=== PATIENT | female | born 1930 | race African-American/Black ===

== ENCOUNTER 2016-05-24 05:22 | Day surgery (SDC) | payer MEDICARE ==
[~2016-05-24 05:22] MED LIST: CEFAZOLIN 1 GM/D5W RTU 1 GM/50 ML RTUPB IV SCH; CEFAZOLIN SODIUM 1 GM in DEXTROSE 5%-WATER 50 ML IV SCH
[2016-05-24 06:10] LABS: HEMATOCRIT 35.4 % (36.0-47.0); HEMOGLOBIN 11.5 g/dL (12.0-15.5); HGB HCT DIFFERENCE -0.9; MEAN CORPUSCULAR HEMOGLOBIN 25.8 pg (27.0-33.4); MEAN CORPUSCULAR HGB CONC 32.6 g/dL (32.0-36.0); MEAN CORPUSCULAR VOLUME 79 fl (80-97); RED BLOOD COUNT 4.47 10^6/uL (3.72-5.28); RED CELL DISTRIBUTION WIDTH 20.6 % (11.5-14.0); WHITE BLOOD COUNT 5.9 10^3/uL (4.0-10.5)
[2016-05-24 06:25] LABS: ANION GAP 16 (5-19); BLOOD UREA NITROGEN 49 mg/dL (7-20); CALCIUM 10.4 mg/dL (8.4-10.2); CARBON DIOXIDE 24 mmol/L (22-30); CHLORIDE 102 mmol/L (98-107); CREATININE RESULT 4.05 mg/dL (0.52-1.25); GLUCOSE 87 mg/dL (75-110); POTASSIUM 3.9 mmol/L (3.6-5.0); SODIUM 141.9 mmol/L (137-145)
[2016-05-24] MEDS ORDERED: LIDOCAINE 1% INJ-PF (10 MG/ML) 30 ML SDV ONE (06:40)
[2016-05-24] MEDS ORDERED: BUPIVACAINE HCL 0.25 % INJ/PF (2.5 MG/1 ML) 30 ML VIAL ONE (06:41)
[2016-05-24] MEDS ORDERED: LIDOCAINE 0.5% INJ-PF (5 MG/ML) 50 ML SDV ONE (06:41)
[2016-05-24] MEDS ORDERED: BACITRACIN INJ 50,000 UNIT VIAL ONE (06:41)
[2016-05-24] MEDS ORDERED: HEPARIN SOD (PORCINE) 1,000 UNIT/ML 10 ML VIAL ONE (06:41)
[2016-05-24] MEDS ORDERED: ONDANSETRON HCL INJ/PF 4 MG/2 ML SDV ONE (07:06)
[2016-05-24] MEDS ORDERED: PROPOFOL INJ 200 MG/20 ML VIAL IV ONE ×3 (07:06→10:36)
[2016-05-24] MEDS ORDERED: FENTANYL CITRATE INJ/PF 100 MCG/2 ML AMPUL ONE ×2 (07:06→10:35)
[2016-05-24] MEDS ORDERED: CEFAZOLIN INJ 1 GM VIAL ONE ×2 (07:42→08:22)
[2016-05-24] MEDS ORDERED: FENTANYL CITRATE INJ/PF 100 MCG/2 ML AMPUL IV PRN ×2 (08:51)
[2016-05-24] MEDS ORDERED: MEPERIDINE HCL/PF INJ 25 MG/1 ML DISP.SYRIN IV PRN (08:51)
[2016-05-24] MEDS ORDERED: ONDANSETRON HCL INJ/PF 4 MG/2 ML SDV IV PRN (08:51)
[2016-05-24] MEDS ORDERED: DIPHENHYDRAMINE HCL 50 MG/ML VIAL IV PRN (08:51)
--- NOTE | 2016-05-24 11:20 | PDOC DISCHARGE SUMMARY ---
Discharge Summary (SDC) - Discharge Final Diagnosis: #1 AV fistula right arm, brachial to brachial. #2 end-stage renal disease needing hemodialysis. #3 hypertension. Date of Surgery: 05/24/16 Discharge Date: 05/24/16 Condition: Fair Treatment or Instructions: #1 activities within moderation encouraged. #2 follow up in my office by appointment in about 1 week. Call for appointment. #3 the wounds covered clean and dry until office visit. Empty and recharge drain as needed. Instructed patient and family in use. #4 hold off on school/work until evaluation in office. #5 may shower in 48 hours, keep operated area as dry as possible. #6 discharge from ambulatory when ASU criteria met. #7 medications per medication reconciliation sheet. #8 Percocet by prescription.. Also may have one Percocet up to every 4 hours when necessary for pain greater than 4 out of 10 while in the ASU Prescriptions: Oxycodone HCl/Acetaminophen [Percocet 5-325 mg Tablet] 1 tab PO ASDIR PRN #15 tab PRN Reason: Discharge Diet: Other (Comments) - Renal Respiratory Treatments at Home: Deep Breathing/Coughing Report the Following to Your Physician Immediately: Unusual Bleeding
--- NOTE | 2016-05-24 12:05 | EKG REPORT ---
SEVERITY:- ABNORMAL ECG - SINUS RHYTHM PROBABLE LEFT ATRIAL ABNORMALITY LEFT VENTRICULAR HYPERTROPHY ST ELEVATION SUGGESTS PERICARDITIS : Confirmed by: Estrellita Fitzgerald MD 24-May-2016 12:05:10
[2016-05-24 13:24] VITALS: BP 146/79
--- NOTE | 2016-05-24 14:52 | Operative Report ---
Operative Report DATE OF SURGERY: 05/24/16 PREOPERATIVE DIAGNOSIS: #1 AV fistula right arm, brachial to brachial. #2 end- stage renal disease needing hemodialysis. #3 hypertension. POSTOPERATIVE DIAGNOSIS: #1 AV fistula right arm, brachial to brachial. #2 end- stage renal disease needing hemodialysis. #3 hypertension. OPERATION: Insertion of right arm brachial to brachial transposed fistula, second stage. SURGEON: TIKA SANTOYO PAINTER DECORATOR: DIOGENES SOMERS ANESTHESIA: LMAC TISSUE REMOVED OR ALTERED: Not applicable. COMPLICATIONS: None ESTIMATED BLOOD LOSS: 20 mL. INTRAOPERATIVE FINDINGS: Of a quite robust brachial vein fistula easily about 7 mm in diameter. Transposed laterally with good immediate function. Very satisfactory hemostasis. Nerves were preserved. A drain left in place as a precaution. PROCEDURE: Operative Report PROCEDURE: After reviewing the procedure with the patient, and her family, she was taken to the operating room. The patient was sedated and the right upper extremity prepared with chlorhexidine and draped out with sterile linen. After the "" universal timeout", in which it was verified that the patient [received IV antibiotics] the procedure commenced. The sterilely sheathed ultrasound probe was used to evaluate the size and topographic location of the existing veins. The fistula function was noted. This was transcribed topographical using a marking pen. Local anesthesia was infiltrated and a longitudinal incision started just above the elbow and dissection proceeded down to the vein. Sequential infiltration of local anesthesia, incision and dissection of the vein proceeded up to the axillary fold. The brachial vein was now dissected away from its branches which were either clipped and/or ligated and divided. In this way the brachial vein was freed up for its entire visible length. Its length was now measured with a dry umbilical tape which was used to transpose a tunnel onto the skin anteriorly and laterally. With this marked in ink, local anesthesia was infiltrated in the skin and subcutaneous tissue of the tunnel. A [place] tunneler was now inserted and the tunnel exposed. Serial sutures of 3-0 PDS were placed at about 3 cm intervals and placed on clamps. These gave lateral traction. Cautery was now used to incise the subcutaneous tissues so as to reveal the [place] tunneler. The length of the basilic vein was now shifted into the tunnel and sustained there by interrupted sutures of 3-0 PDS placed from the subcutaneous tissue on one side of the tunnel to the other. Once this was done the lateral flap was now approximated to the medial flap using interrupted sutures of 3-0 PDS. The fistula was interrogated from time to time to make sure that it was patent. A 15 Salvadorean Silvano drain was placed deep in the wound and exiting inferiorly the it was sutured using 2-0 Prolene. The skin was closed with a continuous subcutaneous suture of 4-0 Monocryl. Steri-Strips were applied over benzoin and then a Kerlix wrap. The procedure was concluded. Copies dictated operative report to Dr. Tika Tejeda MD thank you. DICTATING PHYSICIAN: TIKA TEJEDA M.D
--- NOTE | 2016-05-24 15:15 | Operative Report ---
Operative Report DATE OF SURGERY: 05/24/16 PREOPERATIVE DIAGNOSIS: #1 AV fistula right arm, brachial to brachial. #2 end- stage renal disease needing hemodialysis. #3 hypertension. POSTOPERATIVE DIAGNOSIS: #1 AV fistula right arm, brachial to brachial. #2 end- stage renal disease needing hemodialysis. #3 hypertension. OPERATION: Insertion of right arm brachial to brachial transposed fistula, second stage. SURGEON: TIKA SANTOYO ELECTRICIAN SUBSTATION SUPERVISOR: DIOGENES SOMERS ANESTHESIA: LMAC TISSUE REMOVED OR ALTERED: Not applicable. ESTIMATED BLOOD LOSS: 20 mL. INTRAOPERATIVE FINDINGS: Of a quite robust brachial vein fistula easily about 7 mm in diameter. Transposed laterally with good immediate function. Very satisfactory hemostasis. Nerves were preserved. A drain left in place as a precaution. PROCEDURE: The first mate aided with tissue retraction, control of bleeding and wound closure. As well as the steps of the porcedure.
== END 2016-05-24 13:00 | disposition home or self-care (01) ==
LOC: OROUT 05:22
PROVIDERS: ATTEND Surgery
PROC: 05S90ZZ Reposition Right Brachial Vein, Open Approach (ICD-10-PCS; principal; 2016-05-24 08:00)
DX: T82.858A Stenosis of other vascular prosthetic devices, implants and grafts, initial encounter (principal); Y83.2 Surgical operation with anastomosis, bypass or graft as the cause of abnormal reaction of the patient, or of later complication, without mention of misadventure at the time of the procedure; I12.0 Hypertensive chronic kidney disease with stage 5 chronic kidney disease or end stage renal disease; N18.6 End stage renal disease; Z99.2 Dependence on renal dialysis; E87.5 Hyperkalemia; M19.90 Unspecified osteoarthritis, unspecified site; Z87.39 Personal history of other diseases of the musculoskeletal system and connective tissue; Z79.899 Other long term (current) drug therapy
CPT/HCPCS: 36821; 36415; 85027; 80048; 71010; 93005; 93010; J3490 ×3; J0690; J3010; J1644; J2405; J2704; 1844

== ENCOUNTER 2016-11-01 08:47 | Day surgery (SDC) | payer MEDICARE ==
[2016-11-01] MEDS ORDERED: HEPARIN SOD (PORCINE) 5,000 UNIT/ML 1 ML SYRINGE ONE (10:10)
[2016-11-01] MEDS ORDERED: LIDOCAINE 0.5% INJ-PF (5 MG/ML) 50 ML SDV ONE (10:10)
[2016-11-01] MEDS ORDERED: FENTANYL CITRATE INJ/PF 100 MCG/2 ML AMPUL ONE (10:45)
[2016-11-01] MEDS ORDERED: MIDAZOLAM 2 MG/2 ML INJ ONE (10:45)
--- NOTE | 2016-11-01 10:55 | PDOC H&P ---
General Chief Complaint: The patient has right arm transposed basilic vein fistula has been malfunctioning. She is referred across for angiogram and possible angioplasty. - Current Medications/Allergies Home Medications: Tramadol HCl 50 mg PO BID 07/16/14 Clonidine HCl 0.3 mg PO BID 05/24/16 Docusate Sodium [Colace 100 mg Capsule] 100 mg PO DAILY 05/24/16 Hydrochlorothiazide 12.5 mg PO DAILY 05/24/16 Cinacalcet HCl [Sensipar 30 mg Tablet] 1 tab PO DAILY 11/01/16 Sevelamer Carbonate [Renvela] 1 pkt PO BID 11/01/16 Allergies/Adverse Reactions: No Known Allergies Allergy (Verified 03/17/16 09:49) Past Medical History Cardiac Medical History: Reports: Hypertension Denies: Coronary Artery Disease, Myocardial Infarction Pulmonary Medical History: Denies: Asthma, Bronchitis, Chronic Obstructive Pulmonary Disease (COPD), Pneumonia, Tuberculosis Neurological Medical History: Denies: Seizures Musculoskeltal Medical History: Reports: Arthritis, Gout Hematology: Reports: Anemia Past Surgical History Past Surgical History: Reports: Hysterectomy, Tonsillectomy Denies: Pacemaker Family History Family History: Hyperlipidemia, Hypertension Parental Family History Reviewed: No Children Family History Reviewed: No Sibling(s) Family History Reviewed.: No Social History Smoking Status: Former Smoker Frequency of Alcohol Use: None Hx Recreational Drug Use: No Hx Prescription Drug Abuse: No Physical Exam Vital Signs: Temp Pulse Resp BP Pulse Ox 98.3 F 80 20 179/76 H 100 11/01/16 09:49 11/01/16 09:49 11/01/16 09:49 11/01/16 09:49 11/01/16 09:49 Intake & Output 10/31/16 11/01/16 11/02/16 06:59 06:59 06:59 Weight 48.3 kg Additional comments: Constitutional: Well-developed well-nourished -Danish Lady. No apparent acute distress. Eyes: Mucous membranes pink and moist, pupils equal and reactive to light. Conjunctiva normal. Cornea normal. ENT: Hearing grossly normal. External pinna normal to inspection. Teeth intact. Tongue normal to inspection. Cardiac: Heart sounds 1 and 2 normal. No murmurs. Respiratory breath sounds are present bilaterally, normal. Normal respiratory effort. Skin: Normal to inspection. No ulcers, normal turgor. Psychiatric: Judgment, memory, insight seem normal. Mood is pleasant and appropriate. Extremities: Upper extremities show normal range of movement. Pulses present noted to the radial arteries. Capillary refill normal. No cyanosis noted. No muscle wasting noted. Right arm transposed basilic fistula firm. Lower extremities show normal range of movement. Pulses present noted to the dorsalis pedis artery. Capillary refill normal. No cyanosis noted. No muscle wasting noted. Impression/Plan Impression: #1 Malfunctioning AV fistula. #2 ESRD. #3 Hypertension. Plan: Fistula angio, poss angioplasty. Pateint is agreeable.
--- NOTE | 2016-11-01 11:53 | PDOC DISCHARGE SUMMARY ---
Discharge Summary (SDC) - Discharge Final Diagnosis: #1 Malfunctioning AV fistula. #2 ESRD. #3 Hypertension. Date of Surgery: 11/01/16 Discharge Date: 11/01/16 Condition: Good Treatment or Instructions: Discharge home [after recovery per ASU criteria]. Diet , [renal],as tolerated, when fully awake advance as tolerated. Activities within moderation encouraged. Follow up in my office by appointment in about [1 week]. Call for appointment. Leave wounds [covered], [keep clean and dry, until hemodialysis.. Meds per med rec. May shower [in 48 hrs], [try to keep operated area as dry as possible]. Discharge Diet: Other (Comments) - Renal Respiratory Treatments at Home: Deep Breathing/Coughing Discharge Activity: Activity As Tolerated Report the Following to Your Physician Immediately: Shortness of Breath, Unusual Bleeding
--- NOTE | 2016-11-01 11:58 | Operative Report ---
Operative Report DATE OF SURGERY: 11/01/16 PREOPERATIVE DIAGNOSIS: #1 Malfunctioning AV fistula. #2 ESRD. #3 Hypertension. POSTOPERATIVE DIAGNOSIS: #1 Malfunctioning AV fistula. Post angioplasty. #2 ESRD. #3 Hypertension. OPERATION: 1. Needle access into arteriovenous fistula right transposed basilic. 2. Peripheral arterial venous angioplasty. 3. Central superior vena cava angioplasty. 4. Angiogram and interpretation. SURGEON: TIKA SANTOYO BUSINESS SERVICES SPECIALIST SALES: None ANESTHESIA: Moderate Sedation TISSUE REMOVED OR ALTERED: Not applicable. COMPLICATIONS: None ESTIMATED BLOOD LOSS: 2 mL. INTRAOPERATIVE FINDINGS: Of a fairly firm fistula initially, much appropriately softer after angioplasty. A stenosis of 50 mm at 15 cm of about half a centimeter length, 70% of the adjacent lumen was completely eradicated, as well as the 80% stenosis at the right subclavian, superior vena cava junction. Hard copy documentation preserved. Both corrected by angioplasty with an 8 mm angioplasty balloon. PROCEDURE: PROCEDURE: After verifying the procedure and having obtained informed consent, the patient's right arm was prepared with Chlorhexidine and draped out with sterile linen. Local anesthesia infiltrated. Percutaneous access into the fistula ,[ antegrade], obtained about [4 cm] from the arteriovenous anastomosis using a 18-gauge needle a 0.035 [place] wire was inserted, and over this, a 6 Hebrew short introducer was placed. Angiogram was done demonstrating the above findings. This was followed by a [8 mm] angioplasty balloon . Angioplasty was Done at the superior vena cava stenosis inflating using a 3 mils syringe for 2 minutes. Completion angiogram demonstrated eradication of the stenosis. The balloon was now withdrawn and inflation done using a female syringe at the peripheral culprit lesion. Complete resolution noted..]. Completion angiogram demonstrated [satisfactory result]. The instrumentation was now withdrawn over a short piece of catheter and a 5-0 Prolene suture. Dressings applied, procedure concluded. Exposure time: 1.6 minute Radiation: 3.2 mcg santos per centimeter squared Contrast: 25 mL of Isovue-300, low osmolality. DICTATING PHYSICIAN: TIKA BAKER M.D. cc: TIKA BAKER M.D. ([id number]) >>
[2016-11-01] MEDS ORDERED: OXYCODONE-ACETAMINOPHEN 5-325 MG TABLET ONE (12:20)
[2016-11-01 13:58] VITALS: BP 153/67
--- NOTE | 2016-11-01 14:36 | RADIOLOGY REPORT (SQ) ---
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 FLUOROSCOPY TIME: 1.6 minutes. 17 images saved to PACS. TECHNIQUE: Intra-operative images acquired during surgical procedure to evaluate progress. NUMBER OF IMAGES: 17 images. LIMITATIONS: None. FINDINGS: Imaging in fluoroscopy during right upper extremity dialysis access evaluation and plasty by Dr. Tejeda . Please refer to the operative report for further details. IMPRESSION: INTRA PROCEDURAL IMAGING ABOVE . COMMENT: Quality ID [id number]: Final reports for procedures using fluoroscopy that document radiation exp osure indices, or exposure time and number of fluorographic images (if radiation exposure indices are not available) Please consult full operative report of the attending physician for description of the procedure. TECHNICAL DOCUMENTATION: JOB ID: [id number] [employer]- All Rights Reserved
== END 2016-11-01 13:12 | disposition home or self-care (01) ==
LOC: SC 08:47
PROVIDERS: ATTEND Surgery
PROC: 057B3DZ Dilation of Right Basilic Vein with Intraluminal Device, Percutaneous Approach (ICD-10-PCS; principal; 2016-11-01)
DX: T82.858A Stenosis of other vascular prosthetic devices, implants and grafts, initial encounter (principal); Y83.2 Surgical operation with anastomosis, bypass or graft as the cause of abnormal reaction of the patient, or of later complication, without mention of misadventure at the time of the procedure; I12.0 Hypertensive chronic kidney disease with stage 5 chronic kidney disease or end stage renal disease; N18.6 End stage renal disease; Z99.2 Dependence on renal dialysis; M19.90 Unspecified osteoarthritis, unspecified site; D64.9 Anemia, unspecified; M10.9 Gout, unspecified; Z79.891 Long term (current) use of opiate analgesic; Z79.899 Other long term (current) drug therapy; Z87.891 Personal history of nicotine dependence
CPT/HCPCS: 36907; 36902; C1725; Q9967; C1769; J2250; J1644 ×2; J3010; J3490; A9270

== ENCOUNTER → 2017-03-21 | Outpatient (CLI) | payer MEDICARE ==
--- NOTE | 2017-03-21 09:07 | RADIOLOGY REPORT (SQ) ---
EXAM DESCRIPTION: SHOULDER RIGHT 2 OR MORE VIEWS COMPLETED DATE/TIME: 03/21/2017 8:26 am REASON FOR STUDY: PAIN IN RIGHT ARM M79.601 PAIN IN RIGHT ARM COMPARISON: None. NUMBER OF VIEWS: Three views. TECHNIQUE: Internal rotation, external rotation, and Y view images acquired of the right shoulder. LIMITATIONS: None. FINDINGS: MINERALIZATION: Normal. BONES: No acute fracture or dislocation. No worrisome bone lesions. No significant osteophytes. GLENOHUMERAL JOINT: No significant findings. ACROMIOCLAVICULAR JOINT: There is joint space narrowing and small osteophytes. SOFT TISSUES: No calcifications. VISUALIZED RIBS, SPINE, AND LUNG: No other significant finding. OTHER: There are surgical clips in the axilla and along the upper right arm. IMPRESSION: Mild degenerative changes. No acute findings. TECHNICAL DOCUMENTATION: JOB ID: [id number] [employer]- All Rights Reserved
== END ==
LOC: OD 08:10
PROVIDERS: ATTEND Surgery
DX: M79.601 Pain in right arm (principal)

== ENCOUNTER 2017-04-04 10:52 | Day surgery (SDC) | payer MEDICARE, MEDICAID ==
[~2017-04-04 10:52] MED LIST changes: -CEFAZOLIN 1 GM/D5W RTU 1 GM/50 ML RTUPB IV SCH; -CEFAZOLIN SODIUM 1 GM in DEXTROSE 5%-WATER 50 ML IV SCH; +DIAZEPAM 5 MG TABLET PO PRN; +OXYCODONE-ACETAMINOPHEN 5-325 MG TABLET PO PRN
[2017-04-04] MEDS ORDERED: LIDOCAINE 0.5% INJ-PF (5 MG/ML) 50 ML SDV ONE (11:41)
[2017-04-04] MEDS ORDERED: MIDAZOLAM 2 MG/2 ML INJ ONE (11:42)
[2017-04-04] MEDS ORDERED: HEPARIN SOD (PORCINE) 5,000 UNIT/ML 1 ML SYRINGE ONE (11:42)
[2017-04-04] MEDS ORDERED: FENTANYL CITRATE INJ/PF 100 MCG/2 ML AMPUL ONE (11:42)
[2017-04-04 12:06] LABS: HEMATOCRIT 36.1 % (36.0-47.0); HEMOGLOBIN 11.7 g/dL (12.0-15.5); MEAN CORPUSCULAR HEMOGLOBIN 27.5 pg (27.0-33.4); MEAN CORPUSCULAR HGB CONC 32.5 g/dL (32.0-36.0); MEAN CORPUSCULAR VOLUME 85 fl (80-97); PLATELET COUNT 322 10^3/uL (150-450); RED BLOOD COUNT 4.26 10^6/uL (3.72-5.28); RED CELL DISTRIBUTION WIDTH 16.9 % (11.5-14.0)
[2017-04-04 12:17] LABS: ANION GAP 18 (5-19); BLOOD UREA NITROGEN 57 mg/dL (7-20); CARBON DIOXIDE 21 mmol/L (22-30); CHLORIDE 107 mmol/L (98-107); GLUCOSE 90 mg/dL (75-110); POTASSIUM 4.8 mmol/L (3.6-5.0); SODIUM 145.6 mmol/L (137-145)
[2017-04-04 12:46] LABS: ABSOLUTE LYMPHOCYTES# (MANUAL) 1.2 10^3/uL (0.5-4.7); ABSOLUTE MONOCYTES # (MANUAL) 0.6 10^3/uL (0.1-1.4); ABSOLUTE NEUTROPHILS# (MANUAL) 4.8 10^3/uL (1.7-8.2); ANISOCYTOSIS 1+; BASOPHILS % (MANUAL) 1 % (0-2); EOSINOPHILS % (MANUAL) 4 % (0-6); LYMPHOCYTES % (MANUAL) 17 % (13-45); MONOCYTES % (MANUAL) 9 % (3-13); OVALOCYTES 1+; PLATELET COMMENT ADEQUATE; POIKILOCYTOSIS 1+; SEGMENTED NEUTROPHILS % (MAN) 69 % (42-78); TOTAL CELLS COUNTED 100
--- NOTE | 2017-04-04 13:12 | PDOC DISCHARGE SUMMARY ---
Discharge Summary (SDC) - Discharge Final Diagnosis: #1 malfunctioning arteriovenous fistula. 2. End-stage renal disease on hemodialysis. 3. Multiple comorbidities. Date of Surgery: 04/04/17 Discharge Date: 04/04/17 Condition: Fair Treatment or Instructions: Discharge home [after recovery per ASU criteria]. Diet , [renal],as tolerated, when fully awake advance as tolerated. Activities within moderation encouraged. Follow up in my office by appointment in about [1 month. Call for appointment. Leave wounds [covered], [keep clean and dry, until hemodialysis]. Meds per med rec. May shower [in 48 hrs], [try to keep operated area as dry as possible]. Referrals: EFREN ROMAN MD [Primary Care Provider] - Discharge Diet: Other (Comments) - Renal. Respiratory Treatments at Home: Deep Breathing/Coughing Discharge Activity: Activity As Tolerated Report the Following to Your Physician Immediately: Shortness of Breath, Unusual Bleeding
--- NOTE | 2017-04-04 13:15 | Operative Report ---
Operative Report DATE OF SURGERY: 04/04/17 PREOPERATIVE DIAGNOSIS: #1 malfunctioning arteriovenous fistula. 2. End-stage renal disease on hemodialysis. 3. Multiple comorbidities. POSTOPERATIVE DIAGNOSIS: #1 malfunctioning arteriovenous fistula. Post angioplasty. 2. End-stage renal disease on hemodialysis. 3. Multiple comorbidities. OPERATION: 1. Needle access into right arm transposed basilic fistula. 2. Angioplasty. 3. Angiogram and interpretation. SURGEON: TIKA SANTOYO PADDED PRODUCTS INSPECTOR TRIMMER: None ANESTHESIA: Moderate Sedation TISSUE REMOVED OR ALTERED: Not applicable. COMPLICATIONS: None. ESTIMATED BLOOD LOSS: 2 mL. INTRAOPERATIVE FINDINGS: Of a well founded although firm fistula. Concordant with the findings of 90% stenosis for about a centimeter long and about 20 cm from the anastomosis. With an adjacent collateral indicating hemodynamic significance. A mild area of stenosis noted in the superior vena cava, does not seem to be clinically significant. Post angiogram shows good resolution with rebound less than 5%. In the future a somewhat larger balloon possibly 8 mm may be indicated possibly even a drug-eluting balloon. PROCEDURE: PROCEDURE: After verifying the procedure and having obtained informed consent, the patient's right arm was prepared with Chlorhexidine and draped out with sterile linen. Local anesthesia infiltrated. Percutaneous access into the fistula ,[ antegrade], obtained about [4 cm] from the arteriovenous anastomosis using a micro puncture needle followed by micro puncture wire and then a micro puncture catheter. A 0.035 [place] wire was inserted, and over this, a 6 Angolan short introducer was placed.Angiogram demonstrated the aforementioned findings. Angioplasty was elected. This was followed by a [7-mm] angioplasty balloon . Angioplasty was Done at the culprit segment. Inflating using a 3 mils syringe for 2 minutes. This was repeated.]. Completion angiogram demonstrated [satisfactory result]. The instrumentation was now withdrawn over hand pressure for 10 minutes. Dressings applied, procedure concluded. Exposure time: 0.4 minutes Radiation: 5.6 mCi Contrast: 20 mL of Isovue-300, low osmolality. DICTATING PHYSICIAN: TIKA BAKER M.D. cc: TIKA BAKER M.D. ([id number]) >>
[2017-04-04 14:37] VITALS: BP 179/84
--- NOTE | 2017-04-04 16:42 | RADIOLOGY REPORT (SQ) ---
EXAM DESCRIPTION: FISTULAGRAM W/PLASTY COMPLETED DATE/TIME: 04/04/2017 3:10 pm REASON FOR STUDY: T82.858A M79.601 PAIN IN RIGHT ARM T82.858A STENOSIS OF OTHER VASCULAR PROSTH DE V/GRFT, INIT COMPARISON: None. FLUOROSCOPY TIME: 0.4 minutes. 16 images saved to PACS. TECHNIQUE: Intra-operative images acquired during surgical procedure to evaluate progress. NUMBER OF IMAGES: 16 images. LIMITATIONS: None. FINDINGS: Imaging in fluoroscopy during right upper extremity dialysis access evaluation and plasty by Dr. Tejeda . Please refer to the operative report for further details. IMPRESSION: INTRA PROCEDURAL IMAGING ABOVE . COMMENT: Quality ID 145: Final reports for procedures using fluoroscopy that document radiation exp osure indices, or exposure time and number of fluorographic images (if radiation exposure indices are not available) Please consult full operative report of the attending physician for description of the procedure. TECHNICAL DOCUMENTATION: JOB ID: [id number] [employer]- All Rights Reserved
== END 2017-04-04 14:25 | disposition home or self-care (01) ==
LOC: CCL 10:52
PROVIDERS: ATTEND Surgery
PROC: 057B3DZ Dilation of Right Basilic Vein with Intraluminal Device, Percutaneous Approach (ICD-10-PCS; principal; 2017-04-04)
DX: T82.858A Stenosis of other vascular prosthetic devices, implants and grafts, initial encounter (principal); Y83.2 Surgical operation with anastomosis, bypass or graft as the cause of abnormal reaction of the patient, or of later complication, without mention of misadventure at the time of the procedure; I12.9 Hypertensive chronic kidney disease with stage 1 through stage 4 chronic kidney disease, or unspecified chronic kidney disease; N18.6 End stage renal disease; Z99.2 Dependence on renal dialysis; M19.90 Unspecified osteoarthritis, unspecified site; M79.601 Pain in right arm; E87.5 Hyperkalemia; Z87.39 Personal history of other diseases of the musculoskeletal system and connective tissue; Z79.899 Other long term (current) drug therapy
CPT/HCPCS: 36415; 85025; 80048; 36902; C1752; C1725; C1894; Q9967; C1769; J2250; J1644 ×2; A9270 ×2; J3010; J3490

== ENCOUNTER 2017-06-13 08:54 | Day surgery (SDC) | payer MEDICARE, MEDICAID ==
[~2017-06-13 08:54] MED LIST changes: -OXYCODONE-ACETAMINOPHEN 5-325 MG TABLET PO PRN
[2017-06-13 10:51] LABS: HEMATOCRIT 31.4 % (36.0-47.0); HEMOGLOBIN 10.2 g/dL (12.0-15.5); MEAN CORPUSCULAR HEMOGLOBIN 28.1 pg (27.0-33.4); MEAN CORPUSCULAR HGB CONC 32.5 g/dL (32.0-36.0); MEAN CORPUSCULAR VOLUME 87 fl (80-97); PLATELET COUNT 255 10^3/uL (150-450); RED BLOOD COUNT 3.62 10^6/uL (3.72-5.28); RED CELL DISTRIBUTION WIDTH 15.8 % (11.5-14.0); WHITE BLOOD COUNT 5.7 10^3/uL (4.0-10.5)
[2017-06-13] MEDS ORDERED: LIDOCAINE 0.5% INJ-PF (5 MG/ML) 50 ML SDV ONE (11:00)
[2017-06-13] MEDS ORDERED: MIDAZOLAM 2 MG/2 ML INJ ONE (11:00)
[2017-06-13] MEDS ORDERED: FENTANYL CITRATE INJ/PF 100 MCG/2 ML AMPUL ONE (11:01)
[2017-06-13] MEDS ORDERED: HEPARIN SOD (PORCINE) 5,000 UNIT/ML 1 ML SYRINGE ONE (11:01)
[2017-06-13 11:22] LABS: ANION GAP 13 (5-19); BLOOD UREA NITROGEN 48 mg/dL (7-20); CALCIUM 10.3 mg/dL (8.4-10.2); CARBON DIOXIDE 28 mmol/L (22-30); CHLORIDE 103 mmol/L (98-107); GLUCOSE 90 mg/dL (75-110); POTASSIUM 4.4 mmol/L (3.6-5.0); SODIUM 144.3 mmol/L (137-145)
--- NOTE | 2017-06-13 13:06 | Discharge Summary ---
Discharge Summary (SDC) - Discharge Final Diagnosis: #1 malfunctioning arteriovenous fistula, right basilic transposition. 2. End-stage renal disease on hemodialysis. 3. Hypertension. Date of Surgery: 06/13/17 Discharge Date: 06/13/17 Condition: Fair Treatment or Instructions: Discharge home [after recovery per ASU criteria]. Diet , [renal],as tolerated, when fully awake advance as tolerated. Activities within moderation encouraged. Follow up in my office by appointment in about 1 month call for appointment. Leave wounds [covered], [keep clean and dry, until hemodialysis. Meds per med rec. Hold of on school/work [until evaluation in office]. May shower [in 48 hrs], [try to keep operated area as dry as possible]. Referrals: EFREN ROMAN MD [Primary Care Provider] - Discharge Diet: Other (Comments) - Renal. Respiratory Treatments at Home: Deep Breathing/Coughing Discharge Activity: Activity As Tolerated Report the Following to Your Physician Immediately: Shortness of Breath, Unusual Bleeding
--- NOTE | 2017-06-13 13:11 | Operative Report ---
Operative Report DATE OF SURGERY: 06/13/17 PREOPERATIVE DIAGNOSIS: #1 malfunctioning arteriovenous fistula, right basilic transposition. 2. End-stage renal disease on hemodialysis. 3. Hypertension. POSTOPERATIVE DIAGNOSIS: #1 malfunctioning arteriovenous fistula, right basilic transposition. 2. End-stage renal disease on hemodialysis. 3. Hypertension. OPERATION: 1. Needle introduction of the fistula. 2. Balloon angioplasty and AV fistula. 3. Balloon angioplasty of AV fistula. 4. Angiogram and interpretation. SURGEON: TIKA SANTOYO TRAIN GATEMAN: None. ANESTHESIA: Moderate Sedation TISSUE REMOVED OR ALTERED: Not applicable. COMPLICATIONS: None. ESTIMATED BLOOD LOSS: 2 mL. INTRAOPERATIVE FINDINGS: Of an initially very firm fistula. Concordant with that his stenosis about 80% of the adjacent lumen noted for 3 cm from 26 cm from the anastomosis. Challenging to eradicate the waist however this was accomplished using an 8 mm angioplasty balloon. Pressures as high as 12 trevin. Further improvement with a new tonics, drug-eluting balloon inflating to 12 trevin for 3 minutes. Very satisfactory result with appropriate softening of the fistula. PROCEDURE: PROCEDURE: After verifying the procedure and having obtained informed consent, the patient's right arm was prepared with Chlorhexidine and draped out with sterile linen. Local anesthesia infiltrated. Percutaneous access into the fistula ,[ antegrade], obtained about [6 cm] from the arteriovenous anastomosis using a micro puncture needle followed by micro puncture wire and then a micro puncture catheter. Angiogram demonstrated the aforementioned findings. Angioplasty was elected. A 0.035 [place] wire was inserted, and over this, a 7 [place]uran short introducer was placed, this was followed by a [8-mm ] angioplasty balloon . Angioplasty was Done at the culprit area using a 3 mils syringe for 2 minutes. Results suboptimal. Inflating inflating using an insufflator up to 12 trevin for 2 minutes. The result is much improved. It was decided to use a drug-eluting balloon in this patient who has come back within 3 months with virtually identical lesion. A drug-eluting balloon was now inserted to the appropriate level and insufflated up to 12 trevin sustained for 3 minutes.]. Completion angiogram demonstrated [satisfactory result]. The instrumentation was now withdrawn over hand pressure for 10 minutes. Dressings applied, procedure concluded. Exposure time: 0.2 minutes. Radiation: 6.45 [place] santos. Contrast: 25 mils of Isovue-300, low osmolality. DICTATING PHYSICIAN: TIKA BAKER M.D. cc: TIKA BAKER M.D. ([id number]) >>
[2017-06-13 15:12] VITALS: BP 175/85
--- NOTE | 2017-06-13 15:20 | RADIOLOGY REPORT (SQ) ---
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 FLUOROSCOPY TIME: 0.2 minutes. 24 images saved to PACS. TECHNIQUE: Intra-operative images acquired during surgical procedure to evaluate progress. NUMBER OF IMAGES: 24 images. LIMITATIONS: None. FINDINGS: Imaging in fluoroscopy during right upper extremity dialysis access evaluation and plasty by Dr. Tejeda . Please refer to the operative report for further details. IMPRESSION: INTRA PROCEDURAL IMAGING ABOVE . COMMENT: Quality ID 145: Final reports for procedures using fluoroscopy that document radiation exp osure indices, or exposure time and number of fluorographic images (if radiation exposure indices are not available) Please consult full operative report of the attending physician for description of the procedure. TECHNICAL DOCUMENTATION: JOB ID: [id number] [employer]- All Rights Reserved Reading location - IP/workstation name: [email or web address]
== END 2017-06-13 15:45 | disposition home or self-care (01) ==
LOC: CCL 08:54
PROVIDERS: ATTEND Surgery
DX: T82.858A Stenosis of other vascular prosthetic devices, implants and grafts, initial encounter (principal); Y83.2 Surgical operation with anastomosis, bypass or graft as the cause of abnormal reaction of the patient, or of later complication, without mention of misadventure at the time of the procedure; I12.0 Hypertensive chronic kidney disease with stage 5 chronic kidney disease or end stage renal disease; N18.6 End stage renal disease; Z99.2 Dependence on renal dialysis; M19.90 Unspecified osteoarthritis, unspecified site; E87.5 Hyperkalemia; M79.601 Pain in right arm; Z87.39 Personal history of other diseases of the musculoskeletal system and connective tissue; Z79.899 Other long term (current) drug therapy; Z79.891 Long term (current) use of opiate analgesic
CPT/HCPCS: 36415; 85027; 80048; 36902; C1725; C1752; C1894; Q9967; C1769; J2250; J1644 ×2; J3010; J3490

== ENCOUNTER 2017-08-04 08:54 | Emergency (ER) | payer MEDICARE, MEDICAID ==
[2017-08-04 10:35] LABS: ABSOLUTE BASOPHILS # (AUTO) 0.1 10^3/uL (0.0-0.2); ABSOLUTE EOSINOPHILS # (AUTO) 0.1 10^3/uL (0.0-0.6); ABSOLUTE LYMPHOCYTES (AUTO) 0.9 10^3/uL (0.5-4.7); ABSOLUTE MONOCYTES (AUTO) 0.6 10^3/uL (0.1-1.4); ABSOLUTE NEUT (AUTO) 4.2 10^3/uL (1.7-8.2); BASOPHILS % (AUTO) 1.1 % (0-2); HEMATOCRIT 39.8 % (36.0-47.0); HEMOGLOBIN 12.8 g/dL (12.0-15.5); LYMPHOCYTES % (AUTO) 14.7 % (13-45); MEAN CORPUSCULAR HEMOGLOBIN 27.6 pg (27.0-33.4); MEAN CORPUSCULAR HGB CONC 32.3 g/dL (32.0-36.0); MEAN CORPUSCULAR VOLUME 86 fl (80-97); MONOCYTES % (AUTO) 10.9 % (3-13); PLATELET COUNT 222 10^3/uL (150-450); RED BLOOD COUNT 4.64 10^6/uL (3.72-5.28); RED CELL DISTRIBUTION WIDTH 15.3 % (11.5-14.0); SEGMENTED NEUTROPHILS % (AUTO) 71.3 % (42-78); TOTAL CELLS COUNTED % (AUTO) 100 %; WHITE BLOOD COUNT 5.9 10^3/uL (4.0-10.5)
--- NOTE | 2017-08-04 10:51 | RADIOLOGY REPORT (SQ) ---
EXAM DESCRIPTION: CHEST 2 VIEWS COMPLETED DATE/TIME: 08/04/2017 10:43 am REASON FOR STUDY: dialysis COMPARISON: Chest films 09/04/2014, 02/15/2016, 05/24/2016 EXAM PARAMETERS: NUMBER OF VIEWS: two views TECHNIQUE: Digital Frontal and Lateral radiographic views of the chest acquired. RADIATION DOSE: NA LIMITATIONS: Lateral film limited by patient motion FINDINGS: LUNGS AND PLEURA: No opacities, masses or pneumothorax. No pleural effusion. MEDIASTINUM AND HILAR STRUCTURES: No masses or contour abnormalities. HEART AND VASCULAR STRUCTURES: Moderate cardiomegaly, stable BONES: No acute findings. HARDWARE: None in the chest. OTHER: No other significant finding. IMPRESSION: Moderate cardiomegaly. No definite acute infiltrates TECHNICAL DOCUMENTATION: JOB ID: [id number] [employer]- All Rights Reserved Reading location - IP/workstation name: [email or web address]
[2017-08-04 10:57] LABS: ALANINE AMINOTRANSFERASE 28 U/L (9-52); ALBUMIN 3.9 g/dL (3.5-5.0); ALKALINE PHOSPHATASE 59 U/L (38-126); ANION GAP 16 (5-19); ASPARTATE AMINO TRANSFERASE 24 U/L (14-36); BILIRUBIN,DIRECT 0.6 mg/dL (0.0-0.4); BILIRUBIN,TOTAL 0.6 mg/dL (0.2-1.3); BLOOD UREA NITROGEN 61 mg/dL (7-20); CALCIUM 10.5 mg/dL (8.4-10.2); CARBON DIOXIDE 28 mmol/L (22-30); CHLORIDE 100 mmol/L (98-107); GLUCOSE 109 mg/dL (75-110); POTASSIUM 5.1 mmol/L (3.6-5.0); SODIUM 143.7 mmol/L (137-145); TOTAL PROTEIN 6.6 g/dL (6.3-8.2)
--- NOTE | 2017-08-04 11:49 | ER Document Report ---
ED General - General Chief Complaint: Pain All Over Stated Complaint: GENERALIZED PAIN Time Seen by Provider: 08/04/17 09:17 Mode of Arrival: Ambulatory Information source: Patient Notes: 87-year-old female history of chronic kidney disease stents with complaints of generalized body aches. pt denies nay fevers chills nausea ovmiting or diarrhea. TRAVEL OUTSIDE OF THE [place] IN LAST 30 DAYS: No - HPI Onset: This morning Onset/Duration: Persistent Quality of pain: Achy Severity: Mild Pain Level: 1 Associated symptoms: Body/muscle aches Exacerbated by: Denies Relieved by: Denies Similar symptoms previously: No Recently seen / treated by doctor: No - Related Data Allergies/Adverse Reactions: No Known Allergies Allergy (Verified 06/13/17 09:34) Past Medical History - Social History Smoking Status: Never Smoker Cigarette use (# per day): No Chew tobacco use (# tins/day): No Smoking Education Provided: No Drug Abuse: None Family History: Hyperlipidemia, Hypertension Patient has suicidal ideation: No Patient has homicidal ideation: No - Past Medical History Cardiac Medical History: Reports: Hx Hypertension Denies: Hx Coronary Artery Disease, Hx Heart Attack Pulmonary Medical History: Denies: Hx Asthma, Hx Bronchitis, Hx COPD, Hx Pneumonia, Hx Tuberculosis Neurological Medical History: Denies: Hx Cerebrovascular Accident, Hx Seizures Renal/ Medical History: Denies: Hx Peritoneal Dialysis Musculoskeltal Medical History: Reports Hx Arthritis, Reports Hx Gout Past Surgical History: Reports: Hx Hysterectomy, Hx Tonsillectomy. Denies: Hx Pacemaker - Immunizations Hx Diphtheria, Pertussis, Tetanus Vaccination: No - UNSURE Hx Pneumococcal Vaccination: 04/03/09 Review of Systems - Review of Systems Notes: REVIEW OF SYSTEMS: CONSTITUTIONAL : Denies fever, chills, or sweats. Denies recent illness. EENT: Denies eye, ear, throat, or mouth pain or symptoms. Denies nasal or sinus congestion or discharge. Denies throat, tongue, or mouth swelling or difficulty swallowing. CARDIOVASCULAR: Denies chest pain. Denies palpitations or racing or irregular heart beat. Denies ankle edema. RESPIRATORY: Denies cough, cold, or chest congestion. Denies shortness of breath, difficulty breathing, or wheezing. GASTROINTESTINAL: Denies abdominal pain or distention. Denies nausea, vomiting , or diarrhea. Denies blood in vomitus, stools, or per rectum. Denies black, tarry stools. Denies constipation. GENITOURINARY: Denies difficulty urinating, painful urination, burning, frequency, blood in urine, or discharge. FEMALE GENITOURINARY: Denies vaginal bleeding, heavy or abnormal periods, irregular periods. Denies vaginal discharge or odor. MUSCULOSKELETAL: admits to body aches SKIN: Denies rash, lesions or sores. HEMATOLOGIC : Denies easy bruising or bleeding. LYMPHATIC: Denies swollen, enlarged glands. NEUROLOGICAL: Denies confusion or altered mental status. Denies passing out or loss of consciousness. Denies dizziness or lightheadedness. Denies headache. Denies weakness or paralysis or loss of use of either side. Denies problems with gait or speech. Denies sensory loss, numbness, or tingling. Denies seizures. PSYCHIATRIC: Denies anxiety or stress. Denies depression, suicidal ideation, or homicidal ideation. ALL OTHER SYSTEMS REVIEWED AND NEGATIVE. PHYSICAL EXAMINATION: GENERAL: Well-appearing, well-nourished and in no acute distress. HEAD: Atraumatic, normocephalic. EYES: Pupils equal round and reactive to light, extraocular movements intact, conjunctiva are normal. ENT: Nares patent, oropharynx clear without exudates. Moist mucous membranes. NECK: Normal range of motion, supple without lymphadenopathy LUNGS: Breath sounds clear to auscultation bilaterally and equal. No wheezes rales or rhonchi. HEART: Regular rate and rhythm without murmurs ABDOMEN: Soft, nontender, nondistended abdomen. No guarding, no rebound. No masses appreciated. Female : deferred Musculoskeletal: Normal range of motion, no pitting or edema. No cyanosis. NEUROLOGICAL: Cranial nerves grossly intact. Normal speech, normal gait. Normal sensory, motor exams PSYCH: Normal mood, normal affect. SKIN: dialysis access of the right upper extremity Dictation was performed using [email or web address] voice recognition software Physical Exam - Vital signs Vitals: Temp Pulse Resp BP Pulse Ox 97.4 F 47 L 15 107/44 L 97 08/04/17 09:03 08/04/17 09:03 08/04/17 09:03 08/04/17 09:03 08/04/17 09:03 Course - Re-evaluation Re-evalutation: 08/04/17 19:23 Patient's workup consistent with chronic kidney disease but otherwise well- appearing no distress, patient had significant workup which noted no infectious process. Patient was watched in the emergency department for a couple of hours and was resting comfortably. I spoke with son extensively he denies any other concerns therefore I will discharge home with the understanding that she must have her dialysis done as she missed it today he states he will call and set up a new appointment After performing a Medical Screening Examination, I estimate there is LOW risk for RUPTURED ESOPHAGUS, PNEUMOTHORAX, PULMONARY EMBOLISM, ACUTE CORONARY SYNDROME, OR THORACIC AORTIC DISSECTION, thus I consider the discharge disposition reasonable. I have reevaluated this patient multiple times and no significant life threatening changes are noted. The patient and I have discussed the diagnosis and risks, and we agree with discharging home with close follow-up. We also discussed returning to the Emergency Department immediately if new or worsening symptoms occur. We have discussed the symptoms which are most concerning (e.g., bloody sputum, worsening pain or shortness of breath) that necessitate immediate return. - Vital Signs Vital signs: Temp Pulse Resp BP Pulse Ox 98.2 F 47 L 17 152/61 H 92 08/04/17 12:16 08/04/17 09:03 08/04/17 12:16 08/04/17 12:16 08/04/17 12:16 - Laboratory Result Diagrams: 08/04/17 10:15 08/04/17 10:15 Laboratory results interpreted by me: 08/04/17 08/04/17 10:15 10:15 RDW 15.3 H Potassium 5.1 H BUN 61 H Creatinine 7.20 H Est GFR ( Amer) 7 L Est GFR (Non-Af Amer) 5 L Calcium 10.5 H Direct Bilirubin 0.6 H - Diagnostic Test Radiology reviewed: Image reviewed, Reports reviewed - EKG Interpretation by Ut EKG shows normal: Sinus rhythm, [place], Intervals, QRS Complexes Discharge - Discharge Clinical Impression: Dialysis patient, Generalized body aches Condition: Stable Disposition: HOME, SELF-CARE Additional Instructions: Please contact the [facility]ber to set up a appointment for dialysis. Return immediately if there are any other concerns Referrals: EFREN ROMAN MD [Primary Care Provider] - Follow up tomorrow
[2017-08-04 12:24] VITALS: BP 152/61
--- NOTE | 2017-08-04 21:45 | EKG REPORT ---
SEVERITY:- ABNORMAL ECG - SINUS RHYTHM LEFT VENTRICULAR HYPERTROPHY : Confirmed by: Tulio Orourke 04-Aug-2017 21:44:53
--- NOTE | 2017-08-07 08:59 | EKG REPORT ---
SEVERITY:- NORMAL ECG - SINUS RHYTHM NONSPECIFIC ST-T CHANGES : Confirmed on behalf of: Tulio Orourke 07-Aug-2017 08:59:42
== END 2017-08-04 12:24 | disposition home or self-care (01) ==
LOC: ER 08:54
DX: M79.1 Myalgia (principal); I10 Essential (primary) hypertension; Z99.2 Dependence on renal dialysis; Z91.15 Patient's noncompliance with renal dialysis
CPT/HCPCS: 36415; 71046; 80053; 85025; 93005; 93010; 99284

== ENCOUNTER 2017-11-22 10:42 | Day surgery (SDC) | payer MEDICARE, MEDICAID ==
[~2017-11-22 10:42] MED LIST changes: +BESIFLOXACIN HCL 0.6% OPH SUSP 5 ML BOTTLE OD PRN; +CHONDR SU A NA/HYALUR INTRAOC KIT (SURGICARE) ONE; +CYCLOPENTOLATE 0.2%/PHENYLEPHRINE 1% OPH SOLN 2 ML OD PRN; -DIAZEPAM 5 MG TABLET PO PRN; +EPINEPHRINE INJ/PF 1 MG/1 ML AMPULE ONE; +KETOROLAC TROMETHAMINE 0.45% 4 DROP/0.4 ML DROPERETTE OD PRN; +LIDOCAINE 1% INJ-PF (10 MG/ML) 30 ML SDV ONE; +TETRACAINE HCL 0.5% OPH SOLN 0.6 ML DROPERETTE OD PRN; +TOBRAMYCIN SULFATE/DEXAMETH OPH OINTMENT 3.5 GM ONE; +TROPICAMIDE 1% OPH SOLN 3 ML OD PRN
[2017-11-22] MEDS: TROPICAMIDE 1% OPH SOLN 3 ML OD PRN ×3 (11:15→11:35)
[2017-11-22] MEDS: CYCLOPENTOLATE 0.2%/PHENYLEPHRINE 1% OPH SOLN 2 ML OD PRN ×3 (11:15→11:35)
[2017-11-22] MEDS: BESIFLOXACIN HCL 0.6% OPH SUSP 5 ML BOTTLE OD PRN ×3 (11:15→12:37)
[2017-11-22] MEDS: TETRACAINE HCL 0.5% OPH SOLN 0.6 ML DROPERETTE OD PRN ×3 (11:16→12:10)
[2017-11-22] MEDS ORDERED: MIDAZOLAM 2 MG/2 ML INJ ONE (11:56)
[2017-11-22] MEDS ORDERED: FENTANYL CITRATE INJ/PF 100 MCG/2 ML AMPUL ONE (11:56)
== END 2017-11-22 13:26 | disposition home or self-care (01) ==
LOC: SC 10:42
PROVIDERS: ATTEND Ophthalmology
DX: H25.11 Age-related nuclear cataract, right eye (principal); H40.1112 Primary open-angle glaucoma, right eye, moderate stage; M19.90 Unspecified osteoarthritis, unspecified site; I10 Essential (primary) hypertension; E78.00 Pure hypercholesterolemia, unspecified; N19 Unspecified kidney failure; Z99.2 Dependence on renal dialysis; Z79.891 Long term (current) use of opiate analgesic; Z79.899 Other long term (current) drug therapy; Z86.73 Personal history of transient ischemic attack (TIA), and cerebral infarction without residual deficits
CPT/HCPCS: 0191T; 66984; 142; C1783; J0171; J2250; J3010; J3490; V2630

== ENCOUNTER → 2018-01-11 | Outpatient (CLI) | payer MEDICARE, MEDICAID ==
--- NOTE | 2018-01-11 16:55 | RADIOLOGY REPORT (SQ) ---
EXAM DESCRIPTION: CHEST 2 VIEWS COMPLETED DATE/TIME: 01/11/2018 4:47 pm REASON FOR STUDY: R07.9 CHEST PAIN, UNSPECIFIED COMPARISON: 08/04/2017 EXAM PARAMETERS: NUMBER OF VIEWS: two views TECHNIQUE: Digital Frontal and Lateral radiographic views of the chest acquired. RADIATION DOSE: NA LIMITATIONS: none FINDINGS: LUNGS AND PLEURA: Chronic interstitial changes. No evidence of pulmonary edema or pneumon ia. MEDIASTINUM AND HILAR STRUCTURES: No masses or contour abnormalities. HEART AND VASCULAR STRUCTURES: Cardiomegaly. No evidence for failure. BONES: No acute findings. HARDWARE: None in the chest. OTHER: Right axillary vascular stent. IMPRESSION: NO ACUTE RADIOGRAPHIC FINDING IN THE CHEST. TECHNICAL DOCUMENTATION: JOB ID: [id number] [employer]- All Rights Reserved Reading location - IP/workstation name: [email or web address]
== END ==
LOC: RAD 15:48
PROVIDERS: ATTEND Internal Medicine Nephrology
DX: R07.9 Chest pain, unspecified (principal)
CPT/HCPCS: 71046

== ENCOUNTER 2018-01-22 21:39 | Emergency (ER) | payer MEDICARE, MEDICAID ==
--- NOTE | 2018-01-22 22:19 | ER Document Report ---
ED Medical Screen (RME) - General Chief Complaint: High Blood Pressure Stated Complaint: HIGH BLOOD PRESSURE CONCERNS Time Seen by Provider: 01/22/18 22:01 Information source: Patient, Relative Notes: Patient is an 87-year-old female comes to emergency night brought in by her granddaughter with a complaint of feeling lousy. Also has complained of having a headache that is centered in the forehead frontal area. Patient has been worried because she has had elevated blood pressure recently today after dialysis her blood pressure at home was 223/120 on arrival to the emergency room it was 219/79. Patient states she just does not feel right. She has planes of mild shortness of breath denies chest pain currently. 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 Denies any fever no nausea vomiting or diarrhea. Granddaughter states that when her cane Hannah came through patient had a evacuated to [place] where she was admitted there for several days for the same presentation. She has been having difficulty with her blood pressure for a while. Granddaughter states that has bothered her ever since she had her shunt placement about a year ago. Patient states that she still urinates a lot depending on how much she drinks. TRAVEL OUTSIDE OF THE [place] IN LAST 30 DAYS: No - HPI Onset: This morning Onset/Duration: Sudden, Persistent, Worse Quality of pain: Dull, Throbbing Severity: Moderate Pain Level: 3 Associated Symptoms: Shortness of breath Exacerbated by: Denies Similar symptoms previously: Yes Recently seen / treated by doctor: Yes - Related Data Frequency of alcohol use: None Drug Abuse: None What do you do for a living?: Tired Allergies/Adverse Reactions: No Known Allergies Allergy (Verified 01/22/18 21:41) Past Medical History - General Information source: Patient, Relative - Social History Cigarette use (# per day): No Chew tobacco use (# tins/day): No Frequency of alcohol use: None Drug Abuse: None Lives with: Family Family history: Reviewed & Not Pertinent - Past Medical History Cardiac Medical History: Reports: Hx Hypertension Denies: Hx Coronary Artery Disease, Hx Heart Attack Pulmonary Medical History: Denies: Hx Asthma, Hx Bronchitis, Hx COPD, Hx Pneumonia, Hx Tuberculosis Neurological Medical History: Denies: Hx Cerebrovascular Accident, Hx Seizures Renal/ Medical History: Denies: Hx Peritoneal Dialysis GI Medical History: Denies: Hx Hepatitis, Hx Hiatal Hernia, Hx Ulcer Musculoskeltal Medical History: Reports Hx Arthritis, Reports Hx Gout Infectious Medical History: Denies: Hx Hepatitis Past Surgical History: Reports: Hx Hysterectomy, Hx Tonsillectomy. Denies: Hx Mastectomy - RIGHT RESTRICTED, Hx Open Heart Surgery, Hx Pacemaker - Immunizations Hx Diphtheria, Pertussis, Tetanus Vaccination: No - UNSURE History of Influenza Vaccine for 01/2017 - 06/2017 Season: Yes Influenza Administration Date for 01/2017 - 06/2017 Season: 12/02/16 Review of Systems - Review of Systems Constitutional: No symptoms reported EENT: No symptoms reported Cardiovascular: No symptoms reported Respiratory: No symptoms reported Gastrointestinal: No symptoms reported Genitourinary: No symptoms reported Female Genitourinary: No symptoms reported Musculoskeletal: No symptoms reported Skin: No symptoms reported Hematologic/Lymphatic: No symptoms reported Neurological/Psychological: No symptoms reported, Headaches Physical Exam - Vital signs Vitals: Temp Pulse Resp BP Pulse Ox 98.7 F 96 20 217/79 H 94 01/22/18 21:44 01/22/18 21:44 01/22/18 21:44 01/22/18 21:44 01/22/18 21:44 Interpretation: Hypertensive - Notes Notes: PHYSICAL EXAMINATION: GENERAL:, well-nourished and in no acute distress 7-year-old female. Patient appears in no distress but appears to be uncomfortable. HEAD: Atraumatic, normocephalic. EYES: Pupils equal round and reactive to light, extraocular movements intact, conjunctiva are normal. ENT: Nares patent, oropharynx clear without exudates. Moist mucous membranes. NECK: Normal range of motion, supple without lymphadenopathy LUNGS: Breath sounds clear to auscultation bilaterally and equal. No wheezes rales or rhonchi. HEART: Regular rate and rhythm without murmurs ABDOMEN: Soft, nontender, nondistended abdomen. No guarding, no rebound. No masses appreciated. Female : deferred Musculoskeletal: Normal range of motion, no pitting or edema. No cyanosis. NEUROLOGICAL:. Normal speech, normal gait. Normal sensory, PSYCH: Normal mood, normal affect. SKIN: Warm, Dry, normal turgor, no rashes or lesions noted. Course - Re-evaluation Re-evalutation: 01/22/18 22:22 On physical exam patient does need further workup. She has no lower extremity edema at this time. She is mildly short of breath. I do believe the entire chest pain workup is a protocol as necessary. - Vital Signs Vital signs: Temp Pulse Resp BP Pulse Ox 98.7 F 96 20 217/79 H 94 01/22/18 21:44 01/22/18 21:44 01/22/18 21:44 01/22/18 21:44 01/22/18 21:44 Doctor's Discharge - Discharge Clinical Impression: Hypertension Qualifiers: Hypertension type: unspecified Qualified Code(s): I10 - Essential (primary) hypertension Headache Qualifiers: Headache type: unspecified Headache chronicity pattern: acute headache Intractability: not intractable Qualified Code(s): R51 - Headache Forms: Elevated Blood Pressure Referrals: EFREN ROMAN MD [Primary Care Provider] - Follow up as needed
--- NOTE | 2018-01-22 23:32 | ER Document Report ---
ED General - General Chief Complaint: High Blood Pressure Stated Complaint: HIGH BLOOD PRESSURE CONCERNS Time Seen by Provider: 01/22/18 22:01 Notes: Patient is an 87-year-old female presents with complaint of headache and high blood pressure. She has noted says this started after dialysis today; however, the patient herself said that she felt well before her dialysis. She takes clonidine twice a day as well as hydralazine 3 times a day. She has had these says many times in the past. She says also she has pain in her right arm after they placed a fistula in her right arm. She said they had a lot of scar tissue there and she has a recurring nerve pain in her arm has been there for some time. She knows that this pain probably makes her blood pressure increased. She has been placed on gabapentin for it however the gabapentin made her feel "crazy" and therefore she stopped taking it. She says she will occasionally take Tylenol for the pain. Patient has a headache that she has today is just like her previous headaches that are usually related to her high blood pressure. Goes to the front part of her head. They are gradual in onset and worsening over time. No associated vomiting. No focal weakness or numbness. Says she did have some mild shortness of breath with the high blood pressure but denies any chest pain. No other complaints at this time. Patient was recently admitted in [place] for high blood pressure and headaches. At that time the increase hydralazine. She says her blood pressure was better controlled to increase hydralazine however it made her feel very unwell so she went back to her old dose. Patient has not yet had her nighttime dosages of hydralazine or clonidine. TRAVEL OUTSIDE OF THE [place] IN LAST 30 DAYS: No - Related Data Allergies/Adverse Reactions: No Known Allergies Allergy (Verified 01/22/18 21:41) Past Medical History - General Information source: Patient, Relative - Social History Smoking Status: Unknown if Ever Smoked Cigarette use (# per day): No Chew tobacco use (# tins/day): No Frequency of alcohol use: None Drug Abuse: None Lives with: Family Family History: Hyperlipidemia, Hypertension - Past Medical History Cardiac Medical History: Reports: Hx Hypertension Denies: Hx Coronary Artery Disease, Hx Heart Attack Pulmonary Medical History: Denies: Hx Asthma, Hx Bronchitis, Hx COPD, Hx Pneumonia, Hx Tuberculosis Neurological Medical History: Denies: Hx Cerebrovascular Accident, Hx Seizures Renal/ Medical History: Denies: Hx Peritoneal Dialysis GI Medical History: Denies: Hx Hepatitis, Hx Hiatal Hernia, Hx Ulcer Musculoskeletal Medical History: Reports Hx Arthritis, Reports Hx Gout Infectious Medical History: Denies: Hx Hepatitis Past Surgical History: Reports: Hx Hysterectomy, Hx Tonsillectomy. Denies: Hx Mastectomy - RIGHT RESTRICTED, Hx Open Heart Surgery, Hx Pacemaker - Immunizations Hx Diphtheria, Pertussis, Tetanus Vaccination: No - UNSURE Hx Pneumococcal Vaccination: 04/03/09 Review of Systems - Review of Systems Notes: My Normal Review Basic REVIEW OF SYSTEMS: CONSTITUTIONAL : Denies fever, chills, or sweats. Denies recent illness. EENT: Denies eye, ear, throat, or mouth pain or symptoms. Denies nasal or sinus congestion. CARDIOVASCULAR: Denies chest pain. RESPIRATORY: Has some shortness of breath which is since resolved. GASTROINTESTINAL: Denies abdominal pain. Denies nausea, vomiting, or diarrhea. GENITOURINARY: Denies difficulty urinating, painful urination, burning, frequency, or blood in urine. MUSCULOSKELETAL: Pain in right arm over the location of dialysis fistula. SKIN: Denies rash or skin lesions. NEUROLOGICAL: Denies altered mental status or loss of consciousness. Has a headache. Denies weakness or paralysis or loss of use of either side. Denies problems with gait or speech. Denies sensory or motor loss. ALL OTHER SYSTEMS REVIEWED AND NEGATIVE. Physical Exam - Vital signs Vitals: Temp Pulse Resp BP Pulse Ox 98.7 F 96 20 217/79 H 94 01/22/18 21:44 01/22/18 21:44 01/22/18 21:44 01/22/18 21:44 01/22/18 21:44 - Notes Notes: General Appearance: Well nourished, alert, cooperative, no acute distress, mild obvious discomfort. Vitals: reviewed, See vital signs table. Head: no swelling or tenderness to the head Eyes: PERRL, EOMI, Conjuctiva clear Mouth: No decreasd moisture Neck: Supple, no neck tenderness, No thyromegaly Lungs: No wheezing, No rales, No rhonci, No accessory muscle use, good air exchange bilaterally. Heart: Normal rate, Regular rythm, No murmur, no rub Abdomen: Normal BS, soft, No rigidity, No abdominal tenderness, No guarding, no rebound, no abdominal masses, no organomegaly Extremities: strength 5/5 in all extremities, good pulses in all extremities, patient has a fistula in the right upper arm. The fistula itself is not very tender however she has reproducible tenderness palpation over the incision scar that is just below the fistula itself. She said that she has keloid formation here and is always a sharp shooting "nerve pain". His pain is easily reproducible palpation over the surgical scar itself. Skin: warm, dry, appropriate color, no rash Neuro: speech clear, oriented x 3, normal affect, responds appropriately to questions. Renal nerves II through XII are intact. Distal sensation intact. Patient was all extremities without difficulty. Course - Re-evaluation Re-evalutation: 01/23/18 04:12 Give the patient amlodipine as I feel the patient needs another medication added to her regimen as patient says she frequently has these recurrent spikes in her blood pressure which causes her symptoms. Increasing the hydralazine the past has made her feel unwell so I do not think this is a good option. I did give amlodipine as well as the nighttime medications she had not yet taken. This improved her blood pressure and her symptoms greatly improved with reduction of her blood pressure. She looks well. CT scan of the head is normal. She continues complain about the pain of her surgical scar that she has had ever since that fistula was we worked on. She is already been on neuropathic pain medicine such as gabapentin and unfortunately give her unpleasant side effects. Informed her that she should take Tylenol every 4 hours to try to help with this pain and hopefully helping control her pain with help keep her blood pressure reduced as well. I encouraged her return to ER if she has chest pain, difficulty breathing, severe headache, or significant increases in her blood pressure despite taking her medications. Patient agrees with plan will be discharged home. Dictation of this chart was performed using voice recognition software; therefore, there may be some unintended grammatical errors. - Vital Signs Vital signs: Temp Pulse Resp BP Pulse Ox 98.7 F 96 18 154/58 H 95 01/22/18 21:44 01/22/18 21:44 01/23/18 01:01 01/23/18 01:01 01/23/18 01:01 - Laboratory Result Diagrams: 01/22/18 23:55 01/22/18 23:55 Laboratory results interpreted by me: 01/22/18 01/22/18 23:55 23:55 Hgb 11.3 L Hct 34.0 L MCH 26.4 L RDW 19.5 H Potassium 3.1 L Chloride 96 L Carbon Dioxide 31 H Creatinine 3.60 H Est GFR ( Amer) 14 L Est GFR (Non-Af Amer) 12 L Direct Bilirubin 0.5 H ALT 8 L - EKG Interpretation by Me Additional EKG results interpreted by me: 01/22/18 23:31 EKG is reviewed and interpreted by me. EKG shows sinus rhythm with a rate of [address] segment elevation or depression. No ischemic T wave inversions. [place] interval, QRS duration, QT intervals are within normal range. Old EKG for comparison is from August. 01/22/18 23:46 Discharge - Discharge Clinical Impression: End stage renal disease, Hypokalemia Hypertension Qualifiers: Hypertension type: unspecified Qualified Code(s): I10 - Essential (primary) hypertension Headache Qualifiers: Headache type: unspecified Headache chronicity pattern: acute headache Intractability: not intractable Qualified Code(s): R51 - Headache Condition: Good Disposition: HOME, SELF-CARE Additional Instructions: I have added a medication to your blood pressure regimen called amlodipine. Please start taking it tomorrow if you get the prescription filled. Please follow-up with your doctor this week for reevaluation. Please return to ER immediately if you have recurrent shortness of breath, recurrent headache, recurrent high blood pressure not being controlled by your medications, or if you feel unwell. Prescriptions: Amlodipine Besylate 5 mg PO Q12H #20 tab Referrals: EFREN ROMAN MD [Primary Care Provider] - 01/25/18
--- NOTE | 2018-01-22 23:43 | RADIOLOGY REPORT (SQ) ---
EXAM DESCRIPTION: XR CHEST 1 VIEW COMPLETED DATE/TME: 01/22/2018 22:14 CLINICAL HISTORY: 87 years Female, weakness COMPARISON: 05/24/2016, report only. NUMBER OF VIEWS/TECHNIQUE: 1/AP FINDINGS: Small patchy opacity of the right lung base, small linear markings of bilateral lower lungs, normal lung volume, normal cardiac silhouette, atherosclerosis, right axillary stent partially imaged, and intact bony thorax. IMPRESSION: Small bilateral lower lobar fibrosis/scar pattern. Differential etiologies include infectious, inflammatory, and neoplastic processes. If two years of stability cannot be confirmed with comparison to prior exams, recommend CR/CT surveillance including at 7-12 weeks following initiation of any clinically warranted therapy.
[2018-01-22] MEDS ORDERED: HYDRALAZINE HCL 50 MG TABLET PO ONE (23:45)
[2018-01-22] MEDS ORDERED: CLONIDINE HCL 0.1 MG TABLET PO ONE (23:45)
[2018-01-22] MEDS ORDERED: AMLODIPINE BESYLATE 5 MG TABLET PO ONE (23:45)
--- NOTE | 2018-01-22 23:45 | RADIOLOGY REPORT (SQ) ---
EXAM DESCRIPTION: CT HEAD WITHOUT IV CONTRAST COMPLETED DATE/TME: 01/22/2018 22:13 CLINICAL HISTORY: 87 years, Female, headache with elevated BP COMPARISON: None. TECHNIQUE: Noncontrast CT brain. Images stored on PACS. All CT scanners at this facility use dose modulation, iterative reconstruction, and/or weight based dosing when appropriate to reduce radiation dose to as low as reasonably achievable (ALARA). [facility]: Dose Right [facility]: CareDose [facility]: Dose Right [facility]: Teradose 4D [facility]: Smart bTendo LIMITATIONS: None. FINDINGS: Focal area of hypoattenuation is present at the level of the periventricular donahue radiata slight ex vacuo dilation of the RIGHT lateral ventricle compatible with sequela of prior infarction and associated volume loss. Hypoattenuation extends to the level of the RIGHT basal ganglia. Multifocal regions of patchy hypoattenuation are present in a subcortical and periventricular deep white matter distribution, nonspecific; however, most likely represent small vessel ischemic disease, age indeterminate. The ventricles and sulci are mildly prominent suggesting mild underlying volume loss. The santos-white matter differentiation is preserved. There is no mass effect, midline shift, intra- or extra-axial fluid collection/acute hemorrhage. The osseous structures are unremarkable. The paranasal sinuses and mastoid air cells are clear. IMPRESSION: 1. No acute intracranial abnormalities. Nonspecific white matter change most likely small vessel ischemic disease, age indeterminate. 2. CT is insensitive for early evaluation of acute stroke. If there is clinical concern for acute ischemia, an MRI may be considered. TECHNICAL DOCUMENTATION: Quality ID # [id number]: Final reports with documentation of one or more dose reduction techniques (e.g., Automated exposure control, adjustment of the mA and/or kV according to patient size, use of iterative reconstruction technique) 2010 [employer]- All Rights Reserved
[2018-01-23 00:14] LABS: ALANINE AMINOTRANSFERASE 8 U/L (9-52); ALBUMIN 4.6 g/dL (3.5-5.0); ALKALINE PHOSPHATASE 82 U/L (38-126); ANION GAP 11 (5-19); ASPARTATE AMINO TRANSFERASE 20 U/L (14-36); BILIRUBIN,DIRECT 0.5 mg/dL (0.0-0.4); BILIRUBIN,TOTAL 0.9 mg/dL (0.2-1.3); BLOOD UREA NITROGEN 18 mg/dL (7-20); CALCIUM 9.3 mg/dL (8.4-10.2); CARBON DIOXIDE 31 mmol/L (22-30); CHLORIDE 96 mmol/L (98-107); GLUCOSE 90 mg/dL (75-110); POTASSIUM 3.1 mmol/L (3.6-5.0); SODIUM 138.1 mmol/L (137-145); TOTAL PROTEIN 7.8 g/dL (6.3-8.2)
[2018-01-23 00:17] LABS: HEMOGLOBIN 11.3 g/dL (12.0-15.5); MEAN CORPUSCULAR HEMOGLOBIN 26.4 pg (27.0-33.4); MEAN CORPUSCULAR HGB CONC 33.1 g/dL (32.0-36.0); MEAN CORPUSCULAR VOLUME 80 fl (80-97); PLATELET COUNT 321 10^3/uL (150-450); RED BLOOD COUNT 4.26 10^6/uL (3.72-5.28); RED CELL DISTRIBUTION WIDTH 19.5 % (11.5-14.0); WHITE BLOOD COUNT 5.9 10^3/uL (4.0-10.5)
[2018-01-23 00:22] LABS: ABSOLUTE LYMPHOCYTES# (MANUAL) 1.2 10^3/uL (0.5-4.7); ABSOLUTE MONOCYTES # (MANUAL) 0.4 10^3/uL (0.1-1.4); ABSOLUTE NEUTROPHILS# (MANUAL) 4.2 10^3/uL (1.7-8.2); BASOPHILS % (MANUAL) 1 % (0-2); EOSINOPHILS % (MANUAL) 1 % (0-6); LYMPHOCYTES % (MANUAL) 20 % (13-45); MONOCYTES % (MANUAL) 6 % (3-13); SEGMENTED NEUTROPHILS % (MAN) 72 % (42-78); TOTAL CELLS COUNTED 100
[2018-01-23 00:23] LABS: ANISOCYTOSIS 2+; BURR CELLS SLIGHT; HYPOCHROMASIA SLIGHT; OVALOCYTES SLIGHT; POIKILOCYTOSIS 1+; SCHISTOCYTES SLIGHT; TARGET CELLS SLIGHT
[2018-01-23 00:24] LABS: PLATELET COMMENT ADEQUATE
[2018-01-23 01:29] VITALS: BP 154/58
--- NOTE | 2018-01-23 08:34 | EKG REPORT ---
SEVERITY:- ABNORMAL ECG - SINUS RHYTHM LVH WITH SECONDARY REPOLARIZATION ABNORMALITY : Confirmed by: Tulio Orourke 23-Jan-2018 08:33:38
== END 2018-01-23 01:33 | disposition home or self-care (01) ==
LOC: ER 21:39
DX: I12.0 Hypertensive chronic kidney disease with stage 5 chronic kidney disease or end stage renal disease (principal); N18.6 End stage renal disease; E87.6 Hypokalemia; R51 Headache; M79.601 Pain in right arm; Z99.2 Dependence on renal dialysis; Z79.899 Other long term (current) drug therapy
CPT/HCPCS: 93005; 99284; 36415; 85025; 80053; 71045; 70450; 93010; A9270 ×3

== ENCOUNTER 2018-02-18 12:34 | Observation (INO) | payer MEDICARE, MEDICAID ==
--- NOTE | 2018-02-18 13:36 | ER Document Report ---
ED General - General Chief Complaint: Dizziness Stated Complaint: DIZZINESS Time Seen by Provider: 02/18/18 13:20 TRAVEL OUTSIDE OF THE [place] IN LAST 30 DAYS: No - HPI Notes: Patient is an 87-year-old female with a history of hypertension, CKD (seen on dialysis) M-W-F, who presents to the ED complaining of feeling dizzy earlier today that has since resolved and feeling palpitations of her heart. Patient states that she was going to dialysis today for a modified schedule due to the holiday coming up and that she cannot attend Monday's session when she started having dizziness. She was given 2 L of fluid and was subsequently brought to the emergency department. Patient states that her dizziness has since resolved, but patient does continue to have occasional palpitations and a fast heart rate. She denies any drug allergies. Patient states that she does continue to produce urine normally. She is having normal bowel movements. Patient states that she did start having nasal congestion and discharge somewhat recently with an occasional dry cough. Patient states that she is hungry and would like something to eat as well. Denies any headache, fever, head injury, neck pain, changes in vision/speech/mentation/hearing, sore throat , chest pain, syncope, shortness of breath, wheeze, dyspnea, abdominal pain, nausea/vomiting/diarrhea, urinary retention, dysuria, hematuria, back pain, loss of control of bowel or bladder, numbness/tingling, muscle paralysis/ weakness, or rash. - Related Data Allergies/Adverse Reactions: No Known Allergies Allergy (Verified 01/22/18 21:41) Past Medical History - Social History Smoking Status: Former Smoker Frequency of alcohol use: None Drug Abuse: None Family History: Hyperlipidemia, Hypertension Patient has suicidal ideation: No Patient has homicidal ideation: No - Past Medical History Cardiac Medical History: Reports: Hx Hypertension Denies: Hx Coronary Artery Disease, Hx Heart Attack Pulmonary Medical History: Denies: Hx Asthma, Hx Bronchitis, Hx COPD, Hx Pneumonia, Hx Tuberculosis Neurological Medical History: Denies: Hx Cerebrovascular Accident, Hx Seizures Renal/ Medical History: Reports: Hx End Stage Renal Disease. Denies: Hx Peritoneal Dialysis GI Medical History: Denies: Hx Hepatitis, Hx Hiatal Hernia, Hx Ulcer Musculoskeletal Medical History: Reports Hx Arthritis, Reports Hx Gout Infectious Medical History: Denies: Hx Hepatitis Past Surgical History: Reports: Hx Hysterectomy, Hx Tonsillectomy. Denies: Hx Mastectomy - RIGHT RESTRICTED, Hx Open Heart Surgery, Hx Pacemaker - Immunizations Hx Diphtheria, Pertussis, Tetanus Vaccination: No - UNSURE Hx Pneumococcal Vaccination: 04/03/09 Review of Systems - Review of Systems -: Yes All other systems reviewed and negative Physical Exam - Notes Notes: PHYSICAL EXAMINATION: GENERAL: Well-appearing, well-nourished and in no acute distress. A&Ox4. Answers questions appropriately. HEAD: Atraumatic, normocephalic. Non-tender. EYES: Pupils equal round and reactive to light, extraocular movements intact, sclera anicteric, conjunctiva are normal. No nystagmus. vis crowley intact. ENT: EAC clear b/l. TM's intact b/l without erythema, fluid, or perforation. Nares patent and without discharge. oropharynx clear without exudates. No tonsilar hypertrophy or erythema. Moist mucous membranes. No sinus tenderness. NECK: Normal range of motion, supple without lymphadenopathy. No rigidity/ meningismus. No midline tenderness. LUNGS: Slight diminishment at the base b/l. No wheezes rales or rhonchi. HEART: Tachy at 115 currently. Regular rate and rhythm without murmurs, rubs, gallops. ABDOMEN: Soft, nontender, nondistended abdomen. No guarding, no rebound. Normal bowel sounds present. No CVA tenderness bilaterally. Musculoskeletal: Ext's b/l: FROM to passive/active. Strength 5+/5. No deficits noted. No bony tenderness of extremities. Extremities: No cyanosis, clubbing, or edema b/l. Peripheral pulses 2+. Capillary refill less than 2 seconds. NEUROLOGICAL: NIH 0. GCS 15. Cranial nerves grossly intact. Normal speech, normal gait. Normal sensory, motor exams. Reflexes 2+ b/l. BETINA's negative. Pronator drift negative. Heel/shah, finger/nose wnl. PSYCH: Normal mood, normal affect. SKIN: Warm, Dry, normal turgor, no rashes or lesions noted. Course - Re-evaluation Re-evalutation: 02/18/18 15:46 Patient is an afebrile, well-hydrated, 87-year-old female who presents to the ED with palpitations and tachycardia, unspecified. Vitals are acceptable otherwise. PE is otherwise unremarkable. Patient did receive 2 L normal saline IV through [facility]. Patient has had complete resolution of her dizziness since prior to arrival. Her CBC, CMP, cardiac enzymes/EKG are otherwise unremarkable. Chest x-ray unremarkable. D-dimer was age-adjusted negative. Patient is not having any chest pain, dyspnea on exertion, or shortness of breath. She is nontoxic-appearing and is tolerating p.o. without difficulty. I did speak with Dr. Lucero who accepted patient for admission to [facility] for Dr. Romna. Patient agreeable to plan. Dr. Mota was consulted who is agreeable to admit/plan. - Laboratory Result Diagrams: 02/18/18 14:05 02/18/18 14:05 Laboratory results interpreted by me: 02/18/18 02/18/18 02/18/18 14:05 14:05 14:05 RDW 20.4 H D-Dimer 0.55 H Creatinine 2.70 H Est GFR ( Amer) 20 L Est GFR (Non-Af Amer) 17 L Direct Bilirubin 0.5 H Discharge - Discharge Clinical Impression: Tachycardia, ESRD (end stage renal disease) Condition: Stable Disposition: ADMITTED INPATIENT Admitting Provider: Nic - for Dr. Roman Unit Admitted: [facility] Referrals: EFREN ROMAN MD [Primary Care Provider] - Follow up as needed
[2018-02-18 14:21] LABS: ABSOLUTE BASOPHILS # (AUTO) 0.1 10^3/uL (0.0-0.2); ABSOLUTE LYMPHOCYTES (AUTO) 1.1 10^3/uL (0.5-4.7); ABSOLUTE MONOCYTES (AUTO) 0.7 10^3/uL (0.1-1.4); ABSOLUTE NEUT (AUTO) 5.2 10^3/uL (1.7-8.2); BASOPHILS % (AUTO) 1.5 % (0-2); EOSINOPHILS % (AUTO) 0.5 % (0-6); HEMOGLOBIN 12.9 g/dL (12.0-15.5); LYMPHOCYTES % (AUTO) 15.1 % (13-45); MEAN CORPUSCULAR HEMOGLOBIN 27.3 pg (27.0-33.4); MEAN CORPUSCULAR HGB CONC 33.2 g/dL (32.0-36.0); MEAN CORPUSCULAR VOLUME 82 fl (80-97); MONOCYTES % (AUTO) 10.1 % (3-13); PLATELET COUNT 311 10^3/uL (150-450); RED BLOOD COUNT 4.73 10^6/uL (3.72-5.28); RED CELL DISTRIBUTION WIDTH 20.4 % (11.5-14.0); SEGMENTED NEUTROPHILS % (AUTO) 72.8 % (42-78); TOTAL CELLS COUNTED % (AUTO) 100 %; WHITE BLOOD COUNT 7.2 10^3/uL (4.0-10.5)
--- NOTE | 2018-02-18 14:39 | RADIOLOGY REPORT (SQ) ---
EXAM DESCRIPTION: CHEST SINGLE VIEW COMPLETED DATE/TIME: 02/18/2018 2:29 pm REASON FOR STUDY: dizzy COMPARISON: 01/22/2018 EXAM PARAMETERS: NUMBER OF VIEWS: One view. TECHNIQUE: Single frontal radiographic view of the chest acquired. RADIATION DOSE: NA LIMITATIONS: None. FINDINGS: LUNGS AND PLEURA: Chronic changes at the base ease. No acute opacities. MEDIASTINUM AND HILAR STRUCTURES: No masses. Contour normal. HEART AND VASCULAR STRUCTURES: Heart normal in size. Normal vasculature. BONES: No acute findings. HARDWARE: Right vascular stent. OTHER: No other significant finding. IMPRESSION: NO ACUTE RADIOGRAPHIC FINDING IN THE CHEST. TECHNICAL DOCUMENTATION: JOB ID: [id number] [employer]- All Rights Reserved Reading location - IP/workstation name: [email or web address]
[2018-02-18 14:40] LABS: ALANINE AMINOTRANSFERASE 18 U/L (9-52); ALBUMIN 4.2 g/dL (3.5-5.0); ALKALINE PHOSPHATASE 67 U/L (38-126); ANION GAP 16 (5-19); ASPARTATE AMINO TRANSFERASE 30 U/L (14-36); BILIRUBIN,DIRECT 0.5 mg/dL (0.0-0.4); BILIRUBIN,TOTAL 0.8 mg/dL (0.2-1.3); BLOOD UREA NITROGEN 14 mg/dL (7-20); CALCIUM 9.4 mg/dL (8.4-10.2); CARBON DIOXIDE 28 mmol/L (22-30); CHLORIDE 99 mmol/L (98-107); CREATINE KINASE 33 U/L (30-135); GLUCOSE 82 mg/dL (75-110); POTASSIUM 3.6 mmol/L (3.6-5.0); SODIUM 143.1 mmol/L (137-145); TOTAL PROTEIN 6.9 g/dL (6.3-8.2)
[2018-02-18 14:53] LABS: CREATINE KINASE MB 1.64 ng/mL (<4.55)
[2018-02-18 14:55] LABS: TROPONIN I < 0.012 ng/mL
--- NOTE | 2018-02-18 17:32 | EKG REPORT ---
SEVERITY:- ABNORMAL ECG - SINUS TACHYCARDIA PROBABLE LEFT ATRIAL ABNORMALITY LVH WITH SECONDARY REPOLARIZATION ABNORMALITY TALL R WAVE IN V2, CONSIDER RVH OR PMI : Confirmed by: Tulio Orourke 18-Feb-2018 17:30:53
[2018-02-18 20:00] LABS: APPEARANCE,URINE CLOUDY; BILIRUBIN,URINE NEGATIVE (NEGATIVE); COLOR,URINE YELLOW; GLUCOSE, URINE NEGATIVE (NEGATIVE); KETONES,URINE NEGATIVE (NEGATIVE); LEUKOCYTE ESTERASE,URINE LARGE (NEGATIVE); NITRITE,URINE NEGATIVE (NEGATIVE); PROTEIN,URINE 100 mg/dL (NEGATIVE); URINE SPECIFIC GRAVITY 1.005; UROBILINOGEN,URINE NEGATIVE mg/dL (<2.0)
[2018-02-18 21:29] LABS: ARTERIAL BLOOD BASE EXCESS 6.5 mmol/L; ARTERIAL BLOOD H2CO3 1.28 mmol/L (1.05-1.35); ARTERIAL BLOOD HCO3 30.7 mmol/L (20-24); ARTERIAL BLOOD O2 SATURATION 94.1 % (94-98); ARTERIAL BLOOD PCO2 42.4 mmHg (35-45); ARTERIAL BLOOD PH 7.48 (7.35-7.45); ARTERIAL BLOOD PO2 65.4 mmHg (80-100)
[2018-02-18 21:30] LABS: ARTERIAL BLOOD FIO2 ROOM AIR
[2018-02-18] MEDS: HEPARIN SOD (PORCINE) 5,000 UNIT/ML 1 ML SYRINGE SUBCUT SCH (22:13)
[2018-02-19] MEDS ORDERED: ACETAMINOPHEN 325 MG TABLET PO PRN (01:17)
[2018-02-19] MEDS: HYDRALAZINE HCL 50 MG TABLET PO SCH ×3 (01:24→17:40)
[2018-02-19] MEDS ORDERED: CLONIDINE HCL 0.1 MG TABLET PO ONE (01:30)
[2018-02-19] MEDS ORDERED: AMLODIPINE BESYLATE 5 MG TABLET PO ONE (01:30)
[2018-02-19 04:58] LABS: HEMATOCRIT 36.7 % (36.0-47.0); MEAN CORPUSCULAR HEMOGLOBIN 27.2 pg (27.0-33.4); MEAN CORPUSCULAR HGB CONC 32.6 g/dL (32.0-36.0); MEAN CORPUSCULAR VOLUME 84 fl (80-97); PLATELET COUNT 249 10^3/uL (150-450); RED BLOOD COUNT 4.39 10^6/uL (3.72-5.28); RED CELL DISTRIBUTION WIDTH 20.2 % (11.5-14.0)
[2018-02-19 05:21] LABS: ANION GAP 12 (5-19); BLOOD UREA NITROGEN 20 mg/dL (7-20); CALCIUM 9.8 mg/dL (8.4-10.2); CARBON DIOXIDE 30 mmol/L (22-30); CHLORIDE 102 mmol/L (98-107); GLUCOSE 88 mg/dL (75-110); POTASSIUM 3.1 mmol/L (3.6-5.0); SODIUM 144.3 mmol/L (137-145)
[2018-02-19 05:29] LABS: ABSOLUTE LYMPHOCYTES# (MANUAL) 1.2 10^3/uL (0.5-4.7); ABSOLUTE MONOCYTES # (MANUAL) 0.4 10^3/uL (0.1-1.4); ABSOLUTE NEUTROPHILS# (MANUAL) 3.5 10^3/uL (1.7-8.2); ANISOCYTOSIS 2+; BASOPHILS % (MANUAL) 0 % (0-2); EOSINOPHILS % (MANUAL) 0 % (0-6); LYMPHOCYTES % (MANUAL) 23 % (13-45); MONOCYTES % (MANUAL) 8 % (3-13); PLATELET COMMENT ADEQUATE; POLYCHROMASIA 1+; SEGMENTED NEUTROPHILS % (MAN) 69 % (42-78); TOTAL CELLS COUNTED 100
[2018-02-19] MEDS: HEPARIN SOD (PORCINE) 5,000 UNIT/ML 1 ML SYRINGE SUBCUT SCH ×2 (05:38→15:13)
[2018-02-19] MEDS ORDERED: CLONIDINE HCL 0.1 MG TABLET PO SCH ×2 (10:00)
[2018-02-19] MEDS ORDERED: (PENDING PHARMACY ID) (Folic Acid/Vitamin B Comp W-C [Rena-Vite Tablet] 0.8 MG) PO SCH (10:00)
[2018-02-19] MEDS ORDERED: FOLIC ACID/VITAMIN B COMP W-C CAPSULE PO SCH (10:00)
[2018-02-19] MEDS ORDERED: POTASSIUM CHLORIDE 10 MEQ CAPSULE.ER PO ONE (10:00)
[2018-02-19] MEDS ORDERED: BISACODYL 5 MG TABEC PO ONE (10:00)
[2018-02-19] MEDS ORDERED: HYDROCHLOROTHIAZIDE 12.5 MG TABLET PO SCH (10:00)
[2018-02-19] MEDS ORDERED: AMLODIPINE BESYLATE 5 MG TABLET PO SCH ×2 (10:00)
[2018-02-19] MEDS ORDERED: LOSARTAN POTASSIUM 50 MG TABLET PO SCH (10:00)
--- NOTE | 2018-02-19 11:54 | PDOC CONSULTATION ---
Consultation Consult Date: 02/19/18 Attending physician:: EFREN ROMAN Consult reason:: I was asked to see the patient evaluated the patient needs hemodialysis today. History of Present Illness Admission Date/PCP: 02/18/18 16:10 EFREN ROMAN History of Present Illness: DIANNE MUNOZ is a 87 year old female known to me with history of end-stage renal disease on hemodialysis on Mondays, Wednesdays, and Fridays, hypertension , and anemia of chronic kidney disease who was sent to the emergency room from [facility] dialysis unit yesterday because of persistent tachycardia with symptoms including dizziness. Yesterday when the patient arrived at [facility] dialysis unit her heart rate was 142 but regular with an acceptable blood pressure. She was under her dry weight about 1.9 kg below her dry weight. We thought she was dehydrated because of decreased oral intake so we started giving her IV fluid boluses during dialysis treatment. She received a total of about 2 L of IV fluids during dialysis treatment however after about 2 hours into dialysis she started to become symptomatic complaining of dizziness and not feeling well. Her heart rate has come down to about 120s. Her blood pressure was also lower than her usual. Due to that the EMS was called. Apparently her heart rate went down to 107 when the EMS came and then patient was brought into the emergency room. Patient was then admitted last night just for observation. Today the patient seems to be feeling well and she said she wanted to go home. Today she denies any chest pains, shortness of breath, palpitations, diarrhea, nausea nor vomiting. The only complaint she has is constipation. She also tells me that she is not eating too good however her granddaughter at the bedside said that she is eating good. She tells me that she probably drinks about couple of glasses of fluids plus coffee every day because that was what she was instructed to. She still makes some urine but could not quantify it. Since admission her heart rate has been within normal limits and her blood pressure has been acceptable taking her home medications. Past Medical History Cardiac Medical History: Reports: Hypertension-primary Neurological Medical History: Reports: Other - TIA Renal/ Medical History: Reports: End Stage Renal Disease, Hyperphosphatemia, Secondary Hyperparathyroidism, Other - Renal cyst GI Medical History: Reports: Other - Constipation Musculoskeltal Medical History: Reports: Arthritis, Gout Hematology Medical History: Reports Anemia of Chronic Kidney Disease Past Surgical History Past Surgical History: Reports: Dialysis Access Surgery AVF, Hysterectomy, Tonsillectomy, Vascular Surgery - PermCath placement Social History Information Source: Patient Lives with: Family Smoking Status: Former Smoker Number of Years Smokin,940 Frequency of Alcohol Use: None Hx Recreational Drug Use: No Drugs: None Hx Prescription Drug Abuse: No Family History Family History: Malignancy - Sister Parental Family History Reviewed: Yes Children Family History Reviewed: Yes Sibling(s) Family History Reviewed.: Yes Medication/Allergy Home Medications: Amlodipine Besylate 5 mg PO Q12 02/19/18 Cinacalcet HCl [Sensipar] 60 mg PO DAILY 02/19/18 Clonidine HCl [Catapres 0.1 mg Tablet] 0.1 mg PO BID 02/19/18 Folic Acid/Vitamin B Comp W-C [Luma-Adriana Tablet] 0.8 mg PO DAILY 02/19/18 Hydralazine HCl [Apresoline 50 mg Tablet] 100 mg PO Q8 02/19/18 Hydrocodone Bit/Acetaminophen [Hydrocodon-Acetaminophen 5-325] 1 each PO Q12HP PRN 02/19/18 Sevelamer Carbonate [Renvela] 2.4 gm PO .SNACK 02/19/18 Sevelamer Carbonate [Renvela] 7.2 gm PO MEALS 02/19/18 Allergies/Adverse Reactions: No Known Allergies Allergy (Verified 01/22/18 21:41) Review of Systems All systems: reviewed and no additional remarkable complaints except as stated Review of Systems: Constitutional: ABSENT: chills, fatigue, fever(s), headache(s), weight gain, weight loss; decreased appetite Eyes: ABSENT: visual disturbances Ears: ABSENT: hearing changes Cardiovascular: ABSENT: chest pain, dyspnea on exertion, edema, orthropnea, palpitations Respiratory: ABSENT: cough, dyspnea, hemoptysis Gastrointestinal: ABSENT: abdominal pain, diarrhea, hematemesis, hematochezia, nausea, vomiting; admits constipation Genitourinary: ABSENT: dysuria, hematuria Musculoskeletal: ABSENT: joint swelling Integumentary: ABSENT: rash, wounds Neurological: ABSENT: abnormal gait, abnormal speech, confusion, dizziness, focal weakness, numbness, syncope Psychiatric: ABSENT: anxiety, depression Endocrine: ABSENT: cold intolerance, heat intolerance, polydipsia, polyuria Hematologic/Lymphatic: ABSENT: easy bleeding, easy bruising, lymphadenopathy Physical Exam Vital Signs: Temp Pulse Resp BP Pulse Ox 98.7 F 64 18 125/46 L 97 02/19/18 11:31 02/19/18 11:31 02/19/18 11:31 02/19/18 11:31 02/19/18 11:31 Intake & Output 02/18/18 02/19/18 02/20/18 06:59 06:59 06:59 Intake Total 237 Balance 237 Weight 53.1 kg Exam: General appearance: No acute distress, cooperative, well-developed, well- nourished Head exam: PRESENT: atraumatic, normocephalic Eye exam: PRESENT: Conjunctiva Quentin, EOMI, PERRLA. ABSENT: conjunctival injection, scleral icterus Mouth exam: PRESENT: moist, neck supple, tongue midline Neck exam: PRESENT: full ROM. ABSENT: carotid bruit, JVD, lymphadenopathy, thyromegaly Respiratory exam: PRESENT: clear to auscultation bilaterally. ABSENT: rales, rhonchi, stridor, wheezes Cardiovascular exam: PRESENT: RRR, +S1, +S2. Right upper arm AV fistula ABSENT : systolic murmur Pulses: PRESENT: normal radial pulses, normal dorsalis pedis pulses GI/Abdominal exam: PRESENT: normal bowel sounds, soft. ABSENT: guarding, mass, tenderness Rectal exam: Deferred Extremities exam: PRESENT: full ROM. ABSENT: calf tenderness, pedal edema Musculoskeletal: PRESENT: full ROM. ABSENT: deformity Neurological exam: PRESENT: alert, Awake, Oriented to person, Oriented to place , Oriented to time, reflexes normal, CN II-XII grossly intact. ABSENT: motor sensory deficit Psychiatric exam: PRESENT: appropriate affect, normal mood. ABSENT: homicidal ideation, suicidal ideation Skin exam: PRESENT: intact, dry, warm. Keloids and previous PermCath insertions on her right side of her chest and over her right upper arm AV fistula which is tender to touch ABSENT: rash Results Laboratory Results: 02/19/18 04:48 02/19/18 04:48 02/18/18 02/18/18 02/19/18 19:50 21:15 04:48 WBC 5.0 RBC 4.39 Hgb 12.0 Hct 36.7 MCV 84 MCH 27.2 MCHC 32.6 RDW 20.2 H Plt Count 249 Seg Neutrophils % Not Reportable Lymphocytes % Not Reportable Monocytes % Not Reportable Eosinophils % Not Reportable Basophils % Not Reportable Absolute Neutrophils Not Reportable Absolute Lymphocytes Not Reportable Absolute Monocytes Not Reportable Absolute Eosinophils Not Reportable Absolute Basophils Not Reportable Carbonic Acid 1.28 HCO3/H2CO3 Ratio 23:1 ABG pH 7.48 H ABG pCO2 42.4 ABG pO2 65.4 L ABG HCO3 30.7 H ABG O2 Saturation 94.1 ABG Base Excess 6.5 FiO2 ROOM AIR Sodium Potassium Chloride Carbon Dioxide Anion Gap BUN Creatinine Est GFR ( Amer) Est GFR (Non-Af Amer) Glucose Calcium Urine Color YELLOW Urine Appearance CLOUDY Urine pH 8.0 Ur Specific [place] 1.005 Urine Protein 100 H Urine Glucose (UA) NEGATIVE Urine Ketones NEGATIVE Urine Blood NEGATIVE Urine Nitrite NEGATIVE Ur Leukocyte Esterase LARGE H Urine WBC (Auto) >182 Urine RBC (Auto) 3 02/19/18 04:48 WBC RBC Hgb Hct MCV MCH MCHC RDW Plt Count Seg Neutrophils % Lymphocytes % Monocytes % Eosinophils % Basophils % Absolute Neutrophils Absolute Lymphocytes Absolute Monocytes Absolute Eosinophils Absolute Basophils Carbonic Acid HCO3/H2CO3 Ratio ABG pH ABG pCO2 ABG pO2 ABG HCO3 ABG O2 Saturation ABG Base Excess FiO2 Sodium 144.3 Potassium 3.1 L Chloride 102 Carbon Dioxide 30 Anion Gap 12 BUN 20 Creatinine 3.85 H Est GFR ( Amer) 13 L Est GFR (Non-Af Amer) 11 L Glucose 88 Calcium 9.8 Urine Color Urine Appearance Urine pH Ur Specific [place] Urine Protein Urine Glucose (UA) Urine Ketones Urine Blood Urine Nitrite Ur Leukocyte Esterase Urine WBC (Auto) Urine RBC (Auto) Impressions: Chest X-Ray 02/18/18 13:21 IMPRESSION: NO ACUTE RADIOGRAPHIC FINDING IN THE CHEST. Assessment & Plan - Diagnosis (1) ESRD (end stage renal disease) Is this a current diagnosis for this admission?: Yes Plan: Patient had 2 hours of dialysis treatment yesterday and has no indication for doing dialysis treatment today. (2) Hypertension Is this a current diagnosis for this admission?: Yes Plan: Controlled. Patient is only taking clonidine and hydralazine at home and this controls her blood pressure well. She said she is not really taking the amlodipine and she is not on losartan. Patient to continue home blood pressure medications when she gets discharged. (3) Hypokalemia Is this a current diagnosis for this admission?: Yes Plan: We will give her potassium chloride 40 mEq x1 dose today. (4) Tachycardia Is this a current diagnosis for this admission?: Yes Plan: Resolved. This could be due to some relative dehydration which was resolved after giving IV fluids yesterday during dialysis. (5) Constipation Is this a current diagnosis for this admission?: Yes Plan: We will give Dulcolax 10 mg p.o. x1 dose prior to discharge. - Notes Notes: Thank you very much for this consultation. From nephrology standpoint I think the patient can go home today. Patient is scheduled for her regular dialysis treatment tomorrow at [facility]. I advised the patient to keep her dialysis schedule tomorrow if discharged today. - Time Time Spent: 30 to 50 Minutes
[2018-02-19 15:56] VITALS: BP 117/43
--- NOTE | 2018-02-19 19:37 | H&P/Discharge Summary ---
Discharge Summary Admission Date/PCP: 02/18/18 16:10 [facility] - Discharge Diagnosis (1) Tachycardia Is this a current diagnosis for this admission?: Yes Summary: Patient was treated with IV fluid infusion for possible reactive tachycardia from too much fluid extraction on dialysis. She is stable post infusion and she will be discharged home. (2) Hypokalemia Is this a current diagnosis for this admission?: Yes Summary: Patient received potassium replacement. She will follow up with Dr. Ruiz, insert cutter for further management. (3) ESRD (end stage renal disease) Is this a current diagnosis for this admission?: Yes Summary: Patient will resume her hemodialysis as schedule at [facility] tomorrow under directive of Dr Ruiz. (4) Hypertension Is this a current diagnosis for this admission?: Yes Summary: Controlled on Clonidine and Hydralazine therapy.She will continue on same regimen. Home Medications: Cinacalcet HCl [Sensipar 60 mg Tablet] 60 mg PO DAILY 02/19/18 Clonidine HCl [Catapres 0.1 mg Tablet] 0.1 mg PO BID 02/19/18 Folic Acid/Vitamin B Comp W-C [Luma-Adriana Tablet] 0.8 mg PO DAILY 02/19/18 Hydralazine HCl [Apresoline 50 mg Tablet] 100 mg PO Q8 02/19/18 Hydrocodone Bit/Acetaminophen [Hydrocodon-Acetaminophen 5-325] 1 each PO Q12HP PRN 02/19/18 Sevelamer Carbonate [Renvela] 2.4 gm PO .SNACK 02/19/18 Sevelamer Carbonate [Renvela] 7.2 gm PO MEALS 02/19/18 Allergies/Adverse Reactions: No Known Allergies Allergy (Verified 01/22/18 21:41) History of Present Illness Admission Date/PCP: 02/18/18 16:10 [facility] Patient complains of: Dizziness, Palpitation History of Present Illness: DIANNE MUNOZ is a 87 year old female patient known to my practice who was referred to ED for further evaluation of palpitation follow session of hemodialysis at local [facility] dialysis center. Patient reported associated dizziness with occasional palpitation and tachycardia.She denied any headache, focal weakness, definitive chest pain or loss of consciousness. No nausea, vomiting or abdominal pain. She denied any fever or chills. No dysuria, hematuria, or flank pain. Her initial ED evaluation did revealed elevated blood pressure with tachycardia. She was treated with IV normal saline infusion with rapid response and resolution of her clinical findings. 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 Her morbidities include ESRD on hemodialysis on Monday, , and Monday, Hypertension, Osteoarthritis, and chronic gouty arthritis. She will be discharged home on her pre-admission home medications. She will follow up with Dr. Ruiz and myself as instructed upon discharge. Past Medical History Cardiac Medical History: Reports: Hypertension Denies: Coronary Artery Disease, Myocardial Infarction Pulmonary Medical History: Denies: Asthma, Bronchitis, Chronic Obstructive Pulmonary Disease (COPD), Pneumonia, Tuberculosis Neurological Medical History: Reports: Other - TIA Denies: Seizures Renal/ Medical History: Reports: End Stage Renal Disease, Other - Renal cyst GI Medical History: Reports: Other - Constipation Denies: Hepatitis, Hiatal Hernia Musculoskeltal Medical History: Reports: Arthritis, Gout Hematology: Reports: Sickle Cell Disease - TRAIT Denies: Anemia Past Surgical History Past Surgical History: Reports: Hysterectomy, Tonsillectomy, Vascular Surgery - PermCath placement Denies: Amputation, Mastectomy - RIGHT RESTRICTED, Pacemaker Social History Lives with: Family Smoking Status: Former Smoker Number of Years Smokin,940 Frequency of Alcohol Use: None Hx Recreational Drug Use: No Drugs: None Hx Prescription Drug Abuse: No Family History Family History: Hyperlipidemia, Hypertension Parental Family History Reviewed: Yes Children Family History Reviewed: Yes Sibling(s) Family History Reviewed.: Yes Review of Systems Constitutional: ABSENT: chills, fever(s), headache(s), weight gain, weight loss Eyes: PRESENT: visual disturbances Ears: PRESENT: hearing changes Nose, Mouth, and Throat: ABSENT: as per HPI, headache(s), mouth pain, sore throat, vertigo, other Cardiovascular: PRESENT: palpitations - resolved after iV fluid infusion Respiratory: ABSENT: cough, hemoptysis Gastrointestinal: ABSENT: abdominal pain, constipation, diarrhea, hematemesis, hematochezia, nausea, vomiting Genitourinary: ABSENT: dysuria, hematuria Musculoskeletal: ABSENT: back pain, joint swelling, muscle weakness Neurological: ABSENT: abnormal gait, abnormal speech, confusion, dizziness, focal weakness, syncope Psychiatric: ABSENT: anxiety, depression, homidical ideation, suicidal ideation Endocrine: ABSENT: cold intolerance, heat intolerance, polydipsia, polyuria Hematologic/Lymphatic: ABSENT: easy bleeding, easy bruising Allergic/Immunologic: ABSENT: seasonal rhinorrhea Physical Exam Vital Signs: Temp Pulse Resp BP Pulse Ox 98.3 F 55 L 20 117/43 L 99 02/19/18 15:29 02/19/18 15:29 02/19/18 15:29 02/19/18 15:29 02/19/18 15:29 Intake & Output 02/18/18 02/19/18 02/20/18 06:59 06:59 06:59 Intake Total 858 Output Total 350 Balance 508 Weight 53.1 kg General appearance: PRESENT: no acute distress, well-developed, well-nourished Head exam: PRESENT: atraumatic, normocephalic Eye exam: PRESENT: conjunctiva pink, EOMI, PERRLA. ABSENT: scleral icterus Ear exam: PRESENT: normal external ear exam Mouth exam: PRESENT: moist Respiratory exam: PRESENT: clear to auscultation anais Cardiovascular exam: PRESENT: RRR, other - bruit over right arm AV fistula dialysis shunt. ABSENT: diastolic murmur, rubs, systolic murmur Vascular exam: PRESENT: normal capillary refill. ABSENT: pallor GI/Abdominal exam: PRESENT: normal bowel sounds, soft. ABSENT: distended, guarding, mass, organolmegaly, rebound, tenderness Rectal exam: PRESENT: deferred Extremities exam: ABSENT: pedal edema Musculoskeletal exam: PRESENT: ambulatory Neurological exam: PRESENT: alert, awake, oriented to person, oriented to place , oriented to time, oriented to situation, CN II-XII grossly intact. ABSENT: motor sensory deficit Psychiatric exam: PRESENT: appropriate affect, normal mood. ABSENT: homicidal ideation, suicidal ideation Skin exam: PRESENT: dry, intact, warm. ABSENT: cyanosis, rash Results Laboratory Results: 02/19/18 04:48 02/19/18 04:48 02/18/18 02/18/18 02/19/18 19:50 21:15 04:48 WBC 5.0 RBC 4.39 Hgb 12.0 Hct 36.7 MCV 84 MCH 27.2 MCHC 32.6 RDW 20.2 H Plt Count 249 Seg Neutrophils % Not Reportable Lymphocytes % Not Reportable Monocytes % Not Reportable Eosinophils % Not Reportable Basophils % Not Reportable Absolute Neutrophils Not Reportable Absolute Lymphocytes Not Reportable Absolute Monocytes Not Reportable Absolute Eosinophils Not Reportable Absolute Basophils Not Reportable Carbonic Acid 1.28 HCO3/H2CO3 Ratio 23:1 ABG pH 7.48 H ABG pCO2 42.4 ABG pO2 65.4 L ABG HCO3 30.7 H ABG O2 Saturation 94.1 ABG Base Excess 6.5 FiO2 ROOM AIR Sodium Potassium Chloride Carbon Dioxide Anion Gap BUN Creatinine Est GFR ( Amer) Est GFR (Non-Af Amer) Glucose Calcium Urine Color YELLOW Urine Appearance CLOUDY Urine pH 8.0 Ur Specific [place] 1.005 Urine Protein 100 H Urine Glucose (UA) NEGATIVE Urine Ketones NEGATIVE Urine Blood NEGATIVE Urine Nitrite NEGATIVE Ur Leukocyte Esterase LARGE H Urine WBC (Auto) >182 Urine RBC (Auto) 3 02/19/18 04:48 WBC RBC Hgb Hct MCV MCH MCHC RDW Plt Count Seg Neutrophils % Lymphocytes % Monocytes % Eosinophils % Basophils % Absolute Neutrophils Absolute Lymphocytes Absolute Monocytes Absolute Eosinophils Absolute Basophils Carbonic Acid HCO3/H2CO3 Ratio ABG pH ABG pCO2 ABG pO2 ABG HCO3 ABG O2 Saturation ABG Base Excess FiO2 Sodium 144.3 Potassium 3.1 L Chloride 102 Carbon Dioxide 30 Anion Gap 12 BUN 20 Creatinine 3.85 H Est GFR ( Amer) 13 L Est GFR (Non-Af Amer) 11 L Glucose 88 Calcium 9.8 Urine Color Urine Appearance Urine pH Ur Specific [place] Urine Protein Urine Glucose (UA) Urine Ketones Urine Blood Urine Nitrite Ur Leukocyte Esterase Urine WBC (Auto) Urine RBC (Auto) Impressions: Chest X-Ray 02/18/18 13:21 IMPRESSION: NO ACUTE RADIOGRAPHIC FINDING IN THE CHEST. Qualifiers - * PATIENT BEING DISCHARGED WITH ANY OF THE FOLLOWING DIAGNOSIS: No Assessment & Plan - Time Time Spent: 50 to 70 Minutes Medications reviewed and adjusted accordingly: Yes Anticipated dischagre: Home Within: within 24 hours - Plan Summary Plan Summary: She did received potassium replacement while on IMCU observation bed. she will follow up with Dr Ruiz and myself as instructed upon discharge.
== END 2018-02-19 20:20 | disposition home or self-care (01) ==
LOC: ER 12:34 → EH 16:10 → INTOOBSV 16:10 → 3W 18:52
PROVIDERS: ADMIT Internal Medicine Geriatric Medicine; ATTEND Internal Medicine Geriatric Medicine
DX: R00.0 Tachycardia, unspecified (principal); E87.6 Hypokalemia; I12.0 Hypertensive chronic kidney disease with stage 5 chronic kidney disease or end stage renal disease; N18.6 End stage renal disease; K59.00 Constipation, unspecified; M19.90 Unspecified osteoarthritis, unspecified site; M1A.9XX0 Chronic gout, unspecified, without tophus (tophi); H53.9 Unspecified visual disturbance; Z99.2 Dependence on renal dialysis; Z79.899 Other long term (current) drug therapy; Z86.73 Personal history of transient ischemic attack (TIA), and cerebral infarction without residual deficits; Z87.891 Personal history of nicotine dependence; Z82.49 Family history of ischemic heart disease and other diseases of the circulatory system
CPT/HCPCS: 93005; 99285; 36415 ×2; 87086; 82553; 82803; 82550; 83735; 85025 ×2; 80048; 80053; 81001; 84484; 85379; 71045; 93010; G0378; A9270 ×6; J1644 ×2

== ENCOUNTER 2018-04-04 08:54 | Day surgery (SDC) | payer MEDICARE, MEDICAID ==
[~2018-04-04 08:54] MED LIST changes: -BESIFLOXACIN HCL 0.6% OPH SUSP 5 ML BOTTLE OD PRN; +BESIFLOXACIN HCL 0.6% OPH SUSP 5 ML BOTTLE OS PRN; -CHONDR SU A NA/HYALUR INTRAOC KIT (SURGICARE) ONE; -CYCLOPENTOLATE 0.2%/PHENYLEPHRINE 1% OPH SOLN 2 ML OD PRN; +CYCLOPENTOLATE 0.2%/PHENYLEPHRINE 1% OPH SOLN 2 ML OS PRN; -EPINEPHRINE INJ/PF 1 MG/1 ML AMPULE ONE; -KETOROLAC TROMETHAMINE 0.45% 4 DROP/0.4 ML DROPERETTE OD PRN; +KETOROLAC TROMETHAMINE 0.45% 4 DROP/0.4 ML DROPERETTE OS PRN; -LIDOCAINE 1% INJ-PF (10 MG/ML) 30 ML SDV ONE; -TETRACAINE HCL 0.5% OPH SOLN 0.6 ML DROPERETTE OD PRN; +TETRACAINE HCL 0.5% OPH SOLN 0.6 ML DROPERETTE OS PRN; -TOBRAMYCIN SULFATE/DEXAMETH OPH OINTMENT 3.5 GM ONE; -TROPICAMIDE 1% OPH SOLN 3 ML OD PRN; +TROPICAMIDE 1% OPH SOLN 3 ML OS PRN
== END 2018-04-04 09:48 | disposition home or self-care (01) ==
LOC: SC 08:54
PROVIDERS: ATTEND Ophthalmology
DX: H25.12 Age-related nuclear cataract, left eye (principal); R69 Illness, unspecified

== ENCOUNTER 2018-04-18 10:47 | Day surgery (SDC) | payer MEDICARE, MEDICAID ==
[~2018-04-18 10:47] MED LIST changes: -BESIFLOXACIN HCL 0.6% OPH SUSP 5 ML BOTTLE OS PRN; +CHONDR SU A NA/HYALUR INTRAOC KIT (SURGICARE) ONE; -CYCLOPENTOLATE 0.2%/PHENYLEPHRINE 1% OPH SOLN 2 ML OS PRN; +EPINEPHRINE INJ/PF 1 MG/1 ML AMPULE ONE; +LIDOCAINE 1% INJ-PF (10 MG/ML) 30 ML SDV ONE; -TETRACAINE HCL 0.5% OPH SOLN 0.6 ML DROPERETTE OS PRN; -TROPICAMIDE 1% OPH SOLN 3 ML OS PRN
[2018-04-18] MEDS: BESIFLOXACIN HCL 0.6% OPH SUSP 5 ML BOTTLE OS PRN ×4 (11:25→12:27)
[2018-04-18] MEDS: TROPICAMIDE 1% OPH SOLN 3 ML OS PRN ×3 (11:25→11:50)
[2018-04-18] MEDS: CYCLOPENTOLATE 0.2%/PHENYLEPHRINE 1% OPH SOLN 2 ML OS PRN ×3 (11:25→11:50)
[2018-04-18] MEDS: TETRACAINE HCL 0.5% OPH SOLN 0.6 ML DROPERETTE OS PRN ×3 (11:25→12:02)
[2018-04-18] MEDS ORDERED: MIDAZOLAM 2 MG/2 ML INJ ONE (11:44)
[2018-04-18] MEDS: TOBRAMYCIN SULFATE/DEXAMETH OPH OINTMENT 3.5 GM ONE ×2 (12:27)
== END 2018-04-18 13:10 | disposition home or self-care (01) ==
LOC: SC 10:47
PROVIDERS: ATTEND Ophthalmology
DX: H25.12 Age-related nuclear cataract, left eye (principal); Z79.899 Other long term (current) drug therapy; M19.90 Unspecified osteoarthritis, unspecified site; I10 Essential (primary) hypertension; E78.00 Pure hypercholesterolemia, unspecified; Z86.73 Personal history of transient ischemic attack (TIA), and cerebral infarction without residual deficits; E07.9 Disorder of thyroid, unspecified; Z87.891 Personal history of nicotine dependence; H40.1122 Primary open-angle glaucoma, left eye, moderate stage
CPT/HCPCS: 0191T; 66984; 140; C1783; J0171; J2250; J3490; V2630

== ENCOUNTER 2018-09-20 20:02 | Emergency (ER) | payer MEDICARE, MEDICAID ==
[2018-09-20] MEDS ORDERED: ASPIRIN 81 MG TABLET, CHEWABLE PO ONE (20:31)
--- NOTE | 2018-09-20 21:49 | RADIOLOGY REPORT (SQ) ---
XR CHEST 1 VIEW EXAM DATE: 09/20/2018 8:31 PM CDT HISTORY: Chest pain. COMPARISON: 01/22/2018 FINDINGS: Query cardiomegaly with pulmonary vascular congestion. There are small pleural effusions with adjacent atelectasis. No discernible pneumothorax. There are no acute bony findings. IMPRESSION: Mild pulmonary edema with small pleural effusions.
[2018-09-20 21:56] LABS: HEMATOCRIT 33.1 % (36.0-47.0); HEMOGLOBIN 10.7 g/dL (12.0-15.5); MEAN CORPUSCULAR HGB CONC 32.3 g/dL (32.0-36.0); MEAN CORPUSCULAR VOLUME 84 fl (80-97); PLATELET COUNT 272 10^3/uL (150-450); RED BLOOD COUNT 3.95 10^6/uL (3.72-5.28); RED CELL DISTRIBUTION WIDTH 18.8 % (11.5-14.0); WHITE BLOOD COUNT 4.5 10^3/uL (4.0-10.5)
--- NOTE | 2018-09-20 22:03 | ER Document Report ---
ED General - General Chief Complaint: Chest Pain Stated Complaint: CHEST PAIN Time Seen by Provider: 09/20/18 21:08 Primary Care Provider: EFREN ROMAN MD [Primary Care Provider] - Follow up tomorrow Notes: Patient is an 88-year-old female with a past history of end-stage renal disease with dialysis dependence, hypertension, presents due to concerns of chest tightness and shortness of breath. The patient reports that for the past several weeks she has been having intermittent episodes in which she feels like she cannot breathe and her chest feels tight. She denies any chest pain simply stating that the chest feels tight and/or heavy. Symptoms last for several minutes and then seem to go away. States that she came to the emergency department today because the episode lasted for approximately 20 to 30 minutes and then did resolve shortly after getting here to the emergency department. Denies any exacerbating or alleviating factor. Denies any history of similar symptoms in the past. Has not seen her primary care physician regarding today's concerns. At the time of my evaluation she denies any ongoing symptoms states she feels quite well. States that when the symptoms are present that she regards him as being moderate to severe. TRAVEL OUTSIDE OF THE [place] IN LAST 30 DAYS: No - Related Data Allergies/Adverse Reactions: No Known Allergies Allergy (Verified 03/29/18 10:20) Past Medical History - General Information source: Patient - Social History Smoking Status: Former Smoker Frequency of alcohol use: None Drug Abuse: None Lives with: Family Family History: Hyperlipidemia, Hypertension Patient has suicidal ideation: No Patient has homicidal ideation: No - Past Medical History Cardiac Medical History: Reports: Hx Hypertension Denies: Hx Coronary Artery Disease, Hx Heart Attack Pulmonary Medical History: Denies: Hx Asthma, Hx Bronchitis, Hx COPD, Hx Pneumonia, Hx Tuberculosis Neurological Medical History: Denies: Hx Cerebrovascular Accident, Hx Seizures Renal/ Medical History: Reports: Hx End Stage Renal Disease. Denies: Hx Perit mendoza Dialysis GI Medical History: Denies: Hx Hepatitis, Hx Hiatal Hernia, Hx Ulcer Musculoskeletal Medical History: Reports Hx Arthritis, Reports Hx Gout Infectious Medical History: Denies: Hx Hepatitis Past Surgical History: Reports: Hx Hysterectomy, Hx Tonsillectomy, Hx Vascular Surgery - PermCath placement. Denies: Hx Mastectomy - RIGHT RESTRICTED, Hx Open Heart Surgery, Hx Pacemaker - Immunizations Hx Diphtheria, Pertussis, Tetanus Vaccination: No - UNSURE Hx Pneumococcal Vaccination: 04/03/09 Review of Systems - Review of Systems Notes: Constitutional: Negative for fever. HENT: Negative for sore throat. Eyes: Negative for visual changes. Cardiovascular: Positive for chest tightness Respiratory: Positive for shortness of breath. Gastrointestinal: Negative for abdominal pain, vomiting or diarrhea. Genitourinary: Negative for dysuria. Musculoskeletal: Negative for back pain. Skin: Negative for rash. Neurological: Negative for headaches, weakness or numbness. 10 point ROS negative except as marked above and in HPI. Physical Exam - Vital signs Vitals: Temp Pulse Resp BP Pulse Ox 98.0 F 79 16 175/75 H 95 09/20/18 20:27 09/20/18 20:27 09/20/18 20:27 09/20/18 20:27 09/20/18 20:27 Interpretation: Hypertensive Notes: PHYSICAL EXAMINATION: GENERAL: Well-appearing, well-nourished and in no acute distress. HEAD: Atraumatic, normocephalic. EYES: Pupils equal round and reactive to light, extraocular movements intact, sclera anicteric, conjunctiva are normal. ENT: nares patent, oropharynx clear without exudates. Moist mucous membranes. NECK: Normal range of motion, supple without lymphadenopathy LUNGS: Breath sounds clear to auscultation bilaterally and equal. No wheezes rales or rhonchi. HEART: Regular rate and rhythm without murmurs ABDOMEN: Soft, nontender, normoactive bowel sounds. No guarding, no rebound. No masses appreciated. EXTREMITIES: Normal range of motion, no pitting or edema. No cyanosis. NEUROLOGICAL: No focal neurological deficits. Moves all extremities spontaneously and on command. PSYCH: Normal mood, normal affect. SKIN: Warm, Dry, normal turgor, no rashes or lesions noted. Course - Re-evaluation Re-evalutation: 09/20/18 22:02 Patient presents with chest tightness and shortness of breath that have resolved by the time of my assessment. Her initial EKG was somewhat concerning with a millimeter ST elevation in V2 and 1/2 mm elevation in V3. EKG was repeated as soon as the patient was brought back to the room and at that point her symptoms had resolved and EKG changes had normalized. Certainly this is concerning that the patient was having ischemia during the initial EKG when she was having chest tightness. Currently patient is asymptomatic. Aspirin has been administered. Will continue to reassess, troponin pending. 09/20/18 23:19 Patient continues to be chest pain-free. I have had an extensive conversation with the patient's primary care physician Dr. Roman. We both share concerns that this patient is not a cardiac catheterization candidate due to her advanced age as well as her dialysis status and she still makes urine. After reviewing that if the patient were to be hospitalized and have a stress test that would not be a true actionable item that could be completed if that stress test were positive which is likely will be. Medical management would be the course of action at this point. After reviewing the risks and benefits of hospitalization with stress testing versus discharge and outpatient follow-up with maximal medical management Dr. Roman has recommended that we discharge the patient home rather than hospitalized and that the patient will follow up with him in the office. I did review this with the patient and her daughter at the bedside. I have advised him that they will be going home with a bottle of sublingual n itro glycerin which she can take as needed chest discomfort as well as starting on daily aspirin. The patient will meet with Dr. Krishnan tomorrow to discuss additional medical management going forward. At this time will discharge with return precautions and follow-up recommendations. Verbal discharge instructions given a the bedside and opportunity for questions given. Medication warnings reviewed. Patient is in agreement with this plan and has verbalized understanding of return precautions and the need for primary care follow-up in the morning. - Vital Signs Vital signs: Temp Pulse Resp BP Pulse Ox 97.9 F 79 18 179/84 H 96 09/20/18 23:50 09/20/18 20:27 09/20/18 23:01 09/20/18 23:01 09/20/18 23:01 - Laboratory Result Diagrams: 09/20/18 21:40 09/20/18 21:40 Laboratory results interpreted by me: 09/20/18 09/20/18 21:40 21:40 Hgb 10.7 L Hct 33.1 L RDW 18.8 H Band Neutrophils % 2 L BUN 30 H Creatinine 4.78 H Est GFR ( Amer) 10 L Est GFR (Non-Af Amer) 9 L Direct Bilirubin 0.5 H - Diagnostic Test Radiology reviewed: Image reviewed, Reports reviewed Radiology results interpreted by me: 09/20/18 23:20 Chest x-ray: No acute infiltrate or pneumothorax - EKG Interpretation by Me Additional EKG results interpreted by me: 09/20/18 23:22 EKG 1: Sinus rhythm, rate 87, there is a millimeter of ST elevation in V2 although no contiguous changes or reciprocal changes. Change from previous. LVH present. QTC prolonged at 501. EKG 2: Sinus rhythm, rate 84, ST elevation in V2 has completely resolved. QTC 497. Discharge - Discharge Clinical Impression: ESRD (end stage renal disease), Chest tightness Hypertension Qualifiers: Hypertension type: unspecified Qualified Code(s): I10 - Essential (primary) hypertension Condition: Stable Disposition: HOME, SELF-CARE Additional Instructions: As we discussed, you need to follow-up with Dr. Roman tomorrow. Please call his office first thing in the morning. After discussion with him, we have determined that it would not be significantly to your benefit to perform a stress test as you are not likely a candidate for cardiac catheterization. Please start taking aspirin 81 mg daily. You have been sent home with a bottle of nitroglycerin. Take 1 tablet every 5 minutes as needed for any chest tightness. If you need to take more than 2 tablets please return to the emergency department immediately. Please also return if you develop vomiting, pass out, or have any other symptoms that are worrisome to you. Referrals: EFREN ROMAN MD [Primary Care Provider] - Follow up tomorrow
[2018-09-20 22:13] LABS: ALANINE AMINOTRANSFERASE 22 U/L (9-52); ALBUMIN 4.1 g/dL (3.5-5.0); ALKALINE PHOSPHATASE 97 U/L (38-126); ANION GAP 12 (5-19); ASPARTATE AMINO TRANSFERASE 25 U/L (14-36); BILIRUBIN,DIRECT 0.5 mg/dL (0.0-0.4); BILIRUBIN,TOTAL 0.6 mg/dL (0.2-1.3); BLOOD UREA NITROGEN 30 mg/dL (7-20); CALCIUM 8.5 mg/dL (8.4-10.2); CARBON DIOXIDE 26 mmol/L (22-30); CHLORIDE 100 mmol/L (98-107); CREATINE KINASE 36 U/L (30-135); GLUCOSE 89 mg/dL (75-110); POTASSIUM 4.3 mmol/L (3.6-5.0); SODIUM 138.3 mmol/L (137-145); TOTAL PROTEIN 6.6 g/dL (6.3-8.2)
[2018-09-20 22:22] LABS: ABSOLUTE LYMPHOCYTES# (MANUAL) 0.8 10^3/uL (0.5-4.7); ABSOLUTE MONOCYTES # (MANUAL) 0.4 10^3/uL (0.1-1.4); BAND NEUTROPHILS % (MANUAL) 2 % (3-5); BASOPHILS % (MANUAL) 2 % (0-2); EOSINOPHILS % (MANUAL) 2 % (0-6); LYMPHOCYTES % (MANUAL) 18 % (13-45); MONOCYTES % (MANUAL) 9 % (3-13); SEGMENTED NEUTROPHILS % (MAN) 67 % (42-78); TOTAL CELLS COUNTED 100
[2018-09-20 22:23] LABS: PLATELET COMMENT ADEQUATE
[2018-09-20 22:24] LABS: POLYCHROMASIA SLIGHT
[2018-09-20 22:25] LABS: ANISOCYTOSIS 2+; HYPOCHROMASIA 1+; OVALOCYTES SLIGHT; SCHISTOCYTES 1+; TARGET CELLS SLIGHT; TEAR DROP CELLS SLIGHT
[2018-09-20 22:27] LABS: TROPONIN I < 0.012 ng/mL
[2018-09-20 23:23] VITALS: BP 179/84
[2018-09-20] MEDS ORDERED: NITROGLYCERIN 0.4 MG/TAB 25 TAB/BOTTLE ONE (23:33)
--- NOTE | 2018-09-21 19:20 | EKG REPORT ---
SEVERITY:- ABNORMAL ECG - SINUS RHYTHM LEFT ATRIAL ABNORMALITY LEFT VENTRICULAR HYPERTROPHY BORDERLINE PROLONGED QT INTERVAL : Confirmed by: Estrellita Fitzgerald MD 21-Sep-2018 19:19:28
--- NOTE | 2018-09-21 19:21 | EKG REPORT ---
SEVERITY:- ABNORMAL ECG - SINUS RHYTHM PROBABLE LEFT ATRIAL ABNORMALITY LEFT VENTRICULAR HYPERTROPHY BORDERLINE PROLONGED QT INTERVAL : Confirmed by: Estrellita Fitzgerald MD 21-Sep-2018 19:19:31
== END 2018-09-20 23:50 | disposition home or self-care (01) ==
LOC: ER 20:02
DX: R07.9 Chest pain, unspecified (principal); R06.02 Shortness of breath; I12.0 Hypertensive chronic kidney disease with stage 5 chronic kidney disease or end stage renal disease; N18.6 End stage renal disease; Z99.2 Dependence on renal dialysis; Z90.710 Acquired absence of both cervix and uterus
CPT/HCPCS: 93005; 99285; 36415; 82553; 82550; 85025; 80053; 84484; 71045; 93010; A9270

== ENCOUNTER 2018-11-13 11:12 | Day surgery (SDC) | payer MEDICARE, MEDICAID ==
[2018-11-13] MEDS ORDERED: OXYCODONE-ACETAMINOPHEN 5-325 MG TABLET PO PRN (11:22)
[2018-11-13] MEDS ORDERED: DIAZEPAM 5 MG TABLET PO PRN (11:23)
[2018-11-13] MEDS ORDERED: NORMAL SALINE 1000 ML 1,000 ML IV PRN (11:24)
[2018-11-13] MEDS ORDERED: HEPARIN SOD (PORCINE) 5,000 UNIT/ML 1 ML VIAL ONE (11:47)
[2018-11-13] MEDS ORDERED: FENTANYL CITRATE INJ/PF 100 MCG/2 ML AMPUL ONE (11:47)
[2018-11-13] MEDS ORDERED: LIDOCAINE 0.5% INJ-PF (5 MG/ML) 50 ML SDV ONE (11:47)
[2018-11-13] MEDS ORDERED: MIDAZOLAM 2 MG/2 ML INJ ONE (11:47)
[2018-11-13 12:30] LABS: ANION GAP 15 (5-19); BLOOD UREA NITROGEN 42 mg/dL (7-20); CALCIUM 7.6 mg/dL (8.4-10.2); CARBON DIOXIDE 26 mmol/L (22-30); CHLORIDE 96 mmol/L (98-107); GLUCOSE 81 mg/dL (75-110); POTASSIUM 4.7 mmol/L (3.6-5.0)
--- NOTE | 2018-11-13 13:56 | PDOC H&P ---
General Chief Complaint: Patient is referring across because of her malfunctioning right arm transposed basilic vein fistula. - Diagnosis (1) ESRD (end stage renal disease) Is this a Current Diagnosis?: Yes (2) Hypertension Is this a Current Diagnosis?: Yes - Current Medications/Allergies Home Medications: Cinacalcet HCl [Sensipar 60 mg Tablet] 60 mg PO DAILY 02/19/18 Clonidine HCl [Catapres 0.1 mg Tablet] 0.1 mg PO BID 02/19/18 Folic Acid/Vitamin B Comp W-C [Luma-Adriana Tablet] 0.8 mg PO DAILY 02/19/18 Hydralazine HCl [Apresoline 50 mg Tablet] 100 mg PO TID 02/19/18 Hydrocodone Bit/Acetaminophen [Hydrocodon-Acetaminophen 5-325] 1 each PO PRN PRN 02/19/18 Sevelamer Carbonate [Renvela] 2.4 gm PO DAILY 02/19/18 Allergies/Adverse Reactions: No Known Allergies Allergy (Verified 11/13/18 11:32) Past Medical History Cardiac Medical History: Reports: Hypertension Denies: Coronary Artery Disease, Myocardial Infarction Pulmonary Medical History: Denies: Asthma, Bronchitis, Chronic Obstructive Pulmonary Disease (COPD), Pneumonia, Tuberculosis Neurological Medical History: Denies: Seizures Renal/ Medical History: Reports: End Stage Renal Disease GI Medical History: Denies: Hepatitis, Hiatal Hernia Musculoskeltal Medical History: Reports: Gout Denies: Arthritis Hematology: Reports: Anemia - HX, Sickle Cell Disease - TRAIT Past Surgical History Past Surgical History: Reports: Hysterectomy, Tonsillectomy, Vascular Surgery - PermCath placement Denies: Amputation, Mastectomy - RIGHT RESTRICTED, P acemaker Family History Family History: Hyperlipidemia, Hypertension Parental Family History Reviewed: No Children Family History Reviewed: No Sibling(s) Family History Reviewed.: No Social History Smoking Status: Former Smoker Frequency of Alcohol Use: None Hx Recreational Drug Use: No Drugs: None Hx Prescription Drug Abuse: No Physical Exam Vital Signs: Temp Pulse Resp BP Pulse Ox 97.9 F 83 16 195/80 H 99 11/13/18 11:32 11/13/18 11:32 11/13/18 11:32 11/13/18 11:32 11/13/18 11:32 Intake & Output 11/12/18 11/13/18 11/14/18 06:59 06:59 06:59 Weight 55.338 kg 55.338 kg Additional comments: Constitutional: Well-developed well-nourished -Vincentian lady. No apparent acute distress. Eyes: Mucous membranes pink and moist, pupils equal and reactive to light. Conjunctiva normal. Prominent arcus senilis. ENT: Hearing grossly normal. External pinna normal to inspection. Teeth mostly intact. Tongue normal to inspection. Cardiac: Heart sounds 1 and 2 normal,. Respiratory: Normal respiratory effort. Skin: Prominent keloid formation and scarring right upper extremity. Psychiatric: Judgment, memory, insight seem normal. Mood is pleasant and appropriate. Extremities: Upper extremities show normal range of movement. Pulses present noted to the radial arteries. Capillary refill normal. No cyanosis noted. No muscle wasting noted. Transposed basilic vein fistula noted. Marked keloid and scar. 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 L Impression/Plan Impression: The plan is to admit the patient for fistula angiogram and angioplasty, intervention is needed. The patient is familiar with the procedure, its risks, benefits, expected outcome and wishes to proceed.
--- NOTE | 2018-11-13 13:59 | Discharge Summary ---
Discharge Summary (SDC) - Discharge Final Diagnosis: #1 malfunctioning AV fistula, right transposed basilic. 2. End-stage renal disease. 3. Hypertension.. Date of Surgery: 11/13/18 Discharge Date: 11/13/18 Condition: Fair Treatment or Instructions: Discharge home [after recovery per ASU criteria]. Diet , [renal],as tolerated, when fully awake advance as tolerated. Activities within moderation encouraged. Follow up in my office by appointment in about [2 weeks. Call for appointment. Leave wounds [covered], [keep clean and dry, until hemodialysis. Meds per med rec. May shower [in 48 hrs], [try to keep operated area as dry as possible]. Referrals: TUNDE TIWARI MD [Primary Care Provider] - Discharge Diet: Other (Comments) - Renal. Respiratory Treatments at Home: Deep Breathing/Coughing Discharge Activity: Activity As Tolerated Report the Following to Your Physician Immediately: Shortness of Breath, Unusual Bleeding
[2018-11-13] MEDS ORDERED: CLONIDINE HCL 0.1 MG TABLET PO ONE (14:00)
[2018-11-13] MEDS ORDERED: HYDRALAZINE HCL 50 MG TABLET PO ONE (14:00)
--- NOTE | 2018-11-13 14:04 | Operative Report ---
Operative Report DATE OF SURGERY: 11/13/18 PREOPERATIVE DIAGNOSIS: #1 malfunctioning AV fistula, right transposed basilic. 2. End-stage renal disease. 3. Hypertension.. POSTOPERATIVE DIAGNOSIS: #1 malfunctioning AV fistula, right transposed basilic. 2. End-stage renal disease. 3. Hypertension.. OPERATION: 1. Needle insertion into arteriovenous fistula. 2. Fistula angioplasty. 3. Angiogram and interpretation. SURGEON: TIKA SANTOYO [employer] SALES REPRESENTATIVE: None. ANESTHESIA: Moderate Sedation TISSUE REMOVED OR ALTERED: Not applicable. COMPLICATIONS: None. ESTIMATED BLOOD LOSS: 2 mL. INTRAOPERATIVE FINDINGS: Of a well founded right arm transposed basilic vein fistula. A prominent keloid is noted in the actual scar, away from the fistula itself. Uncomfortable to the patient. The fistula was firm suggesting cephalad stenosis. Angiogram demonstrated a stent in place in the cephalad portion of the fistula. This is been placed since her last intervention here. In the middle of the stent there is a 1 cm area of tight stenosis estimated to be 90% of the adjacent lumen. This was corrected with minimal residual with an 8 mm angioplasty balloon. There was a dramatic improvement in the quality of the fistula. Retrograde angiogram of the fistula suggested an area of AV 40% st enosis in the proximal vein. This may need to be addressed in the future. At this time it does not appear to be hemodynamically significant. The patient's keloid may did deserve attention, it really is uncomfortable to the patient and may be susceptible to effective therapy. PROCEDURE: PROCEDURE: After verifying the procedure and having obtained informed consent, the patient's right arm was prepared with Chlorhexidine and draped out with sterile linen. Local anesthesia infiltrated. Percutaneous access into the fistula ,[ antegrade], obtained about [4 cm] from the arteriovenous anastomosis using a micro puncture needle followed by micro puncture wire and then a micro puncture catheter. Angiogram demonstrated the aforementioned findings. Angioplasty was elected. A 0.035 [place] wire was inserted, and over this, a 6 [place] short introducer was placed, this was followed by a [8 - mm] angioplasty balloon . Angioplasty was Done, in the stent, covering the area of stenosis. Inflating using a 3 mils syringe with complete elimination of the waist, sustained for 2 minutes.]. Completion angiogram demonstrated [satisfactory result]. The instrumentation was now withdrawn over hand pressure for 10 minutes . Dressings applied, procedure concluded. Exposure time: 0.2 minutes. Radiation: 5.08 Mary Ann santos. Contrast: 25 mils of Isovue-300, low osmolality. DICTATING PHYSICIAN: TIKA BAKER M.D. cc: TIKA BAKER M.D. ([id number]) >>
--- NOTE | 2018-11-13 14:43 | RADIOLOGY REPORT (SQ) ---
EXAM DESCRIPTION: FISTULAGRAM W/PLASTY COMPLETED DATE/TIME: 11/13/2018 1:26 pm REASON FOR STUDY: T82.858A T82.858A STENOSIS OF OTHER VASCULAR PROSTH DEV/GRFT, INIT COMPARISON: 06/13/2017 FLUOROSCOPY TIME: 0.2 minutes. Spot images saved to PACS. TECHNIQUE: Intra-operative images acquired during surgical procedure to evaluate progress. NUMBER OF IMAGES: 7 LIMITATIONS: None. FINDINGS: Fluoroscopy was provided for intraoperative procedure. Please refer to the operative repo rt for further discussion. IMPRESSION: IMAGE(S) OBTAINED DURING PROCEDURE. COMMENT: Quality ID [id number]: Final reports for procedures using fluoroscopy that document radiation exp osure indices, or exposure time and number of fluorographic images (if radiation exposure indices are not available) Please consult full operative report of the attending physician for description of the procedure. TECHNICAL DOCUMENTATION: JOB ID: [id number] [employer]- All Rights Reserved Reading location - IP/workstation name: [email or web address]
[2018-11-13 15:14] VITALS: BP 163/65
== END 2018-11-13 15:00 | disposition home or self-care (01) ==
LOC: CCL 11:12
PROVIDERS: ATTEND Surgery
DX: T82.858A Stenosis of other vascular prosthetic devices, implants and grafts, initial encounter (principal); Y83.2 Surgical operation with anastomosis, bypass or graft as the cause of abnormal reaction of the patient, or of later complication, without mention of misadventure at the time of the procedure; I12.0 Hypertensive chronic kidney disease with stage 5 chronic kidney disease or end stage renal disease; N18.6 End stage renal disease; Z99.2 Dependence on renal dialysis; Z79.899 Other long term (current) drug therapy; M10.9 Gout, unspecified; D57.3 Sickle-cell trait
CPT/HCPCS: 36415; 80048; 36902; C1725; C1752; Q9967; C1769; J2250; J1644 ×2; A9270 ×4; J3010; J3490

== ENCOUNTER 2019-01-07 20:34 | Emergency (ER) | payer MEDICARE, MEDICAID ==
--- NOTE | 2019-01-07 20:58 | ER Document Report ---
ED Medical Screen (RME) - General Chief Complaint: Breathing Difficulty Stated Complaint: DIFFICULTY BREATHING Time Seen by Provider: 01/07/19 20:55 Primary Care Provider: EFREN ROMAN MD [Primary Care Provider] - Follow up as needed Information source: Patient, Relative Notes: Patient states that she woke up this morning with shortness of breath and palpitations. Patient complains of continued shortness of breath although denies any palpitations at this time. Patient denies any cough or chest pain. Patient denies any nausea or vomiting. Patient does have a history of hypertens ion as well as renal failure and dialyzes on Wednesdays and Fridays. Patient has not missed dialysis. I have greeted and performed a rapid initial assessment of this patient. A comprehensive ED assessment and evaluation of the patient, analysis of test results and completion of the medical decision making process will be conducted by additional ED providers. TRAVEL OUTSIDE OF THE [place] IN LAST 30 DAYS: No - Related Data Allergies/Adverse Reactions: No Known Allergies Allergy (Verified 11/13/18 11:32) Past Medical History - Social History Chew tobacco use (# tins/day): No Frequency of alcohol use: None Drug Abuse: None Family history: Reviewed & Not Pertinent - Past Medical History Cardiac Medical History: Reports: Hx Hypertension Denies: Hx Coronary Artery Disease, Hx Heart Attack Pulmonary Medical History: Denies: Hx Asthma, Hx Bronchitis, Hx COPD, Hx Pneumonia, Hx Tuberculosis Neurological Medical History: Denies: Hx Cerebrovascular Accident, Hx Seizures Renal/ Medical History: Reports: Hx End Stage Renal Disease. Denies: Hx Peritoneal Dialysis GI Medical History: Denies: Hx Hepatitis, Hx Hiatal Hernia, Hx Ulcer Musculoskeltal Medical History: Denies Hx Arthritis, Reports Hx Gout Infectious Medical History: Denies: Hx Hepatitis Past Surgical History: Reports: Hx Hysterectomy, Hx Tonsillectomy, Hx Vascular Surgery - PermCath placement. Denies: Hx Mastectomy - RIGHT RESTRICTED, Hx Open Heart Surgery, Hx Pacemaker - Immunizations Hx Diphtheria, Pertussis, Tetanus Vaccination: No - UNSURE Physical Exam - Respiratory Respiratory status: No respiratory distress Chest status: Nontender Breath sounds: Normal Doctor's Discharge - Discharge Referrals: EFREN ROMAN MD [Primary Care Provider] - Follow up as needed
--- NOTE | 2019-01-07 21:39 | RADIOLOGY REPORT (SQ) ---
XR CHEST 2 VIEWS EXAM DATE: 01/07/2019 8:56 PM CDT HISTORY: Shortness of breath. COMPARISON: 09/20/2018 FINDINGS: Query cardiomegaly with pulmonary vascular congestion. Small bilateral pleural effusions are seen, unchanged. No pneumothorax or consolidation. The bony thorax is intact. Right vascular stent is noted. IMPRESSION: Mild pulmonary edema with small pleural effusions, unchanged from prior study.
--- NOTE | 2019-01-07 23:15 | ER Document Report ---
ED Respiratory Problem - General Chief Complaint: Breathing Difficulty Stated Complaint: DIFFICULTY BREATHING Time Seen by Provider: 01/07/19 23:14 Primary Care Provider: EFREN ROMAN MD [Primary Care Provider] - Follow up as needed Mode of Arrival: Ambulatory Information source: Patient, Relative Notes: HISTORY OF PRESENT ILLNESS: Patient is an 88-year-old female with a past medical history of renal failure on dialysis who presents with mild shortness of breath that began prior to arrival. Patient reports that she was dialyzed today per her normal regimen, reports that she started experiencing mild trouble breathing during her dialysis session so was placed on oxygen, denies chest pain, no swelling of the extremities. Currently patient reports feeling "basically back to normal." Location: Chest Onset: Dialysis earlier today Alleviation: None Provocation: Unknown Quality: Shortness of breath Radiation: None Severity: Moderate at worst, currently mild Timing: Improving History of CAD: None Associated symptoms:Chest pain, no swelling of the extremities, no nausea or vomiting, no fevers or chills, no cough REVIEW OF SYSTEMS: CONSTITUTIONAL : Denies fever or chills, no sweats. Denies recent illness. EENT: Denies eye, ear, throat, or mouth pain or symptoms. Denies nasal or sinus congestion. CARDIOVASCULAR: Positive for chest pain. Denies swelling of the legs. RESPIRATORY: Denies cough, cold, or chest congestion. Positive for shortness of breath. Denies wheezing. GASTROINTESTINAL: Denies abdominal pain. Denies nausea, vomiting, or diarrhea. Denies constipation. GENITOURINARY: Denies difficulty urinating, painful urination, burning, frequency, or blood in urine. MUSCULOSKELETAL: Denies neck or back pain or joint pain or swelling. SKIN: Denies rash or skin lesions. HEMATOLOGIC : Denies easy bruising or bleeding. LYMPHATIC: Denies swollen, enlarged glands. NEUROLOGICAL: Denies altered mental status or loss of consciousness. Denies headache. Denies weakness or paralysis or loss of use of either side. Denies problems with gait or speech. Denies sensory or motor loss. PSYCHIATRIC: Denies anxiety or stress or depression. All other systems reviewed and negative. PHYSICAL EXAMINATION: GENERAL: Frail but well-appearing, well-nourished and in no acute distress. HEAD: Atraumatic, normocephalic. No scalp deformity, depression, or crepitance. EYES: Pupils are 3 mm and equal/round/reactive to light, extraocular movements intact, sclera anicteric, conjunctiva are normal. ENT: Nares patent bilaterally, oropharynx. Moist mucous membranes. No tonsil hypertrophy. NECK: Normal range of motion, supple without lymphadenopathy. LUNGS: Breath sounds present but diminished, equal, and clear to auscultation b ilaterally. No wheezes, rales, or rhonchi. HEART: Regular rate and rhythm without murmurs, rubs, or gallops. 2+ peripheral pulses. Normal capillary refill. ABDOMEN: Soft, nontender, nondistended. Normoactive bowel sounds. No guarding, no rebound. No masses appreciated. BACK: Normal contour, no midline tenderness. Rectal exam deferred. GENITAL/PELVIC: Deferred. EXTREMITIES: Normal range of motion, trace edema of the bilateral lower extremities. No cyanosis. NEUROLOGICAL: No focal neurological deficits. Moves all extremities spontaneously and on command. PSYCH: Normal mood, normal affect. No suicidal thoughts/ideations. No homicidal thoughts/ideations. No hallucinations. SKIN: Warm, dry, normal turgor, no rashes or lesions noted. ASSESSMENT AND PLAN: This patient is a 88-year-old female who presents with increased difficulty breathing could represent heart failure versus pulmonary edema versus acute NC. 1. Will obtain labs, urine, BNP, chest x-ray, and cardiac enzymes. 2. Will give oral pain medications and reassess. TRAVEL OUTSIDE OF THE [place] IN LAST 30 DAYS: No - HPI Patient complains to provider of: Short of breath Onset: This morning Duration: Intermittent episodes Quality of pain: No pain Severity: Mild Pain Level: Denies Context: Other - History of chronic renal failure on dialysis Short of Breath: Mild Sputum amount: None Associated symptoms: Heart racing Similar symptoms previously: No Recently seen / treated by doctor: No - Related Data Allergies/Adverse Reactions: No Known Allergies Allergy (Verified 11/13/18 11:32) Past Medical History - General Information source: Patient, Relative - Social History Smoking Status: Never Smoker Chew tobacco use (# tins/day): No Frequency of alcohol use: None Drug Abuse: None Lives with: Family Family History: Hyperlipidemia, Hypertension Patient has suicidal ideation: No Patient has homicidal ideation: No - Past Medical History Cardiac Medical History: Reports: Hx Hypertension Denies: Hx Coronary Artery Disease, Hx Heart Attack Pulmonary Medical History: Reports: None Denies: Hx Asthma, Hx Bronchitis, Hx COPD, Hx Pneumonia, Hx Tuberculosis EENT Medical History: Reports: None Neurological Medical History: Reports: None. Denies: Hx Cerebrovascular Accident, Hx Seizures Endocrine Medical History: Reports: None Renal/ Medical History: Reports: Hx End Stage Renal Disease. Denies: Hx Peritoneal Dialysis Malignancy Medical History: Reports: None GI Medical History: Reports: None. Denies: Hx Hepatitis, Hx Hiatal Hernia, Hx Ulcer Musculoskeletal Medical History: Denies Hx Arthritis, Reports Hx Gout Skin Medical History: Reports None Psychiatric Medical History: Reports: None Traumatic Medical History: Reports: None Infectious Medical History: Reports: None. Denies: Hx Hepatitis Past Surgical History: Reports: Hx Hysterectomy, Hx Tonsillectomy, Hx Vascular Surgery - PermCath placement. Denies: Hx Mastectomy - RIGHT RESTRICTED, Hx Open Heart Surgery, Hx Pacemaker - Immunizations Immunizations up to date: Yes Hx Diphtheria, Pertussis, Tetanus Vaccination: No - UNSURE Hx Pneumococcal Vaccination: 04/03/09 Review of Systems - Review of Systems Constitutional: No symptoms reported EENT: No symptoms reported Cardiovascular: See HPI, Heart racing Respiratory: See HPI, Short of breath Gastrointestinal: No symptoms reported Genitourinary: No symptoms reported Female Genitourinary: No symptoms reported Musculoskeletal: No symptoms reported Skin: No symptoms reported Hematologic/Lymphatic: No symptoms reported Neurological/Psychological: No symptoms reported -: Yes All other systems reviewed and negative Physical Exam - Vital signs Vitals: Temp Pulse Resp BP Pulse Ox 97.8 F 96 16 183/79 H 95 01/07/19 21:00 01/07/19 21:00 01/07/19 21:00 01/07/19 21:00 01/07/19 21:00 Interpretation: Normal Course - Re-evaluation Re-evalutation: 01/08/19 01:48 Chest x-ray reveals small pleural effusions with interstitial edema. Labs are at her baseline with elevated creatinine and BNP. Will discharge the patient home with strict return precautions and follow-up with primary care. All results were explained to and discussed with the patient, and all questions addressed and answered. The patient voices both understanding and agreeing with the plan. - Vital Signs Vital signs: Temp Pulse Resp BP Pulse Ox 98.8 F 84 18 193/80 H 100 01/08/19 02:05 01/08/19 02:05 01/08/19 02:05 01/08/19 02:05 01/08/19 01:31 - Laboratory Result Diagrams: 01/08/19 00:15 01/07/19 23:20 Laboratory results interpreted by me: 01/07/19 01/07/19 01/08/19 23:20 23:20 00:15 Hgb 10.7 L Hct 33.4 L RDW 21.1 H Lymph % (Auto) 12.2 L BUN 29 H Creatinine 4.34 H Est GFR ( Amer) 12 L Est GFR (MDRD) Non-Af 10 L Calcium 8.2 L Direct Bilirubin 0.5 H Alkaline Phosphatase 163 H NT-Pro-B Natriuret Pep 58688 H - Diagnostic Test Radiology reviewed: Image reviewed, Reports reviewed - EKG Interpretation by Me EKG shows normal: Sinus rhythm Rate: Normal Rhythm: NSR [place]/QRS: No: Right axis deviation, Left axis deviation, RBBB, LBBB, IVCD, LAHB/LAFB, LPHB/LPFB, Bifasicular block Voltage: No: Increased voltage, Consistant with LVH, Decreased voltage, Throughout, Limb leads P Waves: No: ERENDIRA, LAE, Absent, AV Dissociation, Other Heart block present: No: 1st Degree, Mobitz 1, Mobitz 2, CHB (3rd degree block) When compared to previous EKG there are: No significant change Discharge - Discharge Clinical Impression: Chronic renal failure Qualifiers: Chronic kidney disease stage: stage 4 (severe) Qualified Code(s): N18.4 - Chronic kidney disease, stage 4 (severe) Pulmonary edema Qualifiers: Chronicity: chronic Qualified Code(s): J81.1 - Chronic pulmonary edema Condition: Good Disposition: HOME, SELF-CARE Instructions: Edema, Peripheral ([facility]) Additional Instructions: You have been evaluated in the Emergency Department for having difficulty breathing related to fluid in your lungs. While here, you had blood work and a chest x-ray and it is now safe to be discharged home. Please follow-up with y our primary physician as instructed in one week to be rechecked. Return to the Emergency Department if you experience worsening symptoms, chest pain, inability to breathe, or any other concerning symptoms. Referrals: EFREN ROMAN MD [Primary Care Provider] - Follow up as needed Print Language: [place]
[2019-01-07 23:59] LABS: ALBUMIN 4.3 g/dL (3.5-5.0); ALKALINE PHOSPHATASE 163 U/L (38-126); ANION GAP 16 (5-19); ASPARTATE AMINO TRANSFERASE 29 U/L (14-36); BILIRUBIN,DIRECT 0.5 mg/dL (0.0-0.4); BILIRUBIN,TOTAL 0.6 mg/dL (0.2-1.3); BLOOD UREA NITROGEN 29 mg/dL (7-20); CALCIUM 8.2 mg/dL (8.4-10.2); CARBON DIOXIDE 22 mmol/L (22-30); CHLORIDE 100 mmol/L (98-107); GLUCOSE 80 mg/dL (75-110); POTASSIUM 4.5 mmol/L (3.6-5.0); TOTAL PROTEIN 6.9 g/dL (6.3-8.2)
[2019-01-08] MEDS ORDERED: HYDROCODONE/ACETAMINOPHEN 5-325 MG TABLET PO ONE (00:02)
[2019-01-08 00:22] LABS: TROPONIN I < 0.012 ng/mL
[2019-01-08 00:23] LABS: NT PRO BNP 77000 pg/mL (<450)
[2019-01-08 00:45] LABS: ABSOLUTE BASOPHILS # (AUTO) 0.1 10^3/uL (0.0-0.2); ABSOLUTE EOSINOPHILS # (AUTO) 0.1 10^3/uL (0.0-0.6); ABSOLUTE LYMPHOCYTES (AUTO) 0.7 10^3/uL (0.5-4.7); ABSOLUTE MONOCYTES (AUTO) 0.5 10^3/uL (0.1-1.4); ABSOLUTE NEUT (AUTO) 4.6 10^3/uL (1.7-8.2); BASOPHILS % (AUTO) 1.7 % (0-2); EOSINOPHILS % (AUTO) 1.8 % (0-6); HEMATOCRIT 33.4 % (36.0-47.0); HEMOGLOBIN 10.7 g/dL (12.0-15.5); LYMPHOCYTES % (AUTO) 12.2 % (13-45); MEAN CORPUSCULAR HEMOGLOBIN 27.1 pg (27.0-33.4); MEAN CORPUSCULAR HGB CONC 32.1 g/dL (32.0-36.0); MEAN CORPUSCULAR VOLUME 85 fl (80-97); MONOCYTES % (AUTO) 8.2 % (3-13); PLATELET COUNT 275 10^3/uL (150-450); RED BLOOD COUNT 3.95 10^6/uL (3.72-5.28); RED CELL DISTRIBUTION WIDTH 21.1 % (11.5-14.0); SEGMENTED NEUTROPHILS % (AUTO) 76.1 % (42-78); TOTAL CELLS COUNTED % (AUTO) 100 %
[2019-01-08 02:04] VITALS: BP 193/80
--- NOTE | 2019-01-08 07:57 | EKG REPORT ---
SEVERITY:- ABNORMAL ECG - SINUS OR ECTOPIC ATRIAL RHYTHM LVH WITH IVCD AND SECONDARY REPOL ABNRM LA ABNORMALITY : Confirmed by: Aiden Fatima MD 08-Jan-2019 07:56:43
== END 2019-01-08 02:05 | disposition home or self-care (01) ==
LOC: ER 20:34
DX: J81.1 Chronic pulmonary edema (principal); R06.02 Shortness of breath; I12.9 Hypertensive chronic kidney disease with stage 1 through stage 4 chronic kidney disease, or unspecified chronic kidney disease; N18.4 Chronic kidney disease, stage 4 (severe); Z99.2 Dependence on renal dialysis
CPT/HCPCS: 93005; 99285; 36415; 84443; 85025; 80053; 84484; 83880; 71046; 93010; A9270

== ENCOUNTER 2019-01-16 02:24 | Observation (INO) | payer MEDICARE, MEDICAID ==
[2019-01-16 03:15] LABS: ABSOLUTE BASOPHILS # (AUTO) 0.1 10^3/uL (0.0-0.2); ABSOLUTE EOSINOPHILS # (AUTO) 0.1 10^3/uL (0.0-0.6); ABSOLUTE LYMPHOCYTES (AUTO) 0.6 10^3/uL (0.5-4.7); ABSOLUTE MONOCYTES (AUTO) 0.3 10^3/uL (0.1-1.4); ABSOLUTE NEUT (AUTO) 4.5 10^3/uL (1.7-8.2); BASOPHILS % (AUTO) 2.2 % (0-2); EOSINOPHILS % (AUTO) 2.6 % (0-6); HEMATOCRIT 33.7 % (36.0-47.0); HEMOGLOBIN 10.8 g/dL (12.0-15.5); LYMPHOCYTES % (AUTO) 10.8 % (13-45); MEAN CORPUSCULAR HEMOGLOBIN 27.1 pg (27.0-33.4); MEAN CORPUSCULAR HGB CONC 32.2 g/dL (32.0-36.0); MEAN CORPUSCULAR VOLUME 84 fl (80-97); MONOCYTES % (AUTO) 5.8 % (3-13); PLATELET COUNT 302 10^3/uL (150-450); RED CELL DISTRIBUTION WIDTH 20.7 % (11.5-14.0); SEGMENTED NEUTROPHILS % (AUTO) 78.6 % (42-78); TOTAL CELLS COUNTED % (AUTO) 100 %; WHITE BLOOD COUNT 5.8 10^3/uL (4.0-10.5)
[2019-01-16 03:24] LABS: ALBUMIN 4.4 g/dL (3.5-5.0); ALKALINE PHOSPHATASE 163 U/L (38-126); ANION GAP 15 (5-19); ASPARTATE AMINO TRANSFERASE 38 U/L (14-36); BILIRUBIN,DIRECT 0.4 mg/dL (0.0-0.4); BILIRUBIN,TOTAL 0.6 mg/dL (0.2-1.3); BLOOD UREA NITROGEN 40 mg/dL (7-20); CALCIUM 9.1 mg/dL (8.4-10.2); CARBON DIOXIDE 24 mmol/L (22-30); CHLORIDE 101 mmol/L (98-107); GLUCOSE 88 mg/dL (75-110); POTASSIUM 5.3 mmol/L (3.6-5.0); TOTAL PROTEIN 7.1 g/dL (6.3-8.2)
--- NOTE | 2019-01-16 03:29 | RADIOLOGY REPORT (SQ) ---
EXAM DESCRIPTION: XR CHEST 1 VIEW COMPLETED DATE/TME: 01/16/2019 02:39 CLINICAL HISTORY: 88 years, Female, SOB COMPARISON: 01/07/2019 chest NUMBER OF VIEWS: 1 TECHNIQUE: Portable chest LIMITATIONS: None. FINDINGS: Cardiomegaly. Atheromatous change thoracic aorta. Osteopenia. Mild interstitial edema. Tiny effusions and/or pleural thickening. No pneumothorax IMPRESSION: Cardiomegaly. Mild interstitial edema. Tiny effusions and/or pleural thickening copyright 2010 [email or web address]- All Rights Reserved
[2019-01-16 03:48] LABS: TROPONIN I < 0.012 ng/mL
[2019-01-16 04:00] LABS: NT PRO BNP 81400 pg/mL (<450)
[2019-01-16] MEDS ORDERED: FUROSEMIDE INJ/PF 40 MG/4 ML SDV IV ONE (04:29)
--- NOTE | 2019-01-16 05:00 | ER Document Report ---
ED Respiratory Problem - General Chief Complaint: Shortness Of Breath Stated Complaint: DIFFICULTY BREATHING Time Seen by Provider: 01/16/19 02:39 Primary Care Provider: EFREN ROMAN MD [Primary Care Provider] - Follow up as needed Notes: Patient is an 88-year-old female history of chronic kidney failure on dialysis Monday presents to the emergency department for respiratory distress. Patient voices she was attempting to get ready for bed. States she was getting her pajamas on when she felt short of breath. States she had alerted 911. Patient's denying any chest pain, tightness, discomfort. States she was recently at this facility for same complaint of respiratory distress. States she was told to follow-up with her primary care provider. States she has not yet followed up. Patient voices she has noticed her bilateral lower extremities are "more swollen than normal." EMS did give the patient 1 sublingual nitroglycerin as well as 1 inch of Nitropaste based on patient's hypertension. EMS also states patient denied chest pain. EMS also placed the patient on oxygen via nasal cannula at 2 L/min. Patient voices the oxygen has helped her and she no longer feels short of breath. Patient voices she does take Lasix, states she has been taking her medications as prescribed. Patient voices she has not missed any recent dialysis appointments. TRAVEL OUTSIDE OF THE [place] IN LAST 30 DAYS: No - Related Data Allergies/Adverse Reactions: No Known Allergies Allergy (Verified 11/13/18 11:32) Past Medical History - General Information source: Patient - Social History Smoking Status: Unknown if Ever Smoked Family History: Hyperlipidemia, Hypertension Patient has suicidal ideation: No Patient has homicidal ideation: No - Past Medical History Cardiac Medical History: Reports: Hx Hypertension Denies: Hx Coronary Artery Disease, Hx Heart Attack Pulmonary Medical History: Denies: Hx Asthma, Hx Bronchitis, Hx COPD, Hx Pneumonia, Hx Tuberculosis Neurological Medical History: Denies: Hx Cerebrovascular Accident, Hx Seizures Renal/ Medical History: Reports: Hx End Stage Renal Disease. Denies: Hx Peritoneal Dialysis GI Medical History: Denies: Hx Hepatitis, Hx Hiatal Hernia, Hx Ulcer Musculoskeletal Medical History: Denies Hx Arthritis, Reports Hx Gout Infectious Medical History: Denies: Hx Hepatitis Past Surgical History: Reports: Hx Hysterectomy, Hx Tonsillectomy, Hx Vascular Surgery - PermCath placement. Denies: Hx Mastectomy - RIGHT RESTRICTED, Hx Open Heart Surgery, Hx Pacemaker - Immunizations Immunizations up to date: Yes Hx Diphtheria, Pertussis, Tetanus Vaccination: No - UNSURE Hx Pneumococcal Vaccination: 04/03/09 Review of Systems - Review of Systems Constitutional: denies: Fever EENT: No symptoms reported Cardiovascular: See HPI Respiratory: See HPI Gastrointestinal: No symptoms reported Genitourinary: No symptoms reported Female Genitourinary: No symptoms reported Musculoskeletal: No symptoms reported Skin: No symptoms reported Hematologic/Lymphatic: No symptoms reported Neurological/Psychological: No symptoms reported Physical Exam - Vital signs Vitals: Resp Pulse Ox 32 H 100 01/16/19 02:39 01/16/19 02:39 - Notes Notes: GENERAL: Alert, interacts well. No acute distress. HEAD: Normocephalic, atraumatic. EYES: Pupils equal, round, and reactive to light. Extraocular movements intact. ENT: Oral mucosa moist, tongue midline. NECK: Full range of motion. Supple. Trachea midline. LUNGS: Diminished to auscultation bilateral bases, no discernible wheezes, rales, or rhonchi. . HEART: Regular rate and rhythm. No murmur ABDOMEN: Soft, non-tender. Non-distended. Bowel sounds present in all 4 quadrants. EXTREMITIES: Moves all 4 extremities spontaneously. normal radial and dorsalis pedis pulses bilaterally. No cyanosis. +1 pitting edema noted bilateral lower extremities to the knee. BACK: no cervical, thoracic, lumbar midline tenderness. No saddle anesthesia, normal distal neurovascular exam. NEUROLOGICAL: Alert and oriented x3. Normal speech. cranial nerves II through XII grossly intact. PSYCH: Normal affect, normal mood. SKIN: Warm, dry, normal turgor. No rashes or lesions noted. Course - Re-evaluation Re-evalutation: Patient initially presents in respiratory distress. States the oxygen the EMS provider has helped. Patient was noted to be 100% on 2 L of oxygen via nasal cannula. Patient does not have home oxygen. EMS noted patient's room air oxygen saturation was 94%. Patient's oxygen was removed to see how patient felt. While patient is sitting still with no oxygen her oxygen saturation is 95%. Patient is not tachypneic and overall states she feels "so much better." Patient was helped to the door with a walker and she became tachypneic and hypoxic with oxygen saturation at 87%. Patient voices that she "needs the oxygen in my nose." 01/16/19 07:31 Discussed this case with Pts PCP Dr. Metcalf who will admitt the Pt. He would like me to call nephrology to confirm we have a dialysis bed available. Paged Dr. Ruiz, awaiting return phone call. 01/16/19 07:49 I spoke with nephrology, Dr. Ruiz. She is aware the patient does need dialysis this morning. - Vital Signs Vital signs: Temp Pulse Resp BP Pulse Ox 15 172/81 H 100 01/16/19 07:01 01/16/19 07:01 01/16/19 07:01 - Laboratory Result Diagrams: 01/16/19 02:55 01/16/19 02:55 Laboratory results interpreted by me: 01/16/19 01/16/19 01/16/19 02:55 02:55 02:55 Hgb 10.8 L Hct 33.7 L RDW 20.7 H Lymph % (Auto) 10.8 L Baso % (Auto) 2.2 H Seg Neutrophils % 78.6 H Potassium 5.3 H BUN 40 H Creatinine 5.87 H Est GFR ( Amer) 8 L Est GFR (MDRD) Non-Af 7 L AST 38 H Alkaline Phosphatase 163 H NT-Pro-B Natriuret Pep [id number] H Discharge - Discharge Clinical Impression: Respiratory distress Pulmonary edema Qualifiers: Chronicity: chronic Qualified Code(s): J81.1 - Chronic pulmonary edema Condition: Fair Disposition: ADMITTED INPATIENT Admitting Provider: Tamiko Unit Admitted: Telemetry Referrals: EFREN ROMAN MD [Primary Care Provider] - Follow up as needed
[2019-01-16] MEDS ORDERED: FENTANYL CITRATE INJ/PF 100 MCG/2 ML AMPUL IV ONE (05:45)
[2019-01-16] MEDS ORDERED: NORMAL SALINE 1000 ML 1,000 ML IV PRN (09:55)
[2019-01-16] MEDS ORDERED: LIDOCAINE 2% JELLY 5 ML TUBE TOP SCH (10:15)
--- NOTE | 2019-01-16 10:29 | PDOC CONSULTATION ---
Consultation Consult Date: 01/16/19 Provider Consulted: DEVON VERGARA Consult reason:: I was asked by the emergency room provider for Dr. Roman to see this patient for emergency dialysis due to acute respiratory distress in a patient who has ESRD. History of Present Illness Admission Date/PCP: 01/16/19 07:55 EFREN ROMAN History of Present Illness: DIANNE MUONZ is a 88 year old female known to me with history of ESRD on maintenance hemodialysis, hypertension, and anemia of chronic kidney disease who presented to the emergency room via EMS with acute shortness of breath. Patient states that she was trying to go to bed and all of a sudden she felt like she could not breathe and needed to get up. She called the EMS. She denied any chest pains, cough nor fever nor any other complaints. She has a chronic right shoulder pain and pain over her right arm AV fistula but this is nothing new. The EMS gave her nitroglycerin and also place her on oxygen. Her oxygen saturation was 100% at 2 L via nasal cannula. When the oxygen was removed in the emergency room her oxygen saturation was 94%. However she complains that she is short of breath without the oxygen so she is back on the oxygen currently. He says she feels better with the oxygen. Patient said that she also has increasing leg swelling for the last 1 to 2 weeks. She said she was in the emergency room a week ago for the same problem. Her chest x-ray in the emergency room showed cardiomegaly, mild interstitial edema and tiny effusions. I was called by the emergency room provider to provide dialysis treatment today. I am seeing the patient during dialysis now. She seems to be comfortable with oxygen by nasal cannula. Her blood pressure is elevated. She typically does not take her blood pressure medications prior to dialysis because her blood pressure can get too low during dialysis treatment. We will monitor the patient closely and give antihypertensives if her blood pressure does not go down. Past Medical History Cardiac Medical History: Reports: Hypertension-primary Neurological Medical History: Reports: Other - TIA Renal/ Medical History: Reports: End Stage Renal Disease, Hyperphosphatemia, S econdary Hyperparathyroidism, Other - Renal cyst Musculoskeltal Medical History: Reports: Arthritis, Gout Hematology Medical History: Reports Anemia of Chronic Kidney Disease Past Surgical History Past Surgical History: Reports: Dialysis Access Surgery AVF, Hysterectomy, Tonsillectomy, Vascular Surgery - PermCath placement Social History Information Source: Patient Lives with: Family Smoking Status: Former Smoker Electronic Cigarette use?: No Frequency of Alcohol Use: None Hx Recreational Drug Use: No Drugs: None Hx Prescription Drug Abuse: No Family History Family History: Malignancy - Sister Parental Family History Reviewed: Yes Children Family History Reviewed: Yes Sibling(s) Family History Reviewed.: Yes Medication/Allergy Home Medications: Acetaminophen [Acetaminophen 8 Hour] 650 mg PO Q6HP PRN 01/16/19 Aspirin [Aspirin 81 mg Chewable Tablet] 81 mg PO DAILY 01/16/19 Cinacalcet HCl [Sensipar 60 mg Tablet] 60 mg PO DAILY 01/16/19 Clonidine HCl [Catapres 0.1 mg Tablet] 0.1 mg PO BID 01/16/19 Folic Acid/Vitamin B Comp W-C [Luma-Adriana Tablet] 0.8 mg PO DAILY 01/16/19 Furosemide [Lasix 40 mg Tablet] 40 mg PO DAILY 01/16/19 Hydralazine HCl 100 mg PO TID 01/16/19 Sucroferric Oxyhydroxide [Velphoro] 500 mg PO MEALS 01/16/19 Vitamin B Complex [B Complex] 1 cap PO DAILY 01/16/19 Allergies/Adverse Reactions: No Known Allergies Allergy (Verified 11/13/18 11:32) Review of Systems All systems: reviewed and no additional remarkable complaints except as stated Review of Systems: Constitutional: ABSENT: chills, fatigue, fever(s), headache(s), weight gain, weight loss Eyes: ABSENT: visual disturbances Ears: ABSENT: hearing changes Cardiovascular: ABSENT: chest pain, orthropnea, palpitations; reports dyspnea and edema Respiratory: ABSENT: cough, hemoptysis Gastrointestinal: ABSENT: abdominal pain, constipation, diarrhea, hematemesis, hematochezia, nausea, vomiting Genitourinary: ABSENT: dysuria, hematuria Musculoskeletal: ABSENT: joint swelling; right shoulder pain Integumentary: ABSENT: rash, wounds; reports pain over her keloid over her right upper arm fistula Neurological: ABSENT: abnormal gait, abnormal speech, confusion, dizziness, focal weakness, numbness, syncope Psychiatric: ABSENT: anxiety, depression Endocrine: ABSENT: cold intolerance, heat intolerance, polydipsia, polyuria Hematologic/Lymphatic: ABSENT: easy bleeding, easy bruising, lymphadenopathy Physical Exam Vital Signs: Temp Pulse Resp BP Pulse Ox 29 H 188/87 H 100 01/16/19 09:01 01/16/19 09:01 01/16/19 09:01 Intake & Output 01/15/19 01/16/19 01/17/19 06:59 06:59 06:59 Weight 47 kg Vitals during dialysis: Initial blood pressure is 206/104, heart rate of 86, blood flow rate of 350 mL/min and dialysate flow rate of 800 mL/min. Exam: General appearance: No acute distress, cooperative, well-developed, well- nourished Head exam: PRESENT: atraumatic, normocephalic Eye exam: PRESENT: Conjunctiva Nubieber, EOMI, PERRLA. ABSENT: conjunctival injection, scleral icterus Mouth exam: PRESENT: moist, neck supple, tongue midline Neck exam: PRESENT: full ROM. ABSENT: carotid bruit, JVD, lymphadenopathy, thyromegaly Respiratory exam: PRESENT: Diminished to auscultation bilaterally. ABSENT: rales, rhonchi, stridor, wheezes Cardiovascular exam: PRESENT: RRR, +S1, +S2. ABSENT: systolic murmur Pulses: PRESENT: normal radial pulses, normal dorsalis pedis pulses GI/Abdominal exam: PRESENT: normal bowel sounds, soft. ABSENT: guarding, mass, tenderness Rectal exam: Deferred Extremities exam: PRESENT: full ROM. Grade 1 bilateral lower extremity pitting edema ABSENT: calf tenderness Musculoskeletal: PRESENT: full ROM. ABSENT: deformity Neurological exam: PRESENT: alert, Awake, Oriented to person, Oriented to place, Oriented to time, reflexes normal, CN II-XII grossly intact. ABSENT: motor sens ory deficit Psychiatric exam: PRESENT: appropriate affect, normal mood. ABSENT: homicidal ideation, suicidal ideation Skin exam: PRESENT: intact, dry, warm. ABSENT: rash Results Laboratory Results: 01/16/19 02:55 01/16/19 02:55 01/16/19 01/16/19 02:55 02:55 WBC 5.8 RBC 4.00 Hgb 10.8 L Hct 33.7 L MCV 84 MCH 27.1 MCHC 32.2 RDW 20.7 H Plt Count 302 Seg Neutrophils % 78.6 H Sodium 139.5 Potassium 5.3 H Chloride 101 Carbon Dioxide 24 Anion Gap 15 BUN 40 H Creatinine 5.87 H Est GFR ( Amer) 8 L Glucose 88 Calcium 9.1 Total Bilirubin 0.6 AST 38 H Alkaline Phosphatase 163 H Total Protein 7.1 Albumin 4.4 01/16/19 02:55 Troponin I < 0.012 NT-Pro-B Natriuret Pep 27908 H Impressions: Chest X-Ray 01/16/19 02:39 IMPRESSION: Cardiomegaly. Mild interstitial edema. Tiny effusions and/or pleural thickening copyright 2011 [employer]- All Rights Reserved Assessment & Plan - Diagnosis (1) Respiratory distress Is this a current diagnosis for this admission?: Yes Plan: Most likely secondary to pulmonary vascular congestion associated with small pleural effusion and clinical fluid retention with lower extremity edema which she usually does not have. We are dialyzing the patient this morning emergently to relieve her shortness of breath. (2) ESRD (end stage renal disease) Is this a current diagnosis for this admission?: Yes Plan: We will do dialysis today for 3 hours, using the patient's right upper arm AV fistula, with 2 potassium bath, blood flow rate of 350-450 mL per minute, dialysate flow rate of 800 mL per minute, ultrafiltration at least 3-3.5 l as tolerated, no heparin and no Procrit. Treatment plan discussed with her dialysis nurse. Patient will be monitored and ultrafiltration will be adjusted accordingly. I will order lidocaine topical gel to be placed over her AV fistula prior to dialysis treatments while here in the hospital. (3) Hyperkalemia Is this a current diagnosis for this admission?: Yes Plan: Mild. Dialysis today. (4) Hypertension Qualifiers: Hypertension type: unspecified Qualified Code(s): I10 - Essential (primary) hypertension Is this a current diagnosis for this admission?: Yes Plan: Patient tend to have initial elevated blood pressure on dialysis which can come down throughout dialysis treatment with ultrafiltration. She typically holds her blood pressure medications prior to dialysis treatments. Continue clonidine 0.1 mg p.o. twice daily, hydralazine 100 mg p.o. 3 times daily. (5) Anemia in chronic kidney disease (CKD) Is this a current diagnosis for this admission?: Yes Plan: We will give Procrit during dialysis treatment as necessary. She does not need Procrit at this time. - Notes Notes: Thank you very much for this consultation. We will follow the patient and supervise dialysis while here in the hospital. - Time Time Spent: 50 to 70 Minutes
[2019-01-16] MEDS ORDERED: (PENDING PHARMACY ID) (Sucroferric Oxyhydroxide [Velphoro] 500 MG) PO SCH (12:00)
[2019-01-16] MEDS ORDERED: (PENDING PHARMACY ID) (Hydralazine Hcl [Hydralazine Hcl] 100 MG) PO SCH (14:00)
[2019-01-16] MEDS: HYDRALAZINE HCL 50 MG TABLET PO SCH ×2 (14:25→22:40)
[2019-01-16] MEDS ORDERED: CLONIDINE HCL 0.1 MG TABLET PO SCH ×2 (16:00→18:00)
[2019-01-16] MEDS ORDERED: ACETAMINOPHEN 650 MG PO PRN (16:33)
[2019-01-16] MEDS ORDERED: CYCLOBENZAPRINE HCL 10 MG TABLET PO PRN (19:50)
--- NOTE | 2019-01-16 19:50 | PDOC H&P ---
History of Present Illness Admission Date/PCP: 01/16/19 07:55 EFREN JHOANAUNKESTEPHANIA Patient complains of: Difficulty with breathing History of Present Illness: DIANNE MUNOZ is a 88 year old female known to my practice who presented to to the ED via EMS due to worsening shortness of breath. She reported onset of her symptom shortly before presentation with effort while trying to wear her nightgown. She reported recent similar symptoms. She has ESRD on hemodialysis and claimed compliance with her schedule as well as prescribed medication and dietary restrictions. She admitted to more than usual increase swelling in her legs. She denied any chest pain, chest tightness, palpitation, abdominal pain, nausea or vomiting. She was managed with supplemental oxygen and sublingual and paste nitroglycerin en route to the ED as well as IV Lasix in the ED with some improvement in her symptoms. m, Her morbidities are as listed below. She was advised hospitalization for further evaluation and management. Past Medical History Cardiac Medical History: Reports: Hypertension Denies: Coronary Artery Disease, Myocardial Infarction Pulmonary Medical History: Denies: Asthma, Bronchitis, Chronic Obstructive Pulmonary Disease (COPD), Pneumonia, Tuberculosis Neurological Medical History: Reports: Other - TIA Denies: Seizures Renal/ Medical History: Reports: End Stage Renal Disease, Other - Renal cyst GI Medical History: Denies: Hepatitis, Hiatal Hernia Musculoskeltal Medical History: Reports: Arthritis, Gout Hematology: Reports: Anemia - HX, Sickle Cell Disease - TRAIT Past Surgical History Past Surgical History: Reports: Hysterectomy, Tonsillectomy, Vascular Surgery - PermCath placement Denies: Amputation, Mastectomy - RIGHT RESTRICTED, Pacemaker Social History Lives with: Family Smoking Status: Former Smoker Electronic Cigarette use?: No Frequency of Alcohol Use: None Hx Recreational Drug Use: No Drugs: None Hx Prescription Drug Abuse: No - Advance Directive Resuscitation Status: Full Code Family History Family History: Hyperlipidemia, Hypertension Parental Family History Reviewed: Yes Children Family History Reviewed: Yes Sibling(s) Family History Reviewed.: Yes Medication/Allergy Home Medications: Acetaminophen [Acetaminophen 8 Hour] 650 mg PO Q6HP PRN 01/16/19 Aspirin [Aspirin 81 mg Chewable Tablet] 81 mg PO DAILY 01/16/19 Cinacalcet HCl [Sensipar 60 mg Tablet] 60 mg PO DAILY 01/16/19 Clonidine HCl [Catapres 0.1 mg Tablet] 0.1 mg PO BID 01/16/19 Folic Acid/Vitamin B Comp W-C [Luma-Adriana Tablet] 0.8 mg PO DAILY 01/16/19 Furosemide [Lasix 40 mg Tablet] 40 mg PO DAILY 01/16/19 Hydralazine HCl 100 mg PO TID 01/16/19 Sucroferric Oxyhydroxide [Velphoro] 500 mg PO MEALS 01/16/19 Vitamin B Complex [B Complex] 1 cap PO DAILY 01/16/19 Allergies/Adverse Reactions: No Known Allergies Allergy (Verified 11/13/18 11:32) Review of Systems Constitutional: ABSENT: chills, fever(s), headache(s), weight gain, weight loss Eyes: ABSENT: visual disturbances Ears: ABSENT: hearing changes Nose, Mouth, and Throat: ABSENT: as per HPI, headache(s), mouth pain, sore throat, vertigo, other Cardiovascular: PRESENT: dyspnea on exertion, edema. ABSENT: as per HPI, chest pain, orthropnea, palpitations, other Respiratory: PRESENT: dyspnea Gastrointestinal: ABSENT: abdominal pain, constipation, diarrhea, hematemesis, hematochezia, nausea, vomiting Integumentary: PRESENT: other - right arm keloid lesion associated pain. ABSENT: rash, wounds Neurological: ABSENT: abnormal gait, abnormal speech, confusion, dizziness, focal weakness, syncope Psychiatric: ABSENT: anxiety, depression, homidical ideation, suicidal ideation Endocrine: ABSENT: cold intolerance, heat intolerance, polydipsia, polyuria Hematologic/Lymphatic: ABSENT: easy bleeding, easy bruising, lymphadenopathy Allergic/Immunologic: ABSENT: seasonal rhinorrhea Physical Exam Vital Signs: Temp Pulse Resp BP Pulse Ox 97.8 F 98 18 164/55 H 94 01/16/19 16:00 01/16/19 16:00 01/16/19 16:00 01/16/19 16:00 01/16/19 16:00 Intake & Output 01/15/19 01/16/19 01/17/19 06:59 06:59 06:59 Intake Total 120 Output Total 3600 Balance -3480 Weight 47 kg General appearance: PRESENT: mild distress - due to reported pain at keloid lesion site and muscle cramps, thin Head exam: PRESENT: atraumatic, normocephalic Eye exam: PRESENT: conjunctiva pink, EOMI, PERRLA. ABSENT: scleral icterus Ear exam: PRESENT: normal external ear exam Mouth exam: PRESENT: moist Respiratory exam: PRESENT: clear to auscultation anais, decreased breath sounds - at lung bases Cardiovascular exam: PRESENT: RRR. ABSENT: diastolic murmur, rubs, systolic murmur Vascular exam: ABSENT: pallor GI/Abdominal exam: PRESENT: normal bowel sounds, soft. ABSENT: distended, guarding, mass, organolmegaly, rebound, tenderness Rectal exam: PRESENT: deferred Extremities exam: PRESENT: pedal edema Musculoskeletal exam: PRESENT: deformity - related to keloid associate dcontractiure and multiple joints involvement with arthritis, tenderness - at her right arm keloid site Neurological exam: PRESENT: alert, awake, oriented to person, oriented to place, oriented to time, oriented to situation, CN II-XII grossly intact. ABSENT: motor sensory deficit Psychiatric exam: PRESENT: appropriate affect, normal mood. ABSENT: homicidal ideation, suicidal ideation Skin exam: PRESENT: dry, warm Results Laboratory Results: 01/16/19 02:55 01/16/19 02:55 01/16/19 01/16/19 02:55 02:55 WBC 5.8 RBC 4.00 Hgb 10.8 L Hct 33.7 L MCV 84 MCH 27.1 MCHC 32.2 RDW 20.7 H Plt Count 302 Seg Neutrophils % 78.6 H Sodium 139.5 Potassium 5.3 H Chloride 101 Carbon Dioxide 24 Anion Gap 15 BUN 40 H Creatinine 5.87 H Est GFR ( Amer) 8 L Glucose 88 Calcium 9.1 Total Bilirubin 0.6 AST 38 H Alkaline Phosphatase 163 H Total Protein 7.1 Albumin 4.4 01/16/19 02:55 Troponin I < 0.012 NT-Pro-B Natriuret Pep 37920 H Impressions: Chest X-Ray 01/16/19 02:39 IMPRESSION: Cardiomegaly. Mild interstitial edema. Tiny effusions and/or pleural thickening copyright 2011 [employer]- All Rights Reserved Assessment & Plan - Diagnosis (1) Flash pulmonary edema Is this a current diagnosis for this admission?: Yes Plan: See admitting attending physician order about details for care plan. (2) ESRD (end stage renal disease) on dialysis Is this a current diagnosis for this admission?: Yes Plan: See admitting attending physician order about details for care plan. 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 (4) Muscle cramps Is this a current diagnosis for this admission?: Yes Plan: See admitting attending physician order about details for care plan. (5) Anemia in chronic kidney disease (CKD) Qualifiers: Chronic kidney disease stage: on chronic dialysis Qualified Code(s): N18.6 - End stage renal disease; D63.1 - Anemia in chronic kidney disease; Z99.2 - Dependence on renal dialysis Is this a current diagnosis for this admission?: Yes Plan: See admitting attending physician order about details for care plan. (6) Hyperkalemia Is this a current diagnosis for this admission?: Yes Plan: See admitting attending physician order about details for care plan. - Time Time Spent: 50 to 70 Minutes Medications reviewed and adjusted accordingly: Yes Anticipated discharge: Home with Homehealth Within: Other - Inpatient Certification Based on my medical assessment, after consideration of the patient's comor bidities, presenting symptoms, or acuity I expect that the services needed warrant INPATIENT care.: Yes I certify that my determination is in accordance with my understanding of Medicare's requirements for reasonable and necessary INPATIENT services [42 CFR 412.3e].: Yes Medical Necessity: Significant Comorbidiites Make Outpatient Treatment Too Risky, Need Close Monitoring Due to Risk of Patient Decompensation, Need For Continuous Telemetry Monitoring, Risk of Complication if Not Cared For in Hospital, Risk of Diagnosis Which Will Require Inpatient Eval/Care/Monitoring Post Hospital Care: D/C Glove Examiner Documentation - Plan Summary Plan Summary: See admitting attending physician order about details for care plan.
[2019-01-16] MEDS ORDERED: CYCLOBENZAPRINE HCL 10 MG TABLET ONE (19:57)
[2019-01-16] MEDS: CLONIDINE HCL 0.2 MG TABLET PO SCH (22:40)
[2019-01-16] MEDS: ACETAMINOPHEN 325 MG TABLET PO PRN (22:43)
--- NOTE | 2019-01-16 23:15 | EKG REPORT ---
SEVERITY:- ABNORMAL ECG - SINUS RHYTHM PROBABLE LEFT ATRIAL ABNORMALITY LEFT VENTRICULAR HYPERTROPHY BORDERLINE PROLONGED QT INTERVAL : Confirmed by: Tulio Orourke 16-Jan-2019 23:15:15
[2019-01-17] MEDS: HYDRALAZINE HCL 50 MG TABLET PO SCH ×2 (06:12→14:22)
[2019-01-17] MEDS: CLONIDINE HCL 0.2 MG TABLET PO SCH (09:47)
[2019-01-17] MEDS ORDERED: (PENDING PHARMACY ID) (Vitamin B Complex [B Complex] 1 CAP) PO SCH (10:00)
[2019-01-17] MEDS ORDERED: CINACALCET HCL 30 MG TABLET PO SCH (10:00)
[2019-01-17] MEDS ORDERED: (PENDING PHARMACY ID) (Folic Acid/Vitamin B Comp W-C [Rena-Vite Tablet] 0.8 MG) PO SCH (10:00)
[2019-01-17] MEDS ORDERED: (PENDING PHARMACY ID) (Cinacalcet Hcl [Sensipar 60 Mg Tablet] 60 MG) PO SCH (10:00)
[2019-01-17] MEDS ORDERED: VITAMIN B COMPLEX TABLET PO SCH ×2 (10:00)
[2019-01-17] MEDS ORDERED: ASPIRIN 81 MG TABLET, CHEWABLE PO SCH (10:00)
[2019-01-17] MEDS ORDERED: FUROSEMIDE 40 MG TABLET PO SCH (10:09)
[2019-01-17] MEDS: ACETAMINOPHEN 325 MG TABLET PO PRN (12:45)
--- NOTE | 2019-01-17 16:41 | PDOC DISCHARGE SUMMARY ---
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 There was concern for flash pulmonary edema. She was treated with IV Lasix in the ED and had hemodialysis under directive of Dr. Ruiz, consulting jukebox operator, on the day of her admission. Her Clonidine was increased to 0.2 mg po q12 hours with improvement in her blood pressure readings thereafter. She was treated with Flexeril 5 mg p.o q 8 hours prn for muscle spasm. She will be discharged home today with adjusted dose of Clonidine at 0.2 mg po q 12 hours and Flexeril 5 mg po tid prn for muscle spasm. She will continue outpatient hemodialysis on Monday, Monday and Monday schedule ay [facility]. She will follow up with me in the office as instructed upon discharge. - Additional Information Resuscitation Status: Full Code Discharge Diet: Cardiac, Other (Comments) - Renal restricted Discharge Activity: Activity As Tolerated Referrals: EFREN ROMAN MD [Primary Care Provider] - 01/22/19 10:00 am Prescriptions: Clonidine HCl [Catapres 0.2 mg Tablet] 0.2 mg PO Q12 #60 tablet Cyclobenzaprine HCl [Flexeril 10 mg Tablet] 5 mg PO Q8HP PRN #30 tablet PRN Reason: Home Medications: Acetaminophen [Acetaminophen 8 Hour] 650 mg PO Q6HP PRN 01/16/19 Aspirin [Aspirin 81 mg Chewable Tablet] 81 mg PO DAILY 01/16/19 Cinacalcet HCl [Sensipar 60 mg Tablet] 60 mg PO DAILY 01/16/19 Folic Acid/Vitamin B Comp W-C [Luma-Adriana Tablet] 0.8 mg PO DAILY 01/16/19 Furosemide [Lasix 40 mg Tablet] 40 mg PO DAILY 01/16/19 Hydralazine HCl 100 mg PO TID 01/16/19 Sucroferric Oxyhydroxide [Velphoro] 500 mg PO MEALS 01/16/19 Vitamin B Complex [B Complex] 1 cap PO DAILY 01/16/19 Clonidine HCl [Catapres 0.2 mg Tablet] 0.2 mg PO Q12 #60 tablet 01/17/19 Cyclobenzaprine HCl [Flexeril 10 mg Tablet] 5 mg PO Q8HP PRN #30 tablet 01/17/19 History of Present Illiness History of Present Illness: DIANNE MUNOZ is a 88 year old female known to my practice who presented to to the ED via EMS due to worsening shortness of breath. She reported onset of her symptom shortly before presentation with effort while trying to wear her nightgown. She reported recent similar symptoms. She has ESRD on hemodialysis and claimed compliance with her schedule as well as prescribed medication and dietary restrictions. She admitted to more than usual increase swelling in her legs. She denied any chest pain, chest tightness, palpitation, abdominal pain, nausea or vomiting. She was managed with supplemental oxygen and sublingual and paste nitroglycerin en route to the ED as well as IV Lasix in the ED with some improvement in her symptoms. Her morbidities are as listed below. She was advised hospitalization for further evaluation and management. Hospital Course Hospital Course: Patient was admitted for acute onset difficulty with breathing with severely elevated blood pressure and worsening leg swelling. There was concern for flash pulmonary edema. She was treated with IV Lasix in the ED and had hemodialysis under directive of Dr. Ruiz, consulting jukebox operator, on the day of her admission. Her Clonidine was increased to 0.2 mg po q12 hours with improvement in her blood pressure readings thereafter. She was treated with Flexeril 5 mg p.o q 8 hours prn for muscle spasm. She will be discharged home today with adjusted dose of Clonidine at 0.2 mg po q 12 hours and Flexeril 5 mg po tid prn for muscle spasm. She will continue outpatient hemodialysis on Monday, Monday and Monday schedule ay [facility]. She will follow up with me in the office as instructed upon discharge. Physical Exam Vital Signs: Temp Pulse Resp BP Pulse Ox 98.0 F 72 16 131/54 H 96 01/17/19 11:52 01/17/19 14:00 01/17/19 11:52 01/17/19 11:52 01/17/19 11:52 Intake & Output 01/16/19 01/17/19 01/18/19 06:59 06:59 06:59 Intake Total 120 150 Output Total 3600 Balance -3480 150 Weight 48 kg General appearance: PRESENT: no acute distress Head exam: PRESENT: atraumatic, normocephalic Eye exam: PRESENT: conjunctiva pink. ABSENT: scleral icterus Ear exam: PRESENT: normal external ear exam Mouth exam: PRESENT: moist Respiratory exam: PRESENT: clear to auscultation anais Cardiovascular exam: PRESENT: RRR. ABSENT: diastolic murmur, rubs, systolic murmur Vascular exam: ABSENT: pallor GI/Abdominal exam: PRESENT: normal bowel sounds, soft. ABSENT: distended, guarding, mass, organolmegaly, rebound, tenderness Extremities exam: PRESENT: pedal edema - improving Neurological exam: PRESENT: alert, awake, oriented to person, oriented to place, oriented to time, oriented to situation, CN II-XII grossly intact. ABSENT: motor sensory deficit Psychiatric exam: PRESENT: appropriate affect, normal mood. ABSENT: homicidal ideation, suicidal ideation Skin exam: PRESENT: dry, warm Results Laboratory Results: WBC 5.8 10^3/uL (4.0-10.5) 01/16/19 02:55 RBC 4.00 10^6/uL (3.72-5.28) 01/16/19 02:55 Hgb 10.8 g/dL (12.0-15.5) L 01/16/19 02:55 Hct 33.7 % (36.0-47.0) L 01/16/19 02:55 MCV 84 fl (80-97) 01/16/19 02:55 MCH 27.1 pg (27.0-33.4) 01/16/19 02:55 MCHC 32.2 g/dL (32.0-36.0) 01/16/19 02:55 RDW 20.7 % (11.5-14.0) H 01/16/19 02:55 Plt Count 302 10^3/uL (150-450) 01/16/19 02:55 Lymph % (Auto) 10.8 % (13-45) L 01/16/19 02:55 Otero % (Auto) 5.8 % (3-13) 01/16/19 02:55 Eos % (Auto) 2.6 % (0-6) 01/16/19 02:55 Baso % (Auto) 2.2 % (0-2) H 01/16/19 02:55 Absolute Neuts (auto) 4.5 10^3/uL (1.7-8.2) 01/16/19 02:55 Absolute Lymphs (auto) 0.6 10^3/uL (0.5-4.7) 01/16/19 02:55 Absolute Monos (auto) 0.3 10^3/uL (0.1-1.4) 01/16/19 02:55 Absolute Eos (auto) 0.1 10^3/uL (0.0-0.6) 01/16/19 02:55 Absolute Basos (auto) 0.1 10^3/uL (0.0-0.2) 01/16/19 02:55 Seg Neutrophils % 78.6 % (42-78) H 01/16/19 02:55 Sodium 139.5 mmol/L (137-145) 01/16/19 02:55 Potassium 5.3 mmol/L (3.6-5.0) H 01/16/19 02:55 Chloride 101 mmol/L (98-107) 01/16/19 02:55 Carbon Dioxide 24 mmol/L (22-30) 01/16/19 02:55 Anion Gap 15 (5-19) 01/16/19 02:55 BUN 40 mg/dL (7-20) H 01/16/19 02:55 Creatinine 5.87 mg/dL (0.52-1.25) H 01/16/19 02:55 Est GFR ( Amer) 8 (>60) L 01/16/19 02:55 Est GFR (MDRD) Non-Af 7 (>60) L 01/16/19 02:55 Glucose 88 mg/dL (75-110) 01/16/19 02:55 Calcium 9.1 mg/dL (8.4-10.2) 01/16/19 02:55 Total Bilirubin 0.6 mg/dL (0.2-1.3) 01/16/19 02:55 Direct Bilirubin 0.4 mg/dL (0.0-0.4) 01/16/19 02:55 Neonat Total Bilirubin Not Reportable 01/16/19 02:55 Neonat Direct Bilirubin Not Reportable 01/16/19 02:55 Neonat Indirect Bili Not Reportable 01/16/19 02:55 AST 38 U/L (14-36) H 01/16/19 02:55 ALT 24 U/L (<35) 01/16/19 02:55 Alkaline Phosphatase 163 U/L (38-126) H 01/16/19 02:55 Troponin I < 0.012 ng/mL 01/16/19 02:55 NT-Pro-B Natriuret Pep 26035 pg/mL (<450) H 01/16/19 02:55 Total Protein 7.1 g/dL (6.3-8.2) 01/16/19 02:55 Albumin 4.4 g/dL (3.5-5.0) 01/16/19 02:55 01/16/19 02:55 Troponin I < 0.012 NT-Pro-B Natriuret Pep 85619 H Impressions: Chest X-Ray 01/16/19 02:39 IMPRESSION: Cardiomegaly. Mild interstitial edema. Tiny effusions and/or pleural thickening copyright 2011 [employer]- All Rights Reserved Plan Health Concerns: Medication and dietary restriction compliance. Emphasized follow up with dialysis schedule on Monday, Monday and Monday. Plan of Treatment: D/C home today with adjusted dose of her Clonidine to 0.2 mg po q12 hours. Maintain on all other preadmission medication management. Prescribed Flexeril 5 mg po q 8 hours prn for muscle spasm management. Goals: Maintain on hemodialysis for fluid, renal function and blood pressure management. Time Spent: Less than 30 Minutes Stroke Is this a Stroke Patient?: No Acute Heart Failure - Is this a Heart Failure Patient?: No
[2019-01-17 17:32] VITALS: BP 143/79
== END 2019-01-17 17:46 | disposition home or self-care (01) ==
LOC: ER 02:24 → INTOOBSV 07:55 → EH 07:55 → 3N 13:39
PROVIDERS: ADMIT Internal Medicine Geriatric Medicine; ATTEND Internal Medicine Geriatric Medicine
PROC: 5A1D70Z Performance of Urinary Filtration, Intermittent, Less than 6 Hours Per Day (ICD-10-PCS; principal; 2019-01-16)
DX: J81.1 Chronic pulmonary edema (principal); N18.6 End stage renal disease; Z99.2 Dependence on renal dialysis; I12.0 Hypertensive chronic kidney disease with stage 5 chronic kidney disease or end stage renal disease; E87.5 Hyperkalemia; R25.2 Cramp and spasm; D63.1 Anemia in chronic kidney disease; M25.511 Pain in right shoulder; G89.29 Other chronic pain; I51.7 Cardiomegaly; N25.81 Secondary hyperparathyroidism of renal origin; M10.9 Gout, unspecified; N28.1 Cyst of kidney, acquired; L91.0 Hypertrophic scar; M19.90 Unspecified osteoarthritis, unspecified site; R06.02 Shortness of breath; Z87.891 Personal history of nicotine dependence; Z79.82 Long term (current) use of aspirin; Z82.49 Family history of ischemic heart disease and other diseases of the circulatory system
CPT/HCPCS: 90970; 93005; 99285; 96374; 96375; 36415; 85025; 80053; 84484; 83880; 71045; 93010; A9270 ×11; J3010; J1940; J3490

== ENCOUNTER 2019-06-07 15:16 | Emergency (ER) | payer MEDICARE, MEDICAID ==
[2019-06-07 15:45] VITALS: BP 178/73
--- NOTE | 2019-06-07 16:18 | ER Document Report ---
ED General - General Chief Complaint: Medical Complaint Stated Complaint: BLEEDING FROM DIALYSIS PORT Time Seen by Provider: 06/07/19 15:38 Primary Care Provider: EFREN ROMAN MD [Primary Care Provider] - Follow up as needed TRAVEL OUTSIDE OF THE [place] IN LAST 30 DAYS: No - HPI Notes: 89-year-old female seen for problems with bleeding from AV fistula right upper extremity following dialysis. Patient has completed her usual dialysis run and when the ED accessed the site she had persistent bleeding lasting more than 30 minutes which saturated through pressure dressings. She was transported here. - Related Data Allergies/Adverse Reactions: No Known Allergies Allergy (Verified 11/13/18 11:32) Past Medical History - General Information source: Patient - Social History Smoking Status: Never Smoker Family History: Hyperlipidemia, Hypertension Patient has suicidal ideation: No Patient has homicidal ideation: No - Past Medical History Cardiac Medical History: Reports: Hx Hypertension Denies: Hx Coronary Artery Disease, Hx Heart Attack Pulmonary Medical History: Denies: Hx Asthma, Hx Bronchitis, Hx COPD, Hx Pneumonia, Hx Tuberculosis Neurological Medical History: Denies: Hx Cerebrovascular Accident, Hx Seizures Renal/ Medical History: Reports: Hx End Stage Renal Disease. Denies: Hx Peritoneal Dialysis GI Medical History: Denies: Hx Hepatitis, Hx Hiatal Hernia, Hx Ulcer Musculoskeletal Medical History: Reports Hx Arthritis, Reports Hx Gout Infectious Medical History: Denies: Hx Hepatitis Past Surgical History: Reports: Hx Hysterectomy, Hx Tonsillectomy, Hx Vascular Surgery - PermCath placement. Denies: Hx Mastectomy - RIGHT RESTRICTED, Hx Open Heart Surgery, Hx Pacemaker - Immunizations Immunizations up to date: Yes Hx Diphtheria, Pertussis, Tetanus Vaccination: No - UNSURE Hx Pneumococcal Vaccination: 04/03/09 Review of Systems - Review of Systems Notes: Constitutional: Negative for fever. HENT: Negative for sore throat. Eyes: Negative for visual changes. Cardiovascular: Negative for chest pain. Respiratory: Negative for shortness of breath. Gastrointestinal: Negative for abdominal pain, vomiting or diarrhea. Genitourinary: Negative for dysuria. Musculoskeletal: Negative for back pain. Skin: Negative for rash. Neurological: Negative for headaches, weakness or numbness. 10 point ROS negative except as marked above and in HPI. Physical Exam - Vital signs Vitals: Temp Pulse Resp BP Pulse Ox 97.6 F 64 14 178/73 H 93 06/07/19 15:44 06/07/19 15:44 06/07/19 15:44 06/07/19 15:44 06/07/19 15:44 - Notes Notes: GENERAL: Elderly female appearing in no acute distress. SKIN: Good turgor no rashes. HEAD: Normocephalic atraumatic. EYES: PERRLA. EOMI. Conjunctivae and sclerae clear. EARS: CANALS AND TMS CLEAR. NOSE: CLEAR. MOUTH: Moist mucosa. Good dentition. No stridor or edema. No drooling. NECK: Supple. No masses or thyromegaly. No adenopathy. Carotids 2+ without bruits. No JVD. BACK: Symmetrical without tenderness. CHEST: Respirations unlabored. Breath sounds clear and symmetrical. HEART: Regular rhythm. No murmur gallop or rub. ABDOMEN: Soft nontender without masses, organomegaly or rebound. Bowel sounds normally active. No bruits. GENITALIA: Deferred. EXTREMITIES: Patient has an AV fistula with positive thrill and bruit present in the right forearm area. She had a pressure dressing on and there had been some soaking of blood through the dressing. This was carefully removed and patient was noted to have a pinhead sized area with minimal venous oozing. I applied a quick clot dressing and rewrapped this. No edema. No calf tenderness. Cap refill less than 1.5 seconds. Dorsalis pedis and posterior tibial pulses 3+ and symmetrical. NEUROLOGICAL: GCS 15. Alert and oriented x3. Normal gait. Fluent speech. Cranial nerves II through XII intact. Sensorimotor and cerebellar normal. Normal tone. PSYCHIATRIC: Appropriate affect. Course - Re-evaluation Re-evalutation: 06/07/19 16:18 Bleeding appears to be controlled at this time. I will observe the patient for the next hour and check labs to include CBC PT and PTT. If bleeding remains controlled and labs are not substantially abnormal I would anticipate discharge. 06/07/19 17:43 Labs are unremarkable. Patient's AV fistula shows no further bleeding. Stable for discharge. - Vital Signs Vital signs: Temp Pulse Resp BP Pulse Ox 97.6 F 64 14 178/73 H 93 06/07/19 15:44 06/07/19 15:44 06/07/19 15:44 06/07/19 15:44 06/07/19 15:44 - Laboratory Result Diagrams: 06/07/19 16:30 Laboratory results interpreted by me: 06/07/19 16:30 Hgb 10.9 L Hct 34.0 L RDW 18.7 H Lymph % (Auto) 8.7 L Discharge - Discharge Clinical Impression: ESRD (end stage renal disease) Hemorrhage of arteriovenous fistula Qualifiers: Encounter type: initial encounter Qualified Code(s): T82.838A - Hemorrhage due to vascular prosthetic devices, implants and grafts, initial encounter Condition: Stable Disposition: HOME, SELF-CARE Additional Instructions: Return here as needed for any recurrent bleeding. Referrals: EFREN ROMAN MD [Primary Care Provider] - Follow up as needed
[2019-06-07 16:37] LABS: ABSOLUTE BASOPHILS # (AUTO) 0.1 10^3/uL (0.0-0.2); ABSOLUTE EOSINOPHILS # (AUTO) 0.2 10^3/uL (0.0-0.6); ABSOLUTE LYMPHOCYTES (AUTO) 0.5 10^3/uL (0.5-4.7); ABSOLUTE MONOCYTES (AUTO) 0.6 10^3/uL (0.1-1.4); ABSOLUTE NEUT (AUTO) 4.4 10^3/uL (1.7-8.2); BASOPHILS % (AUTO) 1.2 % (0-2); EOSINOPHILS % (AUTO) 3.7 % (0-6); HEMOGLOBIN 10.9 g/dL (12.0-15.5); LYMPHOCYTES % (AUTO) 8.7 % (13-45); MEAN CORPUSCULAR VOLUME 88 fl (80-97); MONOCYTES % (AUTO) 10.8 % (3-13); PLATELET COUNT 249 10^3/uL (150-450); RED BLOOD COUNT 3.88 10^6/uL (3.72-5.28); RED CELL DISTRIBUTION WIDTH 18.7 % (11.5-14.0); SEGMENTED NEUTROPHILS % (AUTO) 75.6 % (42-78); TOTAL CELLS COUNTED % (AUTO) 100 %; WHITE BLOOD COUNT 5.8 10^3/uL (4.0-10.5)
[2019-06-07 16:46] LABS: INTERNATIONAL RATION (INR) 1.05; PARTIAL THROMBOPLASTIN TIME 29.2 SEC (23.5-35.8); PROTHROMBIN TIME 13.7 SEC (11.4-15.4)
== END 2019-06-07 18:35 | disposition home or self-care (01) ==
LOC: ER 15:16
DX: T82.838A Hemorrhage due to vascular prosthetic devices, implants and grafts, initial encounter (principal); Y84.1 Kidney dialysis as the cause of abnormal reaction of the patient, or of later complication, without mention of misadventure at the time of the procedure; I12.0 Hypertensive chronic kidney disease with stage 5 chronic kidney disease or end stage renal disease; N18.6 End stage renal disease; Z99.2 Dependence on renal dialysis; Z90.710 Acquired absence of both cervix and uterus
CPT/HCPCS: 36415; 85025; 85610; 85730; 99284

== ENCOUNTER 2019-07-15 09:23 | Inpatient (IN) | payer MEDICARE, MEDICAID ==
--- NOTE | 2019-07-15 10:28 | ER Document Report ---
ED Dizziness/Weakness - General Chief Complaint: General Weakness Stated Complaint: WEAKNESS Time Seen by Provider: 07/15/19 09:54 Notes: Patient is a 9-year-old female who presents emergency department with a chief complaint of weakness, cough, and generalized malaise for the past 3 days. Patient is a Monday dialysis patient. Patient is not able to tell me much of her symptoms, but states that she just does not feel well. According to the nursing note, the patient has not been making enough urine. TRAVEL OUTSIDE OF THE [place] IN LAST 30 DAYS: No - Related Data Allergies/Adverse Reactions: No Known Allergies Allergy (Verified 11/13/18 11:32) Past Medical History - Social History Smoking Status: Unknown if Ever Smoked Family History: Hyperlipidemia, Hypertension Patient has suicidal ideation: No Patient has homicidal ideation: No - Past Medical History Cardiac Medical History: Reports: Hx Hypertension Denies: Hx Coronary Artery Disease, Hx Heart Attack Pulmonary Medical History: Denies: Hx Asthma, Hx Bronchitis, Hx COPD, Hx Pneumonia, Hx Tuberculosis Neurological Medical History: Denies: Hx Cerebrovascular Accident, Hx Seizures Renal/ Medical History: Reports: Hx End Stage Renal Disease. Denies: Hx Peritoneal Dialysis GI Medical History: Denies: Hx Hepatitis, Hx Hiatal Hernia, Hx Ulcer Musculoskeletal Medical History: Reports Hx Arthritis, Reports Hx Gout Infectious Medical History: Denies: Hx Hepatitis Past Surgical History: Reports: Hx Hysterectomy, Hx Tonsillectomy, Hx Vascular Surgery - PermCath placement. Denies: Hx Mastectomy - RIGHT RESTRICTED, Hx Open Heart Surgery, Hx Pacemaker - Immunizations Immunizations up to date: Yes Hx Diphtheria, Pertussis, Tetanus Vaccination: No - UNSURE Hx Pneumococcal Vaccination: 04/03/09 Review of Systems - Review of Systems -: Yes ROS unobtainable due to patient's medical condition Physical Exam - Vital signs Vitals: Resp Pulse Ox 15 100 07/15/19 09:45 07/15/19 09:45 - Notes Notes: PHYSICAL EXAMINATION: GENERAL: Appears chronically ill, thin, no acute distress. HEAD: Normocephalic, atraumatic. EYES: PERRL, conjunctiva normal, all extraocular movements intact, sclera nonicteric ENT: Moist mucous membranes. NECK: Supple, no noticeable swelling, redness, rash. Normal range of motion. LUNGS: Coarse breath sounds noted throughout. CARDIOVASCULAR: S1-S2, regular rate, regular rhythm. Grade 2 systolic murmur noted. radial pulses 2+, normal. ABDOMEN: Normoactive bowel sounds. Soft, nontender, no guarding, no rebound tenderness, and no masses palpated. EXTREMITIES: Normal strength and range of motion, no pitting or edema. No cyanosis. NEUROLOGICAL: Moves all extremities upon command. Strength 5/5 in all extremities. Confused. PSYCH: Normal mood, normal affect. SKIN: Warm, dry. No rash, lesions, ulcerations noted. Normal skin turgor. Course - Re-evaluation Re-evalutation: 07/15/19 12:20 I spoke with the patient's daughter. She states the patient is a full code and also confirms that the patient has been more confused lately. I clarified with the daughter and the patient has not been anywhere except at home and dialysis. 07/15/19 13:[address] Ruiz. She is willing to follow the patient. She would like the patient to be place on the floor for dialysis. 07/15/19 14:[address] Morrison's office and left a message with his nurse to have him call me back. 07/15/19 14:[address] Morrison. He would like the patient to be admitted to the 5th floor to rule out COVID 19. - Vital Signs Vital signs: Temp Pulse Resp BP Pulse Ox 99.7 F 20 189/71 H 100 07/15/19 09:46 07/15/19 15:00 07/15/19 12:01 07/15/19 15:00 - Laboratory Result Diagrams: 07/15/19 11:53 07/15/19 11:53 Laboratory results interpreted by me: 07/15/19 07/15/19 07/15/19 10:48 11:53 11:53 RDW 17.3 H Lymph % (Auto) 6.5 L Seg Neutrophils % 84.2 H Sodium 135.6 L BUN 36 H Creatinine 7.00 H Est GFR ( Amer) 7 L Est GFR (MDRD) Non-Af 6 L Calcium 13.8 H* Direct Bilirubin 0.5 H Urine Protein 100 H Urine Glucose (UA) 50 H Ur Leukocyte Esterase SMALL H - EKG Interpretation by Me Additional EKG results interpreted by me: 07/15/19 15:15 Sinus rhythm. Rate 87. SC 176; QRS 76; QT 376; QTc 453. No ST elevations or depressions. No acute change from previous EKG done on 01/16/2019. Discharge - Discharge Clinical Impression: Pneumonia Qualifiers: Pneumonia type: due to unspecified organism Laterality: right Lung location: unspecified part of lung Qualified Code(s): J18.9 - Pneumonia, unspecified organism Altered mental status Qualifiers: Altered mental status type: unspecified Qualified Code(s): R41.82 - Altered mental status, unspecified Condition: Stable Disposition: ADMITTED INPATIENT Admitting Provider: Tamiko Unit Admitted: IMCU - 5th floor; rule out covid
[2019-07-15 11:29] LABS: APPEARANCE,URINE CLEAR; BILIRUBIN,URINE NEGATIVE (NEGATIVE); COLOR,URINE YELLOW; GLUCOSE, URINE 50 mg/dL (NEGATIVE); KETONES,URINE NEGATIVE (NEGATIVE); LEUKOCYTE ESTERASE,URINE SMALL (NEGATIVE); NITRITE,URINE NEGATIVE (NEGATIVE); PROTEIN,URINE 100 mg/dL (NEGATIVE); URINE SPECIFIC GRAVITY 1.008; UROBILINOGEN,URINE NEGATIVE mg/dL (<2.0)
--- NOTE | 2019-07-15 12:01 | EKG REPORT ---
SEVERITY:- ABNORMAL ECG - SINUS RHYTHM LEFT ATRIAL ABNORMALITY LVH WITH SECONDARY REPOLARIZATION ABNORMALITY : Confirmed by: Aiden Fatima MD 15-Jul-2019 12:01:14
[2019-07-15 12:09] LABS: ABSOLUTE BASOPHILS # (AUTO) 0.1 10^3/uL (0.0-0.2); ABSOLUTE EOSINOPHILS # (AUTO) 0.1 10^3/uL (0.0-0.6); ABSOLUTE LYMPHOCYTES (AUTO) 0.5 10^3/uL (0.5-4.7); ABSOLUTE MONOCYTES (AUTO) 0.5 10^3/uL (0.1-1.4); ABSOLUTE NEUT (AUTO) 6.9 10^3/uL (1.7-8.2); BASOPHILS % (AUTO) 1.6 % (0-2); EOSINOPHILS % (AUTO) 1.3 % (0-6); HEMOGLOBIN 12.8 g/dL (12.0-15.5); LYMPHOCYTES % (AUTO) 6.5 % (13-45); MEAN CORPUSCULAR HEMOGLOBIN 28.2 pg (27.0-33.4); MEAN CORPUSCULAR HGB CONC 33.7 g/dL (32.0-36.0); MEAN CORPUSCULAR VOLUME 84 fl (80-97); MONOCYTES % (AUTO) 6.4 % (3-13); PLATELET COUNT 255 10^3/uL (150-450); RED BLOOD COUNT 4.54 10^6/uL (3.72-5.28); RED CELL DISTRIBUTION WIDTH 17.3 % (11.5-14.0); SEGMENTED NEUTROPHILS % (AUTO) 84.2 % (42-78); TOTAL CELLS COUNTED % (AUTO) 100 %; WHITE BLOOD COUNT 8.2 10^3/uL (4.0-10.5)
[2019-07-15 12:23] LABS: ALBUMIN 3.9 g/dL (3.5-5.0); ALKALINE PHOSPHATASE 60 U/L (38-126); ANION GAP 10 (5-19); ASPARTATE AMINO TRANSFERASE 29 U/L (14-36); BILIRUBIN,DIRECT 0.5 mg/dL (0.0-0.4); BILIRUBIN,TOTAL 0.9 mg/dL (0.2-1.3); BLOOD UREA NITROGEN 36 mg/dL (7-20); CARBON DIOXIDE 25 mmol/L (22-30); CHLORIDE 101 mmol/L (98-107); GLUCOSE 95 mg/dL (75-110); POTASSIUM 4.9 mmol/L (3.6-5.0); TOTAL PROTEIN 6.5 g/dL (6.3-8.2)
--- NOTE | 2019-07-15 12:23 | RADIOLOGY REPORT (SQ) ---
EXAM DESCRIPTION: CHEST SINGLE VIEW IMAGES COMPLETED DATE/TIME: 07/15/2019 12:05 pm REASON FOR STUDY: cough; weakness COMPARISON: AP view of the chest from 01/16/2019 EXAM PARAMETERS: NUMBER OF VIEWS: One view. TECHNIQUE: An AP view of the chest was obtained. RADIATION DOSE: NA LIMITATIONS: None. FINDINGS: LUNGS AND PLEURA: Asymmetric parenchymal opacity in the inferior aspect of the right hemit horax. There is no sizable pleural effusion or pneumothorax. MEDIASTINUM AND HILAR STRUCTURES: No mediastinal or hilar contour abnormality. HEART AND VASCULAR STRUCTURES: The cardiac silhouette is enlarged. BONES: No acute findings. HARDWARE: Stent within venous outflow of a right upper extremity dialysis access. OTHER: No other finding. IMPRESSION: Asymmetric parenchymal opacity in the inferior aspect of the right hemithorax. Clinical correlation to exclude a pneumonia is recommend. TECHNICAL DOCUMENTATION: JOB ID: [id number] 2010 [employer] All Rights Reserved Reading location - IP/workstation name: [email or web address]
[2019-07-15 12:27] LABS: ANISOCYTOSIS 1+; PLATELET LARGE PRESENT; POIKILOCYTOSIS SLIGHT; SCHISTOCYTES 1+
[2019-07-15 12:28] LABS: PLATELET COMMENT ADEQUATE
[2019-07-15 12:33] LABS: CALCIUM 13.8 mg/dL (8.4-10.2)
--- NOTE | 2019-07-15 13:28 | RADIOLOGY REPORT (SQ) ---
EXAM DESCRIPTION: CT HEAD WITHOUT IMAGES COMPLETED DATE/TIME: 07/15/2019 12:13 pm REASON FOR STUDY: AMS COMPARISON: 01/22/2018. TECHNIQUE: Axial images acquired through the brain without intravenous contrast. Images reviewed wi th bone, brain and subdural windows. Additional sagittal and coronal reconstructions were generated. Images stored on PACS. All CT scanners at this facility use dose modulation, iterative reconstruction, and/or weight based d osing when appropriate to reduce radiation dose to as low as reasonably achievable (ALARA). [facility]: Dose Right [facility]: CareDose [facility]: Dose Right [facility]: Teradose 4D [facility]: [employer] RADIATION DOSE: CT Rad equipment meets quality standard of care and radiation dose reduction techniq ues were employed. CTDIvol: 53.2 mGy. DLP: 991 mGy-cm. mGy. LIMITATIONS: None. FINDINGS: VENTRICLES: Ventricles and sulci have normal size and configuration. No evidence of acute hydrocephalus. CEREBRUM: No masses. No hemorrhage. No midline shift. No evidence for acute infarction. There is m ild periventricular and deep white matter hypodense attenuation consistent with mild chronic small ve ssel ischemic change. There is intracranial atherosclerosis. Chronic encephalomalacia/gliosis in th e right insular capsule, stable from prior. CEREBELLUM: No masses. No hemorrhage. No alteration of density. No evidence for acute infarction. EXTRAAXIAL SPACES: No fluid collections. No masses. ORBITS AND GLOBE: No intra- or extraconal masses. Normal contour of globe without masses. CALVARIUM: No fracture. PARANASAL SINUSES: No fluid or mucosal thickening. SOFT TISSUES: No mass or hematoma. OTHER: No other significant finding. IMPRESSION: No acute intracranial hemorrhage, mass, or evidence of acute territorial infarct. Moder ate chronic small vessel ischemic change and chronic lacunar infarct right insular capsule, stable fr om prior. Intracranial atherosclerosis. EVIDENCE OF ACUTE STROKE: NO. COMMENT: Quality ID # [id number]: Final reports with documentation of one or more dose reduction techniques (e.g., Automated exposure control, adjustment of the mA and/or kV according to patient size, use of iterative reconstruction technique) TECHNICAL DOCUMENTATION: JOB ID: [id number] 2010 [employer]- All Rights Reserved Reading location - IP/workstation name: [email or web address]
--- NOTE | 2019-07-15 13:45 | RADIOLOGY REPORT (SQ) ---
EXAM DESCRIPTION: CT CHEST WITHOUT IMAGES COMPLETED DATE/TIME: 07/15/2019 1:13 pm REASON FOR STUDY: Pneumonia COMPARISON: CT of the chest without contrast from 01/15/2013. TECHNIQUE: CT scan performed of the chest without intravenous contrast. Images reviewed with lung, soft tissue and bone windows. Reconstructed coronal and sagittal MPR images reviewed. All images st ored on PACS. All CT scanners at this facility use dose modulation, iterative reconstruction, and/or weight based d osing when appropriate to reduce radiation dose to as low as reasonably achievable (ALARA). [facility]: Dose Right [facility]: CareDose [facility]: Dose Right [facility]: Teradose 4D [facility]: Smart Intellinote RADIATION DOSE: CT Rad equipment meets quality standard of care and radiation dose reduction techniq ues were employed. CTDIvol: 14.4 mGy. DLP: 511 mGy-cm. mGy. LIMITATIONS: No technical limitations. FINDINGS: LUNGS AND PLEURA: Evaluation is limited due to motion artifact. There is an area of consolidation with air bronchograms in the right lower lobe that could represent a pneumonia. The ovoid/nodular area of ground-glass attenuation in the right middle lobe is nonspecific and infect ious and inflammatory etiologies should be excluded. There are solid nodules in the apical segment of the right upper lobe (8 mm, image 11 of series 4), l ingula (13 x 5 mm, image 27 of series 4) and left lower lobe (10 x 10 mm (image 35 of series 4). There is no pleural effusion or pneumothorax. HILAR AND MEDIASTINAL STRUCTURES: There is a 10 mm short axis right lower paratracheal lymph node (im age 19 of series 4). Evaluation of the kamar for adenopathy is limited due to the absence of intraven ous contrast. HEART AND VASCULAR STRUCTURES: The heart is enlarged and there is severe atherosclerotic calcificatio n of the aortic valve leaflets, mitral annulus and coronary arteries. There is no pericardial effusi on. The pulmonary arteries are dilated and measure up to 3.2 cm in transverse diameter. UPPER ABDOMEN: No acute findings. THYROID AND OTHER SOFT TISSUES: The thyroid gland is enlarged and heterogeneous. There are endovascu lar stents within the right axillary and subclavian veins. There is a lipomatous lesion posterior to the left scapula that extends outside the field of view of this CT ; the lesion has well-defined mas ses and no thick septations. BONES: No fracture or osseous lesion. HARDWARE: None in the chest. OTHER: No other findings. IMPRESSION: 1. Area of consolidation with air bronchograms in the right lower lobes that could repre sent a pneumonia. 2. Solid non-cavitary nodules in the right upper lobe, lingula, and left lower lobe that measure up to 13 mm in diameter. Differential considerations include both infectious, neoplastic and inflammato ry etiologies including metastases, fungal infections, septic emboli, and bronchoalveolar cell carcin chris. 3. Lipomatous lesion posterior to the left scapula that measures > 8 cm in diameter. The size of th e lesion and the age of the patient are atypical for a benign lipoma. 4. Other findings as detailed above. TECHNICAL DOCUMENTATION: JOB ID: [id number] Quality ID # [id number]: Final reports with documentation of one or more dose reduction techniques (e.g., Au tomated exposure control, adjustment of the mA and/or kV according to patient size, use of iterative reconstruction technique) 2010 [employer]- All Rights Reserved Reading location - IP/workstation name: [email or web address]
[2019-07-15] MEDS ORDERED: GUAIFENESIN/D-METHORPHAN (200-20 MG) SYRUP 10 ML PO PRN (17:15)
[2019-07-15] MEDS ORDERED: LEVOFLOXACIN 750 MG/D5W RTU 750 MG/150 ML RTUPB IV ONE ×2 (18:00→20:00)
[2019-07-15] MEDS ORDERED: CEFTRIAXONE 1 GM/D5W RTU 1 GM/50 ML RTUPB IV SCH (18:00)
--- NOTE | 2019-07-15 18:19 | PDOC H&P ---
History of Present Illness Admission Date/PCP: 07/15/19 14:37 EFREN JERMANMaranda Patient complains of: Generalized weakness History of Present Illness: DIANNE MUNOZ is a 89 year old female patient known to my practice who presented to the ED with complain of generalized weakness. Patient and grand daughter was seen in my office recently with complain about questionable vaginal bleeding due to dark blood noted on her underwear. Grand daughter called the off ice earlier today with complain about associated fever and cough over the last three days. Family reported poor appetite and oral intake. No abdominal pain. Patient have been making less urine but she is on hemodialysis on Monday, Monday, and Monday. Nursing staff reported some comparative somnolence today. Her initial ED evaluation revealed significant hypercalcemia, abnormal chest X ray and CT scan chest airspace disease process suggestive of pneumonia. She was advised hospitalization for further evaluation and management. Nephrology consultation was requested with Dr. Ruiz, at the time of my evaluation she was undergoing hemodialysis process. her morbidities are listed below. Past Medical History Cardiac Medical History: Reports: Hypertension Denies: Coronary Artery Disease, Myocardial Infarction Pulmonary Medical History: Denies: Asthma, Bronchitis, Chronic Obstructive Pulmonary Disease (COPD), Pneumonia, Tuberculosis Neurological Medical History: Denies: Seizures Renal/ Medical History: Reports: End Stage Renal Disease GI Medical History: Denies: Hepatitis, Hiatal Hernia Musculoskeltal Medical History: Reports: Arthritis, Gout Hematology: Reports: Anemia - HX, Sickle Cell Disease - TRAIT Past Surgical History Past Surgical History: Reports: Hysterectomy, Tonsillectomy, Vascular Surgery - PermCath placement Denies: Amputation, Mastectomy - RIGHT RESTRICTED, Pacemaker Social History Smoking Status: Unknown if Ever Smoked Frequency of Alcohol Use: None Hx Recreational Drug Use: No Drugs: None Hx Prescription Drug Abuse: No Family History Family History: Hyperlipidemia, Hypertension Parental Family History Reviewed: Yes Children Family History Reviewed: Yes Sibling(s) Family History Reviewed.: Yes Medication/Allergy Home Medications: Patiromer Calcium Sorbitex [Veltassa 8.4 gm Susp Packet] 1 each PO DAILY 07/15/19 Risperidone [Risperdal M-Tab 0.5 mg Odt Tablet] 0.5 mg PO DAILY 07/15/19 Sucroferric Oxyhydroxide [Velphoro] 500 mg PO TID 07/15/19 Allergies/Adverse Reactions: No Known Allergies Allergy (Verified 11/13/18 11:32) Review of Systems ROS unobtainable: Due to mental status Physical Exam Vital Signs: Temp Pulse Resp BP Pulse Ox 99.7 F 28 H 223/88 H 100 07/15/19 09:46 07/15/19 16:01 07/15/19 16:01 07/15/19 16:01 Intake & Output 07/14/19 07/15/19 07/16/19 06:59 06:59 06:59 Weight 50.7 kg General appearance: PRESENT: no acute distress Head exam: PRESENT: atraumatic, normocephalic Eye exam: PRESENT: conjunctiva pink, EOMI, PERRLA. ABSENT: scleral icterus Ear exam: PRESENT: TM's normal bilaterally Mouth exam: PRESENT: moist - fairly Neck exam: PRESENT: full ROM. ABSENT: carotid bruit, JVD, lymphadenopathy, thyromegaly Respiratory exam: PRESENT: crackles - scattered, bilateral lower lung zones, decreased breath sounds Cardiovascular exam: PRESENT: RRR, +S1, +S2. ABSENT: diastolic murmur, rubs, s ystolic murmur Vascular exam: ABSENT: pallor GI/Abdominal exam: PRESENT: normal bowel sounds, soft. ABSENT: distended, guarding, mass, organolmegaly, rebound, tenderness Rectal exam: PRESENT: deferred Extremities exam: PRESENT: pedal edema - chronic mid leg level bilaterally Neurological exam: PRESENT: altered - not actively responding to question which is comparatively new for patient., awake Psychiatric exam: ABSENT: agitated, anxious Skin exam: PRESENT: dry, intact, warm. ABSENT: cyanosis, rash Results Laboratory Results: 07/15/19 11:53 07/15/19 11:53 07/15/19 07/15/19 07/15/19 10:48 11:53 11:53 WBC 8.2 RBC 4.54 Hgb 12.8 Hct 38.0 MCV 84 MCH 28.2 MCHC 33.7 RDW 17.3 H Plt Count 255 Seg Neutrophils % 84.2 H Sodium 135.6 L Potassium 4.9 Chloride 101 Carbon Dioxide 25 Anion Gap 10 BUN 36 H Creatinine 7.00 H Est GFR ( Amer) 7 L Glucose 95 Calcium 13.8 H* Total Bilirubin 0.9 AST 29 Alkaline Phosphatase 60 Total Protein 6.5 Albumin 3.9 Urine Color YELLOW Urine Appearance CLEAR Urine pH 8.0 Ur Specific [place] 1.008 Urine Protein 100 H Urine Glucose (UA) 50 H Urine Ketones NEGATIVE Urine Blood NEGATIVE Urine Nitrite NEGATIVE Ur Leukocyte Esterase SMALL H Urine WBC (Auto) 6 Urine RBC (Auto) 4 07/15/19 11:53 Troponin I < 0.012 Impressions: Chest X-Ray 07/15/19 09:57 IMPRESSION: Asymmetric parenchymal opacity in the inferior aspect of the right hemithorax. Clinical correlation to exclude a pneumonia is recommend. Head CT 07/15/19 10:11 IMPRESSION: No acute intracranial hemorrhage, mass, or evidence of acute territorial infarct. Moderate chronic small vessel ischemic change and chronic lacunar infarct right insular capsule, stable from prior. Intracranial atherosc lerosis. EVIDENCE OF ACUTE STROKE: NO. Chest CT 07/15/19 12:40 IMPRESSION: 1. Area of consolidation with air bronchograms in the right lower lobes that could represent a pneumonia. 2. Solid non-cavitary nodules in the right upper lobe, lingula, and left lower lobe that measure up to 13 mm in diameter. Differential considerations include both infectious, neoplastic and inflammatory etiologies including metastases, fungal infections, septic emboli, and bronchoalveolar cell carcinoma. 3. Lipomatous lesion posterior to the left scapula that measures > 8 cm in diam eter. The size of the lesion and the age of the patient are atypical for a benign lipoma. 4. Other findings as detailed above. Assessment & Plan - Diagnosis (1) Lobar pneumonia, unspecified organism Is this a current diagnosis for this admission?: Yes Plan: See admitting attending physician orders about detail about care plan. (2) ESRD (end stage renal disease) on dialysis Is this a current diagnosis for this admission?: Yes Plan: See admitting attending physician orders about detail about care plan Pmp Project Manager risk control consultant will look into hypercalcemia and ESRD on hemodialysis management. (3) Hypercalcemic nephropathy syndrome Is this a current diagnosis for this admission?: Yes Plan: See admitting attending physician orders about detail about care plan Pmp Project Manager risk control consultant will look into hypercalcemia and ESRD on hemodialysis management. (4) Altered mental status Qualifiers: Altered mental status type: unspecified Qualified Code(s): R41.82 - Altered mental status, unspecified Is this a current diagnosis for this admission?: Yes Plan: Probable consequence of her hypercalcemic efforts. See admitting attending physician orders about detail about care plan Pmp Project Manager risk control consultant will look into hypercalcemia and ESRD on hemodialysis management. (5) Hypertension Qualifiers: Hypertension type: unspecified Qualified Code(s): I10 - Essential (primary) hypertension Is this a current diagnosis for this admission?: Yes Plan: See admitting attending physician orders about detail about care plan. Maintain on current preadmission medication anxiety. (6) Anemia in chronic kidney disease (CKD) Qualifiers: Chronic kidney disease stage: on chronic dialysis Qualified Code(s): N18.6 - End stage renal disease; D63.1 - Anemia in chronic kidney disease; Z99.2 - Dependence on renal dialysis Is this a current diagnosis for this admission?: Yes Plan: See admitting attending physician orders about detail about care plan. (7) Osteoarthritis involving multiple joints on both sides of body Is this a current diagnosis for this admission?: Yes Plan: See admitting attending physician orders about detail about care plan. (8) Keloid of skin Is this a current diagnosis for this admission?: Yes Plan: See admitting attending physician orders about detail about care plan. (9) Chronic pain syndrome Is this a current diagnosis for this admission?: Yes Plan: See admitting attending physician orders about detail about care plan. - Time Time Spent: Greater than 70 Minutes Medications reviewed and adjusted accordingly: Yes Within: Other - Inpatient Certification Based on my medical assessment, after consideration of the patient's com orbidities, presenting symptoms, or acuity I expect that the services needed warrant INPATIENT care.: Yes I certify that my determination is in accordance with my understanding of Medicare's requirements for reasonable and necessary INPATIENT services [42 CFR 412.3e].: Yes Medical Necessity: Significant Comorbidiites Make Outpatient Treatment Too Risky, Need Close Monitoring Due to Risk of Patient Decompensation, Need For Continuous Telemetry Monitoring, Need for IV Antibiotics, Risk of Complication if Not Cared For in Hospital, Risk of Diagnosis Which Will Require Inpatient Eval/Care/Monitoring Post Hospital Care: D/C Court Registry Officer Documentation - Plan Summary Plan Summary: See admitting attending physician orders about detail about care plan.
[2019-07-15] MEDS ORDERED: NORMAL SALINE 1000 ML 1,000 ML IV PRN (18:51)
--- NOTE | 2019-07-15 20:07 | PDOC CONSULTATION ---
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 Patient is unable to provide credible history so history is obtained from Dr. Roman's notes. Apparently the daughter called his office this morning due to a 3-day history of fever and cough associated with poor appetite and poor oral intake. She was reportedly somnolent today so she was advised to be evaluated in the emergency room. Initial evaluation in the emergency room showed a chest x-ray with asymmetric parenchymal opacity in the inferior aspect of the right hemithorax. CT of the head showed no acute intracranial hemorrhage, mass or evidence of acute territorial infarct. CT of the chest without contrast also showed area of cons olidation with air bronchograms in the right lower lobe that could represent a pneumonia. There were also solid non-cavitary nodules in the right upper lobe, lingula and left lower lobe that measure up to 13 mm diameter which could be infectious, neoplastic or inflammatory in nature with multiple possible etiologies. Patient presented with significantly elevated blood pressure. Her basic metabolic panel showed significant high calcium of 13.8, BUN of 36, creatinine of 7, potassium 4.9 and sodium of 135.6. Due to history of fever and cough the patient was also considered COVID suspect and is currently in isolation. In terms of the patient's hypercalcemia I reviewed the labs from [facility] which showed a calcium of 10.9 on July 07 associated with phosphorus of 6.4 and PTH of 149. Previous to that on May 27, she had a corrected calcium of 8.6. She did have hypocalcemia months prior to that. Due to prior hypocalcemia she is being given calcium gluconate 10 mL q. treatment as well as calcitriol IV q. treatment. I am currently seeing the patient during dialysis treatment and in isolation room. Patient's mental status is definitely not her baseline and she is somewhat somnolent. She answers some few questions but could not really explain more as she usually does at baseline. Currently her blood pressure is significant markedly elevated during dialysis. I witnessed some coughing episodes while I was in the room. Patient is being monitored closely throughout dialysis treatment by our dialysis nurse. Past Medical History Cardiac Medical History: Reports: Hypertension-primary Renal/ Medical History: Reports: End Stage Renal Disease, Hypocalcemia, Hyperphosphatemia, Secondary Hyperparathyroidism Musculoskeltal Medical History: Reports: Arthritis, Gout Hematology Medical History: Reports Anemia of Chronic Kidney Disease Past Surgical History Past Surgical History: Reports: Dialysis Access Surgery AVG, Hysterectomy, Tonsillectomy, Vascular Surgery - PermCath placement Social History Information Source: PENDING SALE TO [facility] Records Smoking Status: Unknown if Ever Smoked Frequency of Alcohol Use: None Hx Recreational Drug Use: No Drugs: None Hx Prescription Drug Abuse: No Family History Family History: Reviewed & Not Pertinent Parental Family History Reviewed: Yes Children Family History Reviewed: Yes Sibling(s) Family History Reviewed.: Yes Medication/Allergy Home Medications: Patiromer Calcium Sorbitex [Veltassa 8.4 gm Susp Packet] 1 each PO DAILY 07/15/19 Risperidone [Risperdal M-Tab 0.5 mg Odt Tablet] 0.5 mg PO DAILY 07/15/19 Sucroferric Oxyhydroxide [Velphoro] 500 mg PO TID 07/15/19 Allergies/Adverse Reactions: No Known Allergies Allergy (Verified 11/13/18 11:32) Review of Systems ROS unobtainable: Due to mental status Physical Exam Vital Signs: Temp Pulse Resp BP Pulse Ox 99.7 F 28 H 223/88 H 100 07/15/19 09:46 07/15/19 16:01 07/15/19 16:01 07/15/19 16:01 Intake & Output 07/14/19 07/15/19 07/16/19 06:59 06:59 06:59 Weight 50.7 kg Exam: General appearance: No acute distress, cooperative, somnolent, answers few questions Head exam: PRESENT: atraumatic, normocephalic Eye exam: PRESENT: Conjunctiva [place], EOMI, PERRLA. ABSENT: conjunctival injection, scleral icterus Mouth exam: PRESENT: moist, neck supple, tongue midline Neck exam: PRESENT: full ROM. ABSENT: carotid bruit, JVD, lymphadenopathy, thyromegaly Respiratory exam: PRESENT: Diminished to auscultation bilaterally. ABSENT: rales, rhonchi, stridor, wheezes Cardiovascular exam: PRESENT: RRR, +S1, +S2. Grade 1/6 systolic murmur Pulses: PRESENT: normal radial pulses, normal dorsalis pedis pulses GI/Abdominal exam: PRESENT: normal bowel sounds, soft. ABSENT: guarding, mass, tenderness Rectal exam: Deferred Extremities exam: PRESENT: full ROM. ABSENT: calf tenderness, pedal edema Musculoskeletal: PRESENT: full ROM. ABSENT: deformity Neurological exam: PRESENT: alert, Awake, Oriented to person, Oriented to place, but not to time, reflexes normal, CN II-XII grossly intact. ABSENT: motor sens ory deficit Psychiatric exam: PRESENT: appropriate affect, normal mood. ABSENT: homicidal ideation, suicidal ideation Skin exam: PRESENT: intact, dry, warm. ABSENT: rash Results Laboratory Results: 07/15/19 11:53 07/15/19 11:53 07/15/19 07/15/19 07/15/19 10:48 11:53 11:53 WBC 8.2 RBC 4.54 Hgb 12.8 Hct 38.0 MCV 84 MCH 28.2 MCHC 33.7 RDW 17.3 H Plt Count 255 Seg Neutrophils % 84.2 H Sodium 135.6 L Potassium 4.9 Chloride 101 Carbon Dioxide 25 Anion Gap 10 BUN 36 H Creatinine 7.00 H Est GFR ( Amer) 7 L Glucose 95 Calcium 13.8 H* Total Bilirubin 0.9 AST 29 Alkaline Phosphatase 60 Total Protein 6.5 Albumin 3.9 Urine Color YELLOW Urine Appearance CLEAR Urine pH 8.0 Ur Specific [place] 1.008 Urine Protein 100 H Urine Glucose (UA) 50 H Urine Ketones NEGATIVE Urine Blood NEGATIVE Urine Nitrite NEGATIVE Ur Leukocyte Esterase SMALL H Urine WBC (Auto) 6 Urine RBC (Auto) 4 07/15/19 11:53 Troponin I < 0.012 Impressions: Chest X-Ray 07/15/19 09:57 IMPRESSION: Asymmetric parenchymal opacity in the inferior aspect of the right hemithorax. Clinical correlation to exclude a pneumonia is recommend. Head CT 07/15/19 10:11 IMPRESSION: No acute intracranial hemorrhage, mass, or evidence of acute territorial infarct. Moderate chronic small vessel ischemic change and chronic lacunar infarct right insular capsule, stable from prior. Intracranial atherosclerosis. EVIDENCE OF ACUTE STROKE: NO. Chest CT 07/15/19 12:40 IMPRESSION: 1. Area of consolidation with air bronchograms in the right lower lobes that could represent a pneumonia. 2. Solid non-cavitary nodules in the right upper lobe, lingula, and left lower lobe that measure up to 13 mm in diameter. Differential considerations include both infectious, neoplastic and inflammatory etiologies including metastases, fungal infections, septic emboli, and bronchoalveolar cell carcinoma. 3. Lipomatous lesion posterior to the left scapula that measures > 8 cm in diameter. The size of the lesion and the age of the patient are atypical for a benign lipoma. 4. Other findings as detailed above. Assessment & Plan - Diagnosis (1) Lobar pneumonia, unspecified organism Is this a current diagnosis for this admission?: Yes Plan: Defer to Dr. Roman. Patient currently on ceftriaxone and Levaquin. (2) ESRD (end stage renal disease) on dialysis Is this a current diagnosis for this admission?: Yes Plan: We will do dialysis today for 2.5 hours, using the patient's AV graft, with 2 potassium/2 calcium bath, blood flow rate of 450 mL per minute, dialysate flow rate of 800 mL per minute, ultrafiltration 0 to 0.5 L only as tolerated, no heparin and no Procrit. Patient is currently monitored throughout dialysis treatment. Dialysis treatment plan discussed with our dialysis nurse. (3) Hypertensive urgency Is this a current diagnosis for this admission?: Yes Plan: We will resume home blood pressure medications. (4) Hypercalcemia Is this a current diagnosis for this admission?: Yes Plan: I think this is iatrogenic secondary to supplementation with calcium gluconate and IV calcitriol given on dialysis due to previous history of hypocalcemia. Due to the patient's acute illness of pneumonia, the patient could actually be volume depleted as well which could exacerbate hypercalcemia. Avoid any calcium supplements at this time. Please repeat calcium level post dialysis treatment. She might actually need cautious IV fluids postdialysis. (5) Altered mental status Qualifiers: Altered mental status type: unspecified Qualified Code(s): R41.82 - Altered mental status, unspecified Is this a current diagnosis for this admission?: Yes Plan: This is due to pneumonia and hypercalcemia. (6) Hyponatremia Is this a current diagnosis for this admission?: Yes (7) Anemia in chronic kidney disease (CKD) Qualifiers: Chronic kidney disease stage: on chronic dialysis Qualified Code(s): N18.6 - End stage renal disease; D63.1 - Anemia in chronic kidney disease; Z99.2 - Dependence on renal dialysis Is this a current diagnosis for this admission?: Yes Plan: No need of Retacrit today. (8) Suspected COVID-19 virus infection Is this a current diagnosis for this admission?: Yes Plan: COVID-19 testing pending. - Notes Notes: Thank you very much for this consultation. - Time Time Spent: 50 to 70 Minutes
[2019-07-15] MEDS ORDERED: HYDRALAZINE HCL INJ/PF 20 MG/1 ML SDV IV ONE (21:30)
[2019-07-15] MEDS ORDERED: CLONIDINE HCL 0.2 MG TABLET PO SCH (22:00)
[2019-07-15] MEDS: AMLODIPINE BESYLATE 5 MG TABLET PO SCH (22:05)
[2019-07-15] MEDS: CEFTRIAXONE 1 GM/D5W RTU 1 GM/50 ML RTUPB IV SCH (22:05)
[2019-07-15] MEDS: HEPARIN SOD (PORCINE) 5,000 UNIT/ML 1 ML VIAL SUBCUT SCH (22:06)
[2019-07-15] MEDS: HYDRALAZINE HCL 50 MG TABLET PO SCH (22:07)
[2019-07-16] MEDS ORDERED: HYDRALAZINE HCL INJ/PF 20 MG/1 ML SDV IV ONE (01:15)
[2019-07-16 05:33] LABS: ABSOLUTE BASOPHILS # (AUTO) 0.1 10^3/uL (0.0-0.2); ABSOLUTE EOSINOPHILS # (AUTO) 0.1 10^3/uL (0.0-0.6); ABSOLUTE LYMPHOCYTES (AUTO) 0.5 10^3/uL (0.5-4.7); ABSOLUTE MONOCYTES (AUTO) 0.6 10^3/uL (0.1-1.4); ABSOLUTE NEUT (AUTO) 6.5 10^3/uL (1.7-8.2); BASOPHILS % (AUTO) 0.8 % (0-2); EOSINOPHILS % (AUTO) 0.9 % (0-6); HEMATOCRIT 35.9 % (36.0-47.0); LYMPHOCYTES % (AUTO) 6.1 % (13-45); MEAN CORPUSCULAR HEMOGLOBIN 27.4 pg (27.0-33.4); MEAN CORPUSCULAR HGB CONC 33.4 g/dL (32.0-36.0); MEAN CORPUSCULAR VOLUME 82 fl (80-97); MONOCYTES % (AUTO) 7.6 % (3-13); PLATELET COUNT 209 10^3/uL (150-450); RED BLOOD COUNT 4.38 10^6/uL (3.72-5.28); RED CELL DISTRIBUTION WIDTH 17.4 % (11.5-14.0); SEGMENTED NEUTROPHILS % (AUTO) 84.6 % (42-78); TOTAL CELLS COUNTED % (AUTO) 100 %; WHITE BLOOD COUNT 7.7 10^3/uL (4.0-10.5)
[2019-07-16] MEDS: HYDRALAZINE HCL 50 MG TABLET PO SCH ×3 (05:39→22:15)
[2019-07-16] MEDS: HEPARIN SOD (PORCINE) 5,000 UNIT/ML 1 ML VIAL SUBCUT SCH ×3 (05:39→22:16)
[2019-07-16 05:47] LABS: ALBUMIN 3.8 g/dL (3.5-5.0); ALKALINE PHOSPHATASE 73 U/L (38-126); ANION GAP 9 (5-19); ASPARTATE AMINO TRANSFERASE 20 U/L (14-36); BILIRUBIN,DIRECT 0.2 mg/dL (0.0-0.4); BILIRUBIN,TOTAL 0.5 mg/dL (0.2-1.3); BLOOD UREA NITROGEN 20 mg/dL (7-20); CALCIUM 11.2 mg/dL (8.4-10.2); CARBON DIOXIDE 29 mmol/L (22-30); CHLORIDE 98 mmol/L (98-107); GLUCOSE 73 mg/dL (75-110); TOTAL PROTEIN 6.4 g/dL (6.3-8.2)
[2019-07-16 06:22] LABS: POTASSIUM 3.5 mmol/L (3.6-5.0)
[2019-07-16] MEDS: RISPERIDONE 0.5 MG TAB.RAPDIS PO SCH (10:03)
[2019-07-16] MEDS: CLONIDINE HCL 0.2 MG TABLET PO SCH ×3 (10:03→22:14)
[2019-07-16] MEDS: AMLODIPINE BESYLATE 5 MG TABLET PO SCH ×2 (10:03→22:15)
[2019-07-16] MEDS: HYDRALAZINE HCL INJ/PF 20 MG/1 ML SDV IV PRN (17:08)
--- NOTE | 2019-07-16 17:13 | PDOC PROGRESS REPORT ---
Subjective Progress Note for:: 07/16/19 Subjective:: Improved lucidness today. Her blood pressure remain a concern but usually high. She denied any chest pain or difficulty with breathing. No nausea or vomiting. No fever or chills. Reason For Visit: LOBAR PNEUMONIA,ESRD ON HEMODIALYSIS, HYPERCALCEMI Physical Exam Vital Signs: Temp Pulse Resp BP Pulse Ox 97.6 F 93 20 188/73 H 98 07/16/19 12:00 07/16/19 14:00 07/16/19 12:00 07/16/19 12:00 07/16/19 12:00 Intake & Output 07/15/19 07/16/19 07/17/19 06:59 06:59 06:59 Intake Total 50 200 Output Total 500 Balance -450 200 Weight 45.8 kg General appearance: PRESENT: no acute distress Head exam: PRESENT: atraumatic, normocephalic Eye exam: PRESENT: conjunctiva pink. ABSENT: scleral icterus Respiratory exam: PRESENT: decreased breath sounds - at lung bases Cardiovascular exam: PRESENT: RRR. ABSENT: diastolic murmur, rubs, systolic murmur Vascular exam: ABSENT: pallor GI/Abdominal exam: PRESENT: normal bowel sounds, soft. ABSENT: distended, guard ing, mass, organolmegaly, rebound, tenderness Extremities exam: PRESENT: pedal edema - minimal chronic bilateral lower extremities pitting edema Neurological exam: PRESENT: alert, awake, oriented to person, oriented to place, oriented to time, oriented to situation, CN II-XII grossly intact. ABSENT: motor sensory deficit Psychiatric exam: PRESENT: appropriate affect, normal mood. ABSENT: homicidal ideation, suicidal ideation Skin exam: PRESENT: dry, warm Results Laboratory Results: 07/16/19 04:40 07/16/19 04:40 07/16/19 07/16/19 04:40 04:40 WBC 7.7 RBC 4.38 Hgb 12.0 Hct 35.9 L MCV 82 MCH 27.4 MCHC 33.4 RDW 17.4 H Plt Count 209 Seg Neutrophils % 84.6 H Sodium 135.7 L Potassium 3.5 L D Chloride 98 Carbon Dioxide 29 Anion Gap 9 BUN 20 Creatinine 4.14 H Est GFR ( Amer) 12 L Glucose 73 L Calcium 11.2 H Total Bilirubin 0.5 AST 20 Alkaline Phosphatase 73 Total Protein 6.4 Albumin 3.8 07/15/19 11:53 Troponin I < 0.012 Impressions: Chest X-Ray 07/15/19 09:57 IMPRESSION: Asymmetric parenchymal opacity in the inferior aspect of the right hemithorax. Clinical correlation to exclude a pneumonia is recommend. Head CT 07/15/19 10:11 IMPRESSION: No acute intracranial hemorrhage, mass, or evidence of acute territorial infarct. Moderate chronic small vessel ischemic change and chronic lacunar infarct right insular capsule, stable from prior. Intracranial atherosclerosis. EVIDENCE OF ACUTE STROKE: NO. Chest CT 07/15/19 12:40 IMPRESSION: 1. Area of consolidation with air bronchograms in the right lower lobes that could represent a pneumonia. 2. Solid non-cavitary nodules in the right upper lobe, lingula, and left lower lobe that measure up to 13 mm in diameter. Differential considerations include both infectious, neoplastic and inflammatory etiologies including metastases, fungal infections, septic emboli, and bronchoalveolar cell carcinoma. 3. Lipomatous lesion posterior to the left scapula that measures > 8 cm in diameter. The size of the lesion and the age of the patient are atypical for a benign lipoma. 4. Other findings as detailed above. Assessment & Plan - Diagnosis (1) Lobar pneumonia, unspecified organism Is this a current diagnosis for this admission?: Yes (2) ESRD (end stage renal disease) on dialysis Is this a current diagnosis for this admission?: Yes (3) Altered mental status Qualifiers: Altered mental status type: unspecified Qualified Code(s): R41.82 - Altered mental status, unspecified Is this a current diagnosis for this admission?: Yes (4) Hypertension Qualifiers: Hypertension type: unspecified Qualified Code(s): I10 - Essential (primary) hypertension Is this a current diagnosis for this admission?: Yes (5) Anemia in chronic kidney disease (CKD) Qualifiers: Chronic kidney disease stage: on chronic dialysis Qualified Code(s): N18.6 - End stage renal disease; D63.1 - Anemia in chronic kidney disease; Z99.2 - Dependence on renal dialysis Is this a current diagnosis for this admission?: Yes (6) Osteoarthritis involving multiple joints on both sides of body Is this a current diagnosis for this admission?: Yes (7) Keloid of skin Is this a current diagnosis for this admission?: Yes (8) Chronic pain syndrome Is this a current diagnosis for this admission?: Yes (9) Idiopathic hypercalcemia Is this a current diagnosis for this admission?: Yes Plan: Continue cautious encouragement of increasing fluid intake ad possible hypotonic IV fluid administration if necessary. Adjustment has been made to her dialysis fluid. Continue to monitor serum calcium level. (10) Hypertensive urgency Is this a current diagnosis for this admission?: Yes Plan: Continue preadmission blood pressure medications. Start on IV Hydralazine 10 mg q 6 hours prn for sbp > 180 mmHg. - Time Time Spent with patient: 25-34 minutes Level of Care: IMCU Medications reviewed and adjusted accordingly: Yes Anticipated discharge: Home with Homehealth Within: Other - Inpatient Certification Based on my medical assessment, after consideration of the patient's comorbidities, presenting symptoms, or acuity I expect that the services needed warrant INPATIENT care.: Yes I certify that my determination is in accordance with my understanding of Medicare's requirements for reasonable and necessary INPATIENT services [42 CFR 412.3e].: Yes Medical Necessity: Significant Comorbidiites Make Outpatient Treatment Too Risky, Need Close Monitoring Due to Risk of Patient Decompensation, Need For Continuous Telemetry Monitoring, Risk of Complication if Not Cared For in Hosp ital, Risk of Diagnosis Which Will Require Inpatient Eval/Care/Monitoring Post Hospital Care: D/C Consulting Practice Director Documentation - Plan Summary Plan Summary: Continue IV Levofloxacin and Rocephin coverage. Follow up on culture findings. Start on prn Hydralazine therapy for sbp > 180 mmHg.
--- NOTE | 2019-07-16 21:07 | CDI QUERY ---
CDI Query CDI Review: Dear Provider: To better reflect your patients severity of illness, morbidity, and resource utilization Please specify and document in the Progress Notes and Discharge Summary if you are monitoring / treating / evaluating any of the following conditions: Query Clinical indicators Metabolic encephalopathy Toxic encephalopathy Delirium Other Per H&P: fever and cough over the last three days Nursing staff reported some comparative somnolence today. Her initial ED evaluation revealed significant hypercalcemia, abnormal chest X ray and CT scan chest airspace disease process suggestive of pneumonia. Altered mental status Qualifiers: Altered mental status type: unspecified Qualified Code(s): R41.82 - Altered mental status, unspecified Is this a current diagnosis for this admission?: Yes Plan: Probable consequence of her hypercalcemic efforts. Per Nephrology Notes: Altered mental status Qualifiers: Altered mental status type: unspecified Qualified Code(s): R41.82 - Altered mental status, unspecified Is this a current diagnosis for this admission?: Yes Plan: This is due to pneumonia and hypercalcemia. Labs: Sodium 135.6 Calcium 13.8 The terms probable, suspected, likely, possible or still to be ruled out may be used if you are unable to determine the exact nature of a condition. Thank you for your consideration, Clinical Documentation Physician Advisors MILTON Bar RN, BSN RN Office [phone] Office [phone]
[2019-07-16] MEDS: CEFTRIAXONE 1 GM/D5W RTU 1 GM/50 ML RTUPB IV SCH (22:16)
[2019-07-17] MEDS: HYDRALAZINE HCL INJ/PF 20 MG/1 ML SDV IV PRN ×2 (00:22→16:43)
[2019-07-17] MEDS ORDERED: NORMAL SALINE 1000 ML 1,000 ML IV PRN (05:00)
[2019-07-17 05:24] LABS: ABSOLUTE BASOPHILS # (AUTO) 0.1 10^3/uL (0.0-0.2); ABSOLUTE EOSINOPHILS # (AUTO) 0.1 10^3/uL (0.0-0.6); ABSOLUTE LYMPHOCYTES (AUTO) 0.5 10^3/uL (0.5-4.7); ABSOLUTE MONOCYTES (AUTO) 0.4 10^3/uL (0.1-1.4); ABSOLUTE NEUT (AUTO) 4.7 10^3/uL (1.7-8.2); BASOPHILS % (AUTO) 1.3 % (0-2); EOSINOPHILS % (AUTO) 1.1 % (0-6); HEMATOCRIT 36.3 % (36.0-47.0); HEMOGLOBIN 12.2 g/dL (12.0-15.5); LYMPHOCYTES % (AUTO) 8.5 % (13-45); MEAN CORPUSCULAR HEMOGLOBIN 27.6 pg (27.0-33.4); MEAN CORPUSCULAR HGB CONC 33.6 g/dL (32.0-36.0); MEAN CORPUSCULAR VOLUME 82 fl (80-97); MONOCYTES % (AUTO) 7.6 % (3-13); PLATELET COUNT 228 10^3/uL (150-450); RED BLOOD COUNT 4.42 10^6/uL (3.72-5.28); RED CELL DISTRIBUTION WIDTH 16.9 % (11.5-14.0); SEGMENTED NEUTROPHILS % (AUTO) 81.5 % (42-78); TOTAL CELLS COUNTED % (AUTO) 100 %; WHITE BLOOD COUNT 5.8 10^3/uL (4.0-10.5)
[2019-07-17 05:42] LABS: ANION GAP 13 (5-19); BLOOD UREA NITROGEN 31 mg/dL (7-20); CALCIUM 11.6 mg/dL (8.4-10.2); CARBON DIOXIDE 21 mmol/L (22-30); CHLORIDE 100 mmol/L (98-107); POTASSIUM 3.9 mmol/L (3.6-5.0)
[2019-07-17 05:48] LABS: GLUCOSE 66 mg/dL (75-110)
[2019-07-17] MEDS: CLONIDINE HCL 0.2 MG TABLET PO SCH ×3 (06:48→21:19)
[2019-07-17] MEDS: HYDRALAZINE HCL 50 MG TABLET PO SCH ×3 (06:49→21:19)
[2019-07-17] MEDS: HEPARIN SOD (PORCINE) 5,000 UNIT/ML 1 ML VIAL SUBCUT SCH ×3 (06:49→21:19)
[2019-07-17] MEDS: AMLODIPINE BESYLATE 5 MG TABLET PO SCH ×2 (09:53→21:19)
[2019-07-17] MEDS: RISPERIDONE 0.5 MG TAB.RAPDIS PO SCH (09:54)
[2019-07-17] MEDS: LEVOFLOXACIN 500 MG/D5W RTU 500 MG/100 ML RTUPB IV SCH (09:55)
--- NOTE | 2019-07-17 16:51 | PDOC PROGRESS REPORT ---
Subjective Progress Note for:: 07/17/19 Subjective:: No chest pain or difficulty with breathing. No fever or chills. No abdominal pain, nausea or vomiting. PO intake remain poor. Reason For Visit: LOBAR PNEUMONIA,ESRD ON HEMODIALYSIS, HYPERCALCEMI Physical Exam Vital Signs: Temp Pulse Resp BP Pulse Ox 98.4 F 80 16 186/65 H 98 07/17/19 15:09 07/17/19 15:09 07/17/19 15:09 07/17/19 15:09 07/17/19 15:09 Intake & Output 07/16/19 07/17/19 07/18/19 06:59 06:59 06:59 Intake Total 50 420 320 Output Total 500 Balance -450 420 320 Weight 45.8 kg 45.8 kg Physical Exam: General appearance: PRESENT: no acute distress Head exam: PRESENT: atraumatic, normocephalic Eye exam: PRESENT: conjunctiva pink. ABSENT: pallor, scleral icterus Respiratory exam: PRESENT: decreased breath sounds - at lung bases Cardiovascular exam: PRESENT: RRR. ABSENT: diastolic murmur, rubs, systolic murmur Vascular exam: ABSENT: pallor GI/Abdominal exam: PRESENT: normal bowel sounds, soft. ABSENT: distended, guarding, mass, organomegaly, rebound, tenderness Extremities exam: PRESENT: pedal edema - minimal chronic bilateral lower extremities pitting edema Neurological exam: PRESENT: alert, awake, oriented to person, oriented to place, oriented to time, oriented to situation, CN II-XII grossly intact. ABSENT: motor sensory deficit Psychiatric exam: PRESENT: appropriate affect, normal mood. ABSENT: homicidal ideation, suicidal ideation Skin exam: PRESENT: dry, warm Results Laboratory Results: 07/17/19 05:09 07/17/19 05:09 07/17/19 07/17/19 05:09 05:09 WBC 5.8 RBC 4.42 Hgb 12.2 Hct 36.3 MCV 82 MCH 27.6 MCHC 33.6 RDW 16.9 H Plt Count 228 Seg Neutrophils % 81.5 H Sodium 134.4 L Potassium 3.9 Chloride 100 Carbon Dioxide 21 L Anion Gap 13 BUN 31 H Creatinine 5.92 H Est GFR ( Amer) 8 L Glucose 66 L Calcium 11.6 H 07/15/19 10:48 Catheterized Urine Urine Culture - Final NO GROWTH 2 DAYS 07/15/19 11:53 Troponin I < 0.012 Impressions: Chest X-Ray 07/15/19 09:57 IMPRESSION: Asymmetric parenchymal opacity in the inferior aspect of the right hemithorax. Clinical correlation to exclude a pneumonia is recommend. Head CT 07/15/19 10:11 IMPRESSION: No acute intracranial hemorrhage, mass, or evidence of acute territorial infarct. Moderate chronic small vessel ischemic change and chronic lacunar infarct right insular capsule, stable from prior. Intracranial atherosclerosis. EVIDENCE OF ACUTE STROKE: NO. Chest CT 07/15/19 12:40 IMPRESSION: 1. Area of consolidation with air bronchograms in the right lower lobes that could represent a pneumonia. 2. Solid non-cavitary nodules in the right upper lobe, lingula, and left lower lobe that measure up to 13 mm in diameter. Differential considerations include both infectious, neoplastic and inflammatory etiologies including metastases, fungal infections, septic emboli, and bronchoalveolar cell carcinoma. 3. Lipomatous lesion posterior to the left scapula that measures > 8 cm in diameter. The size of the lesion and the age of the patient are atypical for a benign lipoma. 4. Other findings as detailed above. Assessment & Plan - Diagnosis (1) Lobar pneumonia, unspecified organism Is this a current diagnosis for this admission?: Yes (2) ESRD (end stage renal disease) on dialysis Is this a current diagnosis for this admission?: Yes (3) Altered mental status Qualifiers: Altered mental status type: unspecified Qualified Code(s): R41.82 - Altered mental status, unspecified Is this a current diagnosis for this admission?: Yes (4) Hypertension Qualifiers: Hypertension type: unspecified Qualified Code(s): I10 - Essential (primary) hypertension Is this a current diagnosis for this admission?: Yes (5) Anemia in chronic kidney disease (CKD) Qualifiers: Chronic kidney disease stage: on chronic dialysis Qualified Code(s): N18.6 - End stage renal disease; D63.1 - Anemia in chronic kidney disease; Z99.2 - Dependence on renal dialysis Is this a current diagnosis for this admission?: Yes (6) Osteoarthritis involving multiple joints on both sides of body Is this a current diagnosis for this admission?: Yes (7) Keloid of skin Is this a current diagnosis for this admission?: Yes (8) Chronic pain syndrome Is this a current diagnosis for this admission?: Yes (9) Idiopathic hypercalcemia Is this a current diagnosis for this admission?: Yes (10) Hypertensive urgency Is this a current diagnosis for this admission?: Yes - Time Time Spent with patient: 25-34 minutes Level of Care: IMCU Medications reviewed and adjusted accordingly: Yes Anticipated discharge: Home with Homehealth Within: Other - Inpatient Certification Based on my medical assessment, after consideration of the patient's comorbidities, presenting symptoms, or acuity I expect that the services needed warrant INPATIENT care.: Yes I certify that my determination is in accordance with my understanding of Medicare's requirements for reasonable and necessary INPATIENT services [42 CFR 412.3e].: Yes Medical Necessity: Significant Comorbidiites Make Outpatient Treatment Too Risk y, Need Close Monitoring Due to Risk of Patient Decompensation, Need For Continuous Telemetry Monitoring, Need for IV Antibiotics, Risk of Complication if Not Cared For in Hospital, Risk of Diagnosis Which Will Require Inpatient Eval/Care/Monitoring Post Hospital Care: D/C Smokehouse Worker Documentation - Plan Summary Plan Summary: Continue current antibiotic coverage and hemodialysis support. Follow up on blood culture findings. Urine culture no growth x 2 days.
[2019-07-17] MEDS: CEFTRIAXONE 1 GM/D5W RTU 1 GM/50 ML RTUPB IV SCH (21:19)
[2019-07-18] MEDS: HYDRALAZINE HCL INJ/PF 20 MG/1 ML SDV IV PRN ×2 (00:08→13:30)
[2019-07-18] MEDS: CLONIDINE HCL 0.2 MG TABLET PO SCH ×3 (05:55→22:01)
[2019-07-18] MEDS: HYDRALAZINE HCL 50 MG TABLET PO SCH ×3 (05:55→22:03)
[2019-07-18] MEDS: HEPARIN SOD (PORCINE) 5,000 UNIT/ML 1 ML VIAL SUBCUT SCH ×3 (05:58→22:07)
[2019-07-18] MEDS: RISPERIDONE 0.5 MG TAB.RAPDIS PO SCH ×2 (09:03→09:08)
[2019-07-18] MEDS: AMLODIPINE BESYLATE 5 MG TABLET PO SCH ×3 (09:03→22:02)
[2019-07-18 12:39] LABS: ANION GAP 17 (5-19); BLOOD UREA NITROGEN 40 mg/dL (7-20); CALCIUM 11.4 mg/dL (8.4-10.2); CARBON DIOXIDE 22 mmol/L (22-30); CHLORIDE 97 mmol/L (98-107); GLUCOSE 93 mg/dL (75-110); POTASSIUM 3.6 mmol/L (3.6-5.0)
--- NOTE | 2019-07-18 14:35 | PDOC PROGRESS REPORT ---
Subjective Progress Note for:: 07/18/19 Subjective:: Patient was seen laying in her bed at the time. She claims that the keloids on her right shoulder and arm are still bothering her. She is currently only aware of where she is. According to nurse in charge of her care she is refusing all medical care. She has refused dialysis and does not want to currently continue. She denies chest pain or SOB. Reason For Visit: LOBAR PNEUMONIA,ESRD ON HEMODIALYSIS, HYPERCALCEMI Physical Exam Vital Signs: Temp Pulse Resp BP Pulse Ox 97.4 F 103 H 16 190/67 H 93 07/18/19 12:32 07/18/19 12:32 07/18/19 12:32 07/18/19 12:32 07/18/19 12:32 Intake & Output 07/17/19 07/18/19 07/19/19 06:59 06:59 06:59 Intake Total 420 480 60 Output Total 0 0 Balance 420 480 60 Weight 45.8 kg 46.3 kg General appearance: PRESENT: no acute distress, well-developed, well-nourished Mouth exam: PRESENT: moist, neck supple Neck exam: PRESENT: full ROM. ABSENT: JVD, tracheal deviation Respiratory exam: PRESENT: clear to auscultation anais. ABSENT: accessory muscle use, crackles, rales, rhonchi, wheezes Cardiovascular exam: PRESENT: +S1, +S2 GI/Abdominal exam: PRESENT: soft. ABSENT: tenderness Extremities exam: PRESENT: tenderness - -right shoulder. ABSENT: pedal edema, +1 edema Musculoskeletal exam: PRESENT: normal inspection, tenderness Neurological exam: PRESENT: altered, awake, oriented to place. ABSENT: oriented to person, oriented to time, oriented to situation Skin exam: PRESENT: dry, intact, warm. ABSENT: cyanosis Results Laboratory Results: 07/17/19 05:09 07/18/19 12:00 07/18/19 12:00 Sodium 136.3 L Potassium 3.6 Chloride 97 L Carbon Dioxide 22 Anion Gap 17 BUN 40 H Creatinine 7.09 H Est GFR ( Amer) 7 L Glucose 93 Calcium 11.4 H 07/15/19 11:53 Troponin I < 0.012 Impressions: Chest X-Ray 07/15/19 09:57 IMPRESSION: Asymmetric parenchymal opacity in the inferior aspect of the right hemithorax. Clinical correlation to exclude a pneumonia is recommend. Head CT 07/15/19 10:11 IMPRESSION: No acute intracranial hemorrhage, mass, or evidence of acute territorial infarct. Moderate chronic small vessel ischemic change and chronic lacunar infarct right insular capsule, stable from prior. Intracranial atherosclerosis. EVIDENCE OF ACUTE STROKE: NO. Chest CT 07/15/19 12:40 IMPRESSION: 1. Area of consolidation with air bronchograms in the right lower lobes that could represent a pneumonia. 2. Solid non-cavitary nodules in the right upper lobe, lingula, and left lower lobe that measure up to 13 mm in diameter. Differential considerations include both infectious, neoplastic and inflammatory etiologies including metastases, fungal infections, septic emboli, and bronchoalveolar cell carcinoma. 3. Lipomatous lesion posterior to the left scapula that measures > 8 cm in diameter. The size of the lesion and the age of the patient are atypical for a benign lipoma. 4. Other findings as detailed above. Assessment & Plan - Diagnosis (1) Altered mental status Qualifiers: Altered mental status type: unspecified Qualified Code(s): R41.82 - Altered mental status, unspecified Is this a current diagnosis for this admission?: Yes Plan: Will look to get an ammonia level, tox screen and check an arterial blood gas to make sure she is not retaining CO2. Other possible causes include hypoglycemia with a blood sugar that was previously in the 60s and 70s. Blood glucose was previously improved. Does not look to have a UTI causing it. (2) Pneumonia Qualifiers: Pneumonia type: due to unspecified organism Laterality: right Lung location: unspecified part of lung Qualified Code(s): J18.9 - Pneumonia, unspecified organism Plan: on levofloxacin (3) ESRD (end stage renal disease) on dialysis Is this a current diagnosis for this admission?: Yes Plan: Patient is currently not wanting to due dialysis. Currently not fluid overloaded and potassium is stable. discussed the dangers of missing daily. Will look to re-address dialysis tomorrow. (4) Hypercalcemia Is this a current diagnosis for this admission?: Yes Plan: off all calcium base medications, possible elevation from also being dehydrated. Currently patient is not wanting eat, drink or take medications. (5) Hyponatremia Is this a current diagnosis for this admission?: Yes Plan: improving (6) Anemia in chronic kidney disease (CKD) Qualifiers: Chronic kidney disease stage: on chronic dialysis Qualified Code(s): N18.6 - End stage renal disease; D63.1 - Anemia in chronic kidney disease; Z99.2 - Dependence on renal dialysis Is this a current diagnosis for this admission?: Yes Plan: stable (7) Hypertension Qualifiers: Hypertension type: unspecified Qualified Code(s): I10 - Essential (primary) hypertension Is this a current diagnosis for this admission?: Yes Plan: currently not wanting to take PO bp medications.
--- NOTE | 2019-07-18 14:47 | PDOC PROGRESS REPORT ---
Subjective Progress Note for:: 07/17/19 Subjective:: Patient was taken to the dialysis room this morning to have her dialysis done. However when her dialysis nurse is ready to access her AV fistula the patient flex her arm very strongly and would not allow access to her AV fistula. She essentially refused dialysis treatment so finally we have to bring her back to her room. I went back to her room and tried to talk to her but she was just staring in space and is not verbalizing anything nor answering any of my questions. Tried to contact her daughter and next of kin Ms. Nayely Monge but was unable to contact them. Reason For Visit: LOBAR PNEUMONIA,ESRD ON HEMODIALYSIS, HYPERCALCEMI Physical Exam Vital Signs: Temp Pulse Resp BP Pulse Ox 98.6 F 90 16 183/75 H 100 07/17/19 04:05 07/17/19 07:00 07/17/19 04:05 07/17/19 04:05 07/17/19 04:05 Intake & Output 07/16/19 07/17/19 07/18/19 06:59 06:59 06:59 Intake Total 50 420 Output Total 500 Balance -450 420 Weight 45.8 kg 45.8 kg Exam: General appearance: PRESENT: no acute distress, obtunded looking, fairly developed and fairly nourished Head exam: PRESENT: atraumatic, normocephalic Eye exam: PRESENT: conjunctiva pale, PERRLA. ABSENT: scleral icterus Neck exam: ABSENT: JVD Respiratory exam: PRESENT: Diminished breath sounds. ABSENT: crackles, rales, rhonchi, unlabored, wheezes Cardiovascular exam: PRESENT: Regular rate rhythm -+S1, +S2. Grade 2/6 systolic murmur GI/Abdominal exam: PRESENT: normal bowel sounds, soft. ABSENT: guarding, mass, tenderness Extremities exam: ABSENT: No edema Neurological exam: PRESENT: awake, obtunded. Skin exam: PRESENT: dry, warm, Results Laboratory Results: 07/17/19 05:09 07/17/19 05:09 07/17/19 07/17/19 05:09 05:09 WBC 5.8 RBC 4.42 Hgb 12.2 Hct 36.3 MCV 82 MCH 27.6 MCHC 33.6 RDW 16.9 H Plt Count 228 Seg Neutrophils % 81.5 H Sodium 134.4 L Potassium 3.9 Chloride 100 Carbon Dioxide 21 L Anion Gap 13 BUN 31 H Creatinine 5.92 H Est GFR ( Amer) 8 L Glucose 66 L Calcium 11.6 H 07/15/19 10:48 Catheterized Urine Urine Culture - Final NO GROWTH 2 DAYS 07/15/19 11:53 Troponin I < 0.012 Impressions: Chest X-Ray 07/15/19 09:57 IMPRESSION: Asymmetric parenchymal opacity in the inferior aspect of the right hemithorax. Clinical correlation to exclude a pneumonia is recommend. Head CT 07/15/19 10:11 IMPRESSION: No acute intracranial hemorrhage, mass, or evidence of acute territorial infarct. Moderate chronic small vessel ischemic change and chronic lacunar infarct right insular capsule, stable from prior. Intracranial atherosclerosis. EVIDENCE OF ACUTE STROKE: NO. Chest CT 07/15/19 12:40 IMPRESSION: 1. Area of consolidation with air bronchograms in the right lower lobes that could represent a pneumonia. 2. Solid non-cavitary nodules in the right upper lobe, lingula, and left lower lobe that measure up to 13 mm in diameter. Differential considerations include both infectious, neoplastic and inflammatory etiologies including metastases, fungal infections, septic emboli, and bronchoalveolar cell carcinoma. 3. Lipomatous lesion posterior to the left scapula that measures > 8 cm in diameter. The size of the lesion and the age of the patient are atypical for a benign lipoma. 4. Other findings as detailed above. Assessment & Plan - Diagnosis (1) Lobar pneumonia, unspecified organism Is this a current diagnosis for this admission?: Yes Plan: On IV ceftriaxone and Levaquin per hospitalist service. (2) ESRD (end stage renal disease) on dialysis Is this a current diagnosis for this admission?: Yes Plan: Patient refused dialysis this morning. I tried to contact her daughter and next of kin but was unable to. We will try again on the second shift and see if she will allow us to do dialysis today. If she does not allow us to do dialysis on her today I think she will be okay for now since her labs and electrolytes are within acceptable limits today. She also does not appear to be fluid overloaded. We will monitor and follow her closely. (3) Hypertensive urgency Is this a current diagnosis for this admission?: Yes Plan: Blood pressure seems to be improving with resumption of her home blood pressure medications. (4) Hypercalcemia Is this a current diagnosis for this admission?: Yes Plan: Patient has been on IV calcium gluconate and IV calcitriol at [facility]. I think the hypercalcemia is also exacerbated by relative dehydration. Continue to monitor calcium level for now. Calcium level actually improved from admission. (5) Altered mental status Qualifiers: Altered mental status type: unspecified Qualified Code(s): R41.82 - Altered mental status, unspecified Is this a current diagnosis for this admission?: Yes Plan: Likely due to acute illness. (6) Hyponatremia Is this a current diagnosis for this admission?: Yes Plan: Mild and borderline. (7) Anemia in chronic kidney disease (CKD) Qualifiers: Chronic kidney disease stage: on chronic dialysis Qualified Code(s): N18.6 - End stage renal disease; D63.1 - Anemia in chronic kidney disease; Z99.2 - Dependence on renal dialysis Is this a current diagnosis for this admission?: Yes (8) Suspected COVID-19 virus infection Is this a current diagnosis for this admission?: Yes Plan: COVID-19 tests pending. - Time Time with patient: 15-25 minutes
[2019-07-18 16:50] LABS: ARTERIAL BLOOD BASE EXCESS -0.4 mmol/L; ARTERIAL BLOOD H2CO3 1.18 mmol/L (1.05-1.35); ARTERIAL BLOOD HCO3 24.1 mmol/L (20-24); ARTERIAL BLOOD PCO2 39.2 mmHg (35-45); ARTERIAL BLOOD PH 7.41 (7.35-7.45); ARTERIAL BLOOD PO2 68.9 mmHg (80-100); ARTERIAL BLOOD TOTAL CO2 25.3 mmol/L (21-25)
[2019-07-18 16:52] LABS: ARTERIAL BLOOD FIO2 ROOM AIR
--- NOTE | 2019-07-18 18:14 | PDOC PROGRESS REPORT ---
Subjective Progress Note for:: 07/18/19 Subjective:: Patient is less lucid today. She has been refusing medication and hemodialysis session. No chest pain or difficulty with breathing. No fever or chills. No abdominal pain, nausea or vomiting. Reason For Visit: LOBAR PNEUMONIA,ESRD ON HEMODIALYSIS, HYPERCALCEMI Physical Exam Vital Signs: Temp Pulse Resp BP Pulse Ox 97.4 F 103 H 16 175/70 H 97 07/18/19 15:12 07/18/19 15:12 07/18/19 15:12 07/18/19 15:12 07/18/19 15:12 Intake & Output 07/17/19 07/18/19 07/19/19 06:59 06:59 06:59 Intake Total 420 480 60 Output Total 0 0 Balance 420 480 60 Weight 45.8 kg 46.3 kg Physical Exam: General appearance: PRESENT: no acute distress Head exam: PRESENT: atraumatic, normocephalic Eye exam: PRESENT: conjunctiva pink. ABSENT: pallor, scleral icterus Respiratory exam: PRESENT: decreased breath sounds - at lung bases Cardiovascular exam: PRESENT: RRR. ABSENT: diastolic murmur, rubs, systolic murmur Vascular exam: ABSENT: pallor GI/Abdominal exam: PRESENT: normal bowel sounds, soft. ABSENT: distended, guarding, mass, organomegaly, rebound, tenderness Extremities exam: PRESENT: pedal edema - minimal chronic bilateral lower extremities pitting edema Neurological exam: PRESENT: awake but easily become drowsy during this bedside evaluation. ABSENT: motor sensory deficit Skin exam: PRESENT: dry, warm, keloid lesions on chest and upper extremities. Results Laboratory Results: 07/17/19 05:09 07/18/19 12:00 07/18/19 07/18/19 07/18/19 12:00 15:24 16:33 Carbonic Acid 1.18 HCO3/H2CO3 Ratio 20:1 ABG pH 7.41 ABG pCO2 39.2 ABG pO2 68.9 L ABG HCO3 24.1 H ABG O2 Saturation 94.0 ABG Base Excess -0.4 FiO2 ROOM AIR Sodium 136.3 L Potassium 3.6 Chloride 97 L Carbon Dioxide 22 Anion Gap 17 BUN 40 H Creatinine 7.09 H Est GFR ( Amer) 7 L Glucose 93 Calcium 11.4 H Ammonia < 8.7 L 07/15/19 11:53 Troponin I < 0.012 Impressions: Chest X-Ray 07/15/19 09:57 IMPRESSION: Asymmetric parenchymal opacity in the inferior aspect of the right hemithorax. Clinical correlation to exclude a pneumonia is recommend. Head CT 07/15/19 10:11 IMPRESSION: No acute intracranial hemorrhage, mass, or evidence of acute territorial infarct. Moderate chronic small vessel ischemic change and chronic lacunar infarct right insular capsule, stable from prior. Intracranial atherosclerosis. EVIDENCE OF ACUTE STROKE: NO. Chest CT 07/15/19 12:40 IMPRESSION: 1. Area of consolidation with air bronchograms in the right lower lobes that could represent a pneumonia. 2. Solid non-cavitary nodules in the right upper lobe, lingula, and left lower lobe that measure up to 13 mm in diameter. Differential considerations include both infectious, neoplastic and inflammatory etiologies including metastases, fungal infections, septic emboli, and bronchoalveolar cell carcinoma. 3. Lipomatous lesion posterior to the left scapula that measures > 8 cm in diameter. The size of the lesion and the age of the patient are atypical for a benign lipoma. 4. Other findings as detailed above. Assessment & Plan - Diagnosis (1) Lobar pneumonia, unspecified organism Is this a current diagnosis for this admission?: Yes (2) ESRD (end stage renal disease) on dialysis Is this a current diagnosis for this admission?: Yes (3) Altered mental status Qualifiers: Altered mental status type: unspecified Qualified Code(s): R41.82 - Altered mental status, unspecified Is this a current diagnosis for this admission?: Yes (4) Hypertension Qualifiers: Hypertension type: unspecified Qualified Code(s): I10 - Essential (primary) hypertension Is this a current diagnosis for this admission?: Yes (5) Anemia in chronic kidney disease (CKD) Qualifiers: Chronic kidney disease stage: on chronic dialysis Qualified Code(s): N18.6 - End stage renal disease; D63.1 - Anemia in chronic kidney disease; Z99.2 - Dependence on renal dialysis Is this a current diagnosis for this admission?: Yes (6) Osteoarthritis involving multiple joints on both sides of body Is this a current diagnosis for this admission?: Yes (7) Keloid of skin Is this a current diagnosis for this admission?: Yes (8) Chronic pain syndrome Is this a current diagnosis for this admission?: Yes (9) Idiopathic hypercalcemia Is this a current diagnosis for this admission?: Yes (10) Hypertensive urgency Is this a current diagnosis for this admission?: Yes - Time Time Spent with patient: 25-34 minutes Level of Care: IMCU Medications reviewed and adjusted accordingly: Yes Anticipated discharge: Home with Homehealth, SNF, Hospice Within: Other - Inpatient Certification Based on my medical assessment, after consideration of the patient's comorbidities, presenting symptoms, or acuity I expect that the services needed warrant INPATIENT care.: Yes I certify that my determination is in accordance with my understanding of Medicare's requirements for reasonable and necessary INPATIENT services [42 CFR 412.3e].: Yes Medical Necessity: Significant Comorbidiites Make Outpatient Treatment Too Risky, Need Close Monitoring Due to Risk of Patient Decompensation, Need For Continuous Telemetry Monitoring, Need for IV Antibiotics, Risk of Complication if Not Cared For in Hospital, Risk of Diagnosis Which Will Require Inpatient Eval/Care/Monitoring Post Hospital Care: D/C Loading And Unloading Supervisor Documentation - Plan Summary Plan Summary: Continue current medication and supportive management. Presently her overall prognosis remain very poor due to her advance age and morbidities. her disposition will be challenging due to family and patient denial of current poor state of her health. I will continue to communicate with the family and patient to consider alternative at discharge time. I had extensive discussion with daughter, Mrs. Washington, at [phone] during my visit today.
[2019-07-18] MEDS: CEFTRIAXONE 1 GM/D5W RTU 1 GM/50 ML RTUPB IV SCH (21:57)
[2019-07-19] MEDS: HYDRALAZINE HCL INJ/PF 20 MG/1 ML SDV IV PRN ×2 (00:11→08:27)
[2019-07-19 05:41] LABS: ABSOLUTE BASOPHILS # (AUTO) 0.1 10^3/uL (0.0-0.2); ABSOLUTE EOSINOPHILS # (AUTO) 0.1 10^3/uL (0.0-0.6); ABSOLUTE LYMPHOCYTES (AUTO) 0.4 10^3/uL (0.5-4.7); ABSOLUTE MONOCYTES (AUTO) 0.6 10^3/uL (0.1-1.4); ABSOLUTE NEUT (AUTO) 3.9 10^3/uL (1.7-8.2); BASOPHILS % (AUTO) 1.1 % (0-2); EOSINOPHILS % (AUTO) 2.2 % (0-6); HEMATOCRIT 33.3 % (36.0-47.0); HEMOGLOBIN 11.3 g/dL (12.0-15.5); MEAN CORPUSCULAR HEMOGLOBIN 27.6 pg (27.0-33.4); MEAN CORPUSCULAR VOLUME 81 fl (80-97); MONOCYTES % (AUTO) 11.9 % (3-13); PLATELET COUNT 241 10^3/uL (150-450); RED CELL DISTRIBUTION WIDTH 17.2 % (11.5-14.0); SEGMENTED NEUTROPHILS % (AUTO) 76.8 % (42-78); TOTAL CELLS COUNTED % (AUTO) 100 %; WHITE BLOOD COUNT 5.1 10^3/uL (4.0-10.5)
[2019-07-19] MEDS: HEPARIN SOD (PORCINE) 5,000 UNIT/ML 1 ML VIAL SUBCUT SCH ×3 (05:51→21:37)
[2019-07-19] MEDS: CLONIDINE HCL 0.2 MG TABLET PO SCH (05:52)
[2019-07-19] MEDS: HYDRALAZINE HCL 50 MG TABLET PO SCH ×4 (05:55→21:37)
[2019-07-19 05:58] LABS: ANION GAP 13 (5-19); BLOOD UREA NITROGEN 45 mg/dL (7-20); CALCIUM 11.1 mg/dL (8.4-10.2); CARBON DIOXIDE 23 mmol/L (22-30); CHLORIDE 99 mmol/L (98-107); GLUCOSE 82 mg/dL (75-110); POTASSIUM 3.6 mmol/L (3.6-5.0)
[2019-07-19] MEDS: AMLODIPINE BESYLATE 5 MG TABLET PO SCH ×2 (09:42→21:37)
[2019-07-19] MEDS: RISPERIDONE 0.5 MG TAB.RAPDIS PO SCH (09:43)
--- NOTE | 2019-07-19 11:43 | PDOC PROGRESS REPORT ---
Subjective Progress Note for:: 07/19/19 Reason For Visit: Patient seen today on dialysis. She is still got altered mental status and quite lethargic and does not respond to any questions. However she is not combative like she was when she was attempted to undergo dialysis on Monday. Discussions were done with the treating nurse. Labs and medications were reviewed. Imaging studies done so far were evaluated as well. Dialysis going without any issues at the moment. Physical Exam Vital Signs: Temp Pulse Resp BP Pulse Ox 97.3 F 87 17 170/66 H 100 07/19/19 08:00 07/19/19 08:00 07/19/19 08:00 07/19/19 08:00 07/19/19 08:00 Intake & Output 07/18/19 07/19/19 07/20/19 06:59 06:59 06:59 Intake Total 480 230 Output Total 0 0 Balance 480 230 Weight 46.3 kg General appearance: PRESENT: disheveled Exam: Patient quite lethargic and does not respond to questions. She is however lying comfortably. Eye exam: PRESENT: EOMI, PERRLA. ABSENT: scleral icterus Mouth exam: ABSENT: neck supple Neck exam: ABSENT: meningismus, tenderness, thyromegaly, tracheal deviation Respiratory exam: PRESENT: clear to auscultation anais. ABSENT: crackles Cardiovascular exam: PRESENT: +S1, +S2 GI/Abdominal exam: PRESENT: normal bowel sounds, soft. ABSENT: organomegaly, tenderness Extremities exam: ABSENT: pedal edema Neurological exam: PRESENT: altered Results Laboratory Results: 07/19/19 05:00 07/19/19 05:00 07/18/19 07/18/19 07/18/19 12:00 15:24 16:33 WBC RBC Hgb Hct MCV MCH MCHC RDW Plt Count Seg Neutrophils % Carbonic Acid 1.18 HCO3/H2CO3 Ratio 20:1 ABG pH 7.41 ABG pCO2 39.2 ABG pO2 68.9 L ABG HCO3 24.1 H ABG O2 Saturation 94.0 ABG Base Excess -0.4 FiO2 ROOM AIR Sodium 136.3 L Potassium 3.6 Chloride 97 L Carbon Dioxide 22 Anion Gap 17 BUN 40 H Creatinine 7.09 H Est GFR ( Amer) 7 L Glucose 93 Calcium 11.4 H Ammonia < 8.7 L 07/19/19 07/19/19 05:00 05:00 WBC 5.1 RBC 4.10 Hgb 11.3 L Hct 33.3 L MCV 81 MCH 27.6 MCHC 34.0 RDW 17.2 H Plt Count 241 Seg Neutrophils % 76.8 Carbonic Acid HCO3/H2CO3 Ratio ABG pH ABG pCO2 ABG pO2 ABG HCO3 ABG O2 Saturation ABG Base Excess FiO2 Sodium 134.8 L Potassium 3.6 Chloride 99 Carbon Dioxide 23 Anion Gap 13 BUN 45 H Creatinine 8.08 H Est GFR ( Amer) 6 L Glucose 82 Calcium 11.1 H Ammonia 07/15/19 11:53 Troponin I < 0.012 Impressions: Chest X-Ray 07/15/19 09:57 IMPRESSION: Asymmetric parenchymal opacity in the inferior aspect of the right hemithorax. Clinical correlation to exclude a pneumonia is recommend. Head CT 07/15/19 10:11 IMPRESSION: No acute intracranial hemorrhage, mass, or evidence of acute territorial infarct. Moderate chronic small vessel ischemic change and chronic lacunar infarct right insular capsule, stable from prior. Intracranial atherosclerosis. EVIDENCE OF ACUTE STROKE: NO. Chest CT 07/15/19 12:40 IMPRESSION: 1. Area of consolidation with air bronchograms in the right lower lobes that could represent a pneumonia. 2. Solid non-cavitary nodules in the right upper lobe, lingula, and left lower lobe that measure up to 13 mm in diameter. Differential considerations include both infectious, neoplastic and inflammatory etiologies including metastases, fungal infections, septic emboli, and bronchoalveolar cell carcinoma. 3. Lipomatous lesion posterior to the left scapula that measures > 8 cm in diameter. The size of the lesion and the age of the patient are atypical for a benign lipoma. 4. Other findings as detailed above. Assessment & Plan - Diagnosis (1) ESRD (end stage renal disease) on dialysis Is this a current diagnosis for this admission?: Yes Plan: Patient currently undergoing dialysis. She is quite lethargic and not responding to questions. She has missed her last 2 dialysis because she had altered mental status and was very combative and refused to cooperate to undergo dialysis. However today she is unlike any of her previous situation she is quite lethargic. We will plan to remove no fluids and in fact I am going to make a positive by 400 cc of normal saline given her persistent hypercalcemia. Discussed and reviewed orders with the treating dialysis nurse. (2) Altered mental status Qualifiers: Altered mental status type: unspecified Qualified Code(s): R41.82 - Altered mental status, unspecified Is this a current diagnosis for this admission?: Yes Plan: Unlike early days as per discussions done with Dr. Ruiz who was initially cov ering her the patient was having altered mental status but awake and combative. Today she is quite moribund lethargic and not responding to questions and she is just laying comfortably. Her white count is normal. Her hypercalcemia on presentation was 13 and was believed to be iatrogenic given the fact that she was being administered IV calcium along with IV calcitriol during dialysis as her calcium at one time was hypocalcemic. It is believed that she would correct her high calcium to just discontinuation of those medications but however her calcium is still persisting which therefore requires additional evaluations. I would make her positive with IV fluids and also suggest continuation of gentle hydration of normal saline approximately a liter a day to see if that will correct her calcium slowly. If that does not corrected I would try her on calcitonin or other anti-hypercalcemic measures. Meanwhile I were to initiate evaluations for her hypercalcemia. She also has some atypical findings in the CT scan of chest which shows that she has a large atypical mass on her back which could be a liposarcoma with possible metastasis into the lungs given her nodules in the apex.Finally still atypical infections including meningo- encephalitis needs to be kept in consideration and one might think about doing a lumbar puncture if she shows no signs of mental recovery (3) Hypercalcemia Is this a current diagnosis for this admission?: Yes Plan: As mentioned earlier. Recommend gentle hydration. (4) Lobar pneumonia, unspecified organism Is this a current diagnosis for this admission?: Yes Plan: Currently on antibiotics. She is covid negative. (5) Hypertension Qualifiers: Hypertension type: unspecified Qualified Code(s): I10 - Essential (primary) hypertension Is this a current diagnosis for this admission?: Yes Plan: Uncontrolled. She is possibly not taking anything p.o. Would recommend giving her IV antihypertensives like hydralazine. But before that I am going to convert her p.o. clonidine to patch.
[2019-07-19] MEDS: LEVOFLOXACIN 500 MG/D5W RTU 500 MG/100 ML RTUPB IV SCH (13:50)
--- NOTE | 2019-07-19 16:28 | PDOC PROGRESS REPORT ---
Subjective Progress Note for:: 07/19/19 Subjective:: Patient is post hemodialysis today at the time of my bedside evaluation. She is arousable to calling her name and shaking but not verbally responsive. No reported observed chest pain or difficulty with breathing. No fever or chills. No nausea or vomiting. She is not taking anything orally Reason For Visit: LOBAR PNEUMONIA, ESRD ON HEMODIALYSIS, HYPERCALCEMIA Physical Exam Vital Signs: Temp Pulse Resp BP Pulse Ox 97.4 F 79 16 161/52 H 98 07/19/19 14:09 07/19/19 14:09 07/19/19 14:09 07/19/19 14:09 07/19/19 14:09 Intake & Output 07/18/19 07/19/19 07/20/19 06:59 06:59 06:59 Intake Total 480 230 500 Output Total 0 0 Balance 480 230 500 Weight 46.3 kg Physical Exam: General appearance: PRESENT: no acute distress Head exam: PRESENT: atraumatic, normocephalic Eye exam: PRESENT: conjunctiva pink. ABSENT: pallor, scleral icterus Respiratory exam: PRESENT: decreased breath sounds - at lung bases Cardiovascular exam: PRESENT: RRR. Grade 3/6 systolic murmur ABSENT: diastolic murmur, rubs GI/Abdominal exam: PRESENT: normal bowel sounds, soft. ABSENT: distended, guarding, mass, organomegaly, rebound, tenderness Extremities exam: PRESENT: pedal edema - minimal chronic bilateral lower extremities pitting edema Neurological exam: PRESENT: awake but easily become drowsy during this bedside evaluation. ABSENT: motor sensory deficit Skin exam: PRESENT: dry, warm, keloid lesions on chest and upper extremities. Results Laboratory Results: 07/19/19 05:00 07/19/19 05:00 07/18/19 07/19/19 07/19/19 16:33 05:00 05:00 WBC 5.1 RBC 4.10 Hgb 11.3 L Hct 33.3 L MCV 81 MCH 27.6 MCHC 34.0 RDW 17.2 H Plt Count 241 Seg Neutrophils % 76.8 Carbonic Acid 1.18 HCO3/H2CO3 Ratio 20:1 ABG pH 7.41 ABG pCO2 39.2 ABG pO2 68.9 L ABG HCO3 24.1 H ABG O2 Saturation 94.0 ABG Base Excess -0.4 FiO2 ROOM AIR Sodium 134.8 L Potassium 3.6 Chloride 99 Carbon Dioxide 23 Anion Gap 13 BUN 45 H Creatinine 8.08 H Est GFR ( Amer) 6 L Glucose 82 Calcium 11.1 H TSH 07/19/19 13:59 WBC RBC Hgb Hct MCV MCH MCHC RDW Plt Count Seg Neutrophils % Carbonic Acid HCO3/H2CO3 Ratio ABG pH ABG pCO2 ABG pO2 ABG HCO3 ABG O2 Saturation ABG Base Excess FiO2 Sodium Potassium Chloride Carbon Dioxide Anion Gap BUN Creatinine Est GFR ( Amer) Glucose Calcium TSH 1.38 07/15/19 11:53 Troponin I < 0.012 Impressions: Chest X-Ray 07/15/19 09:57 IMPRESSION: Asymmetric parenchymal opacity in the inferior aspect of the right hemithorax. Clinical correlation to exclude a pneumonia is recommend. Head CT 07/15/19 10:11 IMPRESSION: No acute intracranial hemorrhage, mass, or evidence of acute territorial infarct. Moderate chronic small vessel ischemic change and chronic lacunar infarct right insular capsule, stable from prior. Intracranial atherosclerosis. EVIDENCE OF ACUTE STROKE: NO. Chest CT 07/15/19 12:40 IMPRESSION: 1. Area of consolidation with air bronchograms in the right lower lobes that could represent a pneumonia. 2. Solid non-cavitary nodules in the right upper lobe, lingula, and left lower lobe that measure up to 13 mm in diameter. Differential considerations include both infectious, neoplastic and inflammatory etiologies including metastases, fungal infections, septic emboli, and bronchoalveolar cell carcinoma. 3. Lipomatous lesion posterior to the left scapula that measures > 8 cm in diameter. The size of the lesion and the age of the patient are atypical for a benign lipoma. 4. Other findings as detailed above. Assessment & Plan - Diagnosis (1) Lobar pneumonia, unspecified organism Is this a current diagnosis for this admission?: Yes (2) ESRD (end stage renal disease) on dialysis Is this a current diagnosis for this admission?: Yes (3) Altered mental status Qualifiers: Altered mental status type: unspecified Qualified Code(s): R41.82 - Altered mental status, unspecified Is this a current diagnosis for this admission?: Yes Plan: Etiology remain multifactorial. Her infectious indices are showing improvement w ith normal left shift in WBC analysis, blood culture is no growth to date, and urine culture is no growth x 2 days. If her mental alteration persist beyond hypercalcemia correction or worsening infectious indices I will agree with lumbar puncture if family want such evaluation. (4) Hypertension Qualifiers: Hypertension type: unspecified Qualified Code(s): I10 - Essential (primary) hypertension Is this a current diagnosis for this admission?: Yes (5) Anemia in chronic kidney disease (CKD) Qualifiers: Chronic kidney disease stage: on chronic dialysis Qualified Code(s): N18.6 - End stage renal disease; D63.1 - Anemia in chronic kidney disease; Z99.2 - Dependence on renal dialysis Is this a current diagnosis for this admission?: Yes (6) Osteoarthritis involving multiple joints on both sides of body Is this a current diagnosis for this admission?: Yes (7) Keloid of skin Is this a current diagnosis for this admission?: Yes (8) Chronic pain syndrome Is this a current diagnosis for this admission?: Yes (9) Idiopathic hypercalcemia Is this a current diagnosis for this admission?: Yes Plan: Start on IV N/S at 50 ml/hour. Monitor BMP for serum calcium level. (10) Hypertensive urgency Is this a current diagnosis for this admission?: Yes - Time Time Spent with patient: 25-34 minutes Level of Care: IMCU Medications reviewed and adjusted accordingly: Yes Anticipated discharge: Home with Homehealth, SNF, Hospice Within: Other - Inpatient Certification Based on my medical assessment, after consideration of the patient's comorbidities, presenting symptoms, or acuity I expect that the services needed warrant INPATIENT care.: Yes I certify that my determination is in accordance with my understanding of Medicare's requirements for reasonable and necessary INPATIENT services [42 CFR 412.3e].: Yes Medical Necessity: Significant Comorbidiites Make Outpatient Treatment Too Risky, Need Close Monitoring Due to Risk of Patient Decompensation, Need For IV Fluids, Need For Continuous Telemetry Monitoring, Need for IV Antibiotics, Risk of Complication if Not Cared For in Hospital, Risk of Diagnosis Which Will Require Inpatient Eval/Care/Monitoring Post Hospital Care: D/C Core Java Engineer Documentation, D/C or Transfer Summary - Plan Summary Plan Summary: See attending physician orders for details about care plan.
[2019-07-19] MEDS: NORMAL SALINE 1000 ML 1,000 ML IV PRN (21:35)
[2019-07-19] MEDS: CEFTRIAXONE 1 GM/D5W RTU 1 GM/50 ML RTUPB IV SCH (21:36)
[2019-07-20] MEDS: CEFTRIAXONE 1 GM/D5W RTU 1 GM/50 ML RTUPB IV SCH ×2 (01:37→21:55)
[2019-07-20] MEDS: NORMAL SALINE 1000 ML 1,000 ML IV PRN (02:55)
[2019-07-20] MEDS: HYDRALAZINE HCL 50 MG TABLET PO SCH ×3 (05:35→21:39)
[2019-07-20] MEDS: HEPARIN SOD (PORCINE) 5,000 UNIT/ML 1 ML VIAL SUBCUT SCH ×3 (05:36→21:50)
[2019-07-20 05:47] LABS: ANION GAP 13 (5-19); CALCIUM 10.9 mg/dL (8.4-10.2); CARBON DIOXIDE 22 mmol/L (22-30); CHLORIDE 101 mmol/L (98-107); GLUCOSE 74 mg/dL (75-110); POTASSIUM 3.7 mmol/L (3.6-5.0)
[2019-07-20 06:12] LABS: BLOOD UREA NITROGEN 20 mg/dL (7-20)
[2019-07-20] MEDS: AMLODIPINE BESYLATE 5 MG TABLET PO SCH ×2 (09:37→21:38)
[2019-07-20] MEDS: RISPERIDONE 0.5 MG TAB.RAPDIS PO SCH (09:41)
--- NOTE | 2019-07-20 14:01 | PDOC PROGRESS REPORT ---
Subjective Progress Note for:: 07/20/19 Subjective:: Patient is alert awake but underlying dementia's patient is however no other concerns per nursing staff Reason For Visit: LOBAR PNEUMONIA,ESRD ON HEMODIALYSIS, HYPERCALCEMI Physical Exam Vital Signs: Temp Pulse Resp BP Pulse Ox 98.1 F 111 H 18 157/65 H 95 07/20/19 10:51 07/20/19 10:51 07/20/19 10:51 07/20/19 10:51 07/20/19 10:51 Intake & Output 07/19/19 07/20/19 07/21/19 06:59 06:59 06:59 Intake Total 230 550 0 Output Total 0 0 0 Balance 230 550 0 Weight 53.5 kg General appearance: PRESENT: no acute distress Head exam: PRESENT: atraumatic, normocephalic Eye exam: PRESENT: conjunctiva pink, EOMI, PERRLA. ABSENT: scleral icterus Ear exam: PRESENT: normal external ear exam Mouth exam: PRESENT: moist, tongue midline Neck exam: PRESENT: full ROM. ABSENT: carotid bruit, JVD, lymphadenopathy, thyromegaly Respiratory exam: PRESENT: decreased breath sounds Cardiovascular exam: PRESENT: RRR. ABSENT: diastolic murmur, rubs, systolic murmur Pulses: PRESENT: normal dorsalis pedis pul, +2 pedal pulses bilateral Vascular exam: PRESENT: normal capillary refill GI/Abdominal exam: PRESENT: normal bowel sounds, soft. ABSENT: distended, guarding, mass, organolmegaly, rebound, tenderness Rectal exam: PRESENT: deferred Neurological exam: PRESENT: alert, awake. ABSENT: motor sensory deficit Psychiatric exam: PRESENT: appropriate affect, normal mood. ABSENT: homicidal ideation, suicidal ideation Skin exam: PRESENT: dry, intact, warm. ABSENT: cyanosis, rash Results Laboratory Results: 07/19/19 05:00 07/20/19 04:29 07/19/19 07/20/19 13:59 04:29 Sodium 135.5 L Potassium 3.7 Chloride 101 Carbon Dioxide 22 Anion Gap 13 BUN 20 D Creatinine 4.20 H Est GFR ( Amer) 12 L Glucose 74 L Calcium 10.9 H TSH 1.38 07/15/19 11:53 Troponin I < 0.012 Impressions: Chest X-Ray 07/15/19 09:57 IMPRESSION: Asymmetric parenchymal opacity in the inferior aspect of the right hemithorax. Clinical correlation to exclude a pneumonia is recommend. Head CT 07/15/19 10:11 IMPRESSION: No acute intracranial hemorrhage, mass, or evidence of acute territorial infarct. Moderate chronic small vessel ischemic change and chronic lacunar infarct right insular capsule, stable from prior. Intracranial atherosclerosis. EVIDENCE OF ACUTE STROKE: NO. Chest CT 07/15/19 12:40 IMPRESSION: 1. Area of consolidation with air bronchograms in the right lower lobes that could represent a pneumonia. 2. Solid non-cavitary nodules in the right upper lobe, lingula, and left lower lobe that measure up to 13 mm in diameter. Differential considerations include both infectious, neoplastic and inflammatory etiologies including metastases, fungal infections, septic emboli, and bronchoalveolar cell carcinoma. 3. Lipomatous lesion posterior to the left scapula that measures > 8 cm in diameter. The size of the lesion and the age of the patient are atypical for a benign lipoma. 4. Other findings as detailed above. Assessment & Plan - Diagnosis (1) Lobar pneumonia, unspecified organism Is this a current diagnosis for this admission?: Yes Plan: Defer to Dr. Morrison. Patient currently on ceftriaxone and Levaquin. (2) Altered mental status Qualifiers: Altered mental status type: unspecified Qualified Code(s): R41.82 - Altered mental status, unspecified Is this a current diagnosis for this admission?: Yes Plan: Etiology remain multifactorial. Her infectious indices are showing improvement with normal left shift in WBC analysis, blood culture is no growth to date, and urine culture is no growth x 2 days. If her mental alteration persist beyond hypercalcemia correction or worsening infectious indices I will agree with lumbar puncture if family want such evaluation. (3) Chronic pain syndrome Is this a current diagnosis for this admission?: Yes (4) Hyponatremia Is this a current diagnosis for this admission?: Yes (5) Anemia in chronic kidney disease (CKD) Qualifiers: Chronic kidney disease stage: on chronic dialysis Qualified Code(s): N18.6 - End stage renal disease; D63.1 - Anemia in chronic kidney disease; Z99.2 - Dependence on renal dialysis Is this a current diagnosis for this admission?: Yes Plan: No need of Retacrit today. (6) ESRD (end stage renal disease) on dialysis Is this a current diagnosis for this admission?: Yes Plan: We will do dialysis today for 2.5 hours, using the patient's AV graft, with 2 potassium/2 calcium bath, blood flow rate of 450 mL per minute, dialysate flow rate of 800 mL per minute, ultrafiltration 0 to 0.5 L only as tolerated, no heparin and no Procrit. Patient is currently monitored throughout dialysis treatment. Dialysis treatment plan discussed with our dialysis nurse. - Time Time Spent with patient: 15-24 minutes Level of Care: IMCU Medications reviewed and adjusted accordingly: Yes Anticipated discharge: Other Within: Other - Plan Summary Plan Summary: Continues the IV antibiotic
[2019-07-20] MEDS: HYDRALAZINE HCL INJ/PF 20 MG/1 ML SDV IV PRN (17:59)
[2019-07-20] MEDS ORDERED: CLONIDINE 0.3 MG/24 HR PATCH.TDWK TD SCH (21:00)
[2019-07-20] MEDS ORDERED: HYDRALAZINE HCL INJ/PF 20 MG/1 ML SDV IV ONE (21:00)
[2019-07-20] MEDS ORDERED: METOPROLOL TARTRATE 25 MG TABLET PO ONE (22:30)
[2019-07-21] MEDS: ACETAMINOPHEN 325 MG TABLET PO PRN (03:45)
[2019-07-21] MEDS: HYDRALAZINE HCL INJ/PF 20 MG/1 ML SDV IV PRN ×2 (03:51→12:02)
[2019-07-21] MEDS: HYDRALAZINE HCL 50 MG TABLET PO SCH ×2 (06:09→13:48)
[2019-07-21] MEDS: HEPARIN SOD (PORCINE) 5,000 UNIT/ML 1 ML VIAL SUBCUT SCH ×3 (06:10→22:31)
--- NOTE | 2019-07-21 09:59 | PDOC PROGRESS REPORT ---
Subjective Progress Note for:: 07/21/19 Subjective:: Patient is currently doing fair this morning Last night patient's blood pressure was elevated because of the noncompliance to take the medications Patient's missed the hydralazine dose afternoon and then blood pressure shoot up We will put the beta-deshaun twice a day Any chest pain denied any shortness of the breath Patient having some left shoulder pain which is ongoing chronic problems Reason For Visit: LOBAR PNEUMONIA,ESRD ON HEMODIALYSIS, HYPERCALCEMI Physical Exam Vital Signs: Temp Pulse Resp BP Pulse Ox 97.4 F 99 16 187/77 H 94 07/21/19 07:46 07/21/19 07:46 07/21/19 07:46 07/21/19 07:46 07/21/19 07:46 Intake & Output 07/20/19 07/21/19 07/22/19 06:59 06:59 06:59 Intake Total 550 871 Output Total 0 0 Balance 550 871 Weight 53.5 kg 62.8 kg General appearance: PRESENT: no acute distress, thin Head exam: PRESENT: atraumatic, normocephalic Eye exam: PRESENT: conjunctiva pink, EOMI, PERRLA. ABSENT: scleral icterus Ear exam: PRESENT: normal external ear exam Mouth exam: PRESENT: moist, tongue midline Neck exam: PRESENT: full ROM. ABSENT: carotid bruit, JVD, lymphadenopathy, thyromegaly Respiratory exam: PRESENT: decreased breath sounds Cardiovascular exam: PRESENT: RRR. ABSENT: diastolic murmur, rubs, systolic murmur Pulses: PRESENT: normal dorsalis pedis pul, +2 pedal pulses bilateral Vascular exam: PRESENT: normal capillary refill GI/Abdominal exam: PRESENT: normal bowel sounds, soft. ABSENT: distended, guarding, mass, organolmegaly, rebound, tenderness Rectal exam: PRESENT: deferred Neurological exam: PRESENT: alert, awake. ABSENT: motor sensory deficit Psychiatric exam: PRESENT: appropriate affect, normal mood. ABSENT: homicidal ideation, suicidal ideation Skin exam: PRESENT: dry, intact, warm. ABSENT: cyanosis, rash Results Laboratory Results: 07/19/19 05:00 07/20/19 04:29 07/21/19 07/21/19 06:06 06:59 PTH Intact Cancelled 222.1 H 07/16/19 04:40 Blood Blood Culture - Final NO GROWTH IN 5 DAYS 07/15/19 23:04 Blood Blood Culture - Final NO GROWTH IN 5 DAYS 07/15/19 11:53 Troponin I < 0.012 Impressions: Chest X-Ray 07/15/19 09:57 IMPRESSION: Asymmetric parenchymal opacity in the inferior aspect of the right hemithorax. Clinical correlation to exclude a pneumonia is recommend. Head CT 07/15/19 10:11 IMPRESSION: No acute intracranial hemorrhage, mass, or evidence of acute territorial infarct. Moderate chronic small vessel ischemic change and chronic lacunar infarct right insular capsule, stable from prior. Intracranial atherosclerosis. EVIDENCE OF ACUTE STROKE: NO. Chest CT 07/15/19 12:40 IMPRESSION: 1. Area of consolidation with air bronchograms in the right lower lobes that could represent a pneumonia. 2. Solid non-cavitary nodules in the right upper lobe, lingula, and left lower lobe that measure up to 13 mm in diameter. Differential considerations include both infectious, neoplastic and inflammatory etiologies including metastases, fungal infections, septic emboli, and bronchoalveolar cell carcinoma. 3. Lipomatous lesion posterior to the left scapula that measures > 8 cm in diameter. The size of the lesion and the age of the patient are atypical for a benign lipoma. 4. Other findings as detailed above. Assessment & Plan - Diagnosis (1) Lobar pneumonia, unspecified organism Is this a current diagnosis for this admission?: Yes Plan: Defer to Dr. Morrison. Patient currently on ceftriaxone and Levaquin. (2) Altered mental status Qualifiers: Altered mental status type: unspecified Qualified Code(s): R41.82 - Altered mental status, unspecified Is this a current diagnosis for this admission?: Yes Plan: Etiology remain multifactorial. Her infectious indices are showing improvement with normal left shift in WBC analysis, blood culture is no growth to date, and urine culture is no growth x 2 days. If her mental alteration persist beyond hypercalcemia correction or worsening infectious indices I will agree with lumbar puncture if family want such evaluation. (3) Chronic pain syndrome Is this a current diagnosis for this admission?: Yes (4) Hyponatremia Is this a current diagnosis for this admission?: Yes (5) Anemia in chronic kidney disease (CKD) Qualifiers: Chronic kidney disease stage: on chronic dialysis Qualified Code(s): N18.6 - End stage renal disease; D63.1 - Anemia in chronic kidney disease; Z99.2 - Dependence on renal dialysis Is this a current diagnosis for this admission?: Yes Plan: No need of Retacrit today. (6) ESRD (end stage renal disease) on dialysis Is this a current diagnosis for this admission?: Yes Plan: We will do dialysis today for 2.5 hours, using the patient's AV graft, with 2 potassium/2 calcium bath, blood flow rate of 450 mL per minute, dialysate flow rate of 800 mL per minute, ultrafiltration 0 to 0.5 L only as tolerated, no heparin and no Procrit. Patient is currently monitored throughout dialysis treatment. Dialysis treatment plan discussed with our dialysis nurse. (7) Hypertensive urgency Is this a current diagnosis for this admission?: Yes Plan: Encouraged her more regularly PRN hydralazine IV - Time Time Spent with patient: 15-24 minutes Level of Care: IMCU Medications reviewed and adjusted accordingly: Yes Anticipated discharge: Other Within: Other - Plan Summary Plan Summary: Discussed with discussed with the nursing staff regarding the patient's medications change We will get the twelve-lead EKG and x-ray of the left shoulder
[2019-07-21] MEDS ORDERED: METOPROLOL TARTRATE 25 MG TABLET PO SCH (10:00)
[2019-07-21] MEDS: LEVOFLOXACIN 500 MG/D5W RTU 500 MG/100 ML RTUPB IV SCH (10:35)
[2019-07-21] MEDS: RISPERIDONE 0.5 MG TAB.RAPDIS PO SCH (10:35)
[2019-07-21] MEDS: AMLODIPINE BESYLATE 5 MG TABLET PO SCH ×2 (10:35→22:31)
--- NOTE | 2019-07-21 11:50 | RADIOLOGY REPORT (SQ) ---
EXAM DESCRIPTION: SHOULDER RIGHT 1 VIEW IMAGES COMPLETED DATE/TIME: 07/21/2019 11:32 am REASON FOR STUDY: Shoulder Pain COMPARISON: None. FINDINGS: One view shoulder radiograph, AP view. Osteopenic. No fracture or bone lesion. Axillary vascular stent in place. Clear right lung. TECHNICAL DOCUMENTATION: JOB ID: [id number] Reading location - IP/workstation name: [email or web address]
--- NOTE | 2019-07-21 11:59 | EKG REPORT ---
SEVERITY:- ABNORMAL ECG - SINUS TACHYCARDIA LEFT ATRIAL ABNORMALITY LVH WITH SECONDARY REPOLARIZATION ABNORMALITY : Confirmed by: Aiden Fatima MD 21-Jul-2019 11:58:29
[2019-07-21] MEDS ORDERED: GLUCAGON,HUMAN RECOMB 1 MG INJ SUBCUT PRN (17:20)
[2019-07-21] MEDS ORDERED: DEXTROSE 40% GEL 15 GM TUBE PO PRN ×2 (17:20)
[2019-07-21] MEDS ORDERED: DEXTROSE 50%-WATER 25 GM/50 ML DISP.SYRIN IV PRN ×2 (17:20)
[2019-07-21] MEDS ORDERED: HYDRALAZINE HCL INJ/PF 20 MG/1 ML SDV IV PRN ×2 (17:30→21:07)
[2019-07-21] MEDS: CEFTRIAXONE 1 GM/D5W RTU 1 GM/50 ML RTUPB IV SCH (22:32)
[2019-07-22] MEDS: HYDRALAZINE HCL INJ/PF 20 MG/1 ML SDV IV SCH ×5 (00:31→23:37)
[2019-07-22 05:52] LABS: HEMATOCRIT 33.4 % (36.0-47.0); HEMOGLOBIN 11.1 g/dL (12.0-15.5); MEAN CORPUSCULAR HEMOGLOBIN 26.9 pg (27.0-33.4); MEAN CORPUSCULAR HGB CONC 33.2 g/dL (32.0-36.0); MEAN CORPUSCULAR VOLUME 81 fl (80-97); PLATELET COUNT 245 10^3/uL (150-450); RED BLOOD COUNT 4.11 10^6/uL (3.72-5.28); RED CELL DISTRIBUTION WIDTH 16.8 % (11.5-14.0); WHITE BLOOD COUNT 5.3 10^3/uL (4.0-10.5)
[2019-07-22 05:56] LABS: ANION GAP 13 (5-19); BLOOD UREA NITROGEN 35 mg/dL (7-20); CALCIUM 10.9 mg/dL (8.4-10.2); CARBON DIOXIDE 22 mmol/L (22-30); CHLORIDE 103 mmol/L (98-107); GLUCOSE 82 mg/dL (75-110); POTASSIUM 3.7 mmol/L (3.6-5.0)
[2019-07-22] MEDS: HEPARIN SOD (PORCINE) 5,000 UNIT/ML 1 ML VIAL SUBCUT SCH ×3 (06:24→21:45)
[2019-07-22] MEDS: AMLODIPINE BESYLATE 5 MG TABLET PO SCH ×2 (12:24→21:50)
[2019-07-22] MEDS: METOPROLOL TARTRATE PF/INJ 5 MG/5 ML SDV IV SCH ×3 (12:24→17:37)
[2019-07-22] MEDS: RISPERIDONE 0.5 MG TAB.RAPDIS PO SCH (12:24)
--- NOTE | 2019-07-22 12:52 | PDOC PROGRESS REPORT ---
Subjective Progress Note for:: 07/22/19 Reason For Visit: Patient seen today on dialysis. She is lying quietly and hardly responds to questions but briefly opens her eyes. She looks comfortable the way she is. Discussions were done with the treating dialysis nurse. Apparently she has not been taking her medications or taking much of intake otherwise. Labs and medications were reviewed. Physical Exam Vital Signs: Temp Pulse Resp BP Pulse Ox 98.3 F 109 H 15 167/71 H 91 L 07/22/19 07:33 07/22/19 07:33 07/22/19 07:33 07/22/19 07:33 07/22/19 07:33 Intake & Output 07/21/19 07/22/19 07/23/19 06:59 06:59 06:59 Intake Total 871 295 0 Output Total 0 0 Balance 871 295 0 Weight 62.8 kg 63.7 kg General appearance: PRESENT: no acute distress, disheveled Respiratory exam: PRESENT: clear to auscultation anais. ABSENT: crackles Cardiovascular exam: PRESENT: +S1, +S2 GI/Abdominal exam: PRESENT: normal bowel sounds, soft. ABSENT: organomegaly, tenderness Extremities exam: ABSENT: pedal edema Neurological exam: PRESENT: altered Results Laboratory Results: 07/22/19 04:47 07/22/19 04:47 07/22/19 07/22/19 04:47 04:47 WBC 5.3 RBC 4.11 Hgb 11.1 L Hct 33.4 L MCV 81 MCH 26.9 L MCHC 33.2 RDW 16.8 H Plt Count 245 Sodium 137.8 Potassium 3.7 Chloride 103 Carbon Dioxide 22 Anion Gap 13 BUN 35 H Creatinine 6.58 H Est GFR ( Amer) 7 L Glucose 82 Calcium 10.9 H 07/15/19 11:53 Troponin I < 0.012 Impressions: Chest X-Ray 07/15/19 09:57 IMPRESSION: Asymmetric parenchymal opacity in the inferior aspect of the right hemithorax. Clinical correlation to exclude a pneumonia is recommend. Head CT 07/15/19 10:11 IMPRESSION: No acute intracranial hemorrhage, mass, or evidence of acute territorial infarct. Moderate chronic small vessel ischemic change and chronic lacunar infarct right insular capsule, stable from prior. Intracranial atherosc lerosis. EVIDENCE OF ACUTE STROKE: NO. Chest CT 04/13/20 12:40 IMPRESSION: 1. Area of consolidation with air bronchograms in the right lower lobes that could represent a pneumonia. 2. Solid non-cavitary nodules in the right upper lobe, lingula, and left lower lobe that measure up to 13 mm in diameter. Differential considerations include both infectious, neoplastic and inflammatory etiologies including metastases, fungal infections, septic emboli, and bronchoalveolar cell carcinoma. 3. Lipomatous lesion posterior to the left scapula that measures > 8 cm in diam eter. The size of the lesion and the age of the patient are atypical for a benign lipoma. 4. Other findings as detailed above. Assessment & Plan - Diagnosis (1) ESRD (end stage renal disease) on dialysis Is this a current diagnosis for this admission?: Yes Plan: Patient currently undergoing dialysis. She is quite lethargic and not responding to questions. However she is okay with ongoing dialysis which is being supervised to ensure safe and smooth procedure. Plan to remove no fluids. Discussed and reviewed orders with the treating dialysis nurse. (2) Altered mental status Qualifiers: Altered mental status type: unspecified Qualified Code(s): R41.82 - Altered mental status, unspecified Is this a current diagnosis for this admission?: Yes Plan: Status quo. She is still quite lethargic and hardly responds to any questions.. Periodically opens her eyes. (3) Hypercalcemia Is this a current diagnosis for this admission?: Yes Plan: As mentioned earlier. Slowly dropping and now calcium is 10.9. Recommend gentle hydration. (4) Lobar pneumonia, unspecified organism Is this a current diagnosis for this admission?: Yes Plan: Currently on antibiotics. She is covid negative. (5) Hypertension Qualifiers: Hypertension type: unspecified Qualified Code(s): I10 - Essential (primary) hypertension Is this a current diagnosis for this admission?: Yes Plan: Uncontrolled. She is not taking anything p.o. Would recommend giving her IV antihypertensives like hydralazine.
--- NOTE | 2019-07-22 19:20 | PDOC PROGRESS REPORT ---
Subjective Progress Note for:: 07/22/19 Subjective:: Patient continue to demonstrate lethargy with response only to painful stimuli. Minimal monosyllable response. No reported observed chest pain or difficulty with breathing. No fever or chills. No nausea or vomiting. She continue to refuse oral medication and food. Reason For Visit: LOBAR PNEUMONIA,ESRD ON HEMODIALYSIS, HYPERCALCEMI Physical Exam Vital Signs: Temp Pulse Resp BP Pulse Ox 98.3 F 103 H 17 148/66 H 100 07/22/19 15:34 07/22/19 15:34 07/22/19 15:34 07/22/19 15:34 07/22/19 15:34 Intake & Output 07/21/19 07/22/19 07/23/19 06:59 06:59 06:59 Intake Total 871 295 0 Output Total 0 0 600 Balance 871 295 -600 Weight 62.8 kg 63.7 kg Physical Exam: General appearance: PRESENT: no acute distress Head exam: PRESENT: atraumatic, normocephalic Eye exam: PRESENT: conjunctiva pink. ABSENT: pallor, scleral icterus Respiratory exam: PRESENT: decreased breath sounds - at lung bases Cardiovascular exam: PRESENT: RRR. Grade 3/6 systolic murmur ABSENT: diastolic murmur, rubs GI/Abdominal exam: PRESENT: normal bowel sounds, soft. ABSENT: distended, guarding, mass, organomegaly, rebound, tenderness Extremities exam: PRESENT: pedal edema - minimal chronic bilateral lower extremities pitting edema Neurological exam: PRESENT: Arousable to painful stimuli. ABSENT: motor sensory deficit Skin exam: PRESENT: dry, warm, keloid lesions on chest and upper extremities. Results Laboratory Results: 07/22/19 04:47 07/22/19 04:47 07/22/19 07/22/19 04:47 04:47 WBC 5.3 RBC 4.11 Hgb 11.1 L Hct 33.4 L MCV 81 MCH 26.9 L MCHC 33.2 RDW 16.8 H Plt Count 245 Sodium 137.8 Potassium 3.7 Chloride 103 Carbon Dioxide 22 Anion Gap 13 BUN 35 H Creatinine 6.58 H Est GFR ( Amer) 7 L Glucose 82 Calcium 10.9 H 07/15/19 11:53 Troponin I < 0.012 Impressions: Chest X-Ray 07/15/19 09:57 IMPRESSION: Asymmetric parenchymal opacity in the inferior aspect of the right hemithorax. Clinical correlation to exclude a pneumonia is recommend. Head CT 07/15/19 10:11 IMPRESSION: No acute intracranial hemorrhage, mass, or evidence of acute territorial infarct. Moderate chronic small vessel ischemic change and chronic lacunar infarct right insular capsule, stable from prior. Intracranial atherosclerosis. EVIDENCE OF ACUTE STROKE: NO. Chest CT 07/15/19 12:40 IMPRESSION: 1. Area of consolidation with air bronchograms in the right lower lobes that could represent a pneumonia. 2. Solid non-cavitary nodules in the right upper lobe, lingula, and left lower lobe that measure up to 13 mm in diameter. Differential considerations include both infectious, neoplastic and inflammatory etiologies including metastases, fungal infections, septic emboli, and bronchoalveolar cell carcinoma. 3. Lipomatous lesion posterior to the left scapula that measures > 8 cm in diameter. The size of the lesion and the age of the patient are atypical for a benign lipoma. 4. Other findings as detailed above. Assessment & Plan - Diagnosis (1) Lobar pneumonia, unspecified organism Is this a current diagnosis for this admission?: Yes (2) ESRD (end stage renal disease) on dialysis Is this a current diagnosis for this admission?: Yes (3) Altered mental status Qualifiers: Altered mental status type: unspecified Qualified Code(s): R41.82 - Altered mental status, unspecified Is this a current diagnosis for this admission?: Yes (4) Hypertension Qualifiers: Hypertension type: unspecified Qualified Code(s): I10 - Essential (primary) hypertension Is this a current diagnosis for this admission?: Yes (5) Anemia in chronic kidney disease (CKD) Qualifiers: Chronic kidney disease stage: on chronic dialysis Qualified Code(s): N18.6 - End stage renal disease; D63.1 - Anemia in chronic kidney disease; Z99.2 - Dependence on renal dialysis Is this a current diagnosis for this admission?: Yes (6) Osteoarthritis involving multiple joints on both sides of body Is this a current diagnosis for this admission?: Yes (7) Keloid of skin Is this a current diagnosis for this admission?: Yes (8) Chronic pain syndrome Is this a current diagnosis for this admission?: Yes (9) Idiopathic hypercalcemia Is this a current diagnosis for this admission?: Yes (10) Hypertensive urgency Is this a current diagnosis for this admission?: Yes - Time Time Spent with patient: 25-34 minutes Level of Care: IMCU Medications reviewed and adjusted accordingly: Yes Anticipated discharge: Home with Homehealth, SNF, Hospice Within: Other - Inpatient Certification Based on my medical assessment, after consideration of the patient's comorbidities, presenting symptoms, or acuity I expect that the services needed warrant INPATIENT care.: Yes I certify that my determination is in accordance with my understanding of Medicare's requirements for reasonable and necessary INPATIENT services [42 CFR 412.3e].: Yes Medical Necessity: Significant Comorbidiites Make Outpatient Treatment Too Risky, Need Close Monitoring Due to Risk of Patient Decompensation, Need For IV Fluids, Need For Continuous Telemetry Monitoring, Need for IV Antibiotics, Risk of Complication if Not Cared For in Hospital, Risk of Diagnosis Which Will Require Inpatient Eval/Care/Monitoring Post Hospital Care: D/C Cru[employer] Packer Documentation, D/C or Transfer Summary - Plan Summary Plan Summary: Obtain head CT scan without contrast. Consider possible contribution of Clonidine to her state of decrease alertness due to somnolence as side effect from Clonidine. Continue all current medication management.
--- NOTE | 2019-07-22 21:39 | RADIOLOGY REPORT (SQ) ---
INDICATION: Persistent Altered Mental Status. COMPARISON: July 15, 2019 CORRELATION: None TECHNIQUE: Noncontrast spiral axial CT images were obtained from the skull base to vertex. This exam was performed according to our departmental dose-optimization program, which includes automated exposure control, adjustment of the mA and/or kV according to patient size and/or use of iterative reconstruction techniques. FINDINGS: There is no evidence of acute intracranial hemorrhage, midline shift, mass effect or mass lesion. Riley-white differentiation is normal. There is no evidence of acute large territory infarct. Age-related involutional changes are identified. Presumed old small vessel ischemic changes are seen predominantly in a periventricular distribution.. Old areas of encephalomalacia, similar to prior. The visualized paranasal sinuses are grossly clear. The orbits and eyeballs are unremarkable. The mastoid air cells are clear. Skull base and calvarium appear intact. IMPRESSION: No acute intracranial process is identified. Age-related involutional changes are identified. Presumed old small vessel ischemic changes are seen predominantly in a periventricular distribution. No adverse change
--- NOTE | 2019-07-22 22:53 | EKG REPORT ---
SEVERITY:- ABNORMAL ECG - SINUS RHYTHM PROBABLE LEFT ATRIAL ABNORMALITY LVH WITH SECONDARY REPOLARIZATION ABNORMALITY ANTERIOR ST ELEVATION, PROBABLY DUE TO LVH : Confirmed by: Tulio Orourke 22-Jul-2019 22:53:03
[2019-07-23] MEDS: HEPARIN SOD (PORCINE) 5,000 UNIT/ML 1 ML VIAL SUBCUT SCH ×3 (06:05→21:31)
[2019-07-23] MEDS: HYDRALAZINE HCL INJ/PF 20 MG/1 ML SDV IV SCH ×3 (06:05→17:52)
[2019-07-23] MEDS: AMLODIPINE BESYLATE 5 MG TABLET PO SCH ×2 (09:56→21:30)
[2019-07-23] MEDS: LEVOFLOXACIN 500 MG/D5W RTU 500 MG/100 ML RTUPB IV SCH (09:57)
[2019-07-23] MEDS: METOPROLOL TARTRATE PF/INJ 5 MG/5 ML SDV IV SCH ×2 (09:57→17:52)
[2019-07-23] MEDS: RISPERIDONE 0.5 MG TAB.RAPDIS PO SCH (09:57)
--- NOTE | 2019-07-23 17:59 | PDOC PROGRESS REPORT ---
Subjective Progress Note for:: 07/23/19 Subjective:: Patient is more engaging this morning and requesting for food. Blood pressure remain elevated. She denied any chest pain or difficulty with breathing. No fever or chills. No nausea or vomiting. She has been made NPO due to recent report of choking on her food and medications. Reason For Visit: LOBAR PNEUMONIA,ESRD ON HEMODIALYSIS, HYPERCALCEMI Physical Exam Vital Signs: Temp Pulse Resp BP Pulse Ox 98.1 F 97 16 145/51 H 92 07/23/19 16:25 07/23/19 16:25 07/23/19 16:25 07/23/19 16:25 07/23/19 16:25 Intake & Output 07/22/19 07/23/19 07/24/19 06:59 06:59 06:59 Intake Total 295 0 340 Output Total 0 600 Balance 295 -600 340 Weight 63.7 kg 61.8 kg Physical Exam: General appearance: PRESENT: no acute distress Head exam: PRESENT: atraumatic, normocephalic Eye exam: PRESENT: conjunctiva pink. ABSENT: pallor, scleral icterus Respiratory exam: PRESENT: decreased breath sounds - at lung bases Cardiovascular exam: PRESENT: RRR. Grade 3/6 systolic murmur ABSENT: diastolic murmur, rubs GI/Abdominal exam: PRESENT: normal bowel sounds, soft. ABSENT: distended, guarding, mass, organomegaly, rebound, tenderness Extremities exam: PRESENT: pedal edema - minimal chronic bilateral lower extremities pitting edema Neurological exam: PRESENT: Awake and appropriate in simple responses. Oriented to person and time. ABSENT: motor sensory deficit Skin exam: PRESENT: dry, warm, keloid lesions on chest and upper extremities. Results Laboratory Results: 07/22/19 04:47 07/22/19 04:47 07/15/19 11:53 Troponin I < 0.012 Impressions: Chest X-Ray 07/15/19 09:57 IMPRESSION: Asymmetric parenchymal opacity in the inferior aspect of the right hemithorax. Clinical correlation to exclude a pneumonia is recommend. Chest CT 07/15/19 12:40 IMPRESSION: 1. Area of consolidation with air bronchograms in the right lower lobes that could represent a pneumonia. 2. Solid non-cavitary nodules in the right upper lobe, lingula, and left lower lobe that measure up to 13 mm in diameter. Differential considerations include both infectious, neoplastic and inflammatory etiologies including metastases, fungal infections, septic emboli, and bronchoalveolar cell carcinoma. 3. Lipomatous lesion posterior to the left scapula that measures > 8 cm in diameter. The size of the lesion and the age of the patient are atypical for a benign lipoma. 4. Other findings as detailed above. Head CT 07/22/19 00:00 IMPRESSION: No acute intracranial process is identified. Age-related involutional changes are identified. Presumed old small vessel ischemic changes are seen predominantly in a periventricular distribution. No adverse change Assessment & Plan - Diagnosis (1) Lobar pneumonia, unspecified organism Is this a current diagnosis for this admission?: Yes (2) ESRD (end stage renal disease) on dialysis Is this a current diagnosis for this admission?: Yes (3) Altered mental status Qualifiers: Altered mental status type: unspecified Qualified Code(s): R41.82 - Altered mental status, unspecified Is this a current diagnosis for this admission?: Yes (4) Hypertension Qualifiers: Hypertension type: unspecified Qualified Code(s): I10 - Essential (primary) hypertension Is this a current diagnosis for this admission?: Yes (5) Anemia in chronic kidney disease (CKD) Qualifiers: Chronic kidney disease stage: on chronic dialysis Qualified Code(s): N18.6 - End stage renal disease; D63.1 - Anemia in chronic kidney disease; Z99.2 - Dependence on renal dialysis Is this a current diagnosis for this admission?: Yes (6) Osteoarthritis involving multiple joints on both sides of body Is this a current diagnosis for this admission?: Yes (7) Keloid of skin Is this a current diagnosis for this admission?: Yes (8) Chronic pain syndrome Is this a current diagnosis for this admission?: Yes (9) Idiopathic hypercalcemia Is this a current diagnosis for this admission?: Yes (10) Hypertensive urgency Is this a current diagnosis for this admission?: Yes - Time Time Spent with patient: 25-34 minutes Level of Care: IMCU Medications reviewed and adjusted accordingly: Yes Anticipated discharge: Home with Homehealth Within: Other - Inpatient Certification Based on my medical assessment, after consideration of the patient's comorbidities, presenting symptoms, or acuity I expect that the services needed warrant INPATIENT care.: Yes I certify that my determination is in accordance with my understanding of Medicare's requirements for reasonable and necessary INPATIENT services [42 CFR 412.3e].: Yes Medical Necessity: Significant Comorbidiites Make Outpatient Treatment Too Risky, Need Close Monitoring Due to Risk of Patient Decompensation, Need For IV Fluids, Need For Continuous Telemetry Monitoring, Need for IV Antibiotics, Risk of Complication if Not Cared For in Hospital, Risk of Diagnosis Which Will Require Inpatient Eval/Care/Monitoring Post Hospital Care: D/C [employer] Par[employer]egal Documentation - Plan Summary Plan Summary: Advance to mechanical soft with ground meat diet, HTN and Dialysis restriction. Her CT head is negative for any acute event. Continue all other current medication management. Resume oral medication if speech pathologist do not see any reason for choking. Continue dialysis as per nephrology maldonado recommendation.
[2019-07-24] MEDS: HYDRALAZINE HCL INJ/PF 20 MG/1 ML SDV IV SCH ×6 (00:13→23:48)
[2019-07-24 05:07] LABS: HEMATOCRIT 35.9 % (36.0-47.0); HEMOGLOBIN 11.9 g/dL (12.0-15.5); MEAN CORPUSCULAR HEMOGLOBIN 27.4 pg (27.0-33.4); MEAN CORPUSCULAR HGB CONC 33.3 g/dL (32.0-36.0); MEAN CORPUSCULAR VOLUME 82 fl (80-97); PLATELET COUNT 287 10^3/uL (150-450); RED BLOOD COUNT 4.36 10^6/uL (3.72-5.28); RED CELL DISTRIBUTION WIDTH 17.4 % (11.5-14.0); WHITE BLOOD COUNT 5.4 10^3/uL (4.0-10.5)
[2019-07-24 05:29] LABS: ANION GAP 11 (5-19); BLOOD UREA NITROGEN 30 mg/dL (7-20); CALCIUM 11.5 mg/dL (8.4-10.2); CARBON DIOXIDE 27 mmol/L (22-30); CHLORIDE 99 mmol/L (98-107); GLUCOSE 77 mg/dL (75-110)
[2019-07-24] MEDS: HEPARIN SOD (PORCINE) 5,000 UNIT/ML 1 ML VIAL SUBCUT SCH ×3 (06:09→22:08)
[2019-07-24] MEDS: AMLODIPINE BESYLATE 5 MG TABLET PO SCH ×2 (10:46→22:09)
[2019-07-24] MEDS: METOPROLOL TARTRATE PF/INJ 5 MG/5 ML SDV IV SCH ×2 (10:46→17:06)
[2019-07-24] MEDS: RISPERIDONE 0.5 MG TAB.RAPDIS PO SCH (10:46)
--- NOTE | 2019-07-24 11:52 | PDOC PROGRESS REPORT ---
Subjective Progress Note for:: 07/24/19 Reason For Visit: Patient was seen today on dialysis. She is undergoing dialysis without any issues. She is little bit more awake but still quite lethargic. She denies any history of chest pain shortness of breath. Dialysis orders were reviewed with the treating dialysis nurse. Labs and medications were reviewed. Current calcium is gone up to 11.5. Poor intake still. Physical Exam Vital Signs: Temp Pulse Resp BP Pulse Ox 97.7 F 108 H 20 132/52 H 96 07/24/19 03:24 07/24/19 07:00 07/24/19 03:24 07/24/19 03:24 07/24/19 03:24 Intake & Output 07/23/19 07/24/19 07/25/19 06:59 06:59 06:59 Intake Total 0 340 Output Total 600 Balance -600 340 Weight 61.8 kg 60.1 kg General appearance: PRESENT: no acute distress Respiratory exam: PRESENT: clear to auscultation anais. ABSENT: crackles Cardiovascular exam: PRESENT: +S1, +S2 GI/Abdominal exam: PRESENT: normal bowel sounds, soft. ABSENT: organomegaly, tenderness Extremities exam: ABSENT: pedal edema Neurological exam: PRESENT: altered Results Laboratory Results: 07/24/19 04:12 07/24/19 04:12 07/24/19 07/24/19 04:12 04:12 WBC 5.4 RBC 4.36 Hgb 11.9 L Hct 35.9 L MCV 82 MCH 27.4 MCHC 33.3 RDW 17.4 H Plt Count 287 Sodium 137.3 Potassium 4.0 Chloride 99 Carbon Dioxide 27 Anion Gap 11 BUN 30 H Creatinine 4.80 H Est GFR ( Amer) 10 L Glucose 77 Calcium 11.5 H 07/15/19 11:53 Troponin I < 0.012 Impressions: Chest X-Ray 07/15/19 09:57 IMPRESSION: Asymmetric parenchymal opacity in the inferior aspect of the right hemithorax. Clinical correlation to exclude a pneumonia is recommend. Chest CT 07/15/19 12:40 IMPRESSION: 1. Area of consolidation with air bronchograms in the right lower lobes that could represent a pneumonia. 2. Solid non-cavitary nodules in the right upper lobe, lingula, and left lower lobe that measure up to 13 mm in diameter. Differential considerations include both infectious, neoplastic and inflammatory etiologies including metastases, fungal infections, septic emboli, and bronchoalveolar cell carcinoma. 3. Lipomatous lesion posterior to the left scapula that measures > 8 cm in diameter. The size of the lesion and the age of the patient are atypical for a benign lipoma. 4. Other findings as detailed above. Head CT 07/22/19 00:00 IMPRESSION: No acute intracranial process is identified. Age-related involutional changes are identified. Presumed old small vessel ischemic changes are seen predominantly in a periventricular distribution. No adverse change Assessment & Plan - Diagnosis (1) ESRD (end stage renal disease) on dialysis Is this a current diagnosis for this admission?: Yes Plan: Patient currently undergoing dialysis. She is still lethargic but some better responding to questions. However she is okay with ongoing dialysis which is b [facility] supervised to ensure safe and smooth procedure. Plan to remove no fluids. Discussed and reviewed orders with the treating dialysis nurse. (2) Altered mental status Qualifiers: Altered mental status type: unspecified Qualified Code(s): R41.82 - Altered mental status, unspecified Is this a current diagnosis for this admission?: Yes Plan: Status quo. She is still lethargic but slightly better response to questions.Point I am going to start on gentle hydration with normal saline to see if there hypercalcemia is a contributor to her altered mental status. PT-rh is pending. (3) Hypercalcemia Is this a current diagnosis for this admission?: Yes Plan: Calcium is 11.5. As mentioned earlier I am going to start her on gentle hydration to see the response. (4) Lobar pneumonia, unspecified organism Is this a current diagnosis for this admission?: Yes Plan: Currently off antibiotics. She is covid negative. (5) Hypertension Qualifiers: Hypertension type: unspecified Qualified Code(s): I10 - Essential (primary) hypertension Is this a current diagnosis for this admission?: Yes Plan: Controlled.
[2019-07-24] MEDS: NORMAL SALINE 1000 ML 1,000 ML IV PRN (12:09)
--- NOTE | 2019-07-24 16:29 | PDOC PROGRESS REPORT ---
Subjective Progress Note for:: 07/24/19 Subjective:: Patient denied any chest pain or difficulty with breathing. No fever or chills. No nausea or vomiting. Her food intake remain poor. She is s/p hemodialysis session today. OOB in chair. Reason For Visit: LOBAR PNEUMONIA,ESRD ON HEMODIALYSIS, HYPERCALCEMI Physical Exam Vital Signs: Temp Pulse Resp BP Pulse Ox 97.8 F 99 16 168/70 H 100 07/24/19 12:06 07/24/19 14:00 07/24/19 12:06 07/24/19 12:06 07/24/19 12:06 Intake & Output 07/23/19 07/24/19 07/25/19 06:59 06:59 06:59 Intake Total 0 340 Output Total 600 Balance -600 340 Weight 61.8 kg 60.1 kg Physical Exam: General appearance: PRESENT: no acute distress Head exam: PRESENT: atraumatic, normocephalic Eye exam: PRESENT: conjunctiva pink. ABSENT: pallor, scleral icterus Respiratory exam: PRESENT: decreased breath sounds - at lung bases Cardiovascular exam: PRESENT: RRR. Grade 3/6 systolic murmur ABSENT: diastolic murmur, rubs GI/Abdominal exam: PRESENT: normal bowel sounds, soft. ABSENT: distended, guarding, mass, organomegaly, rebound, tenderness Extremities exam: ABSENT: pitting edema. Neurological exam: PRESENT: Awake and appropriate in simple responses. Oriented to person and time. ABSENT: motor sensory deficit Skin exam: PRESENT: dry, warm, keloid lesions on chest and upper extremities. Results Laboratory Results: 07/24/19 04:12 07/24/19 04:12 07/24/19 07/24/19 04:12 04:12 WBC 5.4 RBC 4.36 Hgb 11.9 L Hct 35.9 L MCV 82 MCH 27.4 MCHC 33.3 RDW 17.4 H Plt Count 287 Sodium 137.3 Potassium 4.0 Chloride 99 Carbon Dioxide 27 Anion Gap 11 BUN 30 H Creatinine 4.80 H Est GFR ( Amer) 10 L Glucose 77 Calcium 11.5 H 07/15/19 11:53 Troponin I < 0.012 Impressions: Chest X-Ray 07/15/19 09:57 IMPRESSION: Asymmetric parenchymal opacity in the inferior aspect of the right hemithorax. Clinical correlation to exclude a pneumonia is recommend. Chest CT 07/15/19 12:40 IMPRESSION: 1. Area of consolidation with air bronchograms in the right lower lobes that could represent a pneumonia. 2. Solid non-cavitary nodules in the right upper lobe, lingula, and left lower lobe that measure up to 13 mm in diameter. Differential considerations include both infectious, neoplastic and inflammatory etiologies including metastases, fungal infections, septic emboli, and bronchoalveolar cell carcinoma. 3. Lipomatous lesion posterior to the left scapula that measures > 8 cm in diameter. The size of the lesion and the age of the patient are atypical for a benign lipoma. 4. Other findings as detailed above. Head CT 07/22/19 00:00 IMPRESSION: No acute intracranial process is identified. Age-related involutional changes are identified. Presumed old small vessel ischemic changes are seen predominantly in a periventricular distribution. No adverse change Assessment & Plan - Diagnosis (1) Lobar pneumonia, unspecified organism Is this a current diagnosis for this admission?: Yes (2) ESRD (end stage renal disease) on dialysis Is this a current diagnosis for this admission?: Yes (3) Altered mental status Qualifiers: Altered mental status type: unspecified Qualified Code(s): R41.82 - Altered mental status, unspecified Is this a current diagnosis for this admission?: Yes (4) Hypertension Qualifiers: Hypertension type: unspecified Qualified Code(s): I10 - Essential (primary) hypertension Is this a current diagnosis for this admission?: Yes (5) Anemia in chronic kidney disease (CKD) Qualifiers: Chronic kidney disease stage: on chronic dialysis Qualified Code(s): N18.6 - End stage renal disease; D63.1 - Anemia in chronic kidney disease; Z99.2 - Dependence on renal dialysis Is this a current diagnosis for this admission?: Yes (6) Osteoarthritis involving multiple joints on both sides of body Is this a current diagnosis for this admission?: Yes (7) Keloid of skin Is this a current diagnosis for this admission?: Yes (8) Chronic pain syndrome Is this a current diagnosis for this admission?: Yes (9) Idiopathic hypercalcemia Is this a current diagnosis for this admission?: Yes Plan: Her intact PTH is high and looking back on her record have been elevated for awhile. With associated hypercalcemia, I will request thyroid ultrasound for fur ther evaluation of any indigenous parathyroid structural pathology. (10) Hypertensive urgency Is this a current diagnosis for this admission?: Yes - Time Time Spent with patient: 25-34 minutes Level of Care: IMCU Medications reviewed and adjusted accordingly: Yes Anticipated discharge: Home with Homehealth, SNF Within: Other - Inpatient Certification Based on my medical assessment, after consideration of the patient's comorbidities, presenting symptoms, or acuity I expect that the services needed warrant INPATIENT care.: Yes I certify that my determination is in accordance with my understanding of Medicare's requirements for reasonable and necessary INPATIENT services [42 CFR 412.3e].: Yes Medical Necessity: Significant Comorbidiites Make Outpatient Treatment Too Risky, Need Close Monitoring Due to Risk of Patient Decompensation, Need For IV Fluids, Need For Continuous Telemetry Monitoring, Need for IV Antibiotics, Risk of Complication if Not Cared For in Hospital, Risk of Diagnosis Which Will Require Inpatient Eval/Care/Monitoring Post Hospital Care: D/C Nurse Ldr Documentation - Plan Summary Plan Summary: Continue current medication management. Patient's family are requesting for d/c home with NURSE PRACTITIONER PHYSICIAN ASSISTANT services and some DME supplies.
[2019-07-25] MEDS: HYDRALAZINE HCL INJ/PF 20 MG/1 ML SDV IV SCH ×4 (06:32→23:58)
[2019-07-25] MEDS: HEPARIN SOD (PORCINE) 5,000 UNIT/ML 1 ML VIAL SUBCUT SCH ×3 (06:34→21:32)
--- NOTE | 2019-07-25 06:45 | RADIOLOGY REPORT (SQ) ---
EXAM DESCRIPTION: US HEAD NECK SOFT TISSUE COMPLETED DATE/TME: 07/25/2019 00:00 CLINICAL HISTORY: 89 years, Female, Persistent hypercalcemia with elevated intact PTH COMPARISON: CT, chest, July 15, 2019 LIMITATIONS: None. FINDINGS: Right thyroid lobe measures 4.7 x 3.2 x 1.7 cm. Left thyroid lobe measures 5.5 x 3.3 x 2.2 cm. Isthmus is 1.1 cm thick. Multinodular heterogeneous thyroid pattern includes numerous nodular components including the following more suspicious nodules: Nodule a: RIGHT, complex, hypoechoic, heterogeneous, 2.1 x 1.5 x 1.3 cm, highly vascular Nodule b: RIGHT, complex, hypoechoic, heterogeneous, 1.5 x 1.3 x 0.7 cm Nodule c: LEFT, complex, cystic, hypoechoic, septated, microcalcifications, heterogeneous, 2.5 x 2.2 x 1.3 cm, mild capsular vascularity Nodules D: LEFT, complex hypoechoic, cystic component, heterogeneous, 1.0 x 1.0 x 0.9 cm Nodule E: ISTHMIC, complex hypoechoic, 1.5 x 1.7 x 1.4 cm, mild vascularity IMPRESSION: Multinodular goiter pattern. Differential diagnosis includes malignancy. Recommend comparison with any available prior exams to assess interval change and ultrasound-guided fine-needle aspiration biopsy with priority to the most suspicious nodules.
[2019-07-25] MEDS: NORMAL SALINE 1000 ML 1,000 ML IV PRN (08:31)
[2019-07-25] MEDS: RISPERIDONE 0.5 MG TAB.RAPDIS PO SCH (09:56)
[2019-07-25] MEDS: METOPROLOL TARTRATE PF/INJ 5 MG/5 ML SDV IV SCH ×2 (09:56→17:18)
[2019-07-25] MEDS: AMLODIPINE BESYLATE 5 MG TABLET PO SCH ×2 (09:56→21:55)
--- NOTE | 2019-07-25 15:38 | PDOC PROGRESS REPORT ---
Subjective Progress Note for:: 07/25/19 Subjective:: Patient has been more sleepy today but arousable nd appropriate to sternal rub. She denied any chest pain or difficulty with breathing. No fever or chills. No nausea or vomiting. Reason For Visit: LOBAR PNEUMONIA,ESRD ON HEMODIALYSIS, HYPERCALCEMI Physical Exam Vital Signs: Temp Pulse Resp BP Pulse Ox 98.6 F 85 15 174/69 H 97 07/25/19 11:44 07/25/19 14:00 07/25/19 11:44 07/25/19 11:44 07/25/19 11:44 Intake & Output 07/24/19 07/25/19 07/26/19 06:59 06:59 06:59 Intake Total 719 60 9783 Output Total 800 Balance 340 -750 1060 Weight 60.1 kg 61.3 kg Physical Exam: General appearance: PRESENT: no acute distress Head exam: PRESENT: atraumatic, normocephalic Eye exam: PRESENT: conjunctiva pink. ABSENT: pallor, scleral icterus Respiratory exam: PRESENT: decreased breath sounds - at lung bases Cardiovascular exam: PRESENT: RRR. Grade 3/6 systolic murmur ABSENT: diastolic murmur, rubs GI/Abdominal exam: PRESENT: normal bowel sounds, soft. ABSENT: distended, guarding, mass, organomegaly, rebound, tenderness Extremities exam: ABSENT: pitting edema. Neurological exam: PRESENT: Awake and appropriate in simple responses. Oriented to person and time. ABSENT: motor sensory deficit Skin exam: PRESENT: dry, warm, keloid lesions on chest and upper extremities. Neck exam: ABSENT: lymphadenopathy, tenderness, thyromegaly, tracheal deviation Results Laboratory Results: 07/24/19 04:12 07/24/19 04:12 07/15/19 11:53 Troponin I < 0.012 Impressions: Chest X-Ray 07/15/19 09:57 IMPRESSION: Asymmetric parenchymal opacity in the inferior aspect of the right hemithorax. Clinical correlation to exclude a pneumonia is recommend. Chest CT 07/15/19 12:40 IMPRESSION: 1. Area of consolidation with air bronchograms in the right lower lobes that could represent a pneumonia. 2. Solid non-cavitary nodules in the right upper lobe, lingula, and left lower lobe that measure up to 13 mm in diameter. Differential considerations include both infectious, neoplastic and inflammatory etiologies including metastases, fungal infections, septic emboli, and bronchoalveolar cell carcinoma. 3. Lipomatous lesion posterior to the left scapula that measures > 8 cm in diameter. The size of the lesion and the age of the patient are atypical for a benign lipoma. 4. Other findings as detailed above. Head CT 07/22/19 00:00 IMPRESSION: No acute intracranial process is identified. Age-related involutional changes are identified. Presumed old small vessel ischemic changes are seen predominantly in a periventricular distribution. No adverse change Thyroid Ultrasound 07/25/19 00:00 IMPRESSION: Multinodular goiter pattern. Differential diagnosis includes malignancy. Recommend comparison with any available prior exams to assess interval change and ultrasound-guided fine-needle aspiration biopsy with priority to the most suspicious nodules. Assessment & Plan - Diagnosis (1) Lobar pneumonia, unspecified organism Is this a current diagnosis for this admission?: Yes (2) ESRD (end stage renal disease) on dialysis Is this a current diagnosis for this admission?: Yes (3) Altered mental status Qualifiers: Altered mental status type: unspecified Qualified Code(s): R41.82 - Altered mental status, unspecified Is this a current diagnosis for this admission?: Yes (4) Hypertension Qualifiers: Hypertension type: unspecified Qualified Code(s): I10 - Essential (primary) hypertension Is this a current diagnosis for this admission?: Yes (5) Anemia in chronic kidney disease (CKD) Qualifiers: Chronic kidney disease stage: on chronic dialysis Qualified Code(s): N18.6 - End stage renal disease; D63.1 - Anemia in chronic kidney disease; Z99.2 - Dependence on renal dialysis Is this a current diagnosis for this admission?: Yes (6) Osteoarthritis involving multiple joints on both sides of body Is this a current diagnosis for this admission?: Yes (7) Keloid of skin Is this a current diagnosis for this admission?: Yes (8) Chronic pain syndrome Is this a current diagnosis for this admission?: Yes (9) Idiopathic hypercalcemia Is this a current diagnosis for this admission?: Yes (10) Hypertensive urgency Is this a current diagnosis for this admission?: Yes (11) Multinodular goiter (nontoxic) Is this a current diagnosis for this admission?: Yes Plan: I was going to discuss with family regarding further evaluation of her abnormal US Thyroid finding and possibility of malignancy due to her morbidities and adv ance age. Attempt at contacting Nayely Ahuja at [phone], was unsuccessful. - Time Time Spent with patient: 25-34 minutes Level of Care: IMCU Medications reviewed and adjusted accordingly: Yes Anticipated discharge: Home with Homehealth Within: Other - Inpatient Certification Based on my medical assessment, after consideration of the patient's comorbidities, presenting symptoms, or acuity I expect that the services needed warrant INPATIENT care.: Yes I certify that my determination is in accordance with my understanding of Medicare's requirements for reasonable and necessary INPATIENT services [42 CFR 412.3e].: Yes Medical Necessity: Significant Comorbidiites Make Outpatient Treatment Too Risky, Need Close Monitoring Due to Risk of Patient Decompensation, Need For IV Fluids, Need For Continuous Telemetry Monitoring, Need for IV Antibiotics, Risk of Complication if Not Cared For in Hospital, Risk of Diagnosis Which Will Require Inpatient Eval/Care/Monitoring Post Hospital Care: D/C [employer] Operator Documentation - Plan Summary Plan Summary: Continue current medication management. Follow up with family regarding recommended thyroid nodule biopsy for definitive diagnosis. Overall prognosis re main poor.
[2019-07-26] MEDS ORDERED: CLONIDINE 0.3 MG/24 HR PATCH.TDWK TD SCH ×2 (04:30→10:00)
[2019-07-26 05:19] LABS: HEMOGLOBIN 12.3 g/dL (12.0-15.5); MEAN CORPUSCULAR HEMOGLOBIN 27.1 pg (27.0-33.4); MEAN CORPUSCULAR HGB CONC 33.1 g/dL (32.0-36.0); MEAN CORPUSCULAR VOLUME 82 fl (80-97); PLATELET COUNT 270 10^3/uL (150-450); RED BLOOD COUNT 4.52 10^6/uL (3.72-5.28); RED CELL DISTRIBUTION WIDTH 17.1 % (11.5-14.0); WHITE BLOOD COUNT 6.2 10^3/uL (4.0-10.5)
[2019-07-26 05:34] LABS: ANION GAP 11 (5-19); BLOOD UREA NITROGEN 24 mg/dL (7-20); CALCIUM 11.6 mg/dL (8.4-10.2); CARBON DIOXIDE 26 mmol/L (22-30); CHLORIDE 101 mmol/L (98-107); GLUCOSE 86 mg/dL (75-110); POTASSIUM 3.8 mmol/L (3.6-5.0)
[2019-07-26] MEDS: HYDRALAZINE HCL INJ/PF 20 MG/1 ML SDV IV SCH ×3 (06:17→17:17)
[2019-07-26] MEDS: HEPARIN SOD (PORCINE) 5,000 UNIT/ML 1 ML VIAL SUBCUT SCH ×3 (06:19→22:22)
[2019-07-26] MEDS: METOPROLOL TARTRATE PF/INJ 5 MG/5 ML SDV IV SCH ×2 (12:05→17:17)
[2019-07-26] MEDS: AMLODIPINE BESYLATE 5 MG TABLET PO SCH ×2 (12:06→22:16)
[2019-07-26] MEDS: RISPERIDONE 0.5 MG TAB.RAPDIS PO SCH (12:06)
--- NOTE | 2019-07-26 12:53 | PDOC PROGRESS REPORT ---
Subjective Progress Note for:: 07/26/19 Reason For Visit: Patient seen today on dialysis. She is more awake and more responsive than I have seen her before. She is still rather lethargic but opens her eyes to questions and nods her head and moves her hands which is unlike before. She denies any specific complaints of chest pain or shortness of breath. Labs and medications were reviewed. Calcium today is 11.6. I note that has done a thyroid ultrasound which shows multiple nodules. He is in the process of having that worked up as a possibility of malignancy.Dialysis orders were reviewed with the treating dialysis nurse. Physical Exam Vital Signs: Temp Pulse Resp BP Pulse Ox 97.4 F 100 16 161/74 H 96 07/26/19 11:48 07/26/19 11:48 07/26/19 11:48 07/26/19 11:48 07/26/19 11:48 Intake & Output 07/25/19 07/26/19 07/27/19 06:59 06:59 06:59 Intake Total 50 1215 800 Output Total 800 1500 Balance -750 1215 -700 Weight 61.3 kg 62.6 kg General appearance: PRESENT: no acute distress Respiratory exam: PRESENT: clear to auscultation anais, decreased breath sounds. ABSENT: crackles Cardiovascular exam: PRESENT: +S1, +S2 GI/Abdominal exam: PRESENT: normal bowel sounds, soft. ABSENT: organomegaly, tenderness Neurological exam: PRESENT: altered Results Laboratory Results: 07/26/19 04:48 07/26/19 04:48 07/26/19 07/26/19 04:48 04:48 WBC 6.2 RBC 4.52 Hgb 12.3 Hct 37.0 MCV 82 MCH 27.1 MCHC 33.1 RDW 17.1 H Plt Count 270 Sodium 138.2 Potassium 3.8 Chloride 101 Carbon Dioxide 26 Anion Gap 11 BUN 24 H Creatinine 4.16 H Est GFR ( Amer) 12 L Glucose 86 Calcium 11.6 H 07/15/19 11:53 Troponin I < 0.012 Impressions: Chest X-Ray 07/15/19 09:57 IMPRESSION: Asymmetric parenchymal opacity in the inferior aspect of the right hemithorax. Clinical correlation to exclude a pneumonia is recommend. Chest CT 07/15/19 12:40 IMPRESSION: 1. Area of consolidation with air bronchograms in the right lower lobes that could represent a pneumonia. 2. Solid non-cavitary nodules in the right upper lobe, lingula, and left lower lobe that measure up to 13 mm in diameter. Differential considerations include both infectious, neoplastic and inflammatory etiologies including metastases, fungal infections, septic emboli, and bronchoalveolar cell carcinoma. 3. Lipomatous lesion posterior to the left scapula that measures > 8 cm in diameter. The size of the lesion and the age of the patient are atypical for a benign lipoma. 4. Other findings as detailed above. Head CT 07/22/19 00:00 IMPRESSION: No acute intracranial process is identified. Age-related involutional changes are identified. Presumed old small vessel ischemic changes are seen predominantly in a periventricular distribution. No adverse change Thyroid Ultrasound 07/25/19 00:00 IMPRESSION: Multinodular goiter pattern. Differential diagnosis includes malignancy. Recommend comparison with any available prior exams to assess interval change and ultrasound-guided fine-needle aspiration biopsy with priority to the most suspicious nodules. Assessment & Plan - Diagnosis (1) ESRD (end stage renal disease) on dialysis Is this a current diagnosis for this admission?: Yes Plan: Patient currently undergoing dialysis. She is still lethargic but some better responding to questions. However she is okay with ongoing dialysis which is being supervised to ensure safe and smooth procedure. Plan to remove 1 l of fluid. Discussed and reviewed orders with the treating dialysis nurse. (2) Altered mental status Qualifiers: Altered mental status type: unspecified Qualified Code(s): R41.82 - Altered mental status, unspecified Is this a current diagnosis for this admission?: Yes Plan: Improving from that of earlier. She is still lethargic but some better response to questions.I had given some IV fluids to counter her hypercalcemia.However calcium still elevated at 11.6 in comparison to 13.8 on admission. (3) Hypercalcemia Is this a current diagnosis for this admission?: Yes Plan: Calcium is 11.6 as compared to 13.8 on admission. Her PTH related peptide came back as normal. As mentioned earlier I put her on gentle hydration yesterday but calcium still remains elevated. A trial of calcitonin might help to see if her mental status improves better as one tries to work her up for her hypercalcemia.She has got nodules in the lungs besides a 8 cm l muscular lesion around her scapula which could also be malignant which needs to be looked at (4) Lobar pneumonia, unspecified organism Is this a current diagnosis for this admission?: Yes Plan: Currently off antibiotics. She is covid negative. She has also got the undiagnosed nodules in her lungs. (5) Hypertension Qualifiers: Hypertension type: unspecified Qualified Code(s): I10 - Essential (primary) hypertension Is this a current diagnosis for this admission?: Yes Plan: Uncontrolled. See if she is taking more of her medications now that she is waking up
[2019-07-26] MEDS: ACETAMINOPHEN 325 MG TABLET PO PRN (15:59)
--- NOTE | 2019-07-26 16:16 | PDOC PROGRESS REPORT ---
Subjective Progress Note for:: 07/26/19 Subjective:: Nursing staff reported that patient is more engaging today with better food intake and alertness. She denied any chest pain or difficulty with breathing. No fever or chills. No nausea, vomiting, or abdominal pin. Reason For Visit: LOBAR PNEUMONIA,ESRD ON HEMODIALYSIS, HYPERCALCEMI Physical Exam Vital Signs: Temp Pulse Resp BP Pulse Ox 97.4 F 100 16 161/74 H 96 07/26/19 11:48 07/26/19 14:00 07/26/19 11:48 07/26/19 11:48 07/26/19 11:48 Intake & Output 07/25/19 07/26/19 07/27/19 06:59 06:59 06:59 Intake Total 50 1215 800 Output Total 800 1500 Balance -750 1215 -700 Weight 61.3 kg 62.6 kg Physical Exam: General appearance: PRESENT: no acute distress Head exam: PRESENT: atraumatic, normocephalic Eye exam: PRESENT: conjunctiva pink. ABSENT: pallor, scleral icterus Neck exam: ABSENT: lymphadenopathy, tenderness, thyromegaly, tracheal deviation Respiratory exam: PRESENT: decreased breath sounds - at lung bases Cardiovascular exam: PRESENT: RRR. Grade 3/6 systolic murmur ABSENT: diastolic murmur, rubs GI/Abdominal exam: PRESENT: normal bowel sounds, soft. ABSENT: distended, guarding, mass, organomegaly, rebound, tenderness Extremities exam: ABSENT: pitting edema. Neurological exam: PRESENT: Awake and appropriate in simple responses. Oriented to person and time. ABSENT: motor sensory deficit Skin exam: PRESENT: dry, warm, keloid lesions on chest and upper extremities. Results Laboratory Results: 07/26/19 04:48 07/26/19 04:48 07/26/19 07/26/19 04:48 04:48 WBC 6.2 RBC 4.52 Hgb 12.3 Hct 37.0 MCV 82 MCH 27.1 MCHC 33.1 RDW 17.1 H Plt Count 270 Sodium 138.2 Potassium 3.8 Chloride 101 Carbon Dioxide 26 Anion Gap 11 BUN 24 H Creatinine 4.16 H Est GFR ( Amer) 12 L Glucose 86 Calcium 11.6 H 07/15/19 11:53 Troponin I < 0.012 Impressions: Chest X-Ray 07/15/19 09:57 IMPRESSION: Asymmetric parenchymal opacity in the inferior aspect of the right hemithorax. Clinical correlation to exclude a pneumonia is recommend. Chest CT 07/15/19 12:40 IMPRESSION: 1. Area of consolidation with air bronchograms in the right lower lobes that could represent a pneumonia. 2. Solid non-cavitary nodules in the right upper lobe, lingula, and left lower lobe that measure up to 13 mm in diameter. Differential considerations include both infectious, neoplastic and inflammatory etiologies including metastases, fungal infections, septic emboli, and bronchoalveolar cell carcinoma. 3. Lipomatous lesion posterior to the left scapula that measures > 8 cm in diameter. The size of the lesion and the age of the patient are atypical for a benign lipoma. 4. Other findings as detailed above. Head CT 07/22/19 00:00 IMPRESSION: No acute intracranial process is identified. Age-related involutional changes are identified. Presumed old small vessel ischemic changes are seen predominantly in a periventricular distribution. No adverse change Thyroid Ultrasound 07/25/19 00:00 IMPRESSION: Multinodular goiter pattern. Differential diagnosis includes malignancy. Recommend comparison with any available prior exams to assess interval change and ultrasound-guided fine-needle aspiration biopsy with priority to the most suspicious nodules. Assessment & Plan - Diagnosis (1) Lobar pneumonia, unspecified organism Is this a current diagnosis for this admission?: Yes (2) ESRD (end stage renal disease) on dialysis Is this a current diagnosis for this admission?: Yes (3) Altered mental status Qualifiers: Altered mental status type: unspecified Qualified Code(s): R41.82 - Altered mental status, unspecified Is this a current diagnosis for this admission?: Yes (4) Hypertension Qualifiers: Hypertension type: unspecified Qualified Code(s): I10 - Essential (primary) hypertension Is this a current diagnosis for this admission?: Yes (5) Anemia in chronic kidney disease (CKD) Qualifiers: Chronic kidney disease stage: on chronic dialysis Qualified Code(s): N18.6 - End stage renal disease; D63.1 - Anemia in chronic kidney disease; Z99.2 - Dependence on renal dialysis Is this a current diagnosis for this admission?: Yes (6) Osteoarthritis involving multiple joints on both sides of body Is this a current diagnosis for this admission?: Yes (7) Keloid of skin Is this a current diagnosis for this admission?: Yes (8) Chronic pain syndrome Is this a current diagnosis for this admission?: Yes (9) Idiopathic hypercalcemia Is this a current diagnosis for this admission?: Yes (10) Hypertensive urgency Is this a current diagnosis for this admission?: Yes (11) Multinodular goiter (nontoxic) Is this a current diagnosis for this admission?: Yes - Time Time Spent with patient: 25-34 minutes Level of Care: IMCU Medications reviewed and adjusted accordingly: Yes Anticipated discharge: Home with Homehealth, SNF, Hospice Within: Other - Inpatient Certification Based on my medical assessment, after consideration of the patient's comorbidities, presenting symptoms, or acuity I expect that the services needed warrant INPATIENT care.: Yes I certify that my determination is in accordance with my understanding of Medicare's requirements for reasonable and necessary INPATIENT services [42 CFR 412.3e].: Yes Medical Necessity: Significant Comorbidiites Make Outpatient Treatment Too Risky, Need Close Monitoring Due to Risk of Patient Decompensation, Need For IV Fluids, Need For Continuous Telemetry Monitoring, Need for IV Antibiotics, Risk of Complication if Not Cared For in Hospital, Risk of Diagnosis Which Will Require Inpatient Eval/Care/Monitoring Post Hospital Care: D/C Rouge Mixer Documentation - Plan Summary Plan Summary: Continue current medication management. I did discus with her children yesterday and thy will get back to me about their decision to move forward with evaluation of her abnormal Thyroid US and chest CT scan findings. Her overall prognosis remain poor.
[2019-07-27] MEDS: HYDRALAZINE HCL INJ/PF 20 MG/1 ML SDV IV SCH ×4 (00:48→17:27)
[2019-07-27] MEDS: HEPARIN SOD (PORCINE) 5,000 UNIT/ML 1 ML VIAL SUBCUT SCH ×3 (06:10→21:13)
[2019-07-27] MEDS: RISPERIDONE 0.5 MG TAB.RAPDIS PO SCH (09:31)
[2019-07-27] MEDS: METOPROLOL TARTRATE PF/INJ 5 MG/5 ML SDV IV SCH ×2 (09:31→17:29)
[2019-07-27] MEDS: AMLODIPINE BESYLATE 5 MG TABLET PO SCH ×2 (09:31→21:13)
--- NOTE | 2019-07-27 15:07 | PDOC PROGRESS REPORT ---
Subjective Progress Note for:: 07/27/19 Subjective:: Patient denied any chest pain or difficulty with breathing. No fever or chills. No nausea, vomiting, or abdominal pin. Reason For Visit: LOBAR PNEUMONIA,ESRD ON HEMODIALYSIS, HYPERCALCEMI Physical Exam Vital Signs: Temp Pulse Resp BP Pulse Ox 97.8 F 99 16 169/70 H 100 07/27/19 12:13 07/27/19 12:13 07/27/19 12:13 07/27/19 12:13 07/27/19 12:13 Intake & Output 07/26/19 07/27/19 07/28/19 06:59 06:59 06:59 Intake Total 1215 1000 Output Total 1500 Balance 1215 -500 Weight 62.6 kg 63.6 kg Physical Exam: General appearance: PRESENT: no acute distress Head exam: PRESENT: atraumatic, normocephalic Eye exam: PRESENT: conjunctiva pink. ABSENT: pallor, scleral icterus Neck exam: ABSENT: lymphadenopathy, tenderness, thyromegaly, tracheal deviation Respiratory exam: PRESENT: decreased breath sounds - at lung bases Cardiovascular exam: PRESENT: RRR. Grade 3/6 systolic murmur ABSENT: diastolic murmur, rubs GI/Abdominal exam: PRESENT: normal bowel sounds, soft. ABSENT: distended, guarding, mass, organomegaly, rebound, tenderness Extremities exam: ABSENT: pitting edema. Neurological exam: PRESENT: Awake and appropriate in simple responses. Oriented to person and time. ABSENT: motor sensory deficit Skin exam: PRESENT: dry, warm, keloid lesions on chest and upper extremities. Results Laboratory Results: 07/26/19 04:48 07/26/19 04:48 07/15/19 11:53 Troponin I < 0.012 Impressions: Chest X-Ray 07/15/19 09:57 IMPRESSION: Asymmetric parenchymal opacity in the inferior aspect of the right hemithorax. Clinical correlation to exclude a pneumonia is recommend. Chest CT 07/15/19 12:40 IMPRESSION: 1. Area of consolidation with air bronchograms in the right lower lobes that could represent a pneumonia. 2. Solid non-cavitary nodules in the right upper lobe, lingula, and left lower lobe that measure up to 13 mm in diameter. Differential considerations include both infectious, neoplastic and inflammatory etiologies including metastases, fungal infections, septic emboli, and bronchoalveolar cell carcinoma. 3. Lipomatous lesion posterior to the left scapula that measures > 8 cm in di ameter. The size of the lesion and the age of the patient are atypical for a benign lipoma. 4. Other findings as detailed above. Head CT 07/22/19 00:00 IMPRESSION: No acute intracranial process is identified. Age-related involutional changes are identified. Presumed old small vessel ischemic changes are seen predominantly in a periventricular distribution. No adverse change Thyroid Ultrasound 07/25/19 00:00 IMPRESSION: Multinodular goiter pattern. Differential diagnosis includes malignancy. Recommend comparison with any available prior exams to assess interval change and ultrasound-guided fine-needle aspiration biopsy with priority to the most suspicious nodules. Assessment & Plan - Diagnosis (1) Lobar pneumonia, unspecified organism Is this a current diagnosis for this admission?: Yes (2) ESRD (end stage renal disease) on dialysis Is this a current diagnosis for this admission?: Yes (3) Altered mental status Qualifiers: Altered mental status type: unspecified Qualified Code(s): R41.82 - Altered mental status, unspecified Is this a current diagnosis for this admission?: Yes (4) Hypertension Qualifiers: Hypertension type: unspecified Qualified Code(s): I10 - Essential (primary) hypertension Is this a current diagnosis for this admission?: Yes (5) Anemia in chronic kidney disease (CKD) Qualifiers: Chronic kidney disease stage: on chronic dialysis Qualified Code(s): N18.6 - End stage renal disease; D63.1 - Anemia in chronic kidney disease; Z99.2 - Dependence on renal dialysis Is this a current diagnosis for this admission?: Yes (6) Osteoarthritis involving multiple joints on both sides of body Is this a current diagnosis for this admission?: Yes (7) Keloid of skin Is this a current diagnosis for this admission?: Yes (8) Chronic pain syndrome Is this a current diagnosis for this admission?: Yes (9) Idiopathic hypercalcemia Is this a current diagnosis for this admission?: Yes (10) Hypertensive urgency Is this a current diagnosis for this admission?: Yes (11) Multinodular goiter (nontoxic) Is this a current diagnosis for this admission?: Yes - Time Time Spent with patient: 25-34 minutes Level of Care: IMCU Medications reviewed and adjusted accordingly: Yes Anticipated discharge: Home with Homehealth Within: Other - Inpatient Certification Based on my medical assessment, after consideration of the patient's comorbidities, presenting symptoms, or acuity I expect that the services needed warrant INPATIENT care.: Yes I certify that my determination is in accordance with my understanding of Medicare's requirements for reasonable and necessary INPATIENT services [42 CFR 412.3e].: Yes Medical Necessity: Significant Comorbidiites Make Outpatient Treatment Too Risky, Need Close Monitoring Due to Risk of Patient Decompensation, Need For Continuous Telemetry Monitoring, Need for IV Antibiotics, Risk of Complication if Not Cared For in Hospital, Risk of Diagnosis Which Will Require Inpatient Eval/Care/Monitoring Post Hospital Care: D/C Scale Manager Documentation - Plan Summary Plan Summary: Continue current medication management. I discussed with daughter regarding further evaluation of her abnormal thyroid US and chest CT scan findings. At this time family declined recommendation and requested discharge home with man ual wheelchair, commode, and shower bench.
[2019-07-28] MEDS: HYDRALAZINE HCL INJ/PF 20 MG/1 ML SDV IV SCH ×4 (00:02→17:01)
[2019-07-28] MEDS: HEPARIN SOD (PORCINE) 5,000 UNIT/ML 1 ML VIAL SUBCUT SCH ×3 (05:06→22:55)
[2019-07-28] MEDS: METOPROLOL TARTRATE PF/INJ 5 MG/5 ML SDV IV SCH ×2 (09:21→17:02)
[2019-07-28] MEDS: AMLODIPINE BESYLATE 5 MG TABLET PO SCH ×2 (10:17→22:56)
[2019-07-28] MEDS: RISPERIDONE 0.5 MG TAB.RAPDIS PO SCH (10:18)
--- NOTE | 2019-07-28 16:07 | PDOC PROGRESS REPORT ---
Subjective Progress Note for:: 07/28/19 Subjective:: Patient denied any chest pain or difficulty with breathing. No fever or chills. No abdominal pain, nausea, or vomiting. Reason For Visit: LOBAR PNEUMONIA,ESRD ON HEMODIALYSIS, HYPERCALCEMI Physical Exam Vital Signs: Temp Pulse Resp BP Pulse Ox 97.6 F 93 14 164/64 H 100 07/28/19 11:47 07/28/19 14:00 07/28/19 11:47 07/28/19 11:47 07/28/19 11:47 Intake & Output 07/27/19 07/28/19 07/29/19 06:59 06:59 06:59 Intake Total 1000 50 Output Total 1500 0 Balance -500 50 Weight 63.6 kg 61 kg Physical Exam: General appearance: PRESENT: no acute distress Head exam: PRESENT: atraumatic, normocephalic Eye exam: PRESENT: conjunctiva pink. ABSENT: pallor, scleral icterus Neck exam: ABSENT: lymphadenopathy, tenderness, thyromegaly, tracheal deviation Respiratory exam: PRESENT: decreased breath sounds - at lung bases Cardiovascular exam: PRESENT: RRR. Grade 3/6 systolic murmur ABSENT: diastolic murmur, rubs GI/Abdominal exam: PRESENT: normal bowel sounds, soft. ABSENT: distended, guarding, mass, organomegaly, rebound, tenderness Extremities exam: ABSENT: pitting edema. Neurological exam: PRESENT: Awake and appropriate in simple responses. Oriented to person and time. ABSENT: motor sensory deficit Skin exam: PRESENT: dry, warm, keloid lesions on chest and upper extremities. Results Laboratory Results: 07/26/19 04:48 07/26/19 04:48 07/15/19 11:53 Troponin I < 0.012 Impressions: Chest X-Ray 07/15/19 09:57 IMPRESSION: Asymmetric parenchymal opacity in the inferior aspect of the right hemithorax. Clinical correlation to exclude a pneumonia is recommend. Chest CT 07/15/19 12:40 IMPRESSION: 1. Area of consolidation with air bronchograms in the right lower lobes that could represent a pneumonia. 2. Solid non-cavitary nodules in the right upper lobe, lingula, and left lower lobe that measure up to 13 mm in diameter. Differential considerations include both infectious, neoplastic and inflammatory etiologies including metastases, fungal infections, septic emboli, and bronchoalveolar cell carcinoma. 3. Lipomatous lesion posterior to the left scapula that measures > 8 cm in diameter. The size of the lesion and the age of the patient are atypical for a benign lipoma. 4. Other findings as detailed above. Head CT 07/22/19 00:00 IMPRESSION: No acute intracranial process is identified. Age-related involutional changes are identified. Presumed old small vessel ischemic changes are seen predominantly in a periventricular distribution. No adverse change Thyroid Ultrasound 07/25/19 00:00 IMPRESSION: Multinodular goiter pattern. Differential diagnosis includes malignancy. Recommend comparison with any available prior exams to assess interval change and ultrasound-guided fine-needle aspiration biopsy with priority to the most suspicious nodules. Assessment & Plan - Diagnosis (1) Lobar pneumonia, unspecified organism Is this a current diagnosis for this admission?: Yes (2) ESRD (end stage renal disease) on dialysis Is this a current diagnosis for this admission?: Yes (3) Altered mental status Qualifiers: Altered mental status type: unspecified Qualified Code(s): R41.82 - Altered mental status, unspecified Is this a current diagnosis for this admission?: Yes (4) Hypertension Qualifiers: Hypertension type: unspecified Qualified Code(s): I10 - Essential (primary) hypertension Is this a current diagnosis for this admission?: Yes (5) Anemia in chronic kidney disease (CKD) Qualifiers: Chronic kidney disease stage: on chronic dialysis Qualified Code(s): N18.6 - End stage renal disease; D63.1 - Anemia in chronic kidney disease; Z99.2 - Dependence on renal dialysis Is this a current diagnosis for this admission?: Yes (6) Osteoarthritis involving multiple joints on both sides of body Is this a current diagnosis for this admission?: Yes (7) Keloid of skin Is this a current diagnosis for this admission?: Yes (8) Chronic pain syndrome Is this a current diagnosis for this admission?: Yes (9) Idiopathic hypercalcemia Is this a current diagnosis for this admission?: Yes (10) Hypertensive urgency Is this a current diagnosis for this admission?: Yes (11) Multinodular goiter (nontoxic) Is this a current diagnosis for this admission?: Yes - Time Time Spent with patient: 25-34 minutes Level of Care: IMCU Medications reviewed and adjusted accordingly: Yes Anticipated discharge: Home with Homehealth Within: Other - Inpatient Certification Based on my medical assessment, after consideration of the patient's comorbidities, presenting symptoms, or acuity I expect that the services needed warrant INPATIENT care.: Yes I certify that my determination is in accordance with my understanding of Medicare's requirements for reasonable and necessary INPATIENT services [42 CFR 412.3e].: Yes Medical Necessity: Significant Comorbidiites Make Outpatient Treatment Too Risky, Need Close Monitoring Due to Risk of Patient Decompensation, Need For IV Fluids, Need For Continuous Telemetry Monitoring, Risk of Complication if Not Cared For in Hospital, Risk of Diagnosis Which Will Require Inpatient Eval /Care/Monitoring Post Hospital Care: D/C Electric Distribution Engineer Documentation - Plan Summary Plan Summary: Continue current medication management. Follow up with nephrology regarding hemodialysis schedule.
[2019-07-29] MEDS: HYDRALAZINE HCL INJ/PF 20 MG/1 ML SDV IV SCH ×3 (00:15→15:12)
[2019-07-29] MEDS: HEPARIN SOD (PORCINE) 5,000 UNIT/ML 1 ML VIAL SUBCUT SCH ×3 (06:11→21:55)
[2019-07-29 07:07] LABS: ANION GAP 11 (5-19); BLOOD UREA NITROGEN 32 mg/dL (7-20); CARBON DIOXIDE 26 mmol/L (22-30); CHLORIDE 100 mmol/L (98-107); GLUCOSE 89 mg/dL (75-110); POTASSIUM 3.7 mmol/L (3.6-5.0)
[2019-07-29 07:12] LABS: HEMATOCRIT 32.9 % (36.0-47.0); HEMOGLOBIN 11.1 g/dL (12.0-15.5); MEAN CORPUSCULAR HEMOGLOBIN 27.3 pg (27.0-33.4); MEAN CORPUSCULAR HGB CONC 33.6 g/dL (32.0-36.0); MEAN CORPUSCULAR VOLUME 81 fl (80-97); RED BLOOD COUNT 4.05 10^6/uL (3.72-5.28); RED CELL DISTRIBUTION WIDTH 17.4 % (11.5-14.0); WHITE BLOOD COUNT 6.5 10^3/uL (4.0-10.5)
[2019-07-29 08:06] LABS: PLATELET COUNT 183 10^3/uL (150-450)
[2019-07-29] MEDS: AMLODIPINE BESYLATE 5 MG TABLET PO SCH ×2 (09:51→21:55)
[2019-07-29] MEDS: METOPROLOL TARTRATE PF/INJ 5 MG/5 ML SDV IV SCH ×2 (09:51→17:57)
[2019-07-29] MEDS: RISPERIDONE 0.5 MG TAB.RAPDIS PO SCH (09:55)
--- NOTE | 2019-07-29 14:22 | PDOC PROGRESS REPORT ---
Subjective Progress Note for:: 07/29/19 Subjective:: Patient is more lucid and engaging so far today. She denied any chest pain or difficulty with breathing. No fever or chills. No abdominal pain, nausea, or vomiting. Reason For Visit: LOBAR PNEUMONIA,ESRD ON HEMODIALYSIS, HYPERCALCEMI Physical Exam Vital Signs: Temp Pulse Resp BP Pulse Ox 98.2 F 111 H 18 177/67 H 98 07/29/19 11:31 07/29/19 11:31 07/29/19 11:31 07/29/19 11:31 07/29/19 11:31 Intake & Output 07/28/19 07/29/19 07/30/19 06:59 06:59 06:59 Intake Total 50 Output Total 0 1 Balance 50 -1 Weight 61 kg 62.2 kg Physical Exam: General appearance: PRESENT: no acute distress Head exam: PRESENT: atraumatic, normocephalic Eye exam: PRESENT: conjunctiva pink. ABSENT: pallor, scleral icterus Neck exam: ABSENT: lymphadenopathy, tenderness, thyromegaly, tracheal deviation Respiratory exam: PRESENT: decreased breath sounds - at lung bases Cardiovascular exam: PRESENT: RRR. Grade 3/6 systolic murmur ABSENT: diastolic murmur, rubs GI/Abdominal exam: PRESENT: normal bowel sounds, soft. ABSENT: distended, guarding, mass, organomegaly, rebound, tenderness Extremities exam: ABSENT: pitting edema. Neurological exam: PRESENT: Awake and appropriate in simple responses. Oriented to person and time. ABSENT: motor sensory deficit Skin exam: PRESENT: dry, warm, keloid lesions on chest and upper extremities. Results Laboratory Results: 07/29/19 06:19 07/29/19 06:19 07/29/19 07/29/19 06:19 06:19 WBC 6.5 RBC 4.05 Hgb 11.1 L Hct 32.9 L MCV 81 MCH 27.3 MCHC 33.6 RDW 17.4 H Plt Count 183 Sodium 137.4 Potassium 3.7 Chloride 100 Carbon Dioxide 26 Anion Gap 11 BUN 32 H Creatinine 5.65 H Est GFR ( Amer) 9 L Glucose 89 Calcium 11.0 H 07/15/19 11:53 Troponin I < 0.012 Impressions: Chest X-Ray 07/15/19 09:57 IMPRESSION: Asymmetric parenchymal opacity in the inferior aspect of the right hemithorax. Clinical correlation to exclude a pneumonia is recommend. Chest CT 07/15/19 12:40 IMPRESSION: 1. Area of consolidation with air bronchograms in the right lower lobes that could represent a pneumonia. 2. Solid non-cavitary nodules in the right upper lobe, lingula, and left lower lobe that measure up to 13 mm in diameter. Differential considerations include both infectious, neoplastic and inflammatory etiologies including metastases, fungal infections, septic emboli, and bronchoalveolar cell carcinoma. 3. Lipomatous lesion posterior to the left scapula that measures > 8 cm in diameter. The size of the lesion and the age of the patient are atypical for a benign lipoma. 4. Other findings as detailed above. Head CT 07/22/19 00:00 IMPRESSION: No acute intracranial process is identified. Age-related involutional changes are identified. Presumed old small vessel ischemic changes are seen predominantly in a periventricular distribution. No adverse change Thyroid Ultrasound 07/25/19 00:00 IMPRESSION: Multinodular goiter pattern. Differential diagnosis includes malignancy. Recommend comparison with any available prior exams to assess interval change and ultrasound-guided fine-needle aspiration biopsy with priority to the most suspicious nodules. Assessment & Plan - Diagnosis (1) Lobar pneumonia, unspecified organism Is this a current diagnosis for this admission?: Yes (2) ESRD (end stage renal disease) on dialysis Is this a current diagnosis for this admission?: Yes (3) Altered mental status Qualifiers: Altered mental status type: unspecified Qualified Code(s): R41.82 - Altered mental status, unspecified Is this a current diagnosis for this admission?: Yes (4) Hypertension Qualifiers: Hypertension type: unspecified Qualified Code(s): I10 - Essential (primary) hypertension Is this a current diagnosis for this admission?: Yes (5) Anemia in chronic kidney disease (CKD) Qualifiers: Chronic kidney disease stage: on chronic dialysis Qualified Code(s): N18.6 - End stage renal disease; D63.1 - Anemia in chronic kidney disease; Z99.2 - Dependence on renal dialysis Is this a current diagnosis for this admission?: Yes (6) Osteoarthritis involving multiple joints on both sides of body Is this a current diagnosis for this admission?: Yes (7) Keloid of skin Is this a current diagnosis for this admission?: Yes (8) Chronic pain syndrome Is this a current diagnosis for this admission?: Yes (9) Idiopathic hypercalcemia Is this a current diagnosis for this admission?: Yes (10) Hypertensive urgency Is this a current diagnosis for this admission?: Yes (11) Multinodular goiter (nontoxic) Is this a current diagnosis for this admission?: Yes - Time Time Spent with patient: 25-34 minutes Level of Care: IMCU Medications reviewed and adjusted accordingly: Yes Anticipated discharge: Home with Homehealth Within: Other - Inpatient Certification Based on my medical assessment, after consideration of the patient's comorbidities, presenting symptoms, or acuity I expect that the services needed warrant INPATIENT care.: Yes I certify that my determination is in accordance with my understanding of Medicare's requirements for reasonable and necessary INPATIENT services [42 CFR 412.3e].: Yes Medical Necessity: Significant Comorbidiites Make Outpatient Treatment Too Risky, Need Close Monitoring Due to Risk of Patient Decompensation, Need For IV Fluids, Need For Continuous Telemetry Monitoring, Need for IV Antibiotics, Risk of Complication if Not Cared For in Hospital, Risk of Diagnosis Which Will Require Inpatient Eval/Care/Monitoring Post Hospital Care: D/C City Dispatch Supervisor Documentation - Plan Summary Plan Summary: Continue current medication management. I discussed case with Dr. Ruiz, casting cleaner, presently agreed with disposition plan with avoidance of calcium in her dialysis fluid
--- NOTE | 2019-07-29 15:03 | PDOC PROGRESS REPORT ---
Subjective Progress Note for:: 07/29/19 Subjective:: Patient has been here for the last couple weeks presenting with lower pneumonia with COVID negative serology. She was treated with IV antibiotics. She also has hypercalcemia which initially was at 13.8 on admission. She was on IV calcitriol and IV calcium gluconate at [facility] dialysis unit so this were discontinued. Her PTH is elevated at 222.1 which is not unusual for dialysis patient. Her 125 vitamin D was low at 6.3, 25-hydroxy vitamin D is low at 14.6 and PTH RP is less than 2.0. Thyroid ultrasound revealed multinodular goiter with possible malignancy. I spoke to Dr. Morrison and he said told me that he has spoken to the patient's family and they declined doing any further biopsy even though it is a possible malignancy. I am seeing the patient during dialysis this afternoon. She is more awake than when I saw her 2 weeks ago when she was initially admitted. She actually was able to recognize me and knows my name. She is responding to questions although not fully oriented. Her blood pressure is elevated at the start of dialysis. He tells me that her appetite is good and that she is eating and drinking fluids although it does not seem that she has much intake. She denies any cough. Reason For Visit: LOBAR PNEUMONIA,ESRD ON HEMODIALYSIS, HYPERCALCEMI Physical Exam Vital Signs: Temp Pulse Resp BP Pulse Ox 98.2 F 111 H 18 177/67 H 98 07/29/19 11:31 07/29/19 11:31 07/29/19 11:31 07/29/19 11:31 07/29/19 11:31 Intake & Output 07/28/19 07/29/19 07/30/19 06:59 06:59 06:59 Intake Total 50 Output Total 0 1 Balance 50 -1 Weight 61 kg 62.2 kg Vitals during dialysis: Blood pressure of 228/110, pulse rate of 108, blood flow rate of 450 mL/min and dialysate flow rate of 800 mL/min. Exam: General appearance: PRESENT: no acute distress, cooperative, fairly developed and fairly nourished Head exam: PRESENT: atraumatic, normocephalic Eye exam: PRESENT: conjunctiva pink, PERRLA. ABSENT: scleral icterus Neck exam: ABSENT: JVD Respiratory exam: PRESENT: Diminished breath sounds. ABSENT: crackles, rales, rhonchi, unlabored, wheezes Cardiovascular exam: PRESENT: Regular rate rhythm -+S1, +S2. ABSENT: diastolic murmur, systolic murmur GI/Abdominal exam: PRESENT: normal bowel sounds, soft. ABSENT: guarding, mass, tenderness Extremities exam: ABSENT: No edema Neurological exam: PRESENT: alert, awake, oriented to person, place but not to time. Skin exam: PRESENT: dry, warm, Cardiovascular exam: PRESENT: +S1, +S2 GI/Abdominal exam: PRESENT: normal bowel sounds, soft. ABSENT: organomegaly, tenderness Results Laboratory Results: 07/29/19 06:19 07/29/19 06:19 07/29/19 07/29/19 06:19 06:19 WBC 6.5 RBC 4.05 Hgb 11.1 L Hct 32.9 L MCV 81 MCH 27.3 MCHC 33.6 RDW 17.4 H Plt Count 183 Sodium 137.4 Potassium 3.7 Chloride 100 Carbon Dioxide 26 Anion Gap 11 BUN 32 H Creatinine 5.65 H Est GFR ( Amer) 9 L Glucose 89 Calcium 11.0 H 07/15/19 11:53 Troponin I < 0.012 Impressions: Chest X-Ray 07/15/19 09:57 IMPRESSION: Asymmetric parenchymal opacity in the inferior aspect of the right hemithorax. Clinical correlation to exclude a pneumonia is recommend. Chest CT 07/15/19 12:40 IMPRESSION: 1. Area of consolidation with air bronchograms in the right lower lobes that could represent a pneumonia. 2. Solid non-cavitary nodules in the right upper lobe, lingula, and left lower lobe that measure up to 13 mm in diameter. Differential considerations include both infectious, neoplastic and inflammatory etiologies including metastases, fungal infections, septic emboli, and bronchoalveolar cell carcinoma. 3. Lipomatous lesion posterior to the left scapula that measures > 8 cm in diameter. The size of the lesion and the age of the patient are atypical for a benign lipoma. 4. Other findings as detailed above. Head CT 07/22/19 00:00 IMPRESSION: No acute intracranial process is identified. Age-related involutional changes are identified. Presumed old small vessel ischemic changes are seen predominantly in a periventricular distribution. No adverse change Thyroid Ultrasound 07/25/19 00:00 IMPRESSION: Multinodular goiter pattern. Differential diagnosis includes malignancy. Recommend comparison with any available prior exams to assess interval change and ultrasound-guided fine-needle aspiration biopsy with priority to the most suspicious nodules. Assessment & Plan - Diagnosis (1) ESRD (end stage renal disease) on dialysis Is this a current diagnosis for this admission?: Yes Plan: We will do dialysis today for 3 hours, using the patient's right AV fistula, with 3 potassium bath and 2 calcium, blood flow rate of 450 mL per minute, dialysate flow rate of 800 mL per minute, ultrafiltration 0 to 500 mL as tolerated, no heparin and no Procrit. Patient will be monitored for dialysis treatment specifically monitor her blood pressure. (2) Lobar pneumonia, unspecified organism Is this a current diagnosis for this admission?: Yes Plan: Completed course of IV antibiotics while in the hospital. (3) Hypertensive urgency Is this a current diagnosis for this admission?: Yes Plan: Currently on clonidine patch and metoprolol. She also has PRN IV hydralazine and metoprolol. I think her oral hydralazine needs to be resumed prior to discharge. (4) Hypercalcemia Is this a current diagnosis for this admission?: Yes Plan: Patient has been on IV calcium gluconate and IV calcitriol at [facility]. I think the hypercalcemia is also exacerbated by relative dehydration. However the patient's calcium persistently is elevated even with gentle hydration. Work-up showed PTH RP less than 2.0, elevated PTH of 222.1, low 125 vitamin D and 25- hydroxy vitamin D levels. Her thyroid ultrasound showed multi-nodule goiter with possibility of malignancy but patient's family has declined any biopsy. So I think at this time we will just continue to monitor calcium level as an outpatient at [facility]. We will stop any calcium supplements. (5) Altered mental status Qualifiers: Altered mental status type: unspecified Qualified Code(s): R41.82 - Altered mental status, unspecified Is this a current diagnosis for this admission?: Yes Plan: Patient is almost at baseline mental state. (6) Hyponatremia Is this a current diagnosis for this admission?: Yes Plan: Resolved. (7) Anemia in chronic kidney disease (CKD) Qualifiers: Chronic kidney disease stage: on chronic dialysis Qualified Code(s): N18.6 - End stage renal disease; D63.1 - Anemia in chronic kidney disease; Z99.2 - Dependence on renal dialysis Is this a current diagnosis for this admission?: Yes (8) Multinodular goiter (nontoxic) Is this a current diagnosis for this admission?: Yes (9) Suspected COVID-19 virus infection Is this a current diagnosis for this admission?: Yes Plan: COVID-19 negative. - Notes Notes: Discussed with Dr. Morrison. Patient will be discharged after dialysis today. - Time Time with patient: 15-25 minutes
[2019-07-29] MEDS: HYDRALAZINE HCL 50 MG TABLET PO SCH ×2 (15:13→21:54)
[2019-07-30] MEDS: HYDRALAZINE HCL 50 MG TABLET PO SCH ×4 (00:09→22:51)
[2019-07-30] MEDS: HEPARIN SOD (PORCINE) 5,000 UNIT/ML 1 ML VIAL SUBCUT SCH ×3 (05:45→22:49)
--- NOTE | 2019-07-30 08:05 | PDOC PROGRESS REPORT ---
Subjective Progress Note for:: 07/30/19 Subjective:: Patient denied chest pain or difficulty with breathing. No fever or chills. No abdominal pain, nausea, or vomiting. patient was unable to participate in PT session due to generalized debility. Reason For Visit: LOBAR PNEUMONIA,ESRD ON HEMODIALYSIS, HYPERCALCEMI Physical Exam Vital Signs: Temp Pulse Resp BP Pulse Ox 98.1 F 109 H 16 166/62 H 100 07/30/19 03:51 07/30/19 03:51 07/30/19 03:51 07/30/19 03:51 07/30/19 03:51 Intake & Output 07/29/19 07/30/19 07/31/19 06:59 06:59 06:59 Intake Total 300 Output Total 1 0 Balance -1 300 Weight 62.2 kg 61.9 kg Physical Exam: General appearance: PRESENT: no acute distress Head exam: PRESENT: atraumatic, normocephalic Eye exam: PRESENT: conjunctiva pink. ABSENT: pallor, scleral icterus Respiratory exam: PRESENT: decreased breath sounds - at lung bases Cardiovascular exam: PRESENT: RRR. Grade 3/6 systolic murmur ABSENT: diastolic murmur, rubs GI/Abdominal exam: PRESENT: normal bowel sounds, soft. ABSENT: distended, guarding, mass, organomegaly, rebound, tenderness Extremities exam: ABSENT: pitting edema. Neurological exam: PRESENT: Awake and appropriate in simple responses. Oriented to person and time. ABSENT: motor sensory deficit Skin exam: PRESENT: dry, warm, keloid lesions on chest and upper extremities. Results Laboratory Results: 07/29/19 06:19 07/29/19 06:19 07/29/19 06:19 WBC 6.5 RBC 4.05 Hgb 11.1 L Hct 32.9 L MCV 81 MCH 27.3 MCHC 33.6 RDW 17.4 H Plt Count 183 07/15/19 11:53 Troponin I < 0.012 Impressions: Chest X-Ray 07/15/19 09:57 IMPRESSION: Asymmetric parenchymal opacity in the inferior aspect of the right hemithorax. Clinical correlation to exclude a pneumonia is recommend. Chest CT 07/15/19 12:40 IMPRESSION: 1. Area of consolidation with air bronchograms in the right lower lobes that could represent a pneumonia. 2. Solid non-cavitary nodules in the right upper lobe, lingula, and left lower lobe that measure up to 13 mm in diameter. Differential considerations include both infectious, neoplastic and inflammatory etiologies including metastases, fungal infections, septic emboli, and bronchoalveolar cell carcinoma. 3. Lipomatous lesion posterior to the left scapula that measures > 8 cm in diameter. The size of the lesion and the age of the patient are atypical for a benign lipoma. 4. Other findings as detailed above. Head CT 07/22/19 00:00 IMPRESSION: No acute intracranial process is identified. Age-related involutional changes are identified. Presumed old small vessel ischemic changes are seen predominantly in a periventricular distribution. No adverse change Thyroid Ultrasound 07/25/19 00:00 IMPRESSION: Multinodular goiter pattern. Differential diagnosis includes malignancy. Recommend comparison with any available prior exams to assess interval change and ultrasound-guided fine-needle aspiration biopsy with priority to the most suspicious nodules. Assessment & Plan - Diagnosis (1) Lobar pneumonia, unspecified organism Is this a current diagnosis for this admission?: Yes (2) ESRD (end stage renal disease) on dialysis Is this a current diagnosis for this admission?: Yes (3) Altered mental status Qualifiers: Altered mental status type: unspecified Qualified Code(s): R41.82 - Altered mental status, unspecified Is this a current diagnosis for this admission?: Yes (4) Hypertension Qualifiers: Hypertension type: unspecified Qualified Code(s): I10 - Essential (primary) hypertension Is this a current diagnosis for this admission?: Yes (5) Anemia in chronic kidney disease (CKD) Qualifiers: Chronic kidney disease stage: on chronic dialysis Qualified Code(s): N18.6 - End stage renal disease; D63.1 - Anemia in chronic kidney disease; Z99.2 - Dependence on renal dialysis Is this a current diagnosis for this admission?: Yes (6) Osteoarthritis involving multiple joints on both sides of body Is this a current diagnosis for this admission?: Yes (7) Keloid of skin Is this a current diagnosis for this admission?: Yes (8) Chronic pain syndrome Is this a current diagnosis for this admission?: Yes (9) Idiopathic hypercalcemia Is this a current diagnosis for this admission?: Yes (10) Hypertensive urgency Is this a current diagnosis for this admission?: Yes (11) Multinodular goiter (nontoxic) Is this a current diagnosis for this admission?: Yes - Time Time Spent with patient: 25-34 minutes Level of Care: IMCU Medications reviewed and adjusted accordingly: Yes Anticipated discharge: SNF Within: Other - Inpatient Certification Based on my medical assessment, after consideration of the patient's scarlet rbidities, presenting symptoms, or acuity I expect that the services needed warrant INPATIENT care.: Yes I certify that my determination is in accordance with my understanding of Medicare's requirements for reasonable and necessary INPATIENT services [42 CFR 412.3e].: Yes Medical Necessity: Significant Comorbidiites Make Outpatient Treatment Too Risky, Need Close Monitoring Due to Risk of Patient Decompensation, Need For IV Fluids, Need For Continuous Telemetry Monitoring, Need for IV Antibiotics, Risk of Complication if Not Cared For in Hospital, Risk of Diagnosis Which Will Require Inpatient Eval/Care/Monitoring Post Hospital Care: D/C or Transfer Summary - Plan Summary Plan Summary: Continue current medication management. I discussed with her daughter, Nayely Ahuja, regarding need for short term rehabilitation at SNF.
[2019-07-30] MEDS: RISPERIDONE 0.5 MG TAB.RAPDIS PO SCH ×2 (12:22→12:24)
[2019-07-30] MEDS: AMLODIPINE BESYLATE 5 MG TABLET PO SCH ×3 (12:22→22:49)
[2019-07-30] MEDS: METOPROLOL TARTRATE PF/INJ 5 MG/5 ML SDV IV SCH ×2 (12:22→18:14)
[2019-07-31] MEDS ORDERED: NORMAL SALINE 1000 ML 1,000 ML IV PRN (05:00)
[2019-07-31] MEDS: HEPARIN SOD (PORCINE) 5,000 UNIT/ML 1 ML VIAL SUBCUT SCH ×2 (05:26→13:19)
[2019-07-31] MEDS: HYDRALAZINE HCL 50 MG TABLET PO SCH ×2 (05:26→13:18)
[2019-07-31 06:00] LABS: HEMATOCRIT 34.5 % (36.0-47.0); HEMOGLOBIN 11.8 g/dL (12.0-15.5); MEAN CORPUSCULAR HEMOGLOBIN 27.7 pg (27.0-33.4); MEAN CORPUSCULAR HGB CONC 34.2 g/dL (32.0-36.0); MEAN CORPUSCULAR VOLUME 81 fl (80-97); PLATELET COUNT 178 10^3/uL (150-450); RED BLOOD COUNT 4.25 10^6/uL (3.72-5.28); RED CELL DISTRIBUTION WIDTH 17.7 % (11.5-14.0); WHITE BLOOD COUNT 6.4 10^3/uL (4.0-10.5)
[2019-07-31 06:20] LABS: ANION GAP 9 (5-19); BLOOD UREA NITROGEN 24 mg/dL (7-20); CALCIUM 10.9 mg/dL (8.4-10.2); CARBON DIOXIDE 29 mmol/L (22-30); CHLORIDE 99 mmol/L (98-107); GLUCOSE 76 mg/dL (75-110); POTASSIUM 3.5 mmol/L (3.6-5.0)
--- NOTE | 2019-07-31 08:34 | PDOC DISCHARGE SUMMARY ---
Impression - Admit/DC Date/PCP Admission Date/Primary Care Provider: 07/15/19 14:37 EFREN ROMAN Discharge Date: 07/31/19 - Discharge Diagnosis (1) Lobar pneumonia, unspecified organism Is this a current diagnosis for this admission?: Yes (2) ESRD (end stage renal disease) on dialysis Is this a current diagnosis for this admission?: Yes (3) Altered mental status Is this a current diagnosis for this admission?: Yes (4) Hypertension Is this a current diagnosis for this admission?: Yes (5) Anemia in chronic kidney disease (CKD) Is this a current diagnosis for this admission?: Yes (6) Osteoarthritis involving multiple joints on both sides of body Is this a current diagnosis for this admission?: Yes (7) Keloid of skin Is this a current diagnosis for this admission?: Yes (8) Chronic pain syndrome Is this a current diagnosis for this admission?: Yes (9) Idiopathic hypercalcemia Is this a current diagnosis for this admission?: Yes (10) Hypertensive urgency Is this a current diagnosis for this admission?: Yes (11) Multinodular goiter (nontoxic) Is this a current diagnosis for this admission?: Yes - Assessment Summary: Patient was admitted for right lower lobe pneumonia and altered mental status. There was initial concern about hypercalcemia thought to be a result of her kidney failure but later informed about her treatment at dialysis for hypocalcemia. Despite adjustment in her dialysis fluid and IV hydration her hypercalcemia persisted. Her intact PTH was elevated and she underwent neck soft tissue ultrasound evaluation that revealed multiple thyroid nodules. Also, her initial CT chest revealed multiple lung nodules that raised concern for malignant process contribution to her hypercalcemia. her family declined biopsy of any lesion. She was managed for her pneumonia with IV Ceftriaxone and Levofloxacin. Her hypercalcemia did improve with associated improvement in her level of alertness. She participated poorly in PT session and it was recommended that she should go to SNF for short term rehabilitation but her daughter refused the recommendation and demand discharge home. She will be discharge home with home health services, manual wheelchair, bedside commode and shower bench devices. she will continue her outpatient hemodialysis as schedule on Monday, and Saturdays. She will follow up with Dr. Vergara, private wealth advisor, and myself as instructed upon discharge. - Additional Information Resuscitation Status: Full Code Discharge Diet: As Tolerated, Cardiac, Other (Comments) - hemodialysis restrictions. Discharge Activity: Activity As Tolerated, Slowly Increase Activity, Supervised Activity Referrals: EFREN ROMAN MD [Primary Care Provider] - 08/12/19 10:00 am DEVON VERGARA MD [ACTIVE STAFF] - Prescriptions: Hydralazine HCl [Apresoline 50 mg Tablet] 100 mg PO Q8 #90 tablet Clonidine [Catapres-Tts 3 (0.3 mg/24 Hr) Transderm Patch] 1 each TD Q7D #4 patch.tdwk Amlodipine Besylate [Norvasc 5 mg Tablet] 5 mg PO Q12 #60 tablet Home Medications: Patiromer Calcium Sorbitex [Veltassa 8.4 gm Susp Packet] 1 each PO DAILY 07/15/19 Risperidone [Risperdal M-Tab 0.5 mg Odt Tablet] 0.5 mg PO DAILY 07/15/19 Sucroferric Oxyhydroxide [Velphoro] 500 mg PO TID 07/15/19 Amlodipine Besylate [Norvasc 5 mg Tablet] 5 mg PO Q12 #60 tablet 07/31/19 Clonidine [Catapres-Tts 3 (0.3 mg/24 Hr) Transderm Patch] 1 each TD Q7D #4 patch.tdwk 07/31/19 Hydralazine HCl [Apresoline 50 mg Tablet] 100 mg PO Q8 #90 tablet 07/31/19 History of Present Illiness History of Present Illness: DIANNE MUNOZ is a 89 year old female patient known to my practice who presented to the ED with complain of generalized weakness. Patient and grand daughter was seen in my office recently with complain about questionable vaginal bleeding due to dark blood noted on her underwear. Grand daughter called the office earlier today with complain about associated fever and cough over the last three days. Family reported poor appetite and oral intake. No abdominal pain. Patient have been making less urine but she is on hemodialysis on Monday, Monday, and Monday. Nursing staff reported some comparative somnolence today. Her initial ED evaluation revealed significant hypercalcemia, abnormal chest X ray and CT scan chest airspace disease process suggestive of pneumonia. She was advised hospitalization for further evaluation and management. Nephrology consultation was requested with Dr. Vergara, at the time of my evaluation she was undergoing hemodialysis process. her morbidities are listed below. Hospital Course Hospital Course: Patient was admitted for right lower lobe pneumonia and altered mental status. There was initial concern about hypercalcemia thought to be a result of her kidney failure but later informed about her treatment at dialysis for hypocalcemia. Despite adjustment in her dialysis fluid and IV hydration her hypercalcemia persisted. Her intact PTH was elevated and she underwent neck soft tissue ultrasound evaluation that revealed multiple thyroid nodules. Also, her initial CT chest revealed multiple lung nodules that raised concern for malignant process contribution to her hypercalcemia. her family declined biopsy of any lesion. She was managed for her pneumonia with IV Ceftriaxone and Levofloxacin. Her hypercalcemia did improve with associated improvement in her level of alertness. She participated poorly in PT session and it was recommended that she should go to SNF for short term rehabilitation but her daughter refused the recommendation and demand discharge home. She will be discharge home with home health services, manual wheelchair, bedside commode and shower bench devices. she will continue her outpatient hemodialysis as schedule on Monday, and Saturdays. She will follow up with Dr. Vergara, private wealth advisor, and myself as instructed upon discharge. Physical Exam Vital Signs: Temp Pulse Resp BP Pulse Ox 98.1 F 89 16 164/65 H 91 L 07/31/19 04:26 07/31/19 04:26 07/31/19 04:26 07/31/19 04:26 07/31/19 04:26 Intake & Output 07/30/19 07/31/19 08/01/19 06:59 06:59 06:59 Intake Total 300 180 Output Total 0 0 Balance 300 180 Weight 61.9 kg 60.3 kg General appearance: PRESENT: no acute distress Head exam: PRESENT: atraumatic, normocephalic Eye exam: PRESENT: conjunctiva pink. ABSENT: pallor, scleral icterus Respiratory exam: PRESENT: decreased breath sounds - at lung bases Cardiovascular exam: PRESENT: RRR. Grade 3/6 systolic murmur ABSENT: diastolic murmur, rubs GI/Abdominal exam: PRESENT: normal bowel sounds, soft. ABSENT: distended, guarding, mass, organomegaly, rebound, tenderness Extremities exam: ABSENT: pitting edema. Neurological exam: PRESENT: Awake and appropriate in simple responses. Oriented to person and time. ABSENT: motor sensory deficit Skin exam: PRESENT: dry, warm, keloid lesions on chest and upper extremities. Results Laboratory Results: WBC 6.4 10^3/uL (4.0-10.5) 07/31/19 05:08 RBC 4.25 10^6/uL (3.72-5.28) 07/31/19 05:08 Hgb 11.8 g/dL (12.0-15.5) L 07/31/19 05:08 Hct 34.5 % (36.0-47.0) L 07/31/19 05:08 MCV 81 fl (80-97) 07/31/19 05:08 MCH 27.7 pg (27.0-33.4) 07/31/19 05:08 MCHC 34.2 g/dL (32.0-36.0) 07/31/19 05:08 RDW 17.7 % (11.5-14.0) H 07/31/19 05:08 Plt Count 178 10^3/uL (150-450) 07/31/19 05:08 Lymph % (Auto) 8.0 % (13-45) L 07/19/19 05:00 [place] % (Auto) 11.9 % (3-13) 07/19/19 05:00 Eos % (Auto) 2.2 % (0-6) 07/19/19 05:00 Baso % (Auto) 1.1 % (0-2) 07/19/19 05:00 Absolute Neuts (auto) 3.9 10^3/uL (1.7-8.2) 07/19/19 05:00 Absolute Lymphs (auto) 0.4 10^3/uL (0.5-4.7) L 07/19/19 05:00 Absolute Monos (auto) 0.6 10^3/uL (0.1-1.4) 07/19/19 05:00 Absolute Eos (auto) 0.1 10^3/uL (0.0-0.6) 07/19/19 05:00 Absolute Basos (auto) 0.1 10^3/uL (0.0-0.2) 07/19/19 05:00 Seg Neutrophils % 76.8 % (42-78) 07/19/19 05:00 Large Platelets PRESENT 07/15/19 11:53 Platelet Comment ADEQUATE 07/15/19 11:53 Poikilocytosis SLIGHT 07/15/19 11:53 Anisocytosis 1+ 07/15/19 11:53 Schistocytes 1+ 07/15/19 11:53 Carbonic Acid 1.18 mmol/L (1.05-1.35) 07/18/19 16:33 HCO3/H2CO3 Ratio 20:1 07/18/19 16:33 ABG pH 7.41 (7.35-7.45) 07/18/19 16:33 ABG pCO2 39.2 mmHg (35-45) 07/18/19 16:33 ABG pO2 68.9 mmHg (80-100) L 07/18/19 16:33 ABG HCO3 24.1 mmol/L (20-24) H 07/18/19 16:33 ABG Total CO2 25.3 mmol/L (21-25) H 07/18/19 16:33 ABG O2 Saturation 94.0 % (94-98) 07/18/19 16:33 ABG Base Excess -0.4 mmol/L 07/18/19 16:33 FiO2 ROOM AIR 07/18/19 16:33 Sodium 136.8 mmol/L (137-145) L 07/31/19 05:08 Potassium 3.5 mmol/L (3.6-5.0) L 07/31/19 05:08 Chloride 99 mmol/L (98-107) 07/31/19 05:08 Carbon Dioxide 29 mmol/L (22-30) 07/31/19 05:08 Anion Gap 9 (5-19) 07/31/19 05:08 BUN 24 mg/dL (7-20) H 07/31/19 05:08 Creatinine 4.01 mg/dL (0.52-1.25) H 07/31/19 05:08 Est GFR ( Amer) 13 (>60) L 07/31/19 05:08 Est GFR (MDRD) Non-Af 11 (>60) L 07/31/19 05:08 Glucose 76 mg/dL (75-110) 07/31/19 05:08 POC Glucose 80 mg/dL (70-110) 07/31/19 06:04 Calcium 10.9 mg/dL (8.4-10.2) H 07/31/19 05:08 Total Bilirubin 0.5 mg/dL (0.2-1.3) 07/16/19 04:40 Direct Bilirubin 0.2 mg/dL (0.0-0.4) 07/16/19 04:40 Neonat Total Bilirubin Not Reportable 07/16/19 04:40 Neonat Direct Bilirubin Not Reportable 07/16/19 04:40 Neonat Indirect Bili Not Reportable 07/16/19 04:40 AST 20 U/L (14-36) 07/16/19 04:40 ALT 7 U/L (<35) 07/16/19 04:40 Alkaline Phosphatase 73 U/L (38-126) 07/16/19 04:40 Ammonia < 8.7 umol/L (9-33) L 07/18/19 15:24 Troponin I < 0.012 ng/mL 07/15/19 11:53 Total Protein 6.4 g/dL (6.3-8.2) 07/16/19 04:40 Albumin 3.8 g/dL (3.5-5.0) 07/16/19 04:40 Vitamin D 25-Hydroxy 14.6 ng/mL (14.7-68.3) L 07/19/19 13:59 Vit D 1,25-Dihydroxy 6.3 pg/mL (19.9-79.3) L 07/19/19 13:59 TSH 1.38 uIU/mL (0.47-4.68) 07/19/19 13:59 PTH Intact 222.1 pg/mL (10.0-65.0) H 07/21/19 06:59 PTH Related Peptide <2.0 pmol/L (.) 07/19/19 13:59 Urine Color YELLOW 07/15/19 10:48 Urine Appearance CLEAR 07/15/19 10:48 Urine pH 8.0 (5.0-9.0) 07/15/19 10:48 Ur Specific [place] 1.008 07/15/19 10:48 Urine Protein 100 mg/dL (NEGATIVE) H 07/15/19 10:48 Urine Glucose (UA) 50 mg/dL (NEGATIVE) H 07/15/19 10:48 Urine Ketones NEGATIVE mg/dL (NEGATIVE) 07/15/19 10:48 Urine Blood NEGATIVE (NEGATIVE) 07/15/19 10:48 Urine Nitrite NEGATIVE (NEGATIVE) 07/15/19 10:48 Urine Bilirubin NEGATIVE (NEGATIVE) 07/15/19 10:48 Urine Urobilinogen NEGATIVE mg/dL (<2.0) 07/15/19 10:48 Ur Leukocyte Esterase SMALL (NEGATIVE) H 07/15/19 10:48 Urine WBC (Auto) 6 /HPF 07/15/19 10:48 Urine RBC (Auto) 4 /HPF 07/15/19 10:48 Urine Bacteria (Auto) TRACE /HPF 07/15/19 10:48 Squamous Epi Cells Auto <1 /HPF 07/15/19 10:48 Urine Mucus (Auto) RARE /LPF 07/15/19 10:48 Urine Ascorbic Acid NEGATIVE (NEGATIVE) 07/15/19 10:48 COVID-19 Source NASOPHARYNGEAL 07/15/19 15:29 COVID-19 ([facility]) NOT DETECTED 07/15/19 15:29 07/15/19 11:53 Troponin I < 0.012 Impressions: Chest X-Ray 07/15/19 09:57 IMPRESSION: Asymmetric parenchymal opacity in the inferior aspect of the right hemithorax. Clinical correlation to exclude a pneumonia is recommend. Head CT 07/15/19 10:11 IMPRESSION: No acute intracranial hemorrhage, mass, or evidence of acute territorial infarct. Moderate chronic small vessel ischemic change and chronic lacunar infarct right insular capsule, stable from prior. Intracranial atherosclerosis. EVIDENCE OF ACUTE STROKE: NO. Chest CT 07/15/19 12:40 IMPRESSION: 1. Area of consolidation with air bronchograms in the right lower lobes that could represent a pneumonia. 2. Solid non-cavitary nodules in the right upper lobe, lingula, and left lower lobe that measure up to 13 mm in diameter. Differential considerations include both infectious, neoplastic and inflammatory etiologies including metastases, fungal infections, septic emboli, and bronchoalveolar cell carcinoma. 3. Lipomatous lesion posterior to the left scapula that measures > 8 cm in diameter. The size of the lesion and the age of the patient are atypical for a benign lipoma. 4. Other findings as detailed above. Head CT 07/22/19 00:00 IMPRESSION: No acute intracranial process is identified. Age-related involutional changes are identified. Presumed old small vessel ischemic changes are seen predominantly in a periventricular distribution. No adverse change Thyroid Ultrasound 07/25/19 00:00 IMPRESSION: Multinodular goiter pattern. Differential diagnosis includes malignancy. Recommend comparison with any available prior exams to assess interval change and ultrasound-guided fine-needle aspiration biopsy with priority to the most suspicious nodules. Plan Health Concerns: High risk for readmission due to debility and multiple morbidities Plan of Treatment: Family declined sort term rehabilitation at SNF. She will be discharged home with home health services including PT and skill nursing. Post acute follow up for monitoring. Goals: Reduce readmission risk level with close follow up. Time Spent: Greater than 30 Minutes - Care coordinationand post acute care plan. Stroke Is this a Stroke Patient?: No Acute Heart Failure - Is this a Heart Failure Patient?: No
[2019-07-31] MEDS: METOPROLOL TARTRATE PF/INJ 5 MG/5 ML SDV IV SCH (12:43)
[2019-07-31] MEDS: AMLODIPINE BESYLATE 5 MG TABLET PO SCH (12:48)
[2019-07-31] MEDS: RISPERIDONE 0.5 MG TAB.RAPDIS PO SCH (12:48)
[2019-07-31 13:22] VITALS: BP 150/52
--- NOTE | 2019-07-31 18:22 | PDOC PROGRESS REPORT ---
Subjective Progress Note for:: 07/31/19 Subjective:: Seen the patient during dialysis this morning. Patient appears to be more awake alert and actually answering questions more appropriately today than ever during this hospitalization. She is tolerating dialysis. Her blood pressure is still elevated which is not unusual for her during dialysis. She verbalizes no complaints. Reason For Visit: LOBAR PNEUMONIA,ESRD ON HEMODIALYSIS, HYPERCALCEMI Physical Exam Vital Signs: Temp Pulse Resp BP Pulse Ox 98.1 F 95 16 164/65 H 91 L 07/31/19 04:26 07/31/19 07:00 07/31/19 04:26 07/31/19 04:26 07/31/19 04:26 Intake & Output 07/30/19 07/31/19 08/01/19 06:59 06:59 06:59 Intake Total 300 180 Output Total 0 0 Balance 300 180 Weight 61.9 kg 60.3 kg Vitals during dialysis: Blood pressure 190/84, heart rate of 102, blood flow rate of 450 mL/min and dialysate flow rate of 800ml/min. Exam: General appearance: PRESENT: no acute distress, cooperative, frail looking lady Head exam: PRESENT: atraumatic, normocephalic Eye exam: PRESENT: conjunctiva pink, PERRLA. ABSENT: scleral icterus Neck exam: ABSENT: JVD Respiratory exam: PRESENT: Normal breath sounds. ABSENT: crackles, rales, rhonchi, unlabored, wheezes Cardiovascular exam: PRESENT: Regular rate rhythm -+S1, +S2. ABSENT: diastolic murmur, systolic murmur GI/Abdominal exam: PRESENT: normal bowel sounds, soft. ABSENT: guarding, mass, tenderness Extremities exam: ABSENT: No edema Neurological exam: PRESENT: alert, awake, oriented to person, place and time. Skin exam: PRESENT: dry, warm, Cardiovascular exam: PRESENT: +S1, +S2 GI/Abdominal exam: PRESENT: normal bowel sounds, soft. ABSENT: organomegaly, tenderness Results Laboratory Results: 07/31/19 05:08 07/31/19 05:08 07/31/19 07/31/19 05:08 05:08 WBC 6.4 RBC 4.25 Hgb 11.8 L Hct 34.5 L MCV 81 MCH 27.7 MCHC 34.2 RDW 17.7 H Plt Count 178 Sodium 136.8 L Potassium 3.5 L Chloride 99 Carbon Dioxide 29 Anion Gap 9 BUN 24 H Creatinine 4.01 H Est GFR ( Amer) 13 L Glucose 76 Calcium 10.9 H 07/15/19 11:53 Troponin I < 0.012 Impressions: Chest X-Ray 07/15/19 09:57 IMPRESSION: Asymmetric parenchymal opacity in the inferior aspect of the right hemithorax. Clinical correlation to exclude a pneumonia is recommend. Chest CT 07/15/19 12:40 IMPRESSION: 1. Area of consolidation with air bronchograms in the right lower lobes that could represent a pneumonia. 2. Solid non-cavitary nodules in the right upper lobe, lingula, and left lower lobe that measure up to 13 mm in diameter. Differential considerations include both infectious, neoplastic and inflammatory etiologies including metastases, fungal infections, septic emboli, and bronchoalveolar cell carcinoma. 3. Lipomatous lesion posterior to the left scapula that measures > 8 cm in diameter. The size of the lesion and the age of the patient are atypical for a benign lipoma. 4. Other findings as detailed above. Head CT 07/22/19 00:00 IMPRESSION: No acute intracranial process is identified. Age-related involutional changes are identified. Presumed old small vessel ischemic changes are seen predominantly in a periventricular distribution. No adverse change Thyroid Ultrasound 07/25/19 00:00 IMPRESSION: Multinodular goiter pattern. Differential diagnosis includes malignancy. Recommend comparison with any available prior exams to assess interval change and ultrasound-guided fine-needle aspiration biopsy with priority to the most suspicious nodules. Assessment & Plan - Diagnosis (1) ESRD (end stage renal disease) on dialysis Is this a current diagnosis for this admission?: Yes Plan: We will do dialysis today for 3 hours, using the patient's AV fistula, with 3 potassium/2 calcium bath, blood flow rate of 450 mL per minute, dialysate flow rate of 800 mL per minute, ultrafiltration 0 to 250 mL as tolerated, no heparin and no Procrit. Patient is currently being monitored throughout dialysis treatment. (2) Lobar pneumonia, unspecified organism Is this a current diagnosis for this admission?: Yes Plan: Completed course of IV antibiotics while in the hospital. (3) Hypertensive urgency Is this a current diagnosis for this admission?: Yes Plan: Currently on clonidine patch and metoprolol. She also has PRN IV hydralazine and metoprolol. Hydralazine every 8 hours has been resumed. (4) Hypercalcemia Is this a current diagnosis for this admission?: Yes Plan: Patient has been on IV calcium gluconate and IV calcitriol at [facility]. I think the hypercalcemia is also exacerbated by relative dehydration. However the patient's calcium persistently is elevated even with gentle hydration. Work-up showed PTH RP less than 2.0, elevated PTH of 222.1, low 1,25 vitamin D and 25- hydroxy vitamin D levels. Her thyroid ultrasound showed multi-nodule goiter along with nodules in the lungs with possibility of malignancy but patient's family has declined any biopsy. So I think at this time we will just continue to monitor calcium level as an outpatient at [facility]. We will stop any calcium supplements. (5) Altered mental status Qualifiers: Altered mental status type: unspecified Qualified Code(s): R41.82 - Altered mental status, unspecified Is this a current diagnosis for this admission?: Yes Plan: Mental status much improved, near baseline. (6) Hyponatremia Is this a current diagnosis for this admission?: Yes Plan: Borderline and improved. (7) Anemia in chronic kidney disease (CKD) Qualifiers: Chronic kidney disease stage: on chronic dialysis Qualified Code(s): N18.6 - End stage renal disease; D63.1 - Anemia in chronic kidney disease; Z99.2 - Dependence on renal dialysis Is this a current diagnosis for this admission?: Yes (8) Multinodular goiter (nontoxic) Is this a current diagnosis for this admission?: Yes Plan: Patient's family refused or declined further biopsy and management. (9) Pulmonary nodules/lesions, multiple Is this a current diagnosis for this admission?: Yes Plan: No further work-up per patient's family as per Dr. Morrison's conversation with them. (10) Suspected COVID-19 virus infection Is this a current diagnosis for this admission?: Yes Plan: COVID-19 negative. - Notes Notes: From nephrology standpoint I think the patient is stable enough to be discharged home as planned after dialysis today. - Time Time with patient: 15-25 minutes
== END 2019-07-31 16:10 | disposition home health service (06) | DRG 193 ==
LOC: ER 09:23 → EH 14:37 → 5 16:40 → 3W 07-17 15:26
PROVIDERS: ADMIT Internal Medicine Geriatric Medicine; ATTEND Internal Medicine Geriatric Medicine
PROC: 5A1D70Z Performance of Urinary Filtration, Intermittent, Less than 6 Hours Per Day (ICD-10-PCS; principal; 2019-07-15)
DX: J18.9 Pneumonia, unspecified organism (principal); N18.6 End stage renal disease; E87.1 Hypo-osmolality and hyponatremia; N25.81 Secondary hyperparathyroidism of renal origin; I12.0 Hypertensive chronic kidney disease with stage 5 chronic kidney disease or end stage renal disease; I16.0 Hypertensive urgency; E83.52 Hypercalcemia; L91.0 Hypertrophic scar; D63.1 Anemia in chronic kidney disease; M15.3 Secondary multiple arthritis; G89.4 Chronic pain syndrome; E04.2 Nontoxic multinodular goiter; E83.39 Other disorders of phosphorus metabolism; E78.5 Hyperlipidemia, unspecified; Z99.2 Dependence on renal dialysis; Z53.29 Procedure and treatment not carried out because of patient's decision for other reasons; Z20.828 Contact with and (suspected) exposure to other viral communicable diseases; Z79.899 Other long term (current) drug therapy; Z91.14 Patient's other noncompliance with medication regimen; Z82.49 Family history of ischemic heart disease and other diseases of the circulatory system
CPT/HCPCS: 36415; 36600; 70450; 71045; 71250; 76536; 80048; 80053; 81001; 82140; 82306; 82397; 82652; 82803; 82962; 83970; 84443; 84484; 85025; 85027; 87040; 87086; 87635; 93005; 93010; 99285; C1758; J0360; J0696; J1644; J1956; J3490; J7030

== ENCOUNTER 2019-08-16 10:58 | Inpatient (IN) | payer MEDICARE, MEDICAID ==
--- NOTE | 2019-08-16 11:15 | ER Document Report ---
ED General - General Stated Complaint: ALTERED MENTAL STATUS Time Seen by Provider: 08/16/19 11:00 Notes: Patient is an 89-year-old female with a past medical history of end-stage renal disease on dialysis, hypertension, pneumonia, who presents the emergency department with altered mental status. Patient was at dialysis today and according to the dialysis nurse, the patient was asked not acting her normal self. EMS arrived and the patient was at baseline. Patient also does have history of TIAs in the past. Patient denies any complaints at this time. Denies any chest pain, difficulty breathing, dysuria, headache,or abdominal pain. TRAVEL OUTSIDE OF THE [place] IN LAST 30 DAYS: No - Related Data Allergies/Adverse Reactions: No Known Allergies Allergy (Verified 08/16/19 11:31) Past Medical History - General Information source: Patient, Relative, Outside Facility Records - Social History Smoking Status: Unknown if Ever Smoked Family History: Hyperlipidemia, Hypertension - Past Medical History Cardiac Medical History: Reports: Hx Hypertension Denies: Hx Coronary Artery Disease, Hx Heart Attack Pulmonary Medical History: Denies: Hx Asthma, Hx Bronchitis, Hx COPD, Hx Pneumonia, Hx Tuberculosis Neurological Medical History: Denies: Hx Cerebrovascular Accident, Hx Seizures Renal/ Medical History: Reports: Hx End Stage Renal Disease. Denies: Hx Peritoneal Dialysis GI Medical History: Denies: Hx Hepatitis, Hx Hiatal Hernia, Hx Ulcer Musculoskeletal Medical History: Reports Hx Arthritis, Reports Hx Gout Infectious Medical History: Denies: Hx Hepatitis Past Surgical History: Reports: Hx Hysterectomy, Hx Tonsillectomy, Hx Vascular Surgery - PermCath placement. Denies: Hx Mastectomy - RIGHT RESTRICTED, Hx Open Heart Surgery, Hx Pacemaker - Immunizations Immunizations up to date: Yes Hx Diphtheria, Pertussis, Tetanus Vaccination: No - UNSURE Hx Pneumococcal Vaccination: 04/03/09 Review of Systems - Review of Systems Notes: REVIEW OF SYSTEMS: CONSTITUTIONAL : Denies recent illness. Denies recent unintentional weight loss. Denies fever, chills, or sweats. EENT: Denies eye, ear, throat, or mouth pain, discharge, or symptoms. Denies nasal or sinus congestion. CARDIOVASCULAR: Denies chest pain. RESPIRATORY: Denies shortness of breath, cough, congestion, difficulty breathing, or wheezing. GASTROINTESTINAL: Denies nausea, vomiting, and diarrhea. Denies abdominal pain. Denies constipation. GENITOURINARY: Denies difficulty urinating, burning, blood in urine, urgency or frequency. MUSCULOSKELETAL: Denies neck and back pain. Denies joint pain or swelling. SKIN: Denies rash, itchiness, or lesions HEMATOLOGIC : Denies easy bruising or bleeding. LYMPHATIC: Denies swollen, painful, enlarged glands. NEUROLOGICAL: Denies no numbness or tingling denies weakness. Denies headache. Denies altered mental status. Denies alteration in speech. PSYCHIATRIC: Denies stress, anxiety, alteration in sleep patterns, or depression. All other systems reviewed and negative. Physical Exam - Vital signs Vitals: Resp 18 08/16/19 11:05 - Notes Notes: PHYSICAL EXAMINATION: GENERAL: Appears well, healthy, well-nourished, no acute distress. HEAD: Normocephalic, atraumatic. EYES: PERRL, conjunctiva normal, all extraocular movements intact, sclera nonicteric ENT: Moist mucous membranes. NECK: Supple, no noticeable swelling, redness, rash. Normal range of motion. LUNGS: Equal breath sounds bilaterally and clear to auscultation. No wheezes rales or rhonchi. CARDIOVASCULAR: S1-S2, regular rate, regular rhythm. Radial pulses 2+, normal. ABDOMEN: Normoactive bowel sounds. Soft, nontender, no guarding, no rebound tenderness, and no masses palpated. EXTREMITIES: Normal strength and range of motion, no pitting or edema. No cyanosis. NEUROLOGICAL: Moves all extremities upon command. Strength 4/5 in all extremities. PSYCH: Normal mood, normal affect. SKIN: Warm, dry. No rash, lesions, ulcerations noted. Normal skin turgor. Course - Re-evaluation Re-evalutation: 08/16/19 13:30 Hematology shows an anemia with a hemoglobin of 11.7 hematocrit of 35. This is the patient's baseline. Chemistries show a sodium of 136 and her normal for renal function. I used the clay dry press operator to call Dr. Ruiz. Will discuss the case. 08/16/19 13:[address] Ruiz. The plan is for me to call Dr. Morrison. Urinalysis just resulted in the patient has a urinary tract infection. This is most likely the cause of her altered mental status she had in dialysis. 08/16/19 13:[address] Morrison, the patient's primary care provider. The patient will be admitted to the telemetry unit. - Vital Signs Vital signs: Temp Pulse Resp BP Pulse Ox 98.3 F 105 H 16 158/63 H 100 08/17/19 15:32 08/17/19 19:00 08/17/19 15:32 08/17/19 15:32 08/17/19 15:32 - Laboratory Result Diagrams: 08/17/19 10:34 08/17/19 06:10 Laboratory results interpreted by me: 08/16/19 08/16/19 08/16/19 12:21 12:21 13:16 Hgb 11.7 L Hct 35.0 L RDW 19.1 H Sodium 136.9 L Potassium 3.4 L Chloride 97 L Creatinine 3.89 H Est GFR ( Amer) 13 L Est GFR (MDRD) Non-Af 11 L Alkaline Phosphatase 128 H Urine Protein 30 H Urine Glucose (UA) 50 H Ur Leukocyte Esterase MODERATE H Discharge - Discharge Clinical Impression: Altered mental status Qualifiers: Altered mental status type: unspecified Qualified Code(s): R41.82 - Altered mental status, unspecified Urinary tract infection Qualifiers: Urinary tract infection type: acute cystitis Hematuria presence: without hematuria Qualified Code(s): N30.00 - Acute cystitis without hematuria Condition: Stable Disposition: ADMITTED INPATIENT Admitting Provider: Tamiko Unit Admitted: Telemetry
--- NOTE | 2019-08-16 11:59 | RADIOLOGY REPORT (SQ) ---
EXAM DESCRIPTION: CHEST SINGLE VIEW IMAGES COMPLETED DATE/TIME: 08/16/2019 11:40 am REASON FOR STUDY: AMS COMPARISON: 07/15/2019 EXAM PARAMETERS: NUMBER OF VIEWS: One view. TECHNIQUE: Single frontal radiographic view of the chest acquired. RADIATION DOSE: NA LIMITATIONS: None. FINDINGS: LUNGS AND PLEURA: Blunting of both costophrenic angles which could represent small effusio ns or pleural thickening. Minimal basilar atelectasis. No pneumothorax or focal consolidation. MEDIASTINUM AND HILAR STRUCTURES: No masses. Contour normal. HEART AND VASCULAR STRUCTURES: Stable in appearance. BONES: No acute findings. HARDWARE: Right vascular stent is again noted. OTHER: No other significant finding. IMPRESSION: Small effusions and or pleural thickening along with minimal basilar atelectasis. No ov ert failure. TECHNICAL DOCUMENTATION: JOB ID: [id number] 2010 [employer]- All Rights Reserved Reading location - IP/workstation name: [email or web address]
--- NOTE | 2019-08-16 12:00 | RADIOLOGY REPORT (SQ) ---
EXAM DESCRIPTION: CT HEAD WITHOUT IMAGES COMPLETED DATE/TIME: 08/16/2019 11:50 am REASON FOR STUDY: AMS altered level of consciousness COMPARISON: 07/22/2019 TECHNIQUE: Axial images acquired through the brain without intravenous contrast. Images reviewed wi th bone, brain and subdural windows. Additional sagittal and coronal reconstructions were generated. Images stored on PACS. All CT scanners at this facility use dose modulation, iterative reconstruction, and/or weight based d osing when appropriate to reduce radiation dose to as low as reasonably achievable (ALARA). [facility]: Dose Right [facility]: CareDose [facility]: Dose Right [facility]: Teradose 4D [facility]: Curio RADIATION DOSE: CT Rad equipment meets quality standard of care and radiation dose reduction techniq ues were employed. CTDIvol: 53.2 mGy. DLP: 911 mGy-cm.mGy. LIMITATIONS: None. FINDINGS: VENTRICLES: Prominent. CEREBRUM: No masses. No hemorrhage. No midline shift. Areas of low density in the white matter mos t likely due to chronic micro-vascular ischemic change. No evidence for acute infarction. CEREBELLUM: No masses. No hemorrhage. No alteration of density. No evidence for acute infarction. EXTRAAXIAL SPACES: Age-related involutional change. No fluid collections. No masses. ORBITS AND GLOBE: No intra- or extraconal masses. Normal contour of globe without masses. CALVARIUM: No fracture. PARANASAL SINUSES: No fluid or mucosal thickening. SOFT TISSUES: No mass or hematoma. OTHER: No other significant finding. IMPRESSION: CHRONIC CHANGES OF ATROPHY AND MICROVASCULAR ISCHEMIA. NO ACUTE PROCESS. EVIDENCE OF ACUTE STROKE: NO. TECHNICAL DOCUMENTATION: JOB ID: [id number] Quality ID # [id number]: Final reports with documentation of one or more dose reduction techniques (e.g., Au tomated exposure control, adjustment of the mA and/or kV according to patient size, use of iterative reconstruction technique) 2010 [employer]- All Rights Reserved Reading location - IP/workstation name: [email or web address]
[2019-08-16 12:48] LABS: ABSOLUTE BASOPHILS # (AUTO) 0.1 10^3/uL (0.0-0.2); ABSOLUTE EOSINOPHILS # (AUTO) 0.2 10^3/uL (0.0-0.6); ABSOLUTE LYMPHOCYTES (AUTO) 0.6 10^3/uL (0.5-4.7); ABSOLUTE MONOCYTES (AUTO) 0.3 10^3/uL (0.1-1.4); ABSOLUTE NEUT (AUTO) 3.4 10^3/uL (1.7-8.2); BASOPHILS % (AUTO) 1.2 % (0-2); HEMOGLOBIN 11.7 g/dL (12.0-15.5); LYMPHOCYTES % (AUTO) 13.7 % (13-45); MEAN CORPUSCULAR HEMOGLOBIN 27.4 pg (27.0-33.4); MEAN CORPUSCULAR HGB CONC 33.5 g/dL (32.0-36.0); MEAN CORPUSCULAR VOLUME 82 fl (80-97); RED BLOOD COUNT 4.28 10^6/uL (3.72-5.28); RED CELL DISTRIBUTION WIDTH 19.1 % (11.5-14.0); SEGMENTED NEUTROPHILS % (AUTO) 75.1 % (42-78); TOTAL CELLS COUNTED % (AUTO) 100 %; WHITE BLOOD COUNT 4.5 10^3/uL (4.0-10.5)
[2019-08-16 13:04] LABS: ALBUMIN 4.6 g/dL (3.5-5.0); ALKALINE PHOSPHATASE 128 U/L (38-126); ANION GAP 13 (5-19); ASPARTATE AMINO TRANSFERASE 25 U/L (14-36); BILIRUBIN,DIRECT 0.4 mg/dL (0.0-0.4); BILIRUBIN,TOTAL 0.8 mg/dL (0.2-1.3); BLOOD UREA NITROGEN 11 mg/dL (7-20); CARBON DIOXIDE 27 mmol/L (22-30); CHLORIDE 97 mmol/L (98-107); GLUCOSE 80 mg/dL (75-110); POTASSIUM 3.4 mmol/L (3.6-5.0); TOTAL PROTEIN 7.7 g/dL (6.3-8.2)
[2019-08-16 13:17] LABS: PLATELET COUNT 259 10^3/uL (150-450)
[2019-08-16 13:33] LABS: APPEARANCE,URINE CLEAR; BILIRUBIN,URINE NEGATIVE (NEGATIVE); COLOR,URINE YELLOW; GLUCOSE, URINE 50 mg/dL (NEGATIVE); KETONES,URINE NEGATIVE (NEGATIVE); LEUKOCYTE ESTERASE,URINE MODERATE (NEGATIVE); NITRITE,URINE NEGATIVE (NEGATIVE); PROTEIN,URINE 30 mg/dL (NEGATIVE); URINE SPECIFIC GRAVITY 1.004; UROBILINOGEN,URINE NEGATIVE mg/dL (<2.0)
[2019-08-16] MEDS ORDERED: DEXTROSE 50%-WATER 25 GM/50 ML DISP.SYRIN IV PRN (15:41)
[2019-08-16] MEDS ORDERED: DEXTROSE 40% GEL 15 GM TUBE PO PRN ×2 (15:41)
[2019-08-16] MEDS ORDERED: GLUCAGON,HUMAN RECOMB 1 MG INJ IM PRN (15:41)
[2019-08-16] MEDS ORDERED: (PENDING PHARMACY ID) (Sucroferric Oxyhydroxide [Velphoro] 500 MG) PO SCH (16:00)
--- NOTE | 2019-08-16 16:21 | PDOC CONSULTATION ---
Consultation Consult Date: 08/16/19 Provider Consulted: DEVON VERGARA Consult reason:: ESRD History of Present Illness Admission Date/PCP: 08/16/19 14:13 EFREN ROMAN History of Present Illness: DIANNE MUNOZ is a 89 year old -[place] lady known to me with history of ESRD on maintenance hemodialysis on Mondays, Wednesdays and Fridays, hypertension, anemia of chronic kidney disease, CKD-MBD and most recent history of pneumonia with hospitalization last month and new findings of multinodular goiter and solid non-cavitary nodules in the right upper lobe, lingula and left lower lobe who was brought to the emergency room via EMS from [facility] dialysis today because of note of altered mental status. Patient really could not give any further history. Apparently the patient went to her usual schedule of dialysis this morning but was found to be not her usual self and just staring in space. EMS was then called and she was brought to the emergency room. Upon presentation she is hypertensive. Her head CT showed only chronic changes of atrophy and microvascular disease but no acute findings. Her chest x-ray has some small effusion and pleural thickening and some minimal basilar atelectasis but no overt failure. I am seeing the patient this afternoon during dialysis treatment since today is her dialysis day and she was not able to have dialysis this morning at [facility] as a stated above. Patient answers few questions when prompted. She said she feels fine and does not complain of anything at all. She is tolerating dialysis. Past Medical History Cardiac Medical History: Reports: Hypertension-primary Pulmonary Medical History: Reports: Other - CT chest on 07/15/2019, solid non- cavitary nodules on RUL,lingula & LLL Endocrine Medical History: Reports: Other - Thyroid ultrasound 07/25/2019 with multinodular goiter Renal/ Medical History: Reports: End Stage Renal Disease, Hypercalcemia, Hyperphosphatemia Musculoskeltal Medical History: Reports: Arthritis, Gout Hematology Medical History: Reports Anemia of Chronic Kidney Disease Past Surgical History Past Surgical History: Reports: Dialysis Access Surgery AVF, Hysterectomy, Tonsillectomy, Vascular Surgery - PermCath placement Social History Information Source: [facility] Records Smoking Status: Unknown if Ever Smoked Electronic Cigarette use?: No Frequency of Alcohol Use: None Hx Recreational Drug Use: No Drugs: None Hx Prescription Drug Abuse: No Family History Family History: Reviewed & Not Pertinent Parental Family History Reviewed: Yes Children Family History Reviewed: Yes Sibling(s) Family History Reviewed.: Yes Medication/Allergy Home Medications: Patiromer Calcium Sorbitex [Veltassa 8.4 gm Susp Packet] 1 each PO DAILY 07/15/19 Risperidone [Risperdal M-Tab 0.5 mg Odt Tablet] 0.5 mg PO QPM 07/15/19 Sucroferric Oxyhydroxide [Velphoro] 500 mg PO AC 07/15/19 Amlodipine Besylate [Norvasc 5 mg Tablet] 5 mg PO Q12 #60 tablet 07/31/19 Hydralazine HCl [Apresoline 50 mg Tablet] 100 mg PO Q8 #90 tablet 07/31/19 Clonidine [Catapres-Tts 3 (0.3 mg/24 Hr) Transderm Patch] 1 each TD HALL@1000 08/16/19 Allergies/Adverse Reactions: No Known Allergies Allergy (Verified 08/16/19 11:31) Review of Systems ROS unobtainable: Due to mental status Physical Exam Vital Signs: Temp Pulse Resp BP Pulse Ox 98.2 F 94 13 225/97 H 93 08/16/19 11:16 08/16/19 11:16 08/16/19 14:01 08/16/19 14:01 08/16/19 14:01 Intake & Output 08/15/19 08/16/19 08/17/19 06:59 06:59 06:59 Weight 55.792 kg Vitals during dialysis: Blood pressure 185/89, heart rate of 89, blood flow rate of 450 mL/min and dialysate flow rate of 800 mL/min. Exam: General appearance: No acute distress, cooperative, somnolent with arousable and answering few questions Head exam: PRESENT: atraumatic, normocephalic Eye exam: PRESENT: Conjunctiva [place], EOMI, PERRLA. ABSENT: conjunctival i njection, scleral icterus Mouth exam: PRESENT: moist, neck supple, tongue midline Neck exam: PRESENT: full ROM. ABSENT: carotid bruit, JVD, lymphadenopathy, thyromegaly Respiratory exam: PRESENT: Diminished to auscultation bilaterally. ABSENT: rales, rhonchi, stridor, wheezes Cardiovascular exam: PRESENT: RRR, +S1, +S2. Grade 2/6 systolic murmur Pulses: PRESENT: normal radial pulses, normal dorsalis pedis pulses GI/Abdominal exam: PRESENT: normal bowel sounds, soft. ABSENT: guarding, mass, tenderness Rectal exam: Deferred Extremities exam: PRESENT: full ROM. ABSENT: calf tenderness, pedal edema Musculoskeletal: PRESENT: full ROM. ABSENT: deformity Neurological exam: PRESENT: alert, Awake, Oriented to person, Oriented to place, Oriented to time, reflexes normal, CN II-XII grossly intact. ABSENT: motor sensory deficit Psychiatric exam: PRESENT: appropriate affect, normal mood. ABSENT: homicidal ideation, suicidal ideation Skin exam: PRESENT: intact, dry, warm. Fair to poor skin turgor ABSENT: rash Results Laboratory Results: 08/16/19 12:21 08/16/19 12:21 08/16/19 08/16/19 08/16/19 12:21 12:21 12:21 WBC 4.5 RBC 4.28 Hgb 11.7 L Hct 35.0 L MCV 82 MCH 27.4 MCHC 33.5 RDW 19.1 H Plt Count 259 Seg Neutrophils % 75.1 Sodium 136.9 L Potassium 3.4 L Chloride 97 L Carbon Dioxide 27 Anion Gap 13 BUN 11 Creatinine 3.89 H Est GFR ( Amer) 13 L Glucose 80 Lactic Acid 0.8 Calcium 10.0 Total Bilirubin 0.8 AST 25 Alkaline Phosphatase 128 H Total Protein 7.7 Albumin 4.6 Urine Color Urine Appearance Urine pH Ur Specific [place] Urine Protein Urine Glucose (UA) Urine Ketones Urine Blood Urine Nitrite Ur Leukocyte Esterase Urine WBC (Auto) Urine RBC (Auto) 08/16/19 13:16 WBC RBC Hgb Hct MCV MCH MCHC RDW Plt Count Seg Neutrophils % Sodium Potassium Chloride Carbon Dioxide Anion Gap BUN Creatinine Est GFR ( Amer) Glucose Lactic Acid Calcium Total Bilirubin AST Alkaline Phosphatase Total Protein Albumin Urine Color YELLOW Urine Appearance CLEAR Urine pH 8.0 Ur Specific [place] 1.004 Urine Protein 30 H Urine Glucose (UA) 50 H Urine Ketones NEGATIVE Urine Blood NEGATIVE Urine Nitrite NEGATIVE Ur Leukocyte Esterase MODERATE H Urine WBC (Auto) 5 Urine RBC (Auto) 2 08/16/19 12:21 Troponin I < 0.012 Impressions: Chest X-Ray 08/16/19 11:10 IMPRESSION: Small effusions and or pleural thickening along with minimal basilar atelectasis. No overt failure. Head CT 08/16/19 11:10 IMPRESSION: CHRONIC CHANGES OF ATROPHY AND MICROVASCULAR ISCHEMIA. NO ACUTE PROCESS. EVIDENCE OF ACUTE STROKE: NO. Assessment & Plan - Diagnosis (1) ESRD (end stage renal disease) on dialysis Is this a current diagnosis for this admission?: Yes Plan: We will do dialysis today for 3 hours, using the patient's right AV fistula, with 3 potassium bath, blood flow rate of 450 mL per minute, dialysate flow rate of 800 mL per minute, ultrafiltration none and will give 250 to 500 mL fluids during dialysis since she appears to be dry, no heparin and no Procrit. Patient will be monitored throughout dialysis treatment. We will continue hemodialysis support while here in the hospital. (2) Altered mental status Qualifiers: Altered mental status type: unspecified Qualified Code(s): R41.82 - Altered mental status, unspecified Is this a current diagnosis for this admission?: Yes Plan: Could be due to acute urinary tract infection. (3) Urinary tract infection Qualifiers: Urinary tract infection type: acute cystitis Hematuria presence: without hematuria Qualified Code(s): N30.00 - Acute cystitis without hematuria Is this a current diagnosis for this admission?: Yes Plan: Per Dr. Roman. He will start antibiotics. Urine culture pending. (4) Anemia in chronic kidney disease (CKD) Qualifiers: Chronic kidney disease stage: on chronic dialysis Qualified Code(s): N18.6 - End stage renal disease; D63.1 - Anemia in chronic kidney disease; Z99.2 - Dependence on renal dialysis Is this a current diagnosis for this admission?: Yes (5) Hypertension Qualifiers: Hypertension type: unspecified Qualified Code(s): I10 - Essential (primary) hypertension Is this a current diagnosis for this admission?: Yes Plan: Resume all blood pressure medications. May give IV as needed medications if resistant to do oral blood pressure medications. I will give a dose of hydralazine 10 mg IV during dialysis due to elevated blood pressure during dialysis treatment. (6) Multinodular goiter (nontoxic) Is this a current diagnosis for this admission?: Yes Plan: For Dr. Roman the patient's daughter declined any further intervention last admission. (7) Pulmonary nodules/lesions, multiple Is this a current diagnosis for this admission?: Yes Plan: Per Dr. Roman again patient's daughter declined any further intervention for this. - Notes Notes: Thank you for this consultation. - Time Time Spent: 50 to 70 Minutes
[2019-08-16] MEDS ORDERED: HYDRALAZINE HCL INJ/PF 20 MG/1 ML SDV IV ONE (16:30)
[2019-08-16] MEDS: INSULIN LISPRO 100 UNIT/ML 3 ML VIAL SUBCUT SCH ×2 (17:04→21:38)
[2019-08-16] MEDS ORDERED: RISPERIDONE 0.5 MG TAB.RAPDIS PO SCH (18:00)
[2019-08-16] MEDS: CEFTRIAXONE 1 GM/D5W RTU 1 GM/50 ML RTUPB IV SCH (18:56)
[2019-08-16] MEDS: AMLODIPINE BESYLATE 5 MG TABLET PO SCH ×2 (19:03→21:57)
[2019-08-16] MEDS: HYDRALAZINE HCL 50 MG TABLET PO SCH ×2 (19:04→21:57)
[2019-08-16] MEDS: HEPARIN SOD (PORCINE) 5,000 UNIT/ML 1 ML VIAL SUBCUT SCH (21:57)
[2019-08-16] MEDS: RISPERIDONE 0.5 MG TAB.RAPDIS PO SCH (21:58)
[2019-08-17] MEDS ORDERED: NORMAL SALINE 1000 ML 1,000 ML IV PRN (05:00)
[2019-08-17] MEDS: HEPARIN SOD (PORCINE) 5,000 UNIT/ML 1 ML VIAL SUBCUT SCH ×3 (05:49→22:04)
[2019-08-17] MEDS: HYDRALAZINE HCL 50 MG TABLET PO SCH ×3 (05:49→22:01)
[2019-08-17] MEDS: PANTOPRAZOLE SODIUM 40 MG TABLET.DR PO SCH (05:49)
[2019-08-17 07:03] LABS: ANION GAP 8 (5-19); BLOOD UREA NITROGEN 5 mg/dL (7-20); CALCIUM 8.8 mg/dL (8.4-10.2); CARBON DIOXIDE 29 mmol/L (22-30); CHLORIDE 99 mmol/L (98-107); GLUCOSE 76 mg/dL (75-110); POTASSIUM 3.9 mmol/L (3.6-5.0)
--- NOTE | 2019-08-17 09:30 | PDOC PROGRESS REPORT ---
Subjective Progress Note for:: 08/17/19 Subjective:: Patient was admitted in the hospital for altered mental status and UTI When I saw the patient is pretty much sleepy wake up with the stimuli As per discussed with the daughter patient is pretty much sleepy all the time most likely from clonidine patch Otherwise according to nursing staff no other events Reason For Visit: METABOLIC ENCEPHALOPATY,UTI,HTN,ESRD ON HEMODIALYS Physical Exam Vital Signs: Temp Pulse Resp BP Pulse Ox 97.5 F 108 H 18 155/72 H 100 08/17/19 06:57 08/17/19 06:57 08/17/19 06:57 08/17/19 06:57 08/17/19 06:57 Intake & Output 08/16/19 08/17/19 08/18/19 06:59 06:59 06:59 Intake Total 350 Balance 350 Weight 44.4 kg General appearance: PRESENT: no acute distress Eye exam: PRESENT: PERRLA Mouth exam: PRESENT: neck supple Respiratory exam: PRESENT: clear to auscultation anais Cardiovascular exam: PRESENT: +S1, +S2 GI/Abdominal exam: PRESENT: normal bowel sounds, soft Neurological exam: PRESENT: alert, altered Skin exam: PRESENT: dry Results Laboratory Results: 08/17/19 06:10 08/16/19 08/16/19 08/16/19 12:21 12:21 12:21 WBC 4.5 RBC 4.28 Hgb 11.7 L Hct 35.0 L MCV 82 MCH 27.4 MCHC 33.5 RDW 19.1 H Plt Count 259 Seg Neutrophils % 75.1 Sodium 136.9 L Potassium 3.4 L Chloride 97 L Carbon Dioxide 27 Anion Gap 13 BUN 11 Creatinine 3.89 H Est GFR ( Amer) 13 L Glucose 80 Lactic Acid 0.8 Calcium 10.0 Total Bilirubin 0.8 AST 25 Alkaline Phosphatase 128 H Total Protein 7.7 Albumin 4.6 Urine Color Urine Appearance Urine pH Ur Specific [place] Urine Protein Urine Glucose (UA) Urine Ketones Urine Blood Urine Nitrite Ur Leukocyte Esterase Urine WBC (Auto) Urine RBC (Auto) 08/16/19 08/17/19 08/17/19 13:16 06:10 06:10 WBC Cancelled RBC Cancelled Hgb Cancelled Hct Cancelled MCV Cancelled MCH Cancelled MCHC Cancelled RDW Cancelled Plt Count Cancelled Seg Neutrophils % Cancelled Sodium 136.0 L Potassium 3.9 Chloride 99 Carbon Dioxide 29 Anion Gap 8 BUN 5 L Creatinine 1.92 H Est GFR ( Amer) 30 L Glucose 76 Lactic Acid Calcium 8.8 Total Bilirubin AST Alkaline Phosphatase Total Protein Albumin Urine Color YELLOW Urine Appearance CLEAR Urine pH 8.0 Ur Specific [place] 1.004 Urine Protein 30 H Urine Glucose (UA) 50 H Urine Ketones NEGATIVE Urine Blood NEGATIVE Urine Nitrite NEGATIVE Ur Leukocyte Esterase MODERATE H Urine WBC (Auto) 5 Urine RBC (Auto) 2 08/16/19 12:21 Troponin I < 0.012 Impressions: Chest X-Ray 08/16/19 11:10 IMPRESSION: Small effusions and or pleural thickening along with minimal basilar atelectasis. No overt failure. Head CT 08/16/19 11:10 IMPRESSION: CHRONIC CHANGES OF ATROPHY AND MICROVASCULAR ISCHEMIA. NO ACUTE PROCESS. EVIDENCE OF ACUTE STROKE: NO. Assessment & Plan - Diagnosis (1) Altered mental status Qualifiers: Altered mental status type: unspecified Qualified Code(s): R41.82 - Altered mental status, unspecified Is this a current diagnosis for this admission?: Yes (2) Urinary tract infection Qualifiers: Urinary tract infection type: acute cystitis Hematuria presence: without hematuria Qualified Code(s): N30.00 - Acute cystitis without hematuria Is this a current diagnosis for this admission?: Yes (3) Chronic pain syndrome Is this a current diagnosis for this admission?: Yes (4) ESRD (end stage renal disease) Is this a current diagnosis for this admission?: Yes (5) Osteoarthritis involving multiple joints on both sides of body Is this a current diagnosis for this admission?: Yes - Time Time Spent with patient: 15-24 minutes Level of Care: IMCU Medications reviewed and adjusted accordingly: Yes Anticipated discharge: Other Within: Other - Plan Summary Plan Summary: Continues the IV antibiotics We will get the MRI of the head to rule out the other neurological etiology Continues the current medications
[2019-08-17] MEDS: INSULIN LISPRO 100 UNIT/ML 3 ML VIAL SUBCUT SCH ×4 (10:36→22:05)
[2019-08-17 10:45] LABS: ABSOLUTE BASOPHILS # (AUTO) 0.1 10^3/uL (0.0-0.2); ABSOLUTE EOSINOPHILS # (AUTO) 0.1 10^3/uL (0.0-0.6); ABSOLUTE LYMPHOCYTES (AUTO) 0.4 10^3/uL (0.5-4.7); ABSOLUTE MONOCYTES (AUTO) 0.3 10^3/uL (0.1-1.4); BASOPHILS % (AUTO) 1.9 % (0-2); EOSINOPHILS % (AUTO) 1.6 % (0-6); HEMATOCRIT 32.2 % (36.0-47.0); HEMOGLOBIN 10.9 g/dL (12.0-15.5); LYMPHOCYTES % (AUTO) 7.4 % (13-45); MEAN CORPUSCULAR HEMOGLOBIN 27.6 pg (27.0-33.4); MEAN CORPUSCULAR HGB CONC 33.9 g/dL (32.0-36.0); MEAN CORPUSCULAR VOLUME 82 fl (80-97); PLATELET COUNT 253 10^3/uL (150-450); RED BLOOD COUNT 3.94 10^6/uL (3.72-5.28); RED CELL DISTRIBUTION WIDTH 18.5 % (11.5-14.0); SEGMENTED NEUTROPHILS % (AUTO) 84.1 % (42-78); TOTAL CELLS COUNTED % (AUTO) 100 %; WHITE BLOOD COUNT 5.9 10^3/uL (4.0-10.5)
[2019-08-17] MEDS: AMLODIPINE BESYLATE 5 MG TABLET PO SCH ×2 (14:19→22:02)
[2019-08-17] MEDS: CEFTRIAXONE 1 GM/D5W RTU 1 GM/50 ML RTUPB IV SCH (17:31)
[2019-08-17] MEDS: PATIROMER 8.4 GM SUSP PACKET PO SCH (17:31)
[2019-08-17] MEDS: RISPERIDONE 0.5 MG TAB.RAPDIS PO SCH (22:03)
[2019-08-18] MEDS: HYDRALAZINE HCL 50 MG TABLET PO SCH ×3 (07:05→21:51)
[2019-08-18] MEDS: HEPARIN SOD (PORCINE) 5,000 UNIT/ML 1 ML VIAL SUBCUT SCH ×3 (07:25→21:51)
[2019-08-18] MEDS: PANTOPRAZOLE SODIUM 40 MG TABLET.DR PO SCH (07:26)
--- NOTE | 2019-08-18 09:38 | PDOC PROGRESS REPORT ---
Subjective Progress Note for:: 08/18/19 Subjective:: Patient is feeling better more alert and answering the questions As per discussed with the daughter patient always sleep at home and usually clonidine patch makes the patient's more sleepy but clonidine tablet works better Patient unable to get the MRI due to the fistula information is required Patient's move all 4 extremities No fever no chills Reason For Visit: METABOLIC ENCEPHALOPATY,UTI,HTN,ESRD ON HEMODIALYS Physical Exam Vital Signs: Temp Pulse Resp BP Pulse Ox 97.8 F 102 H 18 185/60 H 100 08/18/19 07:03 08/18/19 07:03 08/18/19 07:03 08/18/19 07:03 08/18/19 07:03 Intake & Output 08/17/19 08/18/19 08/19/19 06:59 06:59 06:59 Intake Total 350 100 Balance 350 100 Weight 44.4 kg 44.4 kg General appearance: PRESENT: no acute distress Head exam: PRESENT: atraumatic, normocephalic Eye exam: PRESENT: conjunctiva pink, EOMI, PERRLA. ABSENT: scleral icterus Ear exam: PRESENT: normal external ear exam Mouth exam: PRESENT: moist, tongue midline Neck exam: PRESENT: full ROM. ABSENT: carotid bruit, JVD, lymphadenopathy, thyromegaly Respiratory exam: PRESENT: decreased breath sounds Cardiovascular exam: PRESENT: RRR. ABSENT: diastolic murmur, rubs, systolic murmur Vascular exam: PRESENT: normal capillary refill GI/Abdominal exam: PRESENT: normal bowel sounds, soft. ABSENT: distended, guarding, mass, organolmegaly, rebound, tenderness Rectal exam: PRESENT: deferred Neurological exam: PRESENT: alert, awake. ABSENT: motor sensory deficit Psychiatric exam: PRESENT: appropriate affect, normal mood. ABSENT: homicidal ideation, suicidal ideation Skin exam: PRESENT: dry, intact, warm. ABSENT: cyanosis, rash Results Laboratory Results: 08/17/19 10:34 08/17/19 06:10 08/17/19 08/17/19 09:21 10:34 WBC Cancelled 5.9 RBC Cancelled 3.94 Hgb Cancelled 10.9 L Hct Cancelled 32.2 L MCV Cancelled 82 MCH Cancelled 27.6 MCHC Cancelled 33.9 RDW Cancelled 18.5 H Plt Count Cancelled 253 Seg Neutrophils % Cancelled 84.1 H 08/16/19 12:21 Troponin I < 0.012 Impressions: Chest X-Ray 08/16/19 11:10 IMPRESSION: Small effusions and or pleural thickening along with minimal basilar atelectasis. No overt failure. Head CT 08/16/19 11:10 IMPRESSION: CHRONIC CHANGES OF ATROPHY AND MICROVASCULAR ISCHEMIA. NO ACUTE PROCESS. EVIDENCE OF ACUTE STROKE: NO. Assessment & Plan - Diagnosis (1) Altered mental status Qualifiers: Altered mental status type: unspecified Qualified Code(s): R41.82 - Altered mental status, unspecified Is this a current diagnosis for this admission?: Yes (2) Urinary tract infection Qualifiers: Urinary tract infection type: acute cystitis Hematuria presence: without hematuria Qualified Code(s): N30.00 - Acute cystitis without hematuria Is this a current diagnosis for this admission?: Yes (3) Chronic pain syndrome Is this a current diagnosis for this admission?: Yes (4) ESRD (end stage renal disease) Is this a current diagnosis for this admission?: Yes (5) Osteoarthritis involving multiple joints on both sides of body Is this a current diagnosis for this admission?: Yes - Time Time Spent with patient: 15-24 minutes Level of Care: IMCU Medications reviewed and adjusted accordingly: Yes Anticipated discharge: Other Within: Other - Plan Summary Plan Summary: We will switch clonidine patch to clonidine tablet Continues the IV antibiotic Scheduled for dialysis tomorrow
[2019-08-18] MEDS ORDERED: CLONIDINE 0.3 MG/24 HR PATCH.TDWK TD SCH (10:00)
[2019-08-18] MEDS: INSULIN LISPRO 100 UNIT/ML 3 ML VIAL SUBCUT SCH ×4 (10:23→21:52)
[2019-08-18] MEDS: AMLODIPINE BESYLATE 5 MG TABLET PO SCH ×2 (10:24→21:52)
[2019-08-18] MEDS: CLONIDINE HCL 0.1 MG TABLET PO SCH ×2 (13:05→21:51)
[2019-08-18] MEDS: PATIROMER 8.4 GM SUSP PACKET PO SCH (18:10)
[2019-08-18] MEDS: CEFTRIAXONE 1 GM/D5W RTU 1 GM/50 ML RTUPB IV SCH (18:10)
[2019-08-18] MEDS: RISPERIDONE 0.5 MG TAB.RAPDIS PO SCH (19:52)
[2019-08-19] MEDS ORDERED: NORMAL SALINE 1000 ML 1,000 ML IV PRN (05:00)
[2019-08-19] MEDS: CLONIDINE HCL 0.1 MG TABLET PO SCH ×3 (05:54→21:12)
[2019-08-19] MEDS: HYDRALAZINE HCL 50 MG TABLET PO SCH ×3 (05:54→21:11)
[2019-08-19] MEDS: HEPARIN SOD (PORCINE) 5,000 UNIT/ML 1 ML VIAL SUBCUT SCH ×3 (05:54→21:23)
[2019-08-19] MEDS: PANTOPRAZOLE SODIUM 40 MG TABLET.DR PO SCH (05:54)
[2019-08-19 06:10] LABS: ABSOLUTE BASOPHILS # (AUTO) 0.1 10^3/uL (0.0-0.2); ABSOLUTE EOSINOPHILS # (AUTO) 0.1 10^3/uL (0.0-0.6); ABSOLUTE LYMPHOCYTES (AUTO) 0.7 10^3/uL (0.5-4.7); ABSOLUTE MONOCYTES (AUTO) 0.4 10^3/uL (0.1-1.4); ABSOLUTE NEUT (AUTO) 3.6 10^3/uL (1.7-8.2); BASOPHILS % (AUTO) 2.3 % (0-2); EOSINOPHILS % (AUTO) 2.8 % (0-6); HEMATOCRIT 34.2 % (36.0-47.0); HEMOGLOBIN 11.5 g/dL (12.0-15.5); LYMPHOCYTES % (AUTO) 13.4 % (13-45); MEAN CORPUSCULAR HEMOGLOBIN 28.1 pg (27.0-33.4); MEAN CORPUSCULAR HGB CONC 33.6 g/dL (32.0-36.0); MEAN CORPUSCULAR VOLUME 84 fl (80-97); MONOCYTES % (AUTO) 8.6 % (3-13); PLATELET COUNT 274 10^3/uL (150-450); RED BLOOD COUNT 4.08 10^6/uL (3.72-5.28); RED CELL DISTRIBUTION WIDTH 18.2 % (11.5-14.0); SEGMENTED NEUTROPHILS % (AUTO) 72.9 % (42-78); TOTAL CELLS COUNTED % (AUTO) 100 %; WHITE BLOOD COUNT 4.9 10^3/uL (4.0-10.5)
[2019-08-19 06:35] LABS: ANION GAP 13 (5-19); BLOOD UREA NITROGEN 14 mg/dL (7-20); CALCIUM 9.5 mg/dL (8.4-10.2); CARBON DIOXIDE 25 mmol/L (22-30); CHLORIDE 98 mmol/L (98-107); GLUCOSE 75 mg/dL (75-110); POTASSIUM 3.5 mmol/L (3.6-5.0)
[2019-08-19] MEDS: INSULIN LISPRO 100 UNIT/ML 3 ML VIAL SUBCUT SCH ×4 (08:00→21:24)
[2019-08-19] MEDS: DEXTROSE 50%-WATER 25 GM/50 ML DISP.SYRIN IV PRN (09:30)
[2019-08-19] MEDS: AMLODIPINE BESYLATE 5 MG TABLET PO SCH ×2 (11:43→21:12)
--- NOTE | 2019-08-19 12:56 | PDOC H&P ---
History of Present Illness Admission Date/PCP: 08/16/19 14:13 EFREN JHOANAUNKMaranda Patient complains of: Change in alertness History of Present Illness: DIANNE MUNOZ is a 89 year old female patient known to my practice who was recently discharged home after presenting to the ED with similar condition few weeks ago. She was found to have hypercalcemia during that visit. Her evaluation was initial suggestive of possible iatrogenic due to her hypocalcemia treatment prior to that admission but her further evaluation did revealed pulmonary nodules and thyroid mass that her family refused further assessment. Hr dialysis nurse at [facility] reported that patient was not responding at her usual level of alertness today and refer her to the ED for further evaluation. Patient was arousable and appropriate in simple responses. She denied any chest pain or difficulty with her breathing. No headache or dizziness. No nausea, vomiting, or abdominal pain. She denied any fever, chills, frequency or dysuria. Her initial ED assessment was significant for elevated renal indices inline with her ESRD on HD, hypokalemia and elevated alkaline phosphatase. her CT head was devoid of any acute process with mainly chronic changes of atrophy and microvascular ischemia. Her chest X ray revealed small effusion versus pleural thickening. Her urinalysis suggested possible UTI process. She was advised hospitalization due to altered mental status and possible UTI with ESRD on HD for further management. Her morbidities are as listed below. I will request nephrology consultation with Dr. Ruiz, her slip cover estimator, for HD and other medical management assistance. Past Medical History Cardiac Medical History: Reports: Hypertension Denies: Coronary Artery Disease, Myocardial Infarction Pulmonary Medical History: Denies: Asthma, Bronchitis, Chronic Obstructive Pulmonary Disease (COPD), Pneumonia, Tuberculosis Neurological Medical History: Denies: Seizures Renal/ Medical History: Reports: End Stage Renal Disease GI Medical History: Denies: Hepatitis, Hiatal Hernia Musculoskeltal Medical History: Reports: Arthritis, Gout Hematology: Reports: Anemia - HX, Sickle Cell Disease - TRAIT Past Surgical History Past Surgical History: Reports: Hysterectomy, Tonsillectomy, Vascular Surgery - PermCath placement Denies: Amputation, Mastectomy - RIGHT RESTRICTED, Pacemaker Social History Smoking Status: Unknown if Ever Smoked Electronic Cigarette use?: No Frequency of Alcohol Use: None Hx Recreational Drug Use: No Drugs: None Hx Prescription Drug Abuse: No Family History Family History: Hyperlipidemia, Hypertension Parental Family History Reviewed: Yes Children Family History Reviewed: Yes Sibling(s) Family History Reviewed.: Yes Medication/Allergy Home Medications: Patiromer Calcium Sorbitex [Veltassa 8.4 gm Susp Packet] 1 each PO DAILY 07/15/19 Risperidone [Risperdal M-Tab 0.5 mg Odt Tablet] 0.5 mg PO QPM 07/15/19 Sucroferric Oxyhydroxide [Velphoro] 500 mg PO AC 07/15/19 Amlodipine Besylate [Norvasc 5 mg Tablet] 5 mg PO Q12 #60 tablet 07/31/19 Hydralazine HCl [Apresoline 50 mg Tablet] 100 mg PO Q8 #90 tablet 07/31/19 Clonidine [Catapres-Tts 3 (0.3 mg/24 Hr) Transderm Patch] 1 each TD HALL@1000 08/16/19 Allergies/Adverse Reactions: No Known Allergies Allergy (Verified 08/16/19 11:31) Review of Systems Constitutional: PRESENT: weakness. ABSENT: chills, fever(s), headache(s), weight gain, weight loss Eyes: ABSENT: visual disturbances Ears: ABSENT: hearing changes Nose, Mouth, and Throat: ABSENT: headache(s), mouth pain, sore throat, vertigo Cardiovascular: ABSENT: chest pain, dyspnea on exertion, edema, orthropnea, palpitations Respiratory: ABSENT: cough, dyspnea, hemoptysis, sputum Gastrointestinal: ABSENT: abdominal pain, constipation, diarrhea, hematemesis, hematochezia, nausea, vomiting Genitourinary: ABSENT: dysuria, hematuria Musculoskeletal: PRESENT: muscle weakness. ABSENT: joint swelling Integumentary: ABSENT: rash, wounds Neurological: PRESENT: confusion - daughter reported episodes of worsening visual hallucination laterly. ABSENT: abnormal gait, abnormal speech, dizziness, focal weakness, syncope Endocrine: ABSENT: cold intolerance, heat intolerance, polydipsia, polyuria Hematologic/Lymphatic: ABSENT: easy bleeding, easy bruising, lymphadenopathy Allergic/Immunologic: ABSENT: seasonal rhinorrhea Physical Exam Vital Signs: Temp Pulse Resp BP Pulse Ox 98.2 F 94 13 225/97 H 93 08/16/19 11:16 08/16/19 11:16 08/16/19 14:01 08/16/19 14:01 08/16/19 14:01 Intake & Output 08/15/19 08/16/19 08/17/19 06:59 06:59 06:59 Weight 55.792 kg General appearance: PRESENT: no acute distress Head exam: PRESENT: atraumatic, normocephalic Eye exam: PRESENT: conjunctiva pink, EOMI, PERRLA. ABSENT: scleral icterus Ear exam: PRESENT: normal external ear exam Mouth exam: PRESENT: moist, tongue midline Neck exam: PRESENT: full ROM. ABSENT: carotid bruit, JVD, lymphadenopathy, thyromegaly Respiratory exam: PRESENT: clear to auscultation anais, decreased breath sounds - at lung bases Cardiovascular exam: PRESENT: RRR, +S1, +S2, systolic murmur. ABSENT: diastolic murmur, rubs Murmur grade: 3 Pulses: PRESENT: other - bruit over left arm AV fistula for hemodialysis Vascular exam: PRESENT: normal capillary refill GI/Abdominal exam: PRESENT: normal bowel sounds, soft. ABSENT: distended, guarding, mass, organolmegaly, rebound, tenderness Rectal exam: PRESENT: deferred Extremities exam: ABSENT: pedal edema Musculoskeletal exam: PRESENT: deformity - related to multiple joints involvement with arthritis Neurological exam: PRESENT: altered - but appropriate in simple responses when aroused. ABSENT: motor sensory deficit Psychiatric exam: PRESENT: appropriate affect, normal mood. ABSENT: homicidal ideation, suicidal ideation Skin exam: PRESENT: dry, intact, warm, other - keloid lesions on anterior chest wall. ABSENT: cyanosis, rash Results Laboratory Results: 08/16/19 12:21 08/16/19 12:21 08/16/19 08/16/19 08/16/19 12:21 12:21 12:21 WBC 4.5 RBC 4.28 Hgb 11.7 L Hct 35.0 L MCV 82 MCH 27.4 MCHC 33.5 RDW 19.1 H Plt Count 259 Seg Neutrophils % 75.1 Sodium 136.9 L Potassium 3.4 L Chloride 97 L Carbon Dioxide 27 Anion Gap 13 BUN 11 Creatinine 3.89 H Est GFR ( Amer) 13 L Glucose 80 Lactic Acid 0.8 Calcium 10.0 Total Bilirubin 0.8 AST 25 Alkaline Phosphatase 128 H Total Protein 7.7 Albumin 4.6 Urine Color Urine Appearance Urine pH Ur Specific [place] Urine Protein Urine Glucose (UA) Urine Ketones Urine Blood Urine Nitrite Ur Leukocyte Esterase Urine WBC (Auto) Urine RBC (Auto) 08/16/19 13:16 WBC RBC Hgb Hct MCV MCH MCHC RDW Plt Count Seg Neutrophils % Sodium Potassium Chloride Carbon Dioxide Anion Gap BUN Creatinine Est GFR ( Amer) Glucose Lactic Acid Calcium Total Bilirubin AST Alkaline Phosphatase Total Protein Albumin Urine Color YELLOW Urine Appearance CLEAR Urine pH 8.0 Ur Specific [place] 1.004 Urine Protein 30 H Urine Glucose (UA) 50 H Urine Ketones NEGATIVE Urine Blood NEGATIVE Urine Nitrite NEGATIVE Ur Leukocyte Esterase MODERATE H Urine WBC (Auto) 5 Urine RBC (Auto) 2 08/16/19 12:21 Troponin I < 0.012 Impressions: Chest X-Ray 08/16/19 11:10 IMPRESSION: Small effusions and or pleural thickening along with minimal basilar atelectasis. No overt failure. Head CT 08/16/19 11:10 IMPRESSION: CHRONIC CHANGES OF ATROPHY AND MICROVASCULAR ISCHEMIA. NO ACUTE PROCESS. EVIDENCE OF ACUTE STROKE: NO. Assessment & Plan - Diagnosis (1) Altered mental status Qualifiers: Altered mental status type: unspecified Qualified Code(s): R41.82 - Altered mental status, unspecified Is this a current diagnosis for this admission?: Yes Plan: See admitting attending physician orders for details. (2) Urinary tract infection Qualifiers: Urinary tract infection type: acute cystitis Hematuria presence: without hematuria Qualified Code(s): N30.00 - Acute cystitis without hematuria Is this a current diagnosis for this admission?: Yes Plan: See admitting attending physician orders for details. (4) Anemia in chronic kidney disease (CKD) Qualifiers: Chronic kidney disease stage: on chronic dialysis Qualified Code(s): N18.6 - End stage renal disease; D63.1 - Anemia in chronic kidney disease; Z99.2 - Dep endence on renal dialysis Is this a current diagnosis for this admission?: Yes Plan: See admitting attending physician orders for details. (5) Hypertension Qualifiers: Hypertension type: unspecified Qualified Code(s): I10 - Essential (primary) hypertension Is this a current diagnosis for this admission?: Yes Plan: See admitting attending physician orders for details. (6) Hypokalemia Is this a current diagnosis for this admission?: Yes Plan: See admitting attending physician orders for details. (7) Multinodular goiter (nontoxic) Is this a current diagnosis for this admission?: Yes Plan: See admitting attending physician orders for details. (8) Pulmonary nodules/lesions, multiple Is this a current diagnosis for this admission?: Yes Plan: See admitting attending physician orders for details. (9) Osteoarthritis involving multiple joints on both sides of body Is this a current diagnosis for this admission?: Yes Plan: See admitting attending physician orders for details. - Time Time Spent: 50 to 70 Minutes Medications reviewed and adjusted accordingly: Yes Anticipated discharge: Home with Homehealth, Hospice Within: Other - Inpatient Certification Based on my medical assessment, after consideration of the patient's comorbidities, presenting symptoms, or acuity I expect that the services needed warrant INPATIENT care.: Yes I certify that my determination is in accordance with my understanding of Medicare's requirements for reasonable and necessary INPATIENT services [42 CFR 412.3e].: Yes Medical Necessity: Significant Comorbidiites Make Outpatient Treatment Too Risky, Need Close Monitoring Due to Risk of Patient Decompensation, Need for IV Antibiotics, Risk of Complication if Not Cared For in Hospital, Risk of Di agnosis Which Will Require Inpatient Eval/Care/Monitoring Post Hospital Care: D/C Frame Polisher Documentation - Plan Summary Plan Summary: See admitting attending physician orders for details.
--- NOTE | 2019-08-19 13:50 | PDOC PROGRESS REPORT ---
Subjective Progress Note for:: 08/19/19 Subjective:: The patient this morning during dialysis treatment. Patient appears to be lethargic and sleepy and he needed to introduce a painful stimuli for her to at least respond a little bit. She keeps her eyes closed. Her blood sugar is low and she does not appear to be eating and drinking fluids much. Her blood pressure remains elevated. Over the weekend her intake is very minimal. I called her daughters initially Ms. Nayely Ahuja but only got a voicemail. I finally got a hold of Ms. Bridger Rodgers at [phone] and I discussed that her mom has very poor intake. She states that the clonidine and hydralazine blood pressure medications are making the patient sleepy. I see that Dr. Rockwell has changed her clonidine patch to clonidine tablets yesterday. She states that at home the patient is eating and drinking fluids. She also states that her patient's blood pressure at home is around 140s over 80s. However here her blood pressure is always elevated. I asked Ms. Monge if they wanted to continue dialysis treatment given the patient's condition and she said yes. She also asked if the patient's dialysis frequency can be reduced. I told her we will reevaluate while she is here in the hospital and adjust accordingly. Reason For Visit: METABOLIC ENCEPHALOPATY,UTI,HTN,ESRD ON HEMODIALYS Physical Exam Vital Signs: Temp Pulse Resp BP Pulse Ox 98.3 F 99 20 180/66 H 100 08/19/19 03:29 08/19/19 07:00 08/19/19 03:29 08/19/19 04:17 08/19/19 03:29 Intake & Output 08/18/19 08/19/19 08/20/19 06:59 06:59 06:59 Intake Total 100 175 Balance 100 175 Weight 44.4 kg 43.4 kg Vitals during dialysis: Blood pressure 199/89, heart rate of 106, blood flow rate of 450 mL/min and dialysate flow rate of 800 mL/min. Exam: General appearance: PRESENT: no acute distress, cooperative, well-developed, wel l-nourished Head exam: PRESENT: atraumatic, normocephalic Eye exam: PRESENT: Eyes are closed ABSENT: scleral icterus Neck exam: ABSENT: JVD Respiratory exam: PRESENT: Diminished breath sounds. ABSENT: crackles, rales, rhonchi, unlabored, wheezes Cardiovascular exam: PRESENT: Regular rate rhythm -+S1, +S2. ABSENT: diastolic murmur, systolic murmur GI/Abdominal exam: PRESENT: normal bowel sounds, soft. ABSENT: guarding, mass, tenderness Extremities exam: ABSENT: No edema Neurological exam: PRESENT: Somnolent but positive response to painful stimuli. Skin exam: PRESENT: dry, warm, Results Laboratory Results: 08/19/19 05:06 08/19/19 05:06 08/19/19 08/19/19 08/19/19 05:06 05:06 05:06 WBC 4.9 RBC 4.08 Hgb 11.5 L Hct 34.2 L MCV 84 MCH 28.1 MCHC 33.6 RDW 18.2 H Plt Count 274 Seg Neutrophils % 72.9 Sodium 136.1 L Potassium 3.5 L Chloride 98 Carbon Dioxide 25 Anion Gap 13 BUN 14 Creatinine 4.13 H Est GFR ( Amer) 12 L Glucose 75 Calcium 9.5 Magnesium 2.2 08/16/19 12:21 Troponin I < 0.012 Impressions: Chest X-Ray 08/16/19 11:10 IMPRESSION: Small effusions and or pleural thickening along with minimal basilar atelectasis. No overt failure. Head CT 08/16/19 11:10 IMPRESSION: CHRONIC CHANGES OF ATROPHY AND MICROVASCULAR ISCHEMIA. NO ACUTE PROCESS. EVIDENCE OF ACUTE STROKE: NO. Assessment & Plan - Diagnosis (1) ESRD (end stage renal disease) on dialysis Is this a current diagnosis for this admission?: Yes Plan: We will do dialysis today for 2.5 hours, using the patient's AV fistula, with 3 potassium bath, blood flow rate of 400 mL per minute, dialysate flow rate of 800 mL per minute, ultrafiltration 0 to 500 mL as tolerated, no heparin and no Retacrit. Patient will be monitored throughout dialysis treatment. As a stated above patient's daughter would like to continue with dialysis treatment. I encouraged the daughter to encourage her mom to start eating and drinking a little bit while here in the hospital if she gets to talk to her since they are not accepting visitors at this time. I will reevaluate the patient's dialysis prescription while here in the hospital. (2) Altered mental status Qualifiers: Altered mental status type: unspecified Qualified Code(s): R41.82 - Altered mental status, unspecified Is this a current diagnosis for this admission?: Yes (3) Urinary tract infection Qualifiers: Urinary tract infection type: acute cystitis Hematuria presence: without hematuria Qualified Code(s): N30.00 - Acute cystitis without hematuria Is this a current diagnosis for this admission?: Yes Plan: Urine cultures positive for gram-positive cocci in chains. Currently on IV ceftriaxone. (4) Anemia in chronic kidney disease (CKD) Qualifiers: Chronic kidney disease stage: on chronic dialysis Qualified Code(s): N18.6 - End stage renal disease; D63.1 - Anemia in chronic kidney disease; Z99.2 - Dependence on renal dialysis Is this a current diagnosis for this admission?: Yes Plan: Retacrit only as necessary. (5) Hypertension Qualifiers: Hypertension type: unspecified Qualified Code(s): I10 - Essential (primary) hypertension Is this a current diagnosis for this admission?: Yes Plan: Switch from clonidine patch to clonidine tablets by Dr. Rockwell yesterday. Blood pressure is still uncontrolled and suboptimal. (6) Multinodular goiter (nontoxic) Is this a current diagnosis for this admission?: Yes Plan: Patient's daughter opted for no further intervention. (7) Pulmonary nodules/lesions, multiple Is this a current diagnosis for this admission?: Yes Plan: Patient's daughter also opted for no further intervention for this as well. - Notes Notes: Discussed with Dr. Morrison and the patient's daughter Ms. Bridger Monge. - Time Time with patient: 15-25 minutes
[2019-08-19] MEDS: CEFTRIAXONE 1 GM/D5W RTU 1 GM/50 ML RTUPB IV SCH (16:50)
--- NOTE | 2019-08-19 17:52 | PDOC PROGRESS REPORT ---
Subjective Progress Note for:: 08/19/19 Subjective:: Patient remain somnolent so far today and less appropriate in responses. Poor PO intake persist. Continue benefit from hemodialysis discussed with her bench worker apprentice, Dr. Ruiz. Her prognosis remain very poor and overall treatment outcome very minimally beneficial to patient at current stage in her disease process. Reason For Visit: METABOLIC ENCEPHALOPATY,UTI,HTN,ESRD ON HEMODIALYS Physical Exam Vital Signs: Temp Pulse Resp BP Pulse Ox 98.3 F 103 H 15 152/75 H 98 08/19/19 16:35 08/19/19 16:35 08/19/19 16:35 08/19/19 16:35 08/19/19 16:35 Intake & Output 08/18/19 08/19/19 08/20/19 06:59 06:59 06:59 Intake Total 100 175 0 Output Total 600 Balance 100 175 -600 Weight 44.4 kg 43.4 kg General appearance: PRESENT: no acute distress Head exam: PRESENT: atraumatic, normocephalic Eye exam: PRESENT: conjunctiva pink. ABSENT: scleral icterus Ear exam: PRESENT: normal external ear exam Mouth exam: PRESENT: moist Respiratory exam: PRESENT: decreased breath sounds Cardiovascular exam: PRESENT: RRR. ABSENT: diastolic murmur, rubs, systolic murmur Murmur grade: 3 Vascular exam: ABSENT: pallor GI/Abdominal exam: PRESENT: normal bowel sounds, soft. ABSENT: distended, guarding, mass, organolmegaly, rebound, tenderness Extremities exam: ABSENT: pedal edema Neurological exam: PRESENT: altered Skin exam: PRESENT: dry, warm Results Laboratory Results: 08/19/19 05:06 08/19/19 05:06 08/19/19 08/19/19 08/19/19 05:06 05:06 05:06 WBC 4.9 RBC 4.08 Hgb 11.5 L Hct 34.2 L MCV 84 MCH 28.1 MCHC 33.6 RDW 18.2 H Plt Count 274 Seg Neutrophils % 72.9 Sodium 136.1 L Potassium 3.5 L Chloride 98 Carbon Dioxide 25 Anion Gap 13 BUN 14 Creatinine 4.13 H Est GFR ( Amer) 12 L Glucose 75 Calcium 9.5 Magnesium 2.2 08/16/19 12:21 Troponin I < 0.012 Impressions: Chest X-Ray 08/16/19 11:10 IMPRESSION: Small effusions and or pleural thickening along with minimal basilar atelectasis. No overt failure. Head CT 08/16/19 11:10 IMPRESSION: CHRONIC CHANGES OF ATROPHY AND MICROVASCULAR ISCHEMIA. NO ACUTE PROCESS. EVIDENCE OF ACUTE STROKE: NO. Assessment & Plan - Diagnosis (1) Altered mental status Qualifiers: Altered mental status type: unspecified Qualified Code(s): R41.82 - Altered mental status, unspecified Is this a current diagnosis for this admission?: Yes (2) Urinary tract infection Qualifiers: Urinary tract infection type: acute cystitis Hematuria presence: without hematuria Qualified Code(s): N30.00 - Acute cystitis without hematuria Is this a current diagnosis for this admission?: Yes (3) ESRD (end stage renal disease) on dialysis Is this a current diagnosis for this admission?: Yes (4) Anemia in chronic kidney disease (CKD) Qualifiers: Chronic kidney disease stage: on chronic dialysis Qualified Code(s): N18.6 - End stage renal disease; D63.1 - Anemia in chronic kidney disease; Z99.2 - Dependence on renal dialysis Is this a current diagnosis for this admission?: Yes (5) Hypertension Qualifiers: Hypertension type: unspecified Qualified Code(s): I10 - Essential (primary) hypertension Is this a current diagnosis for this admission?: Yes (6) Hypokalemia Is this a current diagnosis for this admission?: Yes (7) Multinodular goiter (nontoxic) Is this a current diagnosis for this admission?: Yes (8) Pulmonary nodules/lesions, multiple Is this a current diagnosis for this admission?: Yes (9) Osteoarthritis involving multiple joints on both sides of body Is this a current diagnosis for this admission?: Yes - Time Time Spent with patient: 25-34 minutes Level of Care: IMCU Medications reviewed and adjusted accordingly: Yes Anticipated discharge: Hospice Within: Other - Inpatient Certification Based on my medical assessment, after consideration of the patient's comorbidities, presenting symptoms, or acuity I expect that the services needed warrant INPATIENT care.: Yes I certify that my determination is in accordance with my understanding of Medicare's requirements for reasonable and necessary INPATIENT services [42 CFR 412.3e].: Yes Medical Necessity: Significant Comorbidiites Make Outpatient Treatment Too Risky, Need Close Monitoring Due to Risk of Patient Decompensation, Need For Continuous Telemetry Monitoring, Risk of Complication if Not Cared For in Hospital, Risk of Diagnosis Which Will Require Inpatient Eval/Care/Monitoring Post Hospital Care: D/C Group Reservations Coordinator Documentation, D/C or Transfer Summary - Plan Summary Plan Summary: Current medication management. I discussed at length with Ms Washington, patient's daughter regarding her poor prognosis and recommendation of hospice placement. She will get back to me after discuss consideration of hospice placement with the rest of patient's family.
[2019-08-19] MEDS: PATIROMER 8.4 GM SUSP PACKET PO SCH (18:55)
[2019-08-19] MEDS: RISPERIDONE 0.5 MG TAB.RAPDIS PO SCH (21:16)
[2019-08-20] MEDS: HYDRALAZINE HCL 50 MG TABLET PO SCH ×3 (06:03→23:00)
[2019-08-20] MEDS: PANTOPRAZOLE SODIUM 40 MG TABLET.DR PO SCH (06:03)
[2019-08-20] MEDS: CLONIDINE HCL 0.1 MG TABLET PO SCH ×3 (06:03→23:00)
[2019-08-20] MEDS: HEPARIN SOD (PORCINE) 5,000 UNIT/ML 1 ML VIAL SUBCUT SCH ×3 (06:04→23:25)
[2019-08-20] MEDS: INSULIN LISPRO 100 UNIT/ML 3 ML VIAL SUBCUT SCH ×4 (08:14→23:26)
[2019-08-20] MEDS: AMLODIPINE BESYLATE 5 MG TABLET PO SCH ×2 (09:40→23:00)
--- NOTE | 2019-08-20 12:23 | PDOC PROGRESS REPORT ---
Subjective Progress Note for:: 08/20/19 Subjective:: Patient remains to be lethargic with very poor oral intake. According to her nurses she only eats very little and maybe wakes up once in a while but goes right back to sleep. When I went into her room today she is very lethargic and very hard to arouse. Dr. Morrison has discussed her case with her daughter Ms. Monge and recommends possible hospice. Ms. Monge talked to her nurse today and asked to speak to me. I called Ms. Monge today at [phone]. I explained to her that the patient continues to be very lethargic with poor oral intake which is what we call failure to thrive. I explained to her that at this point Dr. Morrison and myself recommend that we just make the patient comfortable, refer her to hospice and stop dialysis. She seems to understand and tells me that she is going to talk to the rest of the family tonight and make a decision but in the meantime continue what ever redoing. I told her that I am not able to evaluate the patient tomorrow to see if she can skip dialysis tomorrow since she has not really been having extra fluid and in fact we are sometimes giving her fluids. Will reconnect with the family via Ms. Monge tomorrow for decision making and plan of care. Reason For Visit: METABOLIC ENCEPHALOPATY,UTI,HTN,ESRD ON HEMODIALYS Physical Exam Vital Signs: Temp Pulse Resp BP Pulse Ox 97.5 F 91 16 164/64 H 100 08/20/19 08:14 08/20/19 08:14 08/20/19 08:14 08/20/19 08:14 08/20/19 08:14 Intake & Output 08/19/19 08/20/19 08/21/19 06:59 06:59 06:59 Intake Total 175 25 Output Total 600 Balance 175 -575 Weight 43.4 kg 41.4 kg Exam: General appearance: PRESENT: no acute distress, very lethargic and difficult to arouse today Head exam: PRESENT: atraumatic, normocephalic Eye exam: PRESENT: Eyes mostly closed Neck exam: ABSENT: JVD Respiratory exam: PRESENT: Diminished breath sounds. ABSENT: crackles, rales, rhonchi, unlabored, wheezes Cardiovascular exam: PRESENT: Regular rate rhythm -+S1, +S2. ABSENT: diastolic murmur, systolic murmur GI/Abdominal exam: PRESENT: normal bowel sounds, soft. ABSENT: guarding, mass, tenderness Extremities exam: ABSENT: No edema Neurological exam: PRESENT: Very lethargic. Skin exam: PRESENT: dry, warm, Results Laboratory Results: 08/19/19 05:06 08/19/19 05:06 08/16/19 13:16 Clean Catch Midstream Urine Culture - Final Aerococcus Urinae 08/16/19 12:21 Troponin I < 0.012 Impressions: Chest X-Ray 08/16/19 11:10 IMPRESSION: Small effusions and or pleural thickening along with minimal basilar atelectasis. No overt failure. Head CT 08/16/19 11:10 IMPRESSION: CHRONIC CHANGES OF ATROPHY AND MICROVASCULAR ISCHEMIA. NO ACUTE PROCESS. EVIDENCE OF ACUTE STROKE: NO. Assessment & Plan - Diagnosis (1) ESRD (end stage renal disease) on dialysis Is this a current diagnosis for this admission?: Yes Plan: Will reevaluate tomorrow for need for dialysis. Recommend for comfort care via hospice care and stopping dialysis to the family as stated above. (2) Altered mental status Qualifiers: Altered mental status type: unspecified Qualified Code(s): R41.82 - Altered mental status, unspecified Is this a current diagnosis for this admission?: Yes (3) Urinary tract infection Qualifiers: Urinary tract infection type: acute cystitis Hematuria presence: without hematuria Qualified Code(s): N30.00 - Acute cystitis without hematuria Is this a current diagnosis for this admission?: Yes Plan: Urine cultures positive for gram-positive cocci in chains. Currently on IV ceftriaxone. (4) Anemia in chronic kidney disease (CKD) Qualifiers: Chronic kidney disease stage: on chronic dialysis Qualified Code(s): N18.6 - End stage renal disease; D63.1 - Anemia in chronic kidney disease; Z99.2 - Dependence on renal dialysis Is this a current diagnosis for this admission?: Yes Plan: Retacrit only as necessary. (5) Hypertension Qualifiers: Hypertension type: unspecified Qualified Code(s): I10 - Essential (primary) hypertension Is this a current diagnosis for this admission?: Yes Plan: Switch from clonidine patch to clonidine tablets by Dr. Rockwell last Monday. Blood pressure is still uncontrolled and suboptimal. (6) Multinodular goiter (nontoxic) Is this a current diagnosis for this admission?: Yes Plan: Patient's daughter opted for no further intervention. (7) Pulmonary nodules/lesions, multiple Is this a current diagnosis for this admission?: Yes Plan: Patient's daughter also opted for no further intervention for this as well. - Time Time with patient: 15-25 minutes
[2019-08-20] MEDS: CEFTRIAXONE 1 GM/D5W RTU 1 GM/50 ML RTUPB IV SCH (17:28)
[2019-08-20] MEDS: PATIROMER 8.4 GM SUSP PACKET PO SCH (18:11)
--- NOTE | 2019-08-20 20:40 | PDOC PROGRESS REPORT ---
Subjective Progress Note for:: 08/20/19 Subjective:: Patient remain very somnolent today as per nursing staff report. and less appropriate in responses. Medication and Poor PO intake remain a challenge. No reported fever or difficulty with breathing. Reason For Visit: METABOLIC ENCEPHALOPATY,UTI,HTN,ESRD ON HEMODIALYS Physical Exam Vital Signs: Temp Pulse Resp BP Pulse Ox 97.5 F 82 16 147/56 H 100 08/20/19 16:29 08/20/19 16:29 08/20/19 16:29 08/20/19 16:29 08/20/19 16:29 Intake & Output 08/19/19 08/20/19 08/21/19 06:59 06:59 06:59 Intake Total 175 25 170 Output Total 600 Balance 175 -575 170 Weight 43.4 kg 41.4 kg Physical Exam: General appearance: PRESENT: Lethargic. Head exam: PRESENT: atraumatic, normocephalic Eye exam: PRESENT: conjunctiva pink. ABSENT: scleral icterus Ear exam: PRESENT: normal external ear exam Mouth exam: PRESENT: moist Respiratory exam: PRESENT: decreased breath sounds Cardiovascular exam: PRESENT: RRR. ABSENT: diastolic murmur, rubs, systolic murmur Murmur grade: 3 Vascular exam: ABSENT: pallor GI/Abdominal exam: PRESENT: normal bowel sounds, soft. ABSENT: distended, guarding, mass, organomegaly, rebound, tenderness Extremities exam: ABSENT: pedal edema Neurological exam: PRESENT: altered Skin exam: PRESENT: dry, warm Murmur grade: 3 Results Laboratory Results: 08/19/19 05:06 08/19/19 05:06 08/16/19 13:16 Clean Catch Midstream Urine Culture - Final Aerococcus Urinae 08/16/19 12:21 Troponin I < 0.012 Impressions: Chest X-Ray 08/16/19 11:10 IMPRESSION: Small effusions and or pleural thickening along with minimal basilar atelectasis. No overt failure. Head CT 08/16/19 11:10 IMPRESSION: CHRONIC CHANGES OF ATROPHY AND MICROVASCULAR ISCHEMIA. NO ACUTE PROCESS. EVIDENCE OF ACUTE STROKE: NO. Assessment & Plan - Diagnosis (1) Altered mental status Qualifiers: Altered mental status type: unspecified Qualified Code(s): R41.82 - Altered mental status, unspecified Is this a current diagnosis for this admission?: Yes (2) Urinary tract infection Qualifiers: Urinary tract infection type: acute cystitis Hematuria presence: without hematuria Qualified Code(s): N30.00 - Acute cystitis without hematuria Is this a current diagnosis for this admission?: Yes (3) ESRD (end stage renal disease) on dialysis Is this a current diagnosis for this admission?: Yes (4) Anemia in chronic kidney disease (CKD) Qualifiers: Chronic kidney disease stage: on chronic dialysis Qualified Code(s): N18.6 - End stage renal disease; D63.1 - Anemia in chronic kidney disease; Z99.2 - Dependence on renal dialysis Is this a current diagnosis for this admission?: Yes (5) Hypertension Qualifiers: Hypertension type: unspecified Qualified Code(s): I10 - Essential (primary) hypertension Is this a current diagnosis for this admission?: Yes (6) Hypokalemia Is this a current diagnosis for this admission?: Yes (7) Multinodular goiter (nontoxic) Is this a current diagnosis for this admission?: Yes (8) Pulmonary nodules/lesions, multiple Is this a current diagnosis for this admission?: Yes (9) Osteoarthritis involving multiple joints on both sides of body Is this a current diagnosis for this admission?: Yes - Time Time Spent with patient: 25-34 minutes Level of Care: IMCU Medications reviewed and adjusted accordingly: Yes Anticipated discharge: Hospice Within: Other - Inpatient Certification Based on my medical assessment, after consideration of the patient's comorbidities, presenting symptoms, or acuity I expect that the services needed warrant INPATIENT care.: Yes I certify that my determination is in accordance with my understanding of Medicare's requirements for reasonable and necessary INPATIENT services [42 CFR 412.3e].: Yes Medical Necessity: Significant Comorbidiites Make Outpatient Treatment Too Risky, Need Close Monitoring Due to Risk of Patient Decompensation, Need For Continuous Telemetry Monitoring, Need for IV Antibiotics, Risk of Complication if Not Cared For in Hospital, Risk of Diagnosis Which Will Require Inpatient Eval/Care/Monitoring Post Hospital Care: D/C or Transfer Summary - Plan Summary Plan Summary: Continue current medication and supportive care. I had discussion with another one of her daughter, Mrs Nayely Ahuja, and emphasized consideration of hospice placement.
[2019-08-20] MEDS: RISPERIDONE 0.5 MG TAB.RAPDIS PO SCH (23:33)
[2019-08-21] MEDS: HEPARIN SOD (PORCINE) 5,000 UNIT/ML 1 ML VIAL SUBCUT SCH ×3 (06:01→21:44)
[2019-08-21] MEDS: CLONIDINE HCL 0.1 MG TABLET PO SCH ×3 (06:01→21:44)
[2019-08-21] MEDS: PANTOPRAZOLE SODIUM 40 MG TABLET.DR PO SCH (06:01)
[2019-08-21] MEDS: HYDRALAZINE HCL 50 MG TABLET PO SCH ×3 (06:01→21:44)
[2019-08-21 06:45] LABS: BLOOD UREA NITROGEN 14 mg/dL (7-20); CALCIUM 9.1 mg/dL (8.4-10.2); CHLORIDE 99 mmol/L (98-107); GLUCOSE 88 mg/dL (75-110); POTASSIUM 3.1 mmol/L (3.6-5.0)
[2019-08-21 06:56] LABS: ANION GAP 5 (5-19); CARBON DIOXIDE 32 mmol/L (22-30)
[2019-08-21] MEDS: INSULIN LISPRO 100 UNIT/ML 3 ML VIAL SUBCUT SCH ×3 (08:34→17:04)
[2019-08-21] MEDS: AMLODIPINE BESYLATE 5 MG TABLET PO SCH ×2 (09:57→21:44)
[2019-08-21] MEDS ORDERED: POTASSIUM CHLORIDE 20 MEQ PACKET PO ONE (10:00)
--- NOTE | 2019-08-21 11:10 | PDOC PROGRESS REPORT ---
Subjective Progress Note for:: 08/21/19 Subjective:: Patient continues to be intermittently very somnolent. Today she seems to be a little bit more awake though although she keeps her eyes closed she is answering questions for me. Her appetite and oral intake continues to be very poor. She tells me that she just feels tired but no other complaints otherwise. I have talked to the patient's daughter Ms. Bridger Monge for the past 2 days regarding a recommendation to just make the patient comfortable. Still waiting for their decision. Reason For Visit: METABOLIC ENCEPHALOPATY,UTI,HTN,ESRD ON HEMODIALYS Physical Exam Vital Signs: Temp Pulse Resp BP Pulse Ox 97.5 F 58 L 16 144/45 H 100 08/21/19 08:09 08/21/19 08:09 08/21/19 08:09 08/21/19 08:09 08/21/19 08:09 Intake & Output 08/20/19 08/21/19 08/22/19 06:59 06:59 06:59 Intake Total 25 170 Output Total 600 Balance -575 170 Weight 41.4 kg 43.3 kg Exam: General appearance: PRESENT: no acute distress, cooperative, answering questions Head exam: PRESENT: atraumatic, normocephalic Eye exam: PRESENT: Eyes closed Neck exam: ABSENT: JVD Respiratory exam: PRESENT: Diminished breath sounds. ABSENT: crackles, rales, rhonchi, unlabored, wheezes Cardiovascular exam: PRESENT: Regular rate rhythm -+S1, +S2. ABSENT: diastolic murmur, systolic murmur GI/Abdominal exam: PRESENT: normal bowel sounds, soft. ABSENT: guarding, mass, tenderness Extremities exam: ABSENT: No edema Neurological exam: PRESENT: alert, awake, oriented to person, place but not to time. Skin exam: PRESENT: dry, warm, fair skin turgor Results Laboratory Results: 08/19/19 05:06 08/21/19 05:59 08/21/19 05:59 Sodium 136.4 L Potassium 3.1 L Chloride 99 Carbon Dioxide 32 H Anion Gap 5 BUN 14 Creatinine 3.69 H Est GFR ( Amer) 14 L Glucose 88 Calcium 9.1 08/16/19 13:16 Clean Catch Midstream Urine Culture - Final Aerococcus Urinae 08/16/19 12:21 Troponin I < 0.012 Impressions: Chest X-Ray 08/16/19 11:10 IMPRESSION: Small effusions and or pleural thickening along with minimal basilar atelectasis. No overt failure. Head CT 08/16/19 11:10 IMPRESSION: CHRONIC CHANGES OF ATROPHY AND MICROVASCULAR ISCHEMIA. NO ACUTE PROCESS. EVIDENCE OF ACUTE STROKE: NO. Assessment & Plan - Diagnosis (1) ESRD (end stage renal disease) on dialysis Is this a current diagnosis for this admission?: Yes Plan: I will hold dialysis for today. If the patient and family would really wants to continue dialysis despite a recommendation to make the patient is comfort care and hospice I will try to see if we can just do twice a week dialysis while she is here in the hospital and moving forward. Today there is no urgent indication for an renal replacement therapy. Due to poor oral intake I think the patient is actually dry. Will monitor kidney function. (2) Altered mental status Qualifiers: Altered mental status type: unspecified Qualified Code(s): R41.82 - Altered mental status, unspecified Is this a current diagnosis for this admission?: Yes (3) Urinary tract infection Qualifiers: Urinary tract infection type: acute cystitis Hematuria presence: without hematuria Qualified Code(s): N30.00 - Acute cystitis without hematuria Is this a current diagnosis for this admission?: Yes Plan: Urine cultures positive for Aerococcus urinae. Currently on IV ceftriaxone. (4) Hypokalemia Is this a current diagnosis for this admission?: Yes Plan: Potassium replacement. (5) Hypertension Qualifiers: Hypertension type: unspecified Qualified Code(s): I10 - Essential (primary) hypertension Is this a current diagnosis for this admission?: Yes Plan: Switch from clonidine patch to clonidine tablets by Dr. Rockwell last Monday. Blood pressure improved. (6) Anemia in chronic kidney disease (CKD) Qualifiers: Chronic kidney disease stage: on chronic dialysis Qualified Code(s): N18.6 - End stage renal disease; D63.1 - Anemia in chronic kidney disease; Z99.2 - Dependence on renal dialysis Is this a current diagnosis for this admission?: Yes Plan: Retacrit only as necessary on dialysis. (7) Multinodular goiter (nontoxic) Is this a current diagnosis for this admission?: Yes Plan: Patient's daughter opted for no further intervention. (8) Pulmonary nodules/lesions, multiple Is this a current diagnosis for this admission?: Yes Plan: Patient's daughter also opted for no further intervention for this as well. - Time Time with patient: 15-25 minutes
[2019-08-21] MEDS: CEFTRIAXONE 1 GM/D5W RTU 1 GM/50 ML RTUPB IV SCH (14:59)
[2019-08-21] MEDS: RISPERIDONE 0.5 MG TAB.RAPDIS PO SCH (20:15)
--- NOTE | 2019-08-21 22:27 | PDOC PROGRESS REPORT ---
Subjective Progress Note for:: 08/21/19 Subjective:: Patient is more lucid and appropriate in her responses to today. She bargain on improving her oral intake so that she can go home. No reported fever or chill. No chest pain or difficulty with breathing. Reason For Visit: METABOLIC ENCEPHALOPATY,UTI,HTN,ESRD ON HEMODIALYS Physical Exam Vital Signs: Temp Pulse Resp BP Pulse Ox 97.3 F 83 16 148/57 H 100 08/21/19 16:12 08/21/19 16:12 08/21/19 16:12 08/21/19 16:12 08/21/19 16:12 Intake & Output 08/20/19 08/21/19 08/22/19 06:59 06:59 06:59 Intake Total 25 170 75 Output Total 600 Balance -575 170 75 Weight 41.4 kg 43.3 kg Physical Exam: General appearance: PRESENT: Awake, no acute distress Head exam: PRESENT: atraumatic, normocephalic Eye exam: PRESENT: conjunctiva pink. ABSENT: pallor, scleral icterus Ear exam: PRESENT: normal external ear exam Mouth exam: PRESENT: moist Respiratory exam: PRESENT: decreased breath sounds Cardiovascular exam: PRESENT: RRR. ABSENT: diastolic murmur, rubs, systolic murmur Murmur grade: 3 Vascular exam: ABSENT: pallor GI/Abdominal exam: PRESENT: normal bowel sounds, soft. ABSENT: distended, guarding, mass, organomegaly, rebound, tenderness Extremities exam: ABSENT: pedal edema Neurological exam: PRESENT: altered Skin exam: PRESENT: dry, warm Murmur grade: 3 Results Laboratory Results: 08/19/19 05:06 08/21/19 05:59 08/21/19 05:59 Sodium 136.4 L Potassium 3.1 L Chloride 99 Carbon Dioxide 32 H Anion Gap 5 BUN 14 Creatinine 3.69 H Est GFR ( Amer) 14 L Glucose 88 Calcium 9.1 08/16/19 20:51 Blood Blood Culture - Final NO GROWTH IN 5 DAYS 08/16/19 20:18 Blood Blood Culture - Final NO GROWTH IN 5 DAYS 08/16/19 12:21 Troponin I < 0.012 Impressions: Chest X-Ray 08/16/19 11:10 IMPRESSION: Small effusions and or pleural thickening along with minimal basilar atelectasis. No overt failure. Head CT 08/16/19 11:10 IMPRESSION: CHRONIC CHANGES OF ATROPHY AND MICROVASCULAR ISCHEMIA. NO ACUTE PROCESS. EVIDENCE OF ACUTE STROKE: NO. Assessment & Plan - Diagnosis (1) Altered mental status Qualifiers: Altered mental status type: unspecified Qualified Code(s): R41.82 - Altered mental status, unspecified Is this a current diagnosis for this admission?: Yes (2) Urinary tract infection Qualifiers: Urinary tract infection type: acute cystitis Hematuria presence: without hematuria Qualified Code(s): N30.00 - Acute cystitis without hematuria Is this a current diagnosis for this admission?: Yes (3) ESRD (end stage renal disease) on dialysis Is this a current diagnosis for this admission?: Yes (4) Anemia in chronic kidney disease (CKD) Qualifiers: Chronic kidney disease stage: on chronic dialysis Qualified Code(s): N18.6 - End stage renal disease; D63.1 - Anemia in chronic kidney disease; Z99.2 - Dependence on renal dialysis Is this a current diagnosis for this admission?: Yes (5) Hypertension Qualifiers: Hypertension type: unspecified Qualified Code(s): I10 - Essential (primary) hypertension Is this a current diagnosis for this admission?: Yes (6) Hypokalemia Is this a current diagnosis for this admission?: Yes (7) Multinodular goiter (nontoxic) Is this a current diagnosis for this admission?: Yes (8) Pulmonary nodules/lesions, multiple Is this a current diagnosis for this admission?: Yes (9) Osteoarthritis involving multiple joints on both sides of body Is this a current diagnosis for this admission?: Yes - Time Time Spent with patient: 25-34 minutes Level of Care: IMCU Medications reviewed and adjusted accordingly: Yes Anticipated discharge: Home with Homehealth, Hospice Within: Other - Inpatient Certification Based on my medical assessment, after consideration of the patient's comorbidities, presenting symptoms, or acuity I expect that the services needed warrant INPATIENT care.: Yes I certify that my determination is in accordance with my understanding of Medicare's requirements for reasonable and necessary INPATIENT services [42 CFR 412.3e].: Yes Medical Necessity: Significant Comorbidiites Make Outpatient Treatment Too Risky, Need Close Monitoring Due to Risk of Patient Decompensation, Need For Continuous Telemetry Monitoring, Need for IV Antibiotics, Risk of Complication if Not Cared For in Hospital, Risk of Diagnosis Which Will Require Inpatient Eval/Care/Monitoring Post Hospital Care: D/C Enrichment Specialist Documentation - Plan Summary Plan Summary: Continue current medication management. Follow up with her family about decision on hospice placement.
[2019-08-22] MEDS: INSULIN LISPRO 100 UNIT/ML 3 ML VIAL SUBCUT SCH ×5 (01:12→21:24)
[2019-08-22] MEDS: PANTOPRAZOLE SODIUM 40 MG TABLET.DR PO SCH (05:40)
[2019-08-22] MEDS: HYDRALAZINE HCL 50 MG TABLET PO SCH ×3 (05:40→21:13)
[2019-08-22] MEDS: CLONIDINE HCL 0.1 MG TABLET PO SCH ×3 (05:40→21:12)
[2019-08-22] MEDS: HEPARIN SOD (PORCINE) 5,000 UNIT/ML 1 ML VIAL SUBCUT SCH ×3 (05:40→21:25)
--- NOTE | 2019-08-22 08:35 | PDOC PROGRESS REPORT ---
Subjective Progress Note for:: 08/22/19 Subjective:: Patient denied any chest pain or difficulty with breathing. No reported fever or chill. PO intake remain poor. Reason For Visit: METABOLIC ENCEPHALOPATY,UTI,HTN,ESRD ON HEMODIALYS Physical Exam Vital Signs: Temp Pulse Resp BP Pulse Ox 97.8 F 94 16 150/58 H 100 08/22/19 03:23 08/22/19 06:56 08/22/19 03:23 08/22/19 03:23 08/22/19 03:23 Intake & Output 08/21/19 08/22/19 08/23/19 06:59 06:59 06:59 Intake Total 170 75 Balance 170 75 Weight 43.3 kg 42.1 kg Physical Exam: General appearance: PRESENT: Awake, no acute distress Head exam: PRESENT: atraumatic, normocephalic Eye exam: PRESENT: conjunctiva pink. ABSENT: pallor, scleral icterus Ear exam: PRESENT: normal external ear exam Mouth exam: PRESENT: moist Respiratory exam: PRESENT: decreased breath sounds at lung bases. Cardiovascular exam: PRESENT: RRR, systolic murmur. ABSENT: diastolic murmur, rubs, Murmur grade: 3 GI/Abdominal exam: PRESENT: normal bowel sounds, soft. ABSENT: distended, guarding, mass, organomegaly, rebound, tenderness Extremities exam: ABSENT: minimal pedal edema Neurological exam: PRESENT: Alert and appropriate in simple responses. Skin exam: PRESENT: dry, warm Murmur grade: 3 Results Laboratory Results: 08/19/19 05:06 08/21/19 05:59 08/16/19 20:51 Blood Blood Culture - Final NO GROWTH IN 5 DAYS 08/16/19 20:18 Blood Blood Culture - Final NO GROWTH IN 5 DAYS 08/16/19 12:21 Troponin I < 0.012 Impressions: Chest X-Ray 08/16/19 11:10 IMPRESSION: Small effusions and or pleural thickening along with minimal basilar atelectasis. No overt failure. Head CT 08/16/19 11:10 IMPRESSION: CHRONIC CHANGES OF ATROPHY AND MICROVASCULAR ISCHEMIA. NO ACUTE PROCESS. EVIDENCE OF ACUTE STROKE: NO. Assessment & Plan - Diagnosis (1) Altered mental status Qualifiers: Altered mental status type: unspecified Qualified Code(s): R41.82 - Altered mental status, unspecified Is this a current diagnosis for this admission?: Yes (2) Urinary tract infection Qualifiers: Urinary tract infection type: acute cystitis Hematuria presence: without hematuria Qualified Code(s): N30.00 - Acute cystitis without hematuria Is this a current diagnosis for this admission?: Yes (3) ESRD (end stage renal disease) on dialysis Is this a current diagnosis for this admission?: Yes (4) Anemia in chronic kidney disease (CKD) Qualifiers: Chronic kidney disease stage: on chronic dialysis Qualified Code(s): N18.6 - End stage renal disease; D63.1 - Anemia in chronic kidney disease; Z99.2 - Dependence on renal dialysis Is this a current diagnosis for this admission?: Yes (5) Hypertension Qualifiers: Hypertension type: unspecified Qualified Code(s): I10 - Essential (primary) hypertension Is this a current diagnosis for this admission?: Yes (6) Hypokalemia Is this a current diagnosis for this admission?: Yes (7) Multinodular goiter (nontoxic) Is this a current diagnosis for this admission?: Yes (8) Pulmonary nodules/lesions, multiple Is this a current diagnosis for this admission?: Yes (9) Osteoarthritis involving multiple joints on both sides of body Is this a current diagnosis for this admission?: Yes - Time Time Spent with patient: 25-34 minutes Level of Care: IMCU Medications reviewed and adjusted accordingly: Yes Anticipated discharge: Hospice Within: Other - Inpatient Certification Based on my medical assessment, after consideration of the patient's comorbidities, presenting symptoms, or acuity I expect that the services needed warrant INPATIENT care.: Yes I certify that my determination is in accordance with my understanding of Medicare's requirements for reasonable and necessary INPATIENT services [42 CFR 412.3e].: Yes Medical Necessity: Significant Comorbidiites Make Outpatient Treatment Too Risky, Need Close Monitoring Due to Risk of Patient Decompensation, Need For Continuous Telemetry Monitoring, Risk of Complication if Not Cared For in Hospital, Risk of Diagnosis Which Will Require Inpatient Eval/Care/Monitoring Post Hospital Care: D/C Supervisor Phosphoric Acid Documentation, D/C or Transfer Summary - Plan Summary Plan Summary: Continue current medical management and supportive HD. Continue follow up with family regarding disposition plan. Dr. Lucero will cover my service until 08/28/2019.
[2019-08-22] MEDS: AMLODIPINE BESYLATE 5 MG TABLET PO SCH ×2 (09:33→21:12)
[2019-08-22] MEDS: CEFTRIAXONE 1 GM/D5W RTU 1 GM/50 ML RTUPB IV SCH (17:26)
[2019-08-22] MEDS: RISPERIDONE 0.5 MG TAB.RAPDIS PO SCH (21:12)
[2019-08-23] MEDS ORDERED: NORMAL SALINE 1000 ML 1,000 ML IV PRN (05:00)
[2019-08-23] MEDS: PANTOPRAZOLE SODIUM 40 MG TABLET.DR PO SCH (05:41)
[2019-08-23] MEDS: HYDRALAZINE HCL 50 MG TABLET PO SCH ×3 (05:41→21:13)
[2019-08-23] MEDS: CLONIDINE HCL 0.1 MG TABLET PO SCH ×3 (05:41→21:13)
[2019-08-23] MEDS: HEPARIN SOD (PORCINE) 5,000 UNIT/ML 1 ML VIAL SUBCUT SCH ×3 (05:41→21:13)
[2019-08-23 06:07] LABS: ABSOLUTE BASOPHILS # (AUTO) 0.1 10^3/uL (0.0-0.2); ABSOLUTE LYMPHOCYTES (AUTO) 0.6 10^3/uL (0.5-4.7); ABSOLUTE MONOCYTES (AUTO) 0.3 10^3/uL (0.1-1.4); BASOPHILS % (AUTO) 2.4 % (0-2); EOSINOPHILS % (AUTO) 0.9 % (0-6); HEMATOCRIT 35.1 % (36.0-47.0); HEMOGLOBIN 11.4 g/dL (12.0-15.5); LYMPHOCYTES % (AUTO) 14.6 % (13-45); MEAN CORPUSCULAR HEMOGLOBIN 27.1 pg (27.0-33.4); MEAN CORPUSCULAR HGB CONC 32.4 g/dL (32.0-36.0); MEAN CORPUSCULAR VOLUME 84 fl (80-97); MONOCYTES % (AUTO) 8.5 % (3-13); PLATELET COUNT 257 10^3/uL (150-450); RED CELL DISTRIBUTION WIDTH 17.9 % (11.5-14.0); SEGMENTED NEUTROPHILS % (AUTO) 73.6 % (42-78); TOTAL CELLS COUNTED % (AUTO) 100 %; WHITE BLOOD COUNT 4.1 10^3/uL (4.0-10.5)
[2019-08-23 06:23] LABS: ANION GAP 12 (5-19); BLOOD UREA NITROGEN 24 mg/dL (7-20); CALCIUM 9.5 mg/dL (8.4-10.2); CARBON DIOXIDE 27 mmol/L (22-30); CHLORIDE 98 mmol/L (98-107); GLUCOSE 72 mg/dL (75-110); POTASSIUM 4.1 mmol/L (3.6-5.0)
[2019-08-23] MEDS: DEXTROSE 50%-WATER 25 GM/50 ML DISP.SYRIN IV PRN (07:17)
[2019-08-23] MEDS: INSULIN LISPRO 100 UNIT/ML 3 ML VIAL SUBCUT SCH ×4 (09:27→21:14)
--- NOTE | 2019-08-23 09:33 | PDOC PROGRESS REPORT ---
Subjective Progress Note for:: 08/23/19 Subjective:: I am seeing the patient during dialysis this morning. She is again very somnolent and will not even open her eyes today. She continues to have very poor oral intake of solids and liquids. Her initial blood sugar was 76 and she was given 1 amp of D50/50. Repeat blood sugar just now is 83. Her blood pressure is actually improved during dialysis today. She is tolerating dialysis at this time. Still awaiting the family's decision regarding hospice care. Reason For Visit: METABOLIC ENCEPHALOPATY,UTI,HTN,ESRD ON HEMODIALYS Physical Exam Vital Signs: Temp Pulse Resp BP Pulse Ox 97.5 F 103 H 17 166/56 H 100 08/23/19 03:21 08/23/19 07:00 08/23/19 03:21 08/23/19 03:21 08/23/19 03:21 Intake & Output 08/22/19 08/23/19 08/24/19 06:59 06:59 06:59 Intake Total 75 120 Output Total 200 Balance 75 120 -200 Weight 42.1 kg 42.1 kg Vitals during dialysis: Blood pressure 134/64, heart rate of 101, blood flow rate of 425 mL/min and dialysate flow rate of 800 mL/min. Exam: General appearance: PRESENT: no acute distress, cooperative, fairly developed and fairly nourished Head exam: PRESENT: atraumatic, normocephalic Eye exam: PRESENT: Eyes are closed Neck exam: ABSENT: JVD Respiratory exam: PRESENT: Diminished breath sounds. ABSENT: crackles, rales, rhonchi, unlabored, wheezes Cardiovascular exam: PRESENT: Regular rate rhythm -+S1, +S2. ABSENT: diastolic murmur, systolic murmur GI/Abdominal exam: PRESENT: normal bowel sounds, soft. ABSENT: guarding, mass, tenderness Extremities exam: ABSENT: No edema Neurological exam: PRESENT: Somnolent and difficult to arouse. Skin exam: PRESENT: dry, warm, Results Laboratory Results: 08/23/19 05:20 08/23/19 05:20 08/23/19 08/23/19 05:20 05:20 WBC 4.1 RBC 4.20 Hgb 11.4 L Hct 35.1 L MCV 84 MCH 27.1 MCHC 32.4 RDW 17.9 H Plt Count 257 Seg Neutrophils % 73.6 Sodium 136.8 L Potassium 4.1 Chloride 98 Carbon Dioxide 27 Anion Gap 12 BUN 24 H Creatinine 5.58 H Est GFR ( Amer) 9 L Glucose 72 L Calcium 9.5 08/16/19 12:21 Troponin I < 0.012 Impressions: Chest X-Ray 08/16/19 11:10 IMPRESSION: Small effusions and or pleural thickening along with minimal bas ilar atelectasis. No overt failure. Head CT 08/16/19 11:10 IMPRESSION: CHRONIC CHANGES OF ATROPHY AND MICROVASCULAR ISCHEMIA. NO ACUTE PROCESS. EVIDENCE OF ACUTE STROKE: NO. Assessment & Plan - Diagnosis (1) ESRD (end stage renal disease) on dialysis Is this a current diagnosis for this admission?: Yes Plan: We will do dialysis today for 2.5 hours, using the patient's AV fistula, with 3 potassium bath, blood flow rate of 425-450 mL per minute, dialysate flow rate of 800 mL per minute, ultrafiltration 0 to 500 mL as tolerated, no heparin and no Procrit. Patient is being monitored closely throughout dialysis treatment. He still waiting for the family to decide to better do would like to continue treatment versus hospice care. Meanwhile if the family decides to continue dialysis I will change her to just twice a week dialysis. (2) Failure to thrive Is this a current diagnosis for this admission?: Yes Plan: Patient has poor oral intake of both solids and liquids and barely eating. Dr. Morrison and myself have recommended comfort care and hospice care for the patient. However the family has not decided anything yet as of this time. (3) Altered mental status Qualifiers: Altered mental status type: unspecified Qualified Code(s): R41.82 - Altered mental status, unspecified Is this a current diagnosis for this admission?: Yes Plan: Patient remains to be mostly somnolent although occasionally she would wake up for a short period of time. (4) Urinary tract infection Qualifiers: Urinary tract infection type: acute cystitis Hematuria presence: without hematuria Qualified Code(s): N30.00 - Acute cystitis without hematuria Is this a current diagnosis for this admission?: Yes Plan: Urine cultures positive for Aerococcus urinae. Currently on IV ceftriaxone. (5) Hypokalemia Is this a current diagnosis for this admission?: Yes Plan: Potassium replacement. We will use high potassium bath on dialysis. (6) Hypertension Qualifiers: Hypertension type: unspecified Qualified Code(s): I10 - Essential (primary) hypertension Is this a current diagnosis for this admission?: Yes Plan: Switch from clonidine patch to clonidine tablets by Dr. Rockwell last Monday. Blood pressure improved. (7) Anemia in chronic kidney disease (CKD) Qualifiers: Chronic kidney disease stage: on chronic dialysis Qualified Code(s): N18.6 - End stage renal disease; D63.1 - Anemia in chronic kidney disease; Z99.2 - Dependence on renal dialysis Is this a current diagnosis for this admission?: Yes Plan: Retacrit only as necessary on dialysis. (8) Multinodular goiter (nontoxic) Is this a current diagnosis for this admission?: Yes Plan: Patient's daughter opted for no further intervention. (9) Pulmonary nodules/lesions, multiple Is this a current diagnosis for this admission?: Yes Plan: Patient's daughter also opted for no further intervention for this as well. - Time Time with patient: 15-25 minutes
[2019-08-23] MEDS: AMLODIPINE BESYLATE 5 MG TABLET PO SCH ×2 (12:10→21:13)
[2019-08-23] MEDS: CEFTRIAXONE 1 GM/D5W RTU 1 GM/50 ML RTUPB IV SCH (17:28)
[2019-08-23] MEDS: RISPERIDONE 0.5 MG TAB.RAPDIS PO SCH (21:13)
--- NOTE | 2019-08-23 21:25 | PDOC PROGRESS REPORT ---
Subjective Progress Note for:: 08/23/19 Subjective:: Patient is noncommunicative, she does not respond to questions, she does not open her eyes, the nurses said she has been like this all day. She was dialyzed today, she is still a full code, needs family conference to address hospice/palliative care Reason For Visit: METABOLIC ENCEPHALOPATY,UTI,HTN,ESRD ON HEMODIALYS Physical Exam Vital Signs: Temp Pulse Resp BP Pulse Ox 97.4 F 92 14 148/55 H 100 08/23/19 20:05 08/23/19 20:05 08/23/19 20:05 08/23/19 20:05 08/23/19 20:05 Intake & Output 08/22/19 08/23/19 08/24/19 06:59 06:59 06:59 Intake Total 75 120 Output Total 200 Balance 75 120 -200 Weight 42.1 kg 42.1 kg General appearance: PRESENT: no acute distress Respiratory exam: PRESENT: clear to auscultation anais Cardiovascular exam: PRESENT: +S1, +S2 Murmur grade: 3 Neurological exam: PRESENT: altered Results Laboratory Results: 08/23/19 05:20 08/23/19 05:20 08/23/19 08/23/19 05:20 05:20 WBC 4.1 RBC 4.20 Hgb 11.4 L Hct 35.1 L MCV 84 MCH 27.1 MCHC 32.4 RDW 17.9 H Plt Count 257 Seg Neutrophils % 73.6 Sodium 136.8 L Potassium 4.1 Chloride 98 Carbon Dioxide 27 Anion Gap 12 BUN 24 H Creatinine 5.58 H Est GFR ( Amer) 9 L Glucose 72 L Calcium 9.5 08/16/19 12:21 Troponin I < 0.012 Impressions: Chest X-Ray 08/16/19 11:10 IMPRESSION: Small effusions and or pleural thickening along with minimal b asilar atelectasis. No overt failure. Head CT 08/16/19 11:10 IMPRESSION: CHRONIC CHANGES OF ATROPHY AND MICROVASCULAR ISCHEMIA. NO ACUTE PROCESS. EVIDENCE OF ACUTE STROKE: NO. Assessment & Plan - Diagnosis (1) Metabolic encephalopathy Is this a current diagnosis for this admission?: Yes (2) ESRD (end stage renal disease) Is this a current diagnosis for this admission?: Yes - Time Time Spent with patient: 15-24 minutes Level of Care: IMCU
[2019-08-24] MEDS: PANTOPRAZOLE SODIUM 40 MG TABLET.DR PO SCH (05:57)
[2019-08-24] MEDS: HYDRALAZINE HCL 50 MG TABLET PO SCH ×3 (05:57→21:00)
[2019-08-24] MEDS: CLONIDINE HCL 0.1 MG TABLET PO SCH ×3 (05:57→21:00)
[2019-08-24] MEDS: HEPARIN SOD (PORCINE) 5,000 UNIT/ML 1 ML VIAL SUBCUT SCH ×3 (05:58→21:05)
[2019-08-24] MEDS: INSULIN LISPRO 100 UNIT/ML 3 ML VIAL SUBCUT SCH ×4 (08:44→22:00)
[2019-08-24] MEDS: AMLODIPINE BESYLATE 5 MG TABLET PO SCH ×2 (10:02→21:00)
--- NOTE | 2019-08-24 17:04 | PDOC PROGRESS REPORT ---
Subjective Progress Note for:: 08/24/19 Subjective:: Patient is more responsive today compared to yesterday Reason For Visit: METABOLIC ENCEPHALOPATY,UTI,HTN,ESRD ON HEMODIALYS Physical Exam Vital Signs: Temp Pulse Resp BP Pulse Ox 98.0 F 95 12 157/57 H 93 08/24/19 12:11 08/24/19 14:00 08/24/19 12:11 08/24/19 12:11 08/24/19 12:11 Intake & Output 08/23/19 08/24/19 08/25/19 06:59 06:59 06:59 Intake Total 120 50 Output Total 200 Balance 120 -150 Weight 42.1 kg 42.4 kg General appearance: PRESENT: no acute distress Eye exam: PRESENT: PERRLA Respiratory exam: PRESENT: clear to auscultation anais Cardiovascular exam: PRESENT: +S1, +S2 Murmur grade: 3 Results Laboratory Results: 08/23/19 05:20 08/23/19 05:20 08/16/19 12:21 Troponin I < 0.012 Impressions: Chest X-Ray 08/16/19 11:10 IMPRESSION: Small effusions and or pleural thickening along with minimal basilar atelectasis. No overt failure. Head CT 08/16/19 11:10 IMPRESSION: CHRONIC CHANGES OF ATROPHY AND MICROVASCULAR ISCHEMIA. NO ACUTE PROCESS. EVIDENCE OF ACUTE STROKE: NO. Assessment & Plan - Diagnosis (1) Metabolic encephalopathy Is this a current diagnosis for this admission?: Yes (2) ESRD (end stage renal disease) Is this a current diagnosis for this admission?: Yes - Time Time Spent with patient: 15-24 minutes Level of Care: IMCU
[2019-08-24] MEDS: RISPERIDONE 0.5 MG TAB.RAPDIS PO SCH (20:58)
[2019-08-25] MEDS: HEPARIN SOD (PORCINE) 5,000 UNIT/ML 1 ML VIAL SUBCUT SCH ×3 (05:17→21:17)
[2019-08-25] MEDS: PANTOPRAZOLE SODIUM 40 MG TABLET.DR PO SCH (05:17)
[2019-08-25] MEDS: HYDRALAZINE HCL 50 MG TABLET PO SCH ×4 (05:17→21:23)
[2019-08-25] MEDS: CLONIDINE HCL 0.1 MG TABLET PO SCH ×4 (05:17→21:23)
[2019-08-25] MEDS: INSULIN LISPRO 100 UNIT/ML 3 ML VIAL SUBCUT SCH ×4 (08:26→21:20)
[2019-08-25] MEDS: AMLODIPINE BESYLATE 5 MG TABLET PO SCH ×3 (09:46→21:23)
--- NOTE | 2019-08-25 17:19 | PDOC PROGRESS REPORT ---
Subjective Progress Note for:: 08/25/19 Subjective:: Patient seen by the bedside no new complaints Reason For Visit: METABOLIC ENCEPHALOPATY,UTI,HTN,ESRD ON HEMODIALYS Physical Exam Vital Signs: Temp Pulse Resp BP Pulse Ox 97.8 F 84 12 169/73 H 100 08/25/19 12:10 08/25/19 14:00 08/25/19 12:10 08/25/19 12:10 08/25/19 12:10 Intake & Output 08/24/19 08/25/19 08/26/19 06:59 06:59 06:59 Intake Total 50 600 Output Total 200 Balance -150 600 Weight 42.4 kg 41.4 kg General appearance: PRESENT: no acute distress Eye exam: PRESENT: PERRLA Respiratory exam: PRESENT: clear to auscultation anais Cardiovascular exam: PRESENT: +S1, +S2 Murmur grade: 3 GI/Abdominal exam: PRESENT: soft Neurological exam: PRESENT: alert Results Laboratory Results: 08/23/19 05:20 08/23/19 05:20 08/16/19 12:21 Troponin I < 0.012 Impressions: Chest X-Ray 08/16/19 11:10 IMPRESSION: Small effusions and or pleural thickening along with minimal basilar atelectasis. No overt failure. Head CT 08/16/19 11:10 IMPRESSION: CHRONIC CHANGES OF ATROPHY AND MICROVASCULAR ISCHEMIA. NO ACUTE PROCESS. EVIDENCE OF ACUTE STROKE: NO. Assessment & Plan - Diagnosis (1) Metabolic encephalopathy Is this a current diagnosis for this admission?: Yes (2) ESRD (end stage renal disease) Is this a current diagnosis for this admission?: Yes - Time Time Spent with patient: 15-24 minutes Level of Care: IMCU
[2019-08-25] MEDS: RISPERIDONE 0.5 MG TAB.RAPDIS PO SCH (20:58)
[2019-08-26] MEDS ORDERED: NORMAL SALINE 1000 ML 1,000 ML IV PRN (05:00)
[2019-08-26] MEDS ORDERED: LORAZEPAM INJ 2 MG/1 ML VIAL ONE ×2 (05:57→06:03)
[2019-08-26 06:09] LABS: HEMATOCRIT 38.9 % (36.0-47.0); MEAN CORPUSCULAR HEMOGLOBIN 27.7 pg (27.0-33.4); MEAN CORPUSCULAR HGB CONC 33.5 g/dL (32.0-36.0); MEAN CORPUSCULAR VOLUME 83 fl (80-97); PLATELET COUNT 288 10^3/uL (150-450); RED BLOOD COUNT 4.71 10^6/uL (3.72-5.28); RED CELL DISTRIBUTION WIDTH 18.2 % (11.5-14.0); WHITE BLOOD COUNT 5.8 10^3/uL (4.0-10.5)
[2019-08-26] MEDS ORDERED: LEVETIRACETAM INJ/PF 500 MG/5 ML SDV IV ONE (06:18)
[2019-08-26 06:32] LABS: ANION GAP 14 (5-19); BLOOD UREA NITROGEN 30 mg/dL (7-20); CALCIUM 10.2 mg/dL (8.4-10.2); CARBON DIOXIDE 24 mmol/L (22-30); CHLORIDE 98 mmol/L (98-107); GLUCOSE 104 mg/dL (75-110); POTASSIUM 4.8 mmol/L (3.6-5.0)
[2019-08-26] MEDS ORDERED: ETOMIDATE INJ/PF 20 MG/10 ML SDV IV ONE ×2 (06:42→06:50)
[2019-08-26] MEDS ORDERED: PROPOFOL 1,000 MG/100 ML INFUS..BTL IV ONE (06:46)
--- NOTE | 2019-08-26 07:08 | Operative Report ---
Bedside Procedure - History of Present Illness Indication for Procedure: Acute Hypoxic Respiratory Failure Date: 08/26/19 Provider: RAMOS SMITH - Additional Procedures Intubation Time performed: 06:53 Notes: INDICATION: Acute hypoxic respiratory failure PROCEDURE SURGICAL FIRST ASSISTANT: KIRT Reed CONSENT: Emergent PROCEDURE SUMMARY: . Rapid Sequence Intubation was conducted. The patient received 20mg of Etomidate for induction. Cricoid pressure was maintained from time induction agent was given to time of cuff balloon inflation. Using a MAC 4 laryngoscope and a size _7.5 endotracheal tube with stylet, the patient was intubated on the 1 attempt. The stylet was removed and cuff balloon was inflated. Appropriate endotracheal tube position was confirmed by direct visualization of vocal cord passage, CO2 colometric indicator and symmetric breath sounds. The tube was secured at 22 cm at the teeth. Post intubation chest x-ray is pending at this time.
--- NOTE | 2019-08-26 07:13 | RADIOLOGY REPORT (SQ) ---
CT head without contrast on 08/26/2019 at 6:26 AM CLINICAL INDICATION: Stroke, seizure TECHNIQUE: Multiple axial images are obtained throughout the head without the administration of contrast. This exam was performed according to our departmental dose-optimization program, which includes automated exposure control, adjustment of the mA and/or kV according to patient size and/or use of iterative reconstruction technique. Total DLP is 963.96 mGy*cm. 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 There is no hydrocephalus. 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 There is no CT evidence of acute infarct. There is no hemorrhage. There are no abnormal extra-axial fluid collections. There is no mass, mass effect or midline shift. No bony abnormality is noted. IMPRESSION: Stable exam with no acute intracranial abnormality.
--- NOTE | 2019-08-26 08:35 | RADIOLOGY REPORT (SQ) ---
EXAM DESCRIPTION: CHEST SINGLE VIEW IMAGES COMPLETED DATE/TIME: 08/26/2019 8:23 am REASON FOR STUDY: ETT placement, OG placement COMPARISON: 08/16/2019. EXAM PARAMETERS: NUMBER OF VIEWS: One view. TECHNIQUE: Single frontal radiographic view of the chest acquired. RADIATION DOSE: NA LIMITATIONS: None. FINDINGS: LUNGS AND PLEURA: Faint basilar densities, left greater than right. Left pleural effusion . MEDIASTINUM AND HILAR STRUCTURES: No masses. Contour normal. HEART AND VASCULAR STRUCTURES: Heart normal in size. Normal vasculature. BONES: No acute findings. HARDWARE: Endotracheal tube, tip located 3 cm proximal to the meenu. Nasogastric tube, tip in stoma ch. Vascular stent in the right axilla and right upper extremity. OTHER: No other significant finding. IMPRESSION: 1. SATISFACTORY POSITION OF THE LIFE LINES. 2. FAINT BASILAR DENSITIES, LEFT GREATER THAN RIGHT. ATELECTASIS AND/OR INFILTRATE. SMALL LEFT PLEU RAL EFFUSION. TECHNICAL DOCUMENTATION: JOB ID: [id number] 2010 [employer]- All Rights Reserved Reading location - IP/workstation name: [email or web address]
[2019-08-26] MEDS ORDERED: LEVETIRACETAM 500 MG/NACL-ISO 500 MG/100 ML RTUPB IV SCH (10:00)
--- NOTE | 2019-08-26 11:52 | CRITICAL CARE ADMISSION REPORT ---
HPI Date:: 08/26/19 Time:: 07:00 Reason for ICU Reason:: Unresponsive, possible seizure HPI: DIANNE MUNOZ is a 89 year old female admitted from the emergency room on 08/16/2023 change in mental status. According to reports and family patient was at dialysis when her blood pressure was noted to be elevated and she became somewhat unresponsive. At approximately 05 50 this morning a rapid response was called by the patient's nurse because she appeared to be having a tonic-clonic generalized seizure. Nursing notes are reviewed: "Rapid called at 0550 by RN, stated patient had been jerking and unresponsive Seizure activity noted, jerking with eyes deviated to the right, pupils were 5 and not responsive, attempted x 4 for IV access, unable to establish access, drilled I/O by Nicanor Fraga into right medial aspect of tibia. positive blood aspirated and no swelling note to tissue, easily flushed. Ativan 1 mg given IV as ordered by [employer] MACHINE FEEDER, no change in seizure like activity, 2nd mg of Ativan pushed IV through access. Jennifer was called and received order to transfer to ICU, he spoke to Derian Mendoza NP. Pt taken via bed with 100% non rebreather to CT by Mahamed ospina RN and Gabi, Tech with Derian Mendoza [employer]INE [employer]EDER in attendance. Pt became less responsive and stopped seizure like activity, shallow respirations..." She ultimately required intubation secondary to prolonged unresponsiveness. Glucose noted to be 104 no evidence of insulin being given recently. I reviewed the nursing notes from the night before and note that the patient refused her blood pressure medications and had episodes of tachycardia with notable blood pressure elevation at approximately 0321 of 230/110. She continued to refuse medications and was somewhat reasonable with the nurses. At approximately 355 she began to have some type of symptomatology and began crying out and yelling. She had changed her mind and wanted to take her pills. The nurse prepared them for her but again the patient refused. Approximately 358 her heart rate was noted to be 151. At approximately 535 the RN entered the room and found the patient seizing. He was holding her eyes wide open with what appeared to be rightward gaze and grunting. I have met with the family today to discuss the patient's overall baseline status. They state that she has had a steady decline in her health and has had episodes of mental status changes at home. After some time they appear to resolve. She has been more lethargic than usual. Suggestion by primary provider on the medical floor felt that this may be related to clonidine patch. I reviewed her medical progress notes from the day of admission. Seems to be intermittent times of return to normalcy followed by more lethargy. From the medical progress note on August 18 and somnolence and lethargy are noted by both the primary care physician and the nephrology team. The note on August 20 shows a lucid somewhat back to baseline patient in discussion about discharge home was begun. This lucidity continued until August 22 where she was again noted to be somnolent prior to dialysis. August 23 she was more responsive. I also reviewed her CT scans of the brain from as far back as 2014. 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 Fortunately unable to obtain any history from the patient because she is currently intubated. Since intubation and the instillation of IV Keppra there is been no further seizure activity noted. Patient receives dialysis on Mondays and Fridays because of her weakened state. Discussion with nephrology service revealed that the patient has not been eating well and they have not been taking an excessive amount of fluid during hemofiltration. Patient currently sedated on propofol and this is been discontinued to follow n eurological examination. - Diagnosis/Plan (1) Coma scale finding of flexion withdrawal as best motor response Qualifiers: Coma timin hours or more after hospital admission Qualified Code(s): R40.2344 - Coma scale, best motor response, flexion withdrawal, 24 hours or more after hospital admission Is this a current diagnosis for this admission?: Yes (2) Tonic-clonic generalized seizure Is this a current diagnosis for this admission?: Yes (3) Acute respiratory failure with hypoxia and hypercapnia Is this a current diagnosis for this admission?: Yes (4) Metabolic encephalopathy Is this a current diagnosis for this admission?: Yes (5) Hypertensive emergency without congestive heart failure Is this a current diagnosis for this admission?: Yes (6) Acute renal failure superimposed on chronic kidney disease, on chronic dialysis Is this a current diagnosis for this admission?: Yes (7) Failure to thrive syndrome, adult Is this a current diagnosis for this admission?: Yes (8) Protein-calorie malnutrition, moderate Is this a current diagnosis for this admission?: Yes Plan Summary: Respiratory: Patient appeared to have developed hypercapnia and required bag mask valve ventilation for hypoxia as well. Suitability for liberation from mechanical ventilation will be adjudicated based on her neurological status, arterial blood gas analysis and overall condition. Concern for aspiration will also need to be undertaken. Chest x-ray shows ET tube in appropriate position and no evidence for aspiration on first chest x-ray. Infectious: Patient was labeled as having a urinary tract infection but only had 5 white blood cells. This appears to be related to leukocyte esterase noted. She has not been on antibiotics and at this point do not feel there is any compelling indication for the use of antibiotics. Will check urinalysis from a protected specimen and follow accordingly. Cardiac: Patient had significant hypertension which may have precipitated events this morning. Concerned that the clonidine is causing mental status changes and have discontinued this. We will have to watch for rebound tachycardia. Patient currently is on Norvasc and hydralazine and will follow its effects. We will add other anti-hypertensive medications as sedation is weaned and her situation is further evaluated. Awaiting EKG. Hematologic: Patient has anemia related to chronic disease. No active issues requiring treatment other than management with iron supplementation. Endocrine: Patient does have noted thyroid nodule. Family has declined any work-up for this. There is also a questionable lung nodule all suggestive of metastatic thyroid cancer. Again the family has declined any further work-up. Renal: Patient is to have dialysis today. To new to monitor for electrolyte abnormalities. She is only been having dialysis twice a week because of her frail metabolic process and failure to thrive. The renal and primary care services have begun discussions for transition to palliative and hospice care. Family would like dialysis today but understand that it is not advisable to continue given her weakened state. Metabolic: There does not appear to be any acute hyperkalemia. ABG is still pending. We will continue to monitor and follow. Check ammonia level as well. Watch for refeeding syndrome as nutrition is started while on mechanical ventilation Alimentary: Patient has failure to thrive and has had limited enteral intake. Have started Nepro and will watch for refeeding syndrome. Neurologic: Patient appears to have developed a seizure disorder possibly related to previous infarct region in the don[place]ue radiata and also multiple areas of microvascular disease. The possibility of press syndrome will also need to be entertained and will control blood pressure. Patient has had continued decline in her care but has had moments of lucidity. This does not appear to be a neurologic process brought on by an infectious etiology. That being said when discussing the diagnostic differential the family declined any work-up such as lumbar puncture. This would also be ill advised given her frail state and obvious osteo-sclerotic spine. Will wean propofol and follow neurological exam. Continue Keppra however would not escalate dose given the patient's age and renal failure. EEG ordered. Check ammonia level Sedation: Will possibly transition to Precedex after full evaluation off propofol. Lines/Tubes: Patient has very poor IV access and in fact has no IVs currently in place. She had an intraosseous needle placed during her rapid response. Have discussed this with the family and discussed the possibility of infection and the need for the catheter for 24 hours or less. They have agreed to central access if IV access cannot be found. Other: Have discussed with the family regarding patient's CODE STATUS. The patient had requested full aggressive measures in the event of cardiopulmonary arrest. That being said she also requested not to be maintained on life support. I am not sure that she is in complete understanding. I discussed with the family the fact that any CPR would be most certainly followed by significant rib fractures and sternal fractures and possible complications related to this. I have encouraged them to make the patient DNR and should she be extubated DNI. They will discuss this and let us know. Family has given consent for central venous access if needed. Past Medical History Cardiac Medical History: Reports: Hypertension Denies: Coronary Artery Disease, Myocardial Infarction Pulmonary Medical History: Reports: Other - CT chest on 07/15/2019, solid non- cavitary nodules on RUL,lingula & LLL Denies: Asthma, Bronchitis, Chronic Obstructive Pulmonary Disease (COPD), Pneumonia, Tuberculosis Neurological Medical History: Denies: Seizures Endocrine Medical History: Reports: Other - Thyroid ultrasound 07/25/2019 with multinodular goiter Renal/ Medical History: Reports: End Stage Renal Disease GI Medical History: Denies: Hepatitis, Hiatal Hernia Musculoskeltal Medical History: Reports: Arthritis, Gout Psychiatric Medical History: Reports: Depression Hematology: Reports: Anemia - HX, Sickle Cell Disease - TRAIT Past Surgical History Past Surgical History: Reports: Hysterectomy, Tonsillectomy, Vascular Surgery - PermCath placement Denies: Amputation, Mastectomy - RIGHT RESTRICTED, Pacemaker Social/Family History - Social History Smoking Status: Unknown if Ever Smoked Frequency of Alcohol Use: None Hx Recreational Drug Use: No Drugs: None Hx Prescription Drug Abuse: No - Medication/Allergies Home Medications: Patiromer Calcium Sorbitex [Veltassa 8.4 gm Susp Packet] 1 each PO DAILY 07/15/19 Risperidone [Risperdal M-Tab 0.5 mg Odt Tablet] 0.5 mg PO QPM 07/15/19 Sucroferric Oxyhydroxide [Velphoro] 500 mg PO AC 07/15/19 Amlodipine Besylate [Norvasc 5 mg Tablet] 5 mg PO Q12 #60 tablet 07/31/19 Hydralazine HCl [Apresoline 50 mg Tablet] 100 mg PO Q8 #90 tablet 07/31/19 Clonidine [Catapres-Tts 3 (0.3 mg/24 Hr) Transderm Patch] 1 each TD HALL@1000 08/16/19 Allergies/Adverse Reactions: No Known Allergies Allergy (Verified 08/16/19 11:31) Review of Systems ROS unobtainable: Due to endotracheal tube, Due to mental status Physical Exam Vital Signs: Temp Pulse Resp BP Pulse Ox 97.9 F 116 H 12 163/93 H 100 08/26/19 08:00 08/26/19 08:00 08/26/19 08:00 08/26/19 08:00 08/26/19 08:36 Intake & Output 08/25/19 08/26/19 08/27/19 06:59 06:59 06:59 Intake Total 600 Output Total 0 Balance 600 0 Weight 41.4 kg Weight/Height Weight 41.4 kg Height 5 ft General appearance: PRESENT: no acute distress, thin Exam: Intubated frail elderly thin malnourished appearing 89-year-old black female no active distress. No active seizures noted. Head exam: PRESENT: atraumatic, normocephalic Eye exam: PRESENT: conjunctiva pink, nystagmus, PERRLA. ABSENT: conjunctival injection, scleral icterus Ear exam: PRESENT: normal external ear exam Mouth exam: PRESENT: moist, neck supple Teeth exam: PRESENT: edentulous Neck exam: ABSENT: carotid bruit, JVD, lymphadenopathy, meningismus, t hyromegaly, tracheal deviation Respiratory exam: PRESENT: clear to auscultation anais, unlabored. ABSENT: accessory muscle use, rales, rhonchi, wheezes Cardiovascular exam: PRESENT: RRR, +S1, +S2, tachycardia Vascular exam: PRESENT: normal capillary refill GI/Abdominal exam: PRESENT: normal bowel sounds, soft. ABSENT: ascites, distended, guarding, mass, organolmegaly, rebound, tenderness Rectal exam: PRESENT: deferred Extremities exam: ABSENT: joint swelling, tenderness Musculoskeletal exam: PRESENT: other - Right arm AV fistula noted. Palpable thrill audible bruit. ABSENT: deformity, dislocation Neurological exam: PRESENT: altered, other - Patient currently comatose. [place] Coma Scale is 1-1i-5:7T. She moves all extremities to noxious stimulus but not to command. There appears to be no focal deficits. There is no eye deviation. There was mild nystagmus which resolved. DTRs are unresponsive. Babinski's down. No abnormal seizure activity is noted. Skin exam: PRESENT: intact. ABSENT: cyanosis, erythema, jaundice, petechiae Tubes/Lines: PRESENT: Endotracheal Tube, Other - Thomas type urinary catheter; orogastric tube Laboratory/Radiographs Laboratory Results: 08/26/19 05:22 08/26/19 05:22 08/26/19 08/26/19 05:22 05:22 WBC 5.8 RBC 4.71 Hgb 13.0 Hct 38.9 MCV 83 MCH 27.7 MCHC 33.5 RDW 18.2 H Plt Count 288 Sodium 135.6 L Potassium 4.8 Chloride 98 Carbon Dioxide 24 Anion Gap 14 BUN 30 H Creatinine 5.70 H Est GFR ( Amer) 8 L Glucose 104 Calcium 10.2 08/16/19 12:21 Troponin I < 0.012 Impressions: Head CT 08/26/19 00:00 IMPRESSION: Stable exam with no acute intracranial abnormality. Chest X-Ray 08/26/19 08:15 IMPRESSION: 1. SATISFACTORY POSITION OF THE LIFE LINES. 2. FAINT BASILAR DENSITIES, LEFT GREATER THAN RIGHT. ATELECTASIS AND/OR INFILTRATE. SMALL LEFT PLEURAL EFFUSION. All labs, radiographs, diagnostic studies and EKGs were personally reviewed: Yes In addition, reports of radiographic and diagnostic studies were read: Yes Critical Time Critical Time (minutes): 90 -: The care of a critically ill patient is dynamic. This note represents a static moment in the admission process. Orders and treatments may be given simultaneously and urgently, and time is not internet sales representative of the treatment process. This patient requires Critical Care secondary to life threatening organ or limb dysfunction. Without Critical Care services, the patient is at risk for inc reased mortality and morbidity.
--- NOTE | 2019-08-26 12:04 | PDOC PROGRESS REPORT ---
Subjective Progress Note for:: 08/26/19 Subjective:: Events overnight and over the weekend noted. Last night the patient had refused her medications repeatedly. She was tachycardic and bradycardic intermittently throughout the hot box operator hours. She subsequently start having what was thought was seizure activity and subsequently became unresponsive. She she was subsequently intubated and transferred here in the intensive care unit. She did not have any IV line so she had the intraosseous line. Currently she is on minimal sedation. Her daughter, Ms. Bridger Monge was on bedside when I saw her initially this morning. I had previously discussed with her a recommendation of doing comfort care and possible hospice and stopping dialysis treatment but they have not decided on anything yet. This morning I discussed with her along with Dr. Art as to what our treatment plan would be. Ms. Monge stated that they have not did not decided on anything at this time and would like to have dialysis today. I reminded her that for the last week that they have seen the patient she has not significantly eaten much nor drink fluids. She will again discuss it with her family. I am seeing the patient currently well on dialysis. This seems to be trying to wake up while still intubated. She is on Diprivan drip. She is also tachycardic. We are not getting any ultrafiltration. Reason For Visit: METABOLIC ENCEPHALOPATY,UTI,HTN,ESRD ON HEMODIALYS Physical Exam Vital Signs: Temp Pulse Resp BP Pulse Ox 97.9 F 118 H 15 158/98 H 100 08/26/19 08:00 08/26/19 10:00 08/26/19 10:00 08/26/19 10:08/26/19 11:11 Intake & Output 08/25/19 08/26/19 08/27/19 06:59 06:59 06:59 Intake Total 600 Output Total 0 Balance 600 0 Weight 41.4 kg Vitals during dialysis: Blood pressure 196/103, hearte rate of 132, respiration of 17, oxygen saturation of 100% with FiO2 of 40%. Her blood flow rate of 450 mL/min and dialysate flow rate of 800 mL/min. Exam: General appearance: PRESENT: Intubated on mild sedation Head exam: PRESENT: atraumatic, normocephalic Eye exam: PRESENT: conjunctiva pink, PERRLA. ABSENT: scleral icterus Neck exam: ABSENT: JVD Respiratory exam: PRESENT: Diminished breath sounds. ABSENT: crackles, rales, rhonchi, unlabored, wheezes Cardiovascular exam: PRESENT: Regular rate rhythm -+S1, +S2. ABSENT: diastolic murmur, systolic murmur GI/Abdominal exam: PRESENT: normal bowel sounds, soft. ABSENT: guarding, mass, tenderness Extremities exam: ABSENT: No edema Neurological exam: PRESENT: With minimal sedation while intubated. Skin exam: PRESENT: dry, warm, fair skin turgor Results Laboratory Results: 08/26/19 05:22 08/26/19 05:22 08/26/19 08/26/19 05:22 05:22 WBC 5.8 RBC 4.71 Hgb 13.0 Hct 38.9 MCV 83 MCH 27.7 MCHC 33.5 RDW 18.2 H Plt Count 288 Sodium 135.6 L Potassium 4.8 Chloride 98 Carbon Dioxide 24 Anion Gap 14 BUN 30 H Creatinine 5.70 H Est GFR ( Amer) 8 L Glucose 104 Calcium 10.2 08/16/19 12:21 Troponin I < 0.012 Impressions: Head CT 08/26/19 00:00 IMPRESSION: Stable exam with no acute intracranial abnormality. Chest X-Ray 08/26/19 08:15 IMPRESSION: 1. SATISFACTORY POSITION OF THE LIFE LINES. 2. FAINT BASILAR DENSITIES, LEFT GREATER THAN RIGHT. ATELECTASIS AND/OR INFILTRATE. SMALL LEFT PLEURAL EFFUSION. Assessment & Plan - Diagnosis (1) ESRD (end stage renal disease) on dialysis Is this a current diagnosis for this admission?: Yes Plan: We will do dialysis today for 2.5 hours, using the patient's AV fistula, with 2 potassium bath, blood flow rate of 425-450 mL per minute, dialysate flow rate of 800 mL per minute, no ultrafiltration , no heparin and no Retacrit. Patient is being monitored closely throughout dialysis treatment. As I mentioned previously, I recommended that patient made to be made just comfort care only and place on hospice and stop dialysis. I discussed this with the our dump attendant Dr. Art who is in agreement. Ms. Monge will discuss it with the rest of the family. (2) Failure to thrive Is this a current diagnosis for this admission?: Yes Plan: Patient has poor oral intake of both solids and liquids and barely eating. Dr. Morrison and myself have recommended comfort care and hospice care for the patient. However the family has not decided anything yet as of this time. (3) Altered mental status Qualifiers: Altered mental status type: unspecified Qualified Code(s): R41.82 - Altered mental status, unspecified Is this a current diagnosis for this admission?: Yes Plan: Patient has been mostly somnolent and lethargic for the whole week that she has been here in the hospital. Currently with minimal sedation while intubated. (4) Urinary tract infection Qualifiers: Urinary tract infection type: acute cystitis Hematuria presence: without hematuria Qualified Code(s): N30.00 - Acute cystitis without hematuria Is this a current diagnosis for this admission?: Yes Plan: Urine cultures positive for Aerococcus urinae. Was treated with IV ceftriaxone. (5) Hypokalemia Is this a current diagnosis for this admission?: Yes Plan: Resolved. (6) Hypertension Qualifiers: Hypertension type: unspecified Qualified Code(s): I10 - Essential (primary) hypertension Is this a current diagnosis for this admission?: Yes Plan: Switch from clonidine patch to clonidine tablets by Dr. Rockwell last Monday last week. Currently elevated blood pressure due to the patient's refusal to take he r medications last night. Will probably need IV blood pressure medications while intubated. (7) Anemia in chronic kidney disease (CKD) Qualifiers: Chronic kidney disease stage: on chronic dialysis Qualified Code(s): N18.6 - End stage renal disease; D63.1 - Anemia in chronic kidney disease; Z99.2 - Dependence on renal dialysis Is this a current diagnosis for this admission?: Yes Plan: Retacrit only as necessary on dialysis. (8) Seizure Is this a current diagnosis for this admission?: Yes Plan: Deferred to dump attendant. (9) Multinodular goiter (nontoxic) Is this a current diagnosis for this admission?: Yes Plan: Patient's daughter opted for no further intervention. (10) Pulmonary nodules/lesions, multiple Is this a current diagnosis for this admission?: Yes Plan: Patient's daughter also opted for no further intervention for this as well. - Time Time with patient: 15-25 minutes
[2019-08-26] MEDS ORDERED: METOPROLOL TARTRATE PF/INJ 5 MG/5 ML SDV IV ONE (12:30)
[2019-08-26] MEDS ORDERED: FENTANYL CITRATE INJ/PF 100 MCG/2 ML AMPUL IV ONE (12:30)
--- NOTE | 2019-08-26 13:18 | EKG REPORT ---
SEVERITY:- ABNORMAL ECG - SINUS TACHYCARDIA PROBABLE LEFT ATRIAL ABNORMALITY PROBABLE LVH WITH SECONDARY REPOL ABNRM ST DEPRESSION, PROBABLY RATE RELATED : Confirmed by: Aiden Fatima MD 26-Aug-2019 13:17:55
[2019-08-26] MEDS: HYDRALAZINE HCL 50 MG TABLET PO SCH ×3 (13:34→22:16)
[2019-08-26] MEDS: HEPARIN SOD (PORCINE) 5,000 UNIT/ML 1 ML VIAL SUBCUT SCH ×3 (13:35→22:15)
[2019-08-26] MEDS: CLONIDINE HCL 0.1 MG TABLET PO SCH (13:35)
[2019-08-26] MEDS: PANTOPRAZOLE SODIUM 40 MG TABLET.DR PO SCH (13:36)
[2019-08-26] MEDS: INSULIN LISPRO 100 UNIT/ML 3 ML VIAL SUBCUT SCH ×3 (14:38→22:17)
[2019-08-26] MEDS ORDERED: NORMAL SALINE INJ/PF 0.9% 10 ML SDV IV PRN (14:56)
--- NOTE | 2019-08-26 15:36 | RADIOLOGY REPORT (SQ) ---
EXAM DESCRIPTION: CHEST SINGLE VIEW IMAGES COMPLETED DATE/TIME: 08/26/2019 3:22 pm REASON FOR STUDY: line placement COMPARISON: 08/26/2019 EXAM PARAMETERS: NUMBER OF VIEWS: One view. TECHNIQUE: Single frontal radiographic view of the chest acquired. RADIATION DOSE: NA LIMITATIONS: None. FINDINGS: LUNGS AND PLEURA: No opacities, masses or pneumothorax. No pleural effusion. MEDIASTINUM AND HILAR STRUCTURES: No masses. Contour normal. HEART AND VASCULAR STRUCTURES: Heart normal in size. Normal vasculature. BONES: No acute findings. HARDWARE: Endotracheal tube remains in position. NG tube extends to the stomach. Left internal jugu lar catheter is present. Right axillary/brachial stent. OTHER: No other significant finding. IMPRESSION: Line placement as described. TECHNICAL DOCUMENTATION: JOB ID: [id number] [email or web address]- All Rights Reserved Reading location - IP/workstation name: [email or web address]
[2019-08-26] MEDS: AMLODIPINE BESYLATE 5 MG TABLET PO SCH ×2 (16:22→22:16)
--- NOTE | 2019-08-26 16:24 | Operative Report ---
Bedside Procedure - History of Present Illness History of Present Illness: DIANNE MUNOZ is a 89 year old female admitted from the emergency room on 08/16/2023 change in mental status. According to reports and family patient was at dialysis when her blood pressure was noted to be elevated and she became somewhat unresponsive. At approximately 05 50 this morning a rapid response was called by the patient's nurse because she appeared to be having a tonic-clonic generalized seizure. Nursing notes are reviewed: "Rapid called at 0550 by RN, stated patient had been jerking and unresponsive Seizure activity noted, jerking with eyes deviated to the right, pupils were 5 and not responsive, attempted x 4 for IV access, unable to establish access, drilled I/O by Nicanorchristine De La Pazoe into right medial aspect of tibia. positive blood aspirated and no swelling note to tissue, easily flushed. Ativan 1 mg given IV as ordered by FRYER LINE HELPER, no change in seizure like activity, 2nd mg of Ativan pushed IV through access. Jennifer was called and received order to transfer to ICU, he spoke to Derian Mendoza NP. Pt taken via bed with 100% non rebreather to CT by NIMO Daley and Dylan Ashley with Derian Mendoza FRYER LINE HELPER in attendance. Pt became less responsive and stopped seizure like activity, shallow respirations..." She ultimately required intubation secondary to prolonged unresponsiveness. Glucose noted to be 104 no evidence of insulin being given recently. I reviewed the nursing notes from the night before and note that the patient refused her blood pressure medications and had episodes of tachycardia with notable blood pressure elevation at approximately 0321 of 230/110. She continued to refuse medications and was somewhat reasonable with the nurses. At approximately 355 she began to have some type of symptomatology and began crying out and yelling. She had changed her mind and wanted to take her pills. The nurse prepared them for her but again the patient refused. Approximately 358 her heart rate was noted to be 151. At approximately 535 the RN entered the room and found the patient seizing. He was holding her eyes wide open with what appeared to be rightward gaze and grunting. I have met with the family today to discuss the patient's overall baseline status. They state that she has had a steady decline in her health and has had episodes of mental status changes at home. After some time they appear to resolve. She has been more lethargic than usual. Suggestion by primary provider on the medical floor felt that this may be related to clonidine patch. I reviewed her medical progress notes from the day of admission. Seems to be intermittent times of return to normalcy followed by more lethargy. From the medical progress note on August 18 and somnolence and lethargy are noted by both the primary care physician and the nephrology team. The note on August 20 shows a lucid somewhat back to baseline patient in discussion about discharge home was begun. This lucidity continued until August 22 where she was again noted to be somnolent prior to dialysis. August 23 she was more responsive. I also reviewed her CT scans of the brain from as far back as 2014. 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 Fortunately unable to obtain any history from the patient because she is currently intubated. Since intubation and the instillation of IV Keppra there is been no further seizure activity noted. Patient receives dialysis on Mondays and Fridays because of her weakened state. Discussion with nephrology service revealed that the patient has not been eating well and they have not been taking an excessive amount of fluid during hemofiltration. Patient currently sedated on propofol and this is been discontinued to follow neurological examination. Indication for Procedure: Coma, poor venous access Date: 08/26/19 Provider: WYATT CHOW - Central Line Left Internal jugular Time completed: 15:00 Consent obtained: Yes - From DaughterJacki at bedside Central line pre-insertion: Sterile PPE donned, Chloraprep applied, Sterile drapes applied Central line lumen type: Triple Anesthetic type: 1% Lidocaine mL's of anesthesia: 4 Ultrasound guided: Yes CM at insertion site: 16 Line secured with sutures: Yes Central line post-insertion: Blood return from lumens, Biopatch applied, Sutured, Sterile dressing applied, Position confirmed w/ CXR - Tip at brachiocephalic RA junction, Other - Wire seen in the lumen of the internal ju gular vein Number of attempts: 1 Complications: No Notes: 08/26/19 16:24 Right internal jugular vein noncompressible extremely dilated, not usable
[2019-08-26] MEDS ORDERED: ALBUMIN HUMAN 250 ML IV ONE (16:45)
[2019-08-26] MEDS ORDERED: ALBUMIN HUMAN 500 ML IV ONE (16:46)
[2019-08-26] MEDS ORDERED: DEXMEDETOMIDINE IN 0.9 % NACL 400 MCG/100 ML RTUPB IV PRN (16:57)
[2019-08-26 17:14] LABS: ARTERIAL BLOOD BASE EXCESS 5.4 mmol/L; ARTERIAL BLOOD H2CO3 0.78 mmol/L (1.05-1.35); ARTERIAL BLOOD HCO3 25.9 mmol/L (20-24); ARTERIAL BLOOD O2 SATURATION 99.2 % (94-98); ARTERIAL BLOOD PCO2 25.9 mmHg (35-45); ARTERIAL BLOOD PO2 141.8 mmHg (80-100); ARTERIAL BLOOD TOTAL CO2 26.7 mmol/L (21-25)
[2019-08-26 17:20] LABS: ARTERIAL BLOOD FIO2 0.5
[2019-08-26 17:23] LABS: ARTERIAL BLOOD PH 7.62 (7.35-7.45)
[2019-08-26] MEDS ORDERED: RINGERS SOLUTION,LACTATED 500 ML IV ONE (18:56)
[2019-08-26 19:06] LABS: ARTERIAL BLOOD BASE EXCESS 5.2 mmol/L; ARTERIAL BLOOD O2 SATURATION 99.3 % (94-98); ARTERIAL BLOOD PCO2 23.2 mmHg (35-45); ARTERIAL BLOOD PO2 150.7 mmHg (80-100); ARTERIAL BLOOD TOTAL CO2 25.7 mmol/L (21-25)
[2019-08-26 19:07] LABS: ARTERIAL BLOOD FIO2 40%
[2019-08-26 19:08] LABS: ARTERIAL BLOOD PH 7.65 (7.35-7.45)
[2019-08-26] MEDS ORDERED: NORMAL SALINE 1000 ML 500 ML IV ONE ×2 (19:09→23:55)
[2019-08-26 21:29] LABS: ANION GAP 10 (5-19); BLOOD UREA NITROGEN 16 mg/dL (7-20); CALCIUM 8.8 mg/dL (8.4-10.2); CARBON DIOXIDE 26 mmol/L (22-30); CHLORIDE 98 mmol/L (98-107)
[2019-08-26 21:34] LABS: GLUCOSE 59 mg/dL (75-110)
[2019-08-26 21:35] LABS: POTASSIUM 3.6 mmol/L (3.6-5.0)
[2019-08-26] MEDS: LEVETIRACETAM ORAL SOLN 500 MG/5 ML UDCUP PO SCH (22:15)
[2019-08-26] MEDS: FAMOTIDINE 20 MG TABLET PO SCH (22:16)
[2019-08-26] MEDS: DEXTROSE 50%-WATER 25 GM/50 ML DISP.SYRIN IV PRN (22:19)
[2019-08-26 23:31] LABS: ARTERIAL BLOOD BASE EXCESS 3.1 mmol/L; ARTERIAL BLOOD H2CO3 0.95 mmol/L (1.05-1.35); ARTERIAL BLOOD HCO3 25.6 mmol/L (20-24); ARTERIAL BLOOD O2 SATURATION 98.6 % (94-98); ARTERIAL BLOOD PCO2 31.7 mmHg (35-45); ARTERIAL BLOOD PH 7.53 (7.35-7.45); ARTERIAL BLOOD PO2 115.8 mmHg (80-100); ARTERIAL BLOOD TOTAL CO2 26.6 mmol/L (21-25)
[2019-08-26 23:48] LABS: ARTERIAL BLOOD FIO2 35%
[2019-08-27] MEDS ORDERED: NORMAL SALINE 1000 ML 500 ML IV ONE (02:18)
[2019-08-27 05:43] LABS: ARTERIAL BLOOD BASE EXCESS 2.8 mmol/L; ARTERIAL BLOOD FIO2 21%; ARTERIAL BLOOD H2CO3 0.95 mmol/L (1.05-1.35); ARTERIAL BLOOD HCO3 25.3 mmol/L (20-24); ARTERIAL BLOOD O2 SATURATION 92.6 % (94-98); ARTERIAL BLOOD PCO2 31.7 mmHg (35-45); ARTERIAL BLOOD PH 7.52 (7.35-7.45); ARTERIAL BLOOD PO2 56.9 mmHg (80-100); ARTERIAL BLOOD TOTAL CO2 26.3 mmol/L (21-25)
[2019-08-27] MEDS: HEPARIN SOD (PORCINE) 5,000 UNIT/ML 1 ML VIAL SUBCUT SCH ×3 (06:04→21:32)
[2019-08-27] MEDS: HYDRALAZINE HCL 50 MG TABLET PO SCH ×3 (06:04→21:31)
[2019-08-27 07:15] LABS: HEMATOCRIT 31.2 % (36.0-47.0); MEAN CORPUSCULAR HEMOGLOBIN 27.4 pg (27.0-33.4); MEAN CORPUSCULAR VOLUME 81 fl (80-97); PLATELET COUNT 203 10^3/uL (150-450); RED BLOOD COUNT 3.87 10^6/uL (3.72-5.28); RED CELL DISTRIBUTION WIDTH 17.8 % (11.5-14.0); WHITE BLOOD COUNT 9.9 10^3/uL (4.0-10.5)
[2019-08-27 07:35] LABS: HEMOGLOBIN 10.6 g/dL (12.0-15.5)
[2019-08-27 07:38] LABS: ABSOLUTE LYMPHOCYTES# (MANUAL) 0.8 10^3/uL (0.5-4.7); ABSOLUTE MONOCYTES # (MANUAL) 0.6 10^3/uL (0.1-1.4); BASOPHILS % (MANUAL) 0 % (0-2); EOSINOPHILS % (MANUAL) 0 % (0-6); LYMPHOCYTES % (MANUAL) 8 % (13-45); MONOCYTES % (MANUAL) 6 % (3-13); SEGMENTED NEUTROPHILS % (MAN) 86 % (42-78); TOTAL CELLS COUNTED 100
[2019-08-27 07:39] LABS: ANISOCYTOSIS 1+; HYPOCHROMASIA SLIGHT; OVALOCYTES 1+; PLATELET COMMENT ADEQUATE
[2019-08-27 07:45] LABS: ALKALINE PHOSPHATASE 85 U/L (38-126); ANION GAP 8 (5-19); ASPARTATE AMINO TRANSFERASE 35 U/L (14-36); BILIRUBIN,DIRECT 0.3 mg/dL (0.0-0.4); BILIRUBIN,TOTAL 0.6 mg/dL (0.2-1.3); BLOOD UREA NITROGEN 19 mg/dL (7-20); CALCIUM 9.5 mg/dL (8.4-10.2); CARBON DIOXIDE 27 mmol/L (22-30); CHLORIDE 100 mmol/L (98-107); GLUCOSE 116 mg/dL (75-110); POTASSIUM 3.6 mmol/L (3.6-5.0); TOTAL PROTEIN 5.6 g/dL (6.3-8.2)
[2019-08-27] MEDS: INSULIN LISPRO 100 UNIT/ML 3 ML VIAL SUBCUT SCH ×4 (08:21→21:24)
--- NOTE | 2019-08-27 08:40 | RADIOLOGY REPORT (SQ) ---
EXAM DESCRIPTION: CHEST SINGLE VIEW IMAGES COMPLETED DATE/TIME: 08/27/2019 6:42 am REASON FOR STUDY: aspiration COMPARISON: AP view of the chest from 08/26/2019. EXAM PARAMETERS: NUMBER OF VIEWS: One view. TECHNIQUE: An AP view of the chest was obtained. RADIATION DOSE: NA LIMITATIONS: None. FINDINGS: LUNGS AND PLEURA: Pleural and parenchymal opacities in the inferior aspect of the left hem ithorax that obscure the contour of the hemidiaphragm and blunt the lateral costophrenic sulcus. MEDIASTINUM AND HILAR STRUCTURES: Stable mediastinal and hilar contours. HEART AND VASCULAR STRUCTURES: Stable cardiac silhouette. BONES: No acute findings. HARDWARE: The tip of the enteric tube projects 3.3 cm above the meenu. The tip of the enteric tube projects within the gastric lumen. The tip of the left IJ central venous catheter projects within th e SVC. There surgical clips and an endovascular stent in the right axilla. OTHER: No other finding. IMPRESSION: Increased pleural and parenchymal opacities in the inferior aspect the left hemithorax t hat could represent a combination of pleural fluid, atelectasis and/or pneumonia. TECHNICAL DOCUMENTATION: JOB ID: [id number] 2010 [employer]- All Rights Reserved Reading location - IP/workstation name: [email or web address]
[2019-08-27] MEDS: LEVETIRACETAM ORAL SOLN 500 MG/5 ML UDCUP PO SCH (09:20)
[2019-08-27] MEDS: FAMOTIDINE 20 MG TABLET PO SCH ×2 (09:20→21:31)
[2019-08-27] MEDS: AMLODIPINE BESYLATE 5 MG TABLET PO SCH ×2 (09:21→21:32)
--- NOTE | 2019-08-27 11:45 | PDOC PROGRESS REPORT ---
Subjective Progress Note for:: 08/27/19 Subjective:: Patient was seen today laying in her bed intubated. At this time she is off all sedation. She is currently following commands. She is to be extubated once her daughter has arrived to the ICU. As of right now the daughter has moved her to a DNR but has not made a decision on dialysis. Reason For Visit: METABOLIC ENCEPHALOPATY,UTI,HTN,ESRD ON HEMODIALYS Physical Exam Vital Signs: Temp Pulse Resp BP Pulse Ox 99.5 F 122 H 18 181/67 H 95 08/27/19 08:00 08/27/19 10:00 08/27/19 10:00 08/27/19 10:00 08/27/19 10:00 Intake & Output 08/26/19 08/27/19 08/28/19 06:59 06:59 06:59 Intake Total 1369 30 Output Total 1000 0 Balance 369 30 Weight 43.8 kg General appearance: PRESENT: no acute distress, thin Eye exam: ABSENT: scleral icterus Mouth exam: PRESENT: dry mucosa. ABSENT: neck supple Neck exam: ABSENT: JVD, tracheal deviation Respiratory exam: PRESENT: clear to auscultation anais. ABSENT: accessory muscle use Cardiovascular exam: PRESENT: +S1, +S2 GI/Abdominal exam: PRESENT: soft. ABSENT: firm Extremities exam: ABSENT: pedal edema, +1 edema, +2 edema Musculoskeletal exam: PRESENT: normal inspection. ABSENT: deformity Neurological exam: PRESENT: other - -currently intubated but was following commands.. ABSENT: alert, awake, oriented to person, oriented to place, scott ented to time, oriented to situation Skin exam: PRESENT: dry, intact, warm Results Laboratory Results: 08/27/19 07:00 08/27/19 07:00 08/26/19 08/26/19 08/26/19 17:03 17:03 18:47 WBC RBC Hgb Hct MCV MCH MCHC RDW Plt Count Seg Neutrophils % Carbonic Acid 0.78 L 0.70 L HCO3/H2CO3 Ratio 33:1 35:1 ABG pH 7.62 H* 7.65 H* ABG pCO2 25.9 L 23.2 L ABG pO2 141.8 H 150.7 H ABG HCO3 25.9 H 25.0 H ABG O2 Saturation 99.2 H 99.3 H ABG Base Excess 5.4 5.2 FiO2 0.5 40% Sodium Potassium Chloride Carbon Dioxide Anion Gap BUN Creatinine Est GFR ( Amer) Glucose Calcium Phosphorus Magnesium Total Bilirubin AST Alkaline Phosphatase Ammonia < 8.7 L Total Protein Albumin 08/26/19 08/26/19 08/27/19 20:56 23:20 05:25 WBC RBC Hgb Hct MCV MCH MCHC RDW Plt Count Seg Neutrophils % Carbonic Acid 0.95 L 0.95 L HCO3/H2CO3 Ratio 26:1 26:1 ABG pH 7.53 H 7.52 H ABG pCO2 31.7 L 31.7 L ABG pO2 115.8 H 56.9 L ABG HCO3 25.6 H 25.3 H ABG O2 Saturation 98.6 H 92.6 L ABG Base Excess 3.1 2.8 FiO2 35% 21% Sodium 134.3 L Potassium 3.6 D Chloride 98 Carbon Dioxide 26 Anion Gap 10 BUN 16 Creatinine 3.06 H Est GFR ( Amer) 17 L Glucose 59 L Calcium 8.8 Phosphorus Magnesium Total Bilirubin AST Alkaline Phosphatase Ammonia Total Protein Albumin 08/27/19 08/27/19 08/27/19 07:00 07:00 07:00 WBC 9.9 RBC 3.87 Hgb 10.6 L D Hct 31.2 L MCV 81 MCH 27.4 MCHC 34.0 RDW 17.8 H Plt Count 203 Seg Neutrophils % Not Reportable Carbonic Acid HCO3/H2CO3 Ratio ABG pH ABG pCO2 ABG pO2 ABG HCO3 ABG O2 Saturation ABG Base Excess FiO2 Sodium 134.7 L Potassium 3.6 Chloride 100 Carbon Dioxide 27 Anion Gap 8 BUN 19 Creatinine 3.19 H Est GFR ( Amer) 17 L Glucose 116 H Calcium 9.5 Phosphorus 3.0 Magnesium 1.9 Total Bilirubin 0.6 AST 35 Alkaline Phosphatase 85 Ammonia < 8.7 L Total Protein 5.6 L Albumin 3.0 L 08/16/19 08/26/19 12:21 17:03 Creatine Kinase 74 Troponin I < 0.012 Impressions: Head CT 08/26/19 00:00 IMPRESSION: Stable exam with no acute intracranial abnormality. Chest X-Ray 08/27/19 06:00 IMPRESSION: Increased pleural and parenchymal opacities in the inferior aspect the left hemithorax that could represent a combination of pleural fluid, atelectasis and/or pneumonia. Assessment & Plan - Diagnosis (1) ESRD (end stage renal disease) on dialysis Is this a current diagnosis for this admission?: Yes Plan: Will look to speak with the patients daughter today about possible discontinuing dialysis. Even if she is extubated without complications her out come looks to be poor longterm. (2) Failure to thrive Is this a current diagnosis for this admission?: Yes Plan: likely to keep withering away. Unfortunately this has been going on for a couple of moths. Target weight can be seen trending down for a couple of months. (3) Altered mental status Qualifiers: Altered mental status type: unspecified Qualified Code(s): R41.82 - Altered mental status, unspecified Is this a current diagnosis for this admission?: Yes Plan: currently intubate (4) Seizure Is this a current diagnosis for this admission?: Yes Plan: per general lot attendant (5) Urinary tract infection Qualifiers: Urinary tract infection type: acute cystitis Hematuria presence: without hematuria Qualified Code(s): N30.00 - Acute cystitis without hematuria Is this a current diagnosis for this admission?: Yes Plan: recently treated (6) Hypertension Qualifiers: Hypertension type: unspecified Qualified Code(s): I10 - Essential (primary) hypertension Is this a current diagnosis for this admission?: Yes Plan: with patient being extubated today she may be able to switch back to PO medications. (7) Hypokalemia Is this a current diagnosis for this admission?: Yes Plan: resolved (8) Multinodular goiter (nontoxic) Is this a current diagnosis for this admission?: Yes Plan: Her daughter did not wish to pursue further. (9) Pulmonary nodules/lesions, multiple Is this a current diagnosis for this admission?: Yes Plan: Her daughter did not wish to pursue further. (10) Anemia in chronic kidney disease (CKD) Qualifiers: Chronic kidney disease stage: on chronic dialysis Qualified Code(s): N18.6 - End stage renal disease; D63.1 - Anemia in chronic kidney disease; Z99.2 - Dependence on renal dialysis Is this a current diagnosis for this admission?: Yes Plan: retocrit as needed with dialysis.
[2019-08-27] MEDS: LABETALOL HCL INJ 20 MG/4 ML DISP.SYRIN IV SCH ×3 (13:22→23:07)
[2019-08-27] MEDS: CEFTRIAXONE 1 GM/D5W RTU 1 GM/50 ML RTUPB IV SCH (13:24)
--- NOTE | 2019-08-27 18:52 | PDOC CRITICAL CARE PROG REPORT ---
General Date:: 08/27/19 ICU Day:: 2 Ventilator Day:: 2 Hospital Day:: 11 Resuscitation Status: Do Not Resuscitate - Do not intubate Medical Power of Schedule Clerk: DaughterJelena Events in the past 12 to 24 Hours:: 08.27.2019: The patient has been started on Keppra secondary to what appeared to be seizure. Please see yesterday's note for details. Since admission to the ICU she has had a central line placed. Arterial pH showed a alkalotic process and there was difficulty in obtaining blood from her central line. Ultrasound of her IVC and her ventricle showed underfilling and she was given normal saline to correct the alkalosis and to provide adequate intravascular volume. There has been no significant changes to oxygenation and she does not appear to have any volume overload. pH has improved. Her mentation has improved and nurses report that she attempted to wash herself this morning while the nurses were doing so. There has been no noted seizures. She is undergoing EEG this morning Review of systems relevant to events:: 08.27.2019: Patient has had labile hemodynamics. At most times she is hypertensive but does have occasional hypotension which may presumably have been related to sedation. She had positive leukocyte esterase but only 5 white blood cells in her urine. Urine culture is positive for Aerococcus Urinae. Has had tachycardia but much improved. Reason for ICU Addmission:: Unresponsive, possible seizure - Medications: Medications reviewed and adjusted accordingly: Yes Vasopressors:: None Sedation:: None Physical Exam Vital Signs: Temp Pulse Resp BP Pulse Ox 99.5 F 122 H 18 181/67 H 95 08/27/19 08:00 08/27/19 10:00 08/27/19 10:00 08/27/19 10:00 08/27/19 10:00 Intake & Output 08/26/19 08/27/19 08/28/19 06:59 06:59 06:59 Intake Total 1369 30 Output Total 1000 0 Balance 369 30 Weight 43.8 kg Weight/Height Weight 43.8 kg Height 5 ft General appearance: PRESENT: disheveled, hard of hearing, thin Exam: Intubated, elderly, chronically and critically ill-appearing but nontoxic 89-year-old black female in no active distress Eye exam: PRESENT: conjunctiva pink, PERRLA, other - No eye deviation but will not follow commands for EOMI. ABSENT: conjunctival injection, nystagmus, scleral icterus Mouth exam: PRESENT: moist Teeth exam: PRESENT: edentulous Neck exam: ABSENT: carotid bruit, JVD, lymphadenopathy, meningismus, thyr omegaly, tracheal deviation Respiratory exam: PRESENT: clear to auscultation anais, unlabored. ABSENT: accessory muscle use, rales, rhonchi, wheezes Cardiovascular exam: PRESENT: RRR, +S1, +S2, tachycardia Pulses: ABSENT: normal dorsalis pedis pul GI/Abdominal exam: PRESENT: normal bowel sounds, soft. ABSENT: ascites, distended, guarding, mass, organolmegaly, rebound, tenderness Rectal exam: PRESENT: deferred Extremities exam: ABSENT: pedal edema, tenderness Musculoskeletal exam: ABSENT: deformity, dislocation Neurological exam: PRESENT: altered, other - Intubated. Moves all extremities to noxious stimulus. Opens eyes to voice occasionally but not consistently. GCS 2-1i-5. No focal deficits. No rigidity no clonus. Psychiatric exam: PRESENT: agitated Focused psych exam: PRESENT: restlessness Skin exam: PRESENT: intact, normal color. ABSENT: cyanosis, jaundice, pallor, petechiae, rash, urticaria, vesicles Laboratory/Radiographs Laboratory Results: 08/27/19 07:00 08/27/19 07:00 08/26/19 08/26/19 08/26/19 17:03 17:03 18:47 WBC RBC Hgb Hct MCV MCH MCHC RDW Plt Count Seg Neutrophils % Carbonic Acid 0.78 L 0.70 L HCO3/H2CO3 Ratio 33:1 35:1 ABG pH 7.62 H* 7.65 H* ABG pCO2 25.9 L 23.2 L ABG pO2 141.8 H 150.7 H ABG HCO3 25.9 H 25.0 H ABG O2 Saturation 99.2 H 99.3 H ABG Base Excess 5.4 5.2 FiO2 0.5 40% Sodium Potassium Chloride Carbon Dioxide Anion Gap BUN Creatinine Est GFR ( Amer) Glucose Calcium Phosphorus Magnesium Total Bilirubin AST Alkaline Phosphatase Ammonia < 8.7 L Total Protein Albumin 08/26/19 08/26/19 08/27/19 20:56 23:20 05:25 WBC RBC Hgb Hct MCV MCH MCHC RDW Plt Count Seg Neutrophils % Carbonic Acid 0.95 L 0.95 L HCO3/H2CO3 Ratio 26:1 26:1 ABG pH 7.53 H 7.52 H ABG pCO2 31.7 L 31.7 L ABG pO2 115.8 H 56.9 L ABG HCO3 25.6 H 25.3 H ABG O2 Saturation 98.6 H 92.6 L ABG Base Excess 3.1 2.8 FiO2 35% 21% Sodium 134.3 L Potassium 3.6 D Chloride 98 Carbon Dioxide 26 Anion Gap 10 BUN 16 Creatinine 3.06 H Est GFR ( Amer) 17 L Glucose 59 L Calcium 8.8 Phosphorus Magnesium Total Bilirubin AST Alkaline Phosphatase Ammonia Total Protein Albumin 08/27/19 08/27/19 08/27/19 07:00 07:00 07:00 WBC 9.9 RBC 3.87 Hgb 10.6 L D Hct 31.2 L MCV 81 MCH 27.4 MCHC 34.0 RDW 17.8 H Plt Count 203 Seg Neutrophils % Not Reportable Carbonic Acid HCO3/H2CO3 Ratio ABG pH ABG pCO2 ABG pO2 ABG HCO3 ABG O2 Saturation ABG Base Excess FiO2 Sodium 134.7 L Potassium 3.6 Chloride 100 Carbon Dioxide 27 Anion Gap 8 BUN 19 Creatinine 3.19 H Est GFR ( Amer) 17 L Glucose 116 H Calcium 9.5 Phosphorus 3.0 Magnesium 1.9 Total Bilirubin 0.6 AST 35 Alkaline Phosphatase 85 Ammonia < 8.7 L Total Protein 5.6 L Albumin 3.0 L 08/16/19 08/26/19 12:21 17:03 Creatine Kinase 74 Troponin I < 0.012 Impressions: Head CT 08/26/19 00:00 IMPRESSION: Stable exam with no acute intracranial abnormality. Chest X-Ray 08/27/19 06:00 IMPRESSION: Increased pleural and parenchymal opacities in the inferior aspect the left hemithorax that could represent a combination of pleural fluid, atelectasis and/or pneumonia. All labs, radiographs, diagnostic studies and EKGs were personally reviewed: Yes In addition, reports of radiographic and diagnostic studies were read: Yes Assessment and Plan - Diagnosis (1) Coma scale finding of flexion withdrawal as best motor response Qualifiers: Coma timin hours or more after hospital admission Qualified Code(s): R40.2344 - Coma scale, best motor response, flexion withdrawal, 24 hours or more after hospital admission Is this a current diagnosis for this admission?: Yes (2) Tonic-clonic generalized seizure Is this a current diagnosis for this admission?: Yes (3) Acute respiratory failure with hypoxia and hypercapnia Is this a current diagnosis for this admission?: Yes (4) Metabolic encephalopathy Is this a current diagnosis for this admission?: Yes (5) Hypertensive emergency without congestive heart failure Is this a current diagnosis for this admission?: Yes (6) Acute renal failure superimposed on chronic kidney disease, on chronic dialysis Is this a current diagnosis for this admission?: Yes (7) Failure to thrive syndrome, adult Is this a current diagnosis for this admission?: Yes (8) Protein-calorie malnutrition, moderate Is this a current diagnosis for this admission?: Yes Plan Summary: Patient's neurological status has improved with the treatment for seizures. Given her dialysis, renal failure and age I have reduced her Keppra to 250 twice a day. Ongoing hypothesis is that the patient has a seizure focus from previous strokes and may have had the onset of PRES induced seizures. Usual standard of care is to have blood pressure of 140 mmHg systolic however given the patient's prolonged history of hypertension we have been reticent and reluctant to decrease it by this much in concern for stroke. Will follow as we provide conservative management. Awaiting results of EEG From a respiratory standpoint she is currently on pressure support CPAP and from this standpoint alone is able to be liberated from the ventilator. [place] her neurological status with a Erbacon Coma Scale of about 8 is somewhat disc oncerting knowing that she is not to be reintubated. From infectious disease standpoint patient has Aerococcus in her urine. Although she only has 5 white blood cells there is a significant leukocyte esterase component. This may represent infection and given her neurological decline may be the only representation of a urinary tract infection. I have elected to treat this with Rocephin to assure that we are treating what ultimately could be an occult urinary tract infection contributing to her neurological decline. From a cardiac standpoint her blood pressure and heart rate have been up. She has responded to fluid from that standpoint and I will begin and continue Lopressor therapy. Judicious monitoring of her blood pressure to find the appropriate systolic pressure to support longstanding hypertension will need to be maintained. Given her tachycardia have started labetalol. He had been on Catapres but this is been discontinued secondary to the concern for neuro status changes. From a metabolic standpoint patient has started enteral nutrition. She had a significant metabolic alkalosis from combination of dehydration and dialysis therapy. With the introduction of sodium chloride this has improved and will continue low-dose therapy. Await EEG reports Lengthy discussion with the patient's family 5.25.2020 feel that the patient would not want persistent and continued life support. Critical Time Critical Time (minutes): 60 - Total examinations for suitability for liberation from the ventilator. Not awake enough to be extubated. Level of Care: ICU -: 1. The care of a critical patient is a dynamic process. This note is a automotive leasing sales representative synopsis but static in nature. The timeframe for treatments given in order is not necessarily the actual time these treatments may have been done. 2. This patient requires critical care secondary to ongoing requirements for therapy not offered or safe outside the critical care environment. Transfer to a lower level of care will result in altered life or limb morbidity and mortality. 3. Multidisciplinary rounds completed. 4. ABCDE bundle addressed.
--- NOTE | 2019-08-27 20:08 | NEURO WORKBENCH EEG REPORT ---
EEG Report Patient: Brooks Wade ID: [id number] Referring Doctor: Tom Art Date: 08/27/2019 Reason for study: Evaluate Epileptiform activity Medications: Norvasc, Pepcid, Keppra, Insulin, Apresoline History: This is a 89 year old female with a history of HTN, ESRD, Sickle Cell Diseae, Anemia, Depression, TIA who was admitted with metabolic encephalopathy and UTI. This EEG was requested for evaluation of epileptiform activity and encephalopathy. EEG Interpretation This EEG was recorded in the ICU and patient is intubated. There were no apparent spontaneous eye openings. The backgound EEG shows diffuse polymorphic 4-7 Hz theta activity with intermixed polymorphic 1-3 Hz delta activity. There is no occipital dominant rhythm present. There were no obvious asymmetries in amplitude or frequencies. Photic stimulation was done and photic driving was not noted. There was no definitive sleep architecture noted. There was no epileptiform activity (meaning no sharp waves or spikes), and there were no seizures noted. There was frequent artifact noted in particular from Fp1 and Fp2. The EKG showed a regular rhythm with frequent tachycardia inthe 100 -120 range. EEG Impression This is a markedly abnormal EEG and consistent with diffuse cerebral dysfunction which is non-specific for etiology. Likely considerations would include diffuse hypoxic injury, toxic-metabolic derangements, drug intoxication, or post-ictal state. There were no EEG findings consistent with epilepsy, but if there is strong concern for clinical or sub-clinical seizure activity then long-term EEG monitoring would be advised or additional repeat routine EEGs if long-term monitoring is not available. INTERPRETING NEUROLOGIST: Dani Pompa MD Board certified by the [place] [employer] in Neurology, Clinical Neurophysiology, and Sleep Medicine [facility]
[2019-08-28 03:51] LABS: HEMATOCRIT 31.8 % (36.0-47.0); HEMOGLOBIN 10.5 g/dL (12.0-15.5); MEAN CORPUSCULAR HEMOGLOBIN 26.7 pg (27.0-33.4); MEAN CORPUSCULAR VOLUME 81 fl (80-97); PLATELET COUNT 213 10^3/uL (150-450); RED BLOOD COUNT 3.93 10^6/uL (3.72-5.28); RED CELL DISTRIBUTION WIDTH 18.4 % (11.5-14.0); WHITE BLOOD COUNT 12.9 10^3/uL (4.0-10.5)
[2019-08-28 03:56] LABS: ARTERIAL BLOOD BASE EXCESS 2.1 mmol/L; ARTERIAL BLOOD O2 SATURATION 92.6 % (94-98); ARTERIAL BLOOD PCO2 33.2 mmHg (35-45); ARTERIAL BLOOD PO2 58.2 mmHg (80-100)
[2019-08-28 03:57] LABS: ARTERIAL BLOOD FIO2 21%
[2019-08-28 04:14] LABS: ANION GAP 6 (5-19); BLOOD UREA NITROGEN 26 mg/dL (7-20); CALCIUM 9.7 mg/dL (8.4-10.2); CARBON DIOXIDE 30 mmol/L (22-30); CHLORIDE 99 mmol/L (98-107); GLUCOSE 104 mg/dL (75-110); POTASSIUM 3.5 mmol/L (3.6-5.0)
[2019-08-28 04:24] LABS: ABSOLUTE LYMPHOCYTES# (MANUAL) 1.9 10^3/uL (0.5-4.7); ABSOLUTE MONOCYTES # (MANUAL) 0.1 10^3/uL (0.1-1.4); BASOPHILS % (MANUAL) 1 % (0-2); EOSINOPHILS % (MANUAL) 2 % (0-6); LYMPHOCYTES % (MANUAL) 13 % (13-45); MONOCYTES % (MANUAL) 1 % (3-13); SEGMENTED NEUTROPHILS % (MAN) 81 % (42-78); TOTAL CELLS COUNTED 100; TOXIC VACUOLATION PRESENT
[2019-08-28 04:25] LABS: ANISOCYTOSIS 1+
[2019-08-28 04:26] LABS: PLATELET COMMENT ADEQUATE
[2019-08-28 04:27] LABS: HYPOCHROMASIA SLIGHT; OVALOCYTES 1+
[2019-08-28 04:28] LABS: SCHISTOCYTES SLIGHT
[2019-08-28] MEDS: LABETALOL HCL INJ 20 MG/4 ML DISP.SYRIN IV SCH ×2 (04:30→12:11)
[2019-08-28] MEDS: HEPARIN SOD (PORCINE) 5,000 UNIT/ML 1 ML VIAL SUBCUT SCH ×2 (05:26→16:16)
[2019-08-28] MEDS: HYDRALAZINE HCL 50 MG TABLET PO SCH ×2 (07:15→16:16)
[2019-08-28] MEDS: INSULIN LISPRO 100 UNIT/ML 3 ML VIAL SUBCUT SCH ×2 (09:00→10:50)
--- NOTE | 2019-08-28 09:22 | RADIOLOGY REPORT (SQ) ---
EXAM DESCRIPTION: CHEST SINGLE VIEW IMAGES COMPLETED DATE/TIME: 08/28/2019 6:14 am REASON FOR STUDY: leukocytosis, r/o new infiltrate COMPARISON: AP view of the chest from 07/28/2019. EXAM PARAMETERS: NUMBER OF VIEWS: One view. TECHNIQUE: An AP view of the chest was obtained. RADIATION DOSE: NA LIMITATIONS: None. FINDINGS: LUNGS AND PLEURA: Unchanged consolidative consolidative icing opacities in the inferior as pect of the left hemithorax that obscure the contour of the hemidiaphragm blunt the lateral costophre dakota sulcus. The opacities in the inferior aspect of the right hemithorax are also unchanged. There is no pneumothorax. MEDIASTINUM AND HILAR STRUCTURES: Stable mediastinal and hilar contours. HEART AND VASCULAR STRUCTURES: Stable cardiac silhouette. BONES: No acute findings. HARDWARE: The tip of the endotracheal tube projects 2.2 cm above the meenu. The tip of the left IJ central venous catheter projects within the SVC. The tip of the enteric tube projects within the gas tric lumen. There is an endovascular stent and there surgical clips that project within the right ax illa. OTHER: No other finding. IMPRESSION: Unchanged radiographic appearance of the chest. TECHNICAL DOCUMENTATION: JOB ID: [id number] 2010 [employer]- All Rights Reserved Reading location - IP/workstation name: [email or web address]
[2019-08-28] MEDS ORDERED: LEVETIRACETAM ORAL SOLN 500 MG/5 ML UDCUP PO SCH (10:00)
[2019-08-28] MEDS ORDERED: LORAZEPAM INJ 2 MG/1 ML VIAL ONE (10:35)
[2019-08-28] MEDS ORDERED: LORAZEPAM INJ 2 MG/1 ML VIAL IV PRN (10:35)
[2019-08-28] MEDS ORDERED: LORAZEPAM INJ 2 MG/1 ML VIAL IV ONE (10:35)
[2019-08-28] MEDS: FAMOTIDINE 20 MG TABLET PO SCH (10:39)
[2019-08-28] MEDS: AMLODIPINE BESYLATE 5 MG TABLET PO SCH (10:39)
[2019-08-28] MEDS: CEFTRIAXONE 1 GM/D5W RTU 1 GM/50 ML RTUPB IV SCH (10:43)
--- NOTE | 2019-08-28 11:48 | PDOC PROGRESS REPORT ---
Subjective Progress Note for:: 08/28/19 Reason For Visit: I Saw this patient this morning in the ICU. She remains intubated but very unresponsive unlike some response that she was making yesterday. She has been diagnosed to have possible seizure disorder and she is currently showing a jerky movement of head and right upper limb.She has been begun on Keppra. Her blood pressures have also gone high suggestive of likely possible new ischemic events in the brain. She looks very moribund. Labs and medications were reviewed. Discussions were done with the treating nurse as well as Dr. Art/welder railcar mechanic. I also did then speak with her daughter Bridger who did not want any further dialysis and wanted her mother to be made comfort care and extubated. Physical Exam Vital Signs: Temp Pulse Resp BP Pulse Ox 99.7 F 103 H 14 170/67 H 97 08/28/19 05:36 08/27/19 21:39 08/27/19 21:39 08/28/19 05:59 08/28/19 08:43 Intake & Output 08/27/19 08/28/19 08/29/19 06:59 06:59 06:59 Intake Total 1369 250 Output Total 1000 0 Balance 369 250 Weight 43.8 kg 45.7 kg General appearance: PRESENT: disheveled Exam: Remains intubated and unresponsive. Her pupils are quite miotic with very poor reaction to light stimulus bilaterally. Respiratory exam: PRESENT: clear to auscultation anais. ABSENT: crackles, decreased breath sounds Cardiovascular exam: PRESENT: +S1, +S2. ABSENT: rubs GI/Abdominal exam: PRESENT: soft. ABSENT: firm Neurological exam: PRESENT: altered Results Laboratory Results: 08/28/19 03:45 08/28/19 03:45 08/28/19 08/28/19 08/28/19 03:45 03:45 03:50 WBC 12.9 H RBC 3.93 Hgb 10.5 L Hct 31.8 L MCV 81 MCH 26.7 L MCHC 33.0 RDW 18.4 H Plt Count 213 Seg Neutrophils % Not Reportable Carbonic Acid 1.00 L HCO3/H2CO3 Ratio 25:1 ABG pH 7.50 H ABG pCO2 33.2 L ABG pO2 58.2 L ABG HCO3 25.0 H ABG O2 Saturation 92.6 L ABG Base Excess 2.1 FiO2 21% Sodium 134.9 L Potassium 3.5 L Chloride 99 Carbon Dioxide 30 Anion Gap 6 BUN 26 H Creatinine 3.93 H Est GFR ( Amer) 13 L Glucose 104 Calcium 9.7 Phosphorus 3.0 Magnesium 2.2 08/26/19 08:20 Tracheal Aspirate Gram Stain - Final 08/26/19 08:20 Tracheal Aspirate Sputum Culture - Final NORMAL BRIANNA 08/16/19 08/26/19 12:21 17:03 Creatine Kinase 74 Troponin I < 0.012 Impressions: Head CT 08/26/19 00:00 IMPRESSION: Stable exam with no acute intracranial abnormality. Chest X-Ray 08/28/19 00:00 IMPRESSION: Unchanged radiographic appearance of the chest. Assessment & Plan - Diagnosis (1) Acute respiratory failure with hypoxia and hypercapnia Is this a current diagnosis for this admission?: Yes Plan: Currently intubated. Unresponsive. (2) Tonic-clonic generalized seizure Is this a current diagnosis for this admission?: Yes Plan: Possibly secondary to new ischemic events in the brain. Started on antiseizure medications. Poor prognosis. (3) ESRD (end stage renal disease) on dialysis Is this a current diagnosis for this admission?: Yes Plan: Electrolytes are stable. No acute indications for hemodialysis today. Discussions were done with her daughter Bridger who did not want her mother on any further dialysis or any form of renal replacements. She wanted her mother extubated and be made comfort/hospice care.At this moment I am going to sign off her case. Please call on a as needed basis.
--- NOTE | 2019-08-28 14:32 | PDOC CRITICAL CARE PROG REPORT ---
General Date:: 08/28/19 ICU Day:: 3 Ventilator Day:: 3 Hospital Day:: 12 Resuscitation Status: Do Not Resuscitate - Do not intubate Medical Power of Kids [employer] Attendant: DaughterJelena Events in the past 12 to 24 Hours:: 08.28.2019: Patient has intermittent hypertension with unresponsiveness. Also noted to be intermittently moving the right arm in non-coordinated pattern with slight rightward gaze. Concern for seizure she was given Ativan which improved the findings and her blood pressure. She has been on Keppra but dose was reduced in concern for renal dysfunction and decrease in the ability to dialyze the patient. She has been placed on Rocephin for what appears to be an occult urinary tract infection. Her metabolic alkalosis is slightly improved with normal saline. In an effort to reduce her respiratory alkalosis she has been placed on pressure support which she has been tolerating. Her white blood cell count is notably elevated today. She has had increased congestion. Patient had EEG done yesterday which was significant for GPD's. As noted this can be seen in a multitude of situations with a rare but possible possible terminal generalized convulsive status possibility. 08.27.2019: The patient has been started on Keppra secondary to what appeared to be seizure. Please see yesterday's note for details. Since admission to the ICU she has had a central line placed. Arterial pH showed a alkalotic process and there was difficulty in obtaining blood from her central line. Ultrasound of her IVC and her ventricle showed underfilling and she was given normal saline to correct the alkalosis and to provide adequate intravascular volume. There has been no significant changes to oxygenation and she does not appear to have any volume overload. pH has improved. Her mentation has improved and nurses report that she attempted to wash herself this morning while the nurses were doing so. There has been no noted seizures. She is undergoing EEG this morning Review of systems relevant to events:: 08.28.2019: Patient's chest x-ray shows early aspiration effect in the lower right lung and pneumonia and atelectasis. White count is elevated as noted above. She does not make urine. She has been afebrile. She is less responsive today. 08.27.2019: Patient has had labile hemodynamics. At most times she is hypertensive but does have occasional hypotension which may presumably have been related to sedation. She had positive leukocyte esterase but only 5 white blood cells in her urine. Urine culture is positive for Aerococcus Urinae. Has had tachycardia but much improved. Reason for ICU Addmission:: Unresponsive, possible seizure - Medications: Vasopressors:: None Sedation:: Ativan given for what appears to be partial complex seizure Physical Exam Vital Signs: Temp Pulse Resp BP Pulse Ox 99.7 F 95 14 143/59 H 96 08/28/19 05:36 08/28/19 08:00 08/27/19 21:39 08/28/19 11:44 08/28/19 11:45 Intake & Output 08/27/19 08/28/19 08/29/19 06:59 06:59 06:59 Intake Total 1369 250 Output Total 1000 0 Balance 369 250 Weight 43.8 kg 45.7 kg 45.7 kg Weight/Height Weight 45.7 kg Height 5 ft General appearance: PRESENT: thin Exam: Elderly ill and chronically ill-appearing 89-year-old black female. Actively moving right arm with blood pressure of 180/90 unresponsive with right gaze preference. Head exam: PRESENT: atraumatic, normocephalic Eye exam: PRESENT: conjunctiva pink, nystagmus, PERRLA. ABSENT: conjunctival injection, scleral icterus Mouth exam: PRESENT: dry mucosa, neck supple Teeth exam: PRESENT: edentulous Neck exam: PRESENT: other - Left internal jugular central venous catheter in place. ABSENT: carotid bruit, JVD, lymphadenopathy, meningismus, thyromegaly Respiratory exam: PRESENT: clear to auscultation anais, unlabored. ABSENT: accessory muscle use, rales, rhonchi, tachypnea, wheezes Cardiovascular exam: PRESENT: RRR, +S1, +S2, systolic murmur - Grade 2/6 to 3/6, tachycardia Pulses: ABSENT: normal dorsalis pedis pul Vascular exam: PRESENT: normal capillary refill GI/Abdominal exam: PRESENT: normal bowel sounds, soft. ABSENT: ascites, distended, guarding, mass, organolmegaly, rebound, tenderness Rectal exam: PRESENT: deferred Gentrourinary exam: ABSENT: indwelling catheter Extremities exam: ABSENT: pedal edema Musculoskeletal exam: ABSENT: deformity, dislocation Neurological exam: PRESENT: altered, other - Norton Coma Scale 1-1T-1. She has discoordinate Jacksonian type movements of the right arm with right gaze preference and mild nystagmus. No response to Babinski Skin exam: ABSENT: erythema, jaundice, mottled Tubes/Lines: PRESENT: Endotracheal Tube, Central Line, Other - Orogastric tube Laboratory/Radiographs Laboratory Results: 08/28/19 03:45 08/28/19 03:45 08/28/19 08/28/19 08/28/19 03:45 03:45 03:50 WBC 12.9 H RBC 3.93 Hgb 10.5 L Hct 31.8 L MCV 81 MCH 26.7 L MCHC 33.0 RDW 18.4 H Plt Count 213 Seg Neutrophils % Not Reportable Carbonic Acid 1.00 L HCO3/H2CO3 Ratio 25:1 ABG pH 7.50 H ABG pCO2 33.2 L ABG pO2 58.2 L ABG HCO3 25.0 H ABG O2 Saturation 92.6 L ABG Base Excess 2.1 FiO2 21% Sodium 134.9 L Potassium 3.5 L Chloride 99 Carbon Dioxide 30 Anion Gap 6 BUN 26 H Creatinine 3.93 H Est GFR ( Amer) 13 L Glucose 104 Calcium 9.7 Phosphorus 3.0 Magnesium 2.2 08/26/19 08:20 Tracheal Aspirate Gram Stain - Final 08/26/19 08:20 Tracheal Aspirate Sputum Culture - Final NORMAL BRIANNA 08/16/19 08/26/19 12:21 17:03 Creatine Kinase 74 Troponin I < 0.012 Impressions: Head CT 08/26/19 00:00 IMPRESSION: Stable exam with no acute intracranial abnormality. Chest X-Ray 08/28/19 00:00 IMPRESSION: Unchanged radiographic appearance of the chest. All labs, radiographs, diagnostic studies and EKGs were personally reviewed: Yes In addition, reports of radiographic and diagnostic studies were read: Yes Assessment and Plan - Diagnosis (1) Coma scale finding of flexion withdrawal as best motor response Qualifiers: Coma timin hours or more after hospital admission Qualified Code(s): R40.2344 - Coma scale, best motor response, flexion withdrawal, 24 hours or more after hospital admission Is this a current diagnosis for this admission?: Yes (2) Tonic-clonic generalized seizure Is this a current diagnosis for this admission?: Yes (3) Acute respiratory failure with hypoxia and hypercapnia Is this a current diagnosis for this admission?: Yes (4) Metabolic encephalopathy Is this a current diagnosis for this admission?: Yes (5) Hypertensive emergency without congestive heart failure Is this a current diagnosis for this admission?: Yes (6) Acute renal failure superimposed on chronic kidney disease, on chronic dialysis Is this a current diagnosis for this admission?: Yes (7) Failure to thrive syndrome, adult Is this a current diagnosis for this admission?: Yes (8) Protein-calorie malnutrition, moderate Is this a current diagnosis for this admission?: Yes Plan Summary: 08.28.2019: Patient now has partial complex seizure activity and GPD seen on EEG. I am concerned that this is a progressive process of her brain. She has not had any significant neurological recovery from her initial presentation and this has limited her ability to be liberated from the ventilator. Had a lengthy discussion with the family who has expressed interest in liberating the patient from the ventilator with the expectation that they would transition her to home hospice if possible today. I am unsure that she would be able to tolerate this but have worked with case management to attempt to get her home for her to be with family. Certainly given the pandemic situations this would be in the best interest of both the community and the family. If they elect to continue care will add Vimpat at reduced dose for her renal dysfunction. If they also want to continue care will need to be under continuous EEG monitoring which we do not have here at this hospital. She will then need to be transferred to an outlying facility however that will be difficult given her age, renal failure and significant comorbidities. After lengthy discussion with the family at bedside they have elected to terminally extubate the patient with expectation that she will not recover. We have transitioned her to comfort measures only. The family does not have the capabilities or resources to transition her to home hospice however they will consider it if she persists in the current state without . Have assured the utmost and her comfort. We will maintain IV Keppra so that seizures do not occur. 08.27.2019: Patient's neurological status has improved with the treatment for seizures. Given her dialysis, renal failure and age I have reduced her Keppra to 250 twice a day. Ongoing hypothesis is that the patient has a seizure focus from previous strokes and may have had the onset of PRES induced seizures. Usual standard of care is to have blood pressure of 140 mmHg systolic however given the patient's prolonged history of hypertension we have been reticent and reluctant to decrease it by this much in concern for stroke. Will follow as we provide conservative management. Awaiting results of EEG From a respiratory standpoint she is currently on pressure support CPAP and from this standpoint alone is able to be liberated from the ventilator. Hope her neurological status with a Renetta Coma Scale of about 8 is somewhat disconcerting knowing that she is not to be reintubated. From infectious disease standpoint patient has Aerococcus in her urine. Although she only has 5 white blood cells there is a significant leukocyte esterase component. This may represent infection and given her neurological decline may be the only representation of a urinary tract infection. I have elected to treat this with Rocephin to assure that we are treating what ultimately could be an occult urinary tract infection contributing to her neurological decline. From a cardiac standpoint her blood pressure and heart rate have been up. She has responded to fluid from that standpoint and I will begin and continue Lopressor therapy. Judicious monitoring of her blood pressure to find the appropriate systolic pressure to support longstanding hypertension will need to be maintained. Given her tachycardia have started labetalol. He had been on Catapres but this is been discontinued secondary to the concern for neuro status changes. From a metabolic standpoint patient has started enteral nutrition. She had a significant metabolic alkalosis from combination of dehydration and dialysis therapy. With the introduction of sodium chloride this has improved and will continue low-dose therapy. Await EEG reports Lengthy discussion with the patient's family 5..2020 feel that the patient would not want persistent and continued life support. Critical Time Critical Time (minutes): 72 Level of Care: ICU Anticipated discharge: Hospice, Other - possible Within: within 24 hours, when bed available -: 1. The care of a critical patient is a dynamic process. This note is a lead generation representative synopsis but static in nature. The timeframe for treatments given in order is not necessarily the actual time these treatments may have been done. 2. This patient requires critical care secondary to ongoing requirements for therapy not offered or safe outside the critical care environment. Transfer to a lower level of care will result in altered life or limb morbidity and mortality. 3. Multidisciplinary rounds completed. 4. ABCDE bundle addressed.
[2019-08-28] MEDS: MORPHINE SULFATE 10 MG/ML INJ IV PRN (20:32)
[2019-08-28] MEDS: NORMAL SALINE IV SCH (21:39)
[2019-08-28] MEDS: LEVETIRACETAM IV SCH (21:39)
[2019-08-29] MEDS ORDERED: SCOPOLAMINE HYDROBROMIDE 1.5 MG PATCH.TD72 TD ONE (00:48)
[2019-08-29] MEDS: MORPHINE SULFATE 10 MG/ML INJ IV PRN (01:21)
[2019-08-29] MEDS: LEVETIRACETAM IV SCH ×2 (09:51→22:03)
[2019-08-29] MEDS: NORMAL SALINE IV SCH ×2 (09:51→22:03)
--- NOTE | 2019-08-29 10:22 | Progress Note ---
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 Oxygen saturations in were at 100% but are now in the 70s. She is required scopolamine. Have discussed her transfer with Dr. Morrison who has accepted her for further care. He is aware of comfort care measures only.
--- NOTE | 2019-08-29 13:37 | PDOC PROGRESS REPORT ---
Subjective Progress Note for:: 08/29/19 Subjective:: Patient was transferred to my service this morning on hospice status as per family decision. She was extubated and has been off hemodialysis for awhile. No recurrent seizure since her transfer to medical floor. Reason For Visit: METABOLIC ENCEPHALOPATY,UTI,HTN,ESRD ON HEMODIALYS Physical Exam Vital Signs: Temp Pulse Resp BP Pulse Ox 99.7 F 90 23 H 163/61 H 100 08/28/19 05:36 08/28/19 14:05 08/28/19 19:45 08/28/19 17:22 08/28/19 19:45 Intake & Output 08/28/19 08/29/19 08/30/19 06:59 06:59 06:59 Intake Total 250 212.5 102.5 Output Total 0 0 Balance 250 212.5 102.5 Weight 45.7 kg 45.7 kg Physical Exam: General appearance: PRESENT: Awake, no acute distress Respiratory exam: PRESENT: decreased breath sounds at lung bases. Cardiovascular exam: PRESENT: RRR, systolic murmur. ABSENT: diastolic murmur, rubs, Murmur grade: 3 GI/Abdominal exam: PRESENT: normal bowel sounds, soft. Extremities exam: ABSENT: pedal edema Neurological exam: PRESENT: Lethargic and not responsive to painful stimuli. Skin exam: PRESENT: dry, warm Murmur grade: 3 Results Laboratory Results: 08/28/19 03:45 08/28/19 03:45 08/26/19 08:20 Tracheal Aspirate Gram Stain - Final 08/26/19 08:20 Tracheal Aspirate Sputum Culture - Final NORMAL BRIANNA 08/16/19 08/26/19 12:21 17:03 Creatine Kinase 74 Troponin I < 0.012 Impressions: Head CT 08/26/19 00:00 IMPRESSION: Stable exam with no acute intracranial abnormality. Chest X-Ray 08/28/19 00:00 IMPRESSION: Unchanged radiographic appearance of the chest. Assessment & Plan - Diagnosis (1) Altered mental status Qualifiers: Altered mental status type: unspecified Qualified Code(s): R41.82 - Altered mental status, unspecified Is this a current diagnosis for this admission?: Yes (2) Urinary tract infection Qualifiers: Urinary tract infection type: acute cystitis Hematuria presence: without hematuria Qualified Code(s): N30.00 - Acute cystitis without hematuria Is this a current diagnosis for this admission?: Yes (3) ESRD (end stage renal disease) on dialysis Is this a current diagnosis for this admission?: Yes (4) Anemia in chronic kidney disease (CKD) Qualifiers: Chronic kidney disease stage: on chronic dialysis Qualified Code(s): N18.6 - End stage renal disease; D63.1 - Anemia in chronic kidney disease; Z99.2 - Dependence on renal dialysis Is this a current diagnosis for this admission?: Yes (5) Hypertension Qualifiers: Hypertension type: unspecified Qualified Code(s): I10 - Essential (primary) hypertension Is this a current diagnosis for this admission?: Yes (6) Hypokalemia Is this a current diagnosis for this admission?: Yes (7) Multinodular goiter (nontoxic) Is this a current diagnosis for this admission?: Yes (8) Pulmonary nodules/lesions, multiple Is this a current diagnosis for this admission?: Yes (9) Osteoarthritis involving multiple joints on both sides of body Is this a current diagnosis for this admission?: Yes (10) Tonic-clonic generalized seizure Is this a current diagnosis for this admission?: Yes Plan: Continue comfort care on hospice status. - Time Time Spent with patient: 25-34 minutes Level of Care: MEDICAL Medications reviewed and adjusted accordingly: Yes Anticipated discharge: Hospice Within: Other - Inpatient Certification Based on my medical assessment, after consideration of the patient's comorbidities, presenting symptoms, or acuity I expect that the services needed warrant INPATIENT care.: Yes I certify that my determination is in accordance with my understanding of Medicare's requirements for reasonable and necessary INPATIENT services [42 CFR 412.3e].: Yes Medical Necessity: Significant Comorbidiites Make Outpatient Treatment Too Risky, Risk of Complication if Not Cared For in Hospital, Risk of Diagnosis Which Will Require Inpatient Eval/Care/Monitoring Post Hospital Care: D/C [place] [facility] Documentation - Plan Summary Plan Summary: Continue current medication management. I will discuss with menu planner and family regarding consideration of hospice facility or SNF placement for comfort care.
[2019-08-30] MEDS: NORMAL SALINE IV SCH ×2 (09:42→22:24)
[2019-08-30] MEDS: LEVETIRACETAM IV SCH ×2 (09:42→22:24)
--- NOTE | 2019-08-30 15:51 | PDOC PROGRESS REPORT ---
Subjective Progress Note for:: 08/30/19 Subjective:: Patient remain moribund. Family yet to decide on disposition at this time. senior buyer planner input appreciated. Reason For Visit: METABOLIC ENCEPHALOPATY,UTI,HTN,ESRD ON HEMODIALYS Physical Exam Vital Signs: Temp Pulse Resp BP Pulse Ox 98.6 F 102 H 18 187/70 H 100 08/30/19 07:50 08/30/19 07:50 08/30/19 07:50 08/30/19 07:50 08/30/19 07:50 Intake & Output 08/29/19 08/30/19 08/31/19 06:59 06:59 06:59 Intake Total 212.5 205.0 102.5 Output Total 0 Balance 212.5 205.0 102.5 Weight 45.7 kg Physical Exam: General appearance: PRESENT: no acute distress Respiratory exam: PRESENT: decreased breath sounds at lung bases. Cardiovascular exam: PRESENT: RRR, systolic murmur. ABSENT: diastolic murmur, rubs, Murmur grade: 3 GI/Abdominal exam: PRESENT: normal bowel sounds, soft. Extremities exam: ABSENT: pedal edema Neurological exam: PRESENT: Lethargic and not responsive to painful stimuli. Skin exam: PRESENT: dry, warm Murmur grade: 3 Results Laboratory Results: 08/28/19 03:45 08/28/19 03:45 08/16/19 08/26/19 12:21 17:03 Creatine Kinase 74 Troponin I < 0.012 Impressions: Head CT 08/26/19 00:00 IMPRESSION: Stable exam with no acute intracranial abnormality. Chest X-Ray 08/28/19 00:00 IMPRESSION: Unchanged radiographic appearance of the chest. Assessment & Plan - Diagnosis (1) Altered mental status Qualifiers: Altered mental status type: unspecified Qualified Code(s): R41.82 - Altered mental status, unspecified Is this a current diagnosis for this admission?: Yes (2) Urinary tract infection Qualifiers: Urinary tract infection type: acute cystitis Hematuria presence: without hematuria Qualified Code(s): N30.00 - Acute cystitis without hematuria Is this a current diagnosis for this admission?: Yes (3) ESRD (end stage renal disease) on dialysis Is this a current diagnosis for this admission?: Yes (4) Anemia in chronic kidney disease (CKD) Qualifiers: Chronic kidney disease stage: on chronic dialysis Qualified Code(s): N18.6 - End stage renal disease; D63.1 - Anemia in chronic kidney disease; Z99.2 - Dependence on renal dialysis Is this a current diagnosis for this admission?: Yes (5) Hypertension Qualifiers: Hypertension type: unspecified Qualified Code(s): I10 - Essential (primary) hypertension Is this a current diagnosis for this admission?: Yes (6) Hypokalemia Is this a current diagnosis for this admission?: Yes (7) Multinodular goiter (nontoxic) Is this a current diagnosis for this admission?: Yes (8) Pulmonary nodules/lesions, multiple Is this a current diagnosis for this admission?: Yes (9) Osteoarthritis involving multiple joints on both sides of body Is this a current diagnosis for this admission?: Yes (10) Tonic-clonic generalized seizure Is this a current diagnosis for this admission?: Yes - Time Time Spent with patient: 25-34 minutes Level of Care: MEDICAL Medications reviewed and adjusted accordingly: Yes Anticipated discharge: Hospice Within: Other - Inpatient Certification Based on my medical assessment, after consideration of the patient's comorbidities, presenting symptoms, or acuity I expect that the services needed warrant INPATIENT care.: Yes I certify that my determination is in accordance with my understanding of Medicare's requirements for reasonable and necessary INPATIENT services [42 CFR 412.3e].: Yes Medical Necessity: Significant Comorbidiites Make Outpatient Treatment Too Risky, Need Close Monitoring Due to Risk of Patient Decompensation, Risk of Complication if Not Cared For in Hospital, Risk of Diagnosis Which Will Require Inpatient Eval/Care/Monitoring Post Hospital Care: D/C or Transfer Summary - Plan Summary Plan Summary: Continue current medication and supportive care. Follow up with family regarding hospice.
[2019-08-31] MEDS: NORMAL SALINE IV SCH ×2 (10:38→21:01)
[2019-08-31] MEDS: LEVETIRACETAM IV SCH ×2 (10:38→21:01)
[2019-08-31] MEDS: MORPHINE SULFATE 10 MG/ML INJ IV PRN (16:16)
--- NOTE | 2019-08-31 18:19 | PDOC PROGRESS REPORT ---
Subjective Progress Note for:: 08/31/19 Subjective:: Patient is moribund no new issues to address Reason For Visit: METABOLIC ENCEPHALOPATY,UTI,HTN,ESRD ON HEMODIALYS Physical Exam Vital Signs: Temp Pulse Resp BP Pulse Ox 98.3 F 105 H 18 190/62 H 99 08/31/19 07:33 08/31/19 07:33 08/31/19 07:33 08/31/19 07:33 08/31/19 07:33 Intake & Output 08/30/19 08/31/19 09/01/19 06:59 06:59 06:59 Intake Total 205.0 205.0 102.5 Output Total 0 Balance 205.0 205.0 102.5 Murmur grade: 3 Results Laboratory Results: 08/28/19 03:45 08/28/19 03:45 08/16/19 08/26/19 12:21 17:03 Creatine Kinase 74 Troponin I < 0.012 Impressions: Head CT 08/26/19 00:00 IMPRESSION: Stable exam with no acute intracranial abnormality. Chest X-Ray 08/28/19 00:00 IMPRESSION: Unchanged radiographic appearance of the chest. Assessment & Plan - Diagnosis (1) Metabolic encephalopathy Is this a current diagnosis for this admission?: Yes (2) ESRD (end stage renal disease) Is this a current diagnosis for this admission?: Yes - Time Time Spent with patient: Less than 15 minutes Level of Care: MEDICAL
[2019-09-01] MEDS: MORPHINE SULFATE 10 MG/ML INJ IV PRN (08:08)
[2019-09-01] MEDS: LEVETIRACETAM IV SCH ×2 (09:19→21:33)
[2019-09-01] MEDS: NORMAL SALINE IV SCH ×2 (09:19→21:33)
--- NOTE | 2019-09-01 19:33 | PDOC PROGRESS REPORT ---
Subjective Progress Note for:: 09/01/19 Subjective:: Patient is seen by the bedside condition about the same she is moribund Reason For Visit: METABOLIC ENCEPHALOPATY,UTI,HTN,ESRD ON HEMODIALYS Physical Exam Vital Signs: Temp Pulse Resp BP Pulse Ox 98.5 F 100 14 226/94 H 95 09/01/19 07:40 09/01/19 07:40 09/01/19 07:40 09/01/19 07:40 09/01/19 07:40 Intake & Output 08/31/19 09/01/19 09/02/19 06:59 06:59 06:59 Intake Total 205.0 205.0 102.5 Balance 205.0 205.0 102.5 Murmur grade: 3 Results Laboratory Results: 08/28/19 03:45 08/28/19 03:45 08/16/19 08/26/19 12:21 17:03 Creatine Kinase 74 Troponin I < 0.012 Impressions: Head CT 08/26/19 00:00 IMPRESSION: Stable exam with no acute intracranial abnormality. Chest X-Ray 08/28/19 00:00 IMPRESSION: Unchanged radiographic appearance of the chest. Assessment & Plan - Diagnosis (1) Metabolic encephalopathy Is this a current diagnosis for this admission?: Yes (2) ESRD (end stage renal disease) Is this a current diagnosis for this admission?: Yes - Time Time Spent with patient: 15-24 minutes Level of Care: IMCU
[2019-09-02] MEDS: NORMAL SALINE IV SCH ×2 (10:14→21:00)
[2019-09-02] MEDS: LEVETIRACETAM IV SCH ×2 (10:14→21:00)
[2019-09-02] MEDS: MORPHINE SULFATE 10 MG/ML INJ IV PRN (11:27)
--- NOTE | 2019-09-02 20:50 | PDOC PROGRESS REPORT ---
Subjective Progress Note for:: 09/02/19 Subjective:: Patient remain lethargic but mourn with painful stimuli this morning. Reason For Visit: METABOLIC ENCEPHALOPATY,UTI,HTN,ESRD ON HEMODIALYS Physical Exam Vital Signs: Temp Pulse Resp BP Pulse Ox 98.5 F 100 14 226/94 H 95 09/01/19 07:40 09/01/19 07:40 09/01/19 07:40 09/01/19 07:40 09/01/19 07:40 Intake & Output 09/01/19 09/02/19 09/03/19 06:59 06:59 06:59 Intake Total 205.0 205.0 Balance 205.0 205.0 Physical Exam: General appearance: PRESENT: no acute distress Respiratory exam: PRESENT: decreased breath sounds at lung bases. Cardiovascular exam: PRESENT: RRR, systolic murmur. ABSENT: diastolic murmur, rubs, Murmur grade: 3 GI/Abdominal exam: PRESENT: normal bowel sounds, soft. Extremities exam: ABSENT: pedal edema Neurological exam: PRESENT: Lethargic but responsive to painful stimuli. Skin exam: PRESENT: dry, warm Murmur grade: 3 Results Laboratory Results: 08/28/19 03:45 08/28/19 03:45 08/16/19 08/26/19 12:21 17:03 Creatine Kinase 74 Troponin I < 0.012 Impressions: Head CT 08/26/19 00:00 IMPRESSION: Stable exam with no acute intracranial abnormality. Chest X-Ray 08/28/19 00:00 IMPRESSION: Unchanged radiographic appearance of the chest. Assessment & Plan - Diagnosis (1) Altered mental status Qualifiers: Altered mental status type: unspecified Qualified Code(s): R41.82 - Altered mental status, unspecified Is this a current diagnosis for this admission?: Yes (2) Urinary tract infection Qualifiers: Urinary tract infection type: acute cystitis Hematuria presence: without hematuria Qualified Code(s): N30.00 - Acute cystitis without hematuria Is this a current diagnosis for this admission?: Yes (3) ESRD (end stage renal disease) on dialysis Is this a current diagnosis for this admission?: Yes (4) Anemia in chronic kidney disease (CKD) Qualifiers: Chronic kidney disease stage: on chronic dialysis Qualified Code(s): N18.6 - End stage renal disease; D63.1 - Anemia in chronic kidney disease; Z99.2 - Dependence on renal dialysis Is this a current diagnosis for this admission?: Yes (5) Hypertension Qualifiers: Hypertension type: unspecified Qualified Code(s): I10 - Essential (primary) hypertension Is this a current diagnosis for this admission?: Yes (6) Hypokalemia Is this a current diagnosis for this admission?: Yes (7) Multinodular goiter (nontoxic) Is this a current diagnosis for this admission?: Yes (8) Pulmonary nodules/lesions, multiple Is this a current diagnosis for this admission?: Yes (9) Osteoarthritis involving multiple joints on both sides of body Is this a current diagnosis for this admission?: Yes (10) Tonic-clonic generalized seizure Is this a current diagnosis for this admission?: Yes - Time Time Spent with patient: 25-34 minutes Level of Care: MEDICAL Medications reviewed and adjusted accordingly: Yes Anticipated discharge: Hospice Within: Other - Inpatient Certification Based on my medical assessment, after consideration of the patient's comorbidities, presenting symptoms, or acuity I expect that the services needed warrant INPATIENT care.: Yes I certify that my determination is in accordance with my understanding of Medicare's requirements for reasonable and necessary INPATIENT services [42 CFR 412.3e].: Yes Medical Necessity: Significant Comorbidiites Make Outpatient Treatment Too Risky, Need Close Monitoring Due to Risk of Patient Decompensation, Risk of Complication if Not Cared For in Hospital, Risk of Diagnosis Which Will Require Inpatient Eval/Care/Monitoring Post Hospital Care: D/C or Transfer Summary - Plan Summary Plan Summary: Continue comfort care. Awaiting family decision regarding facility hospice placement.
[2019-09-03] MEDS: MORPHINE SULFATE 10 MG/ML INJ IV PRN (01:25)
[2019-09-03] MEDS: NORMAL SALINE IV SCH (11:02)
[2019-09-03] MEDS: LEVETIRACETAM IV SCH (11:02)
--- NOTE | 2019-09-03 18:03 | PDOC TRANSFER SUMMARY ---
General Admission Date/PCP: 08/16/19 14:13 EFREN ROMAN Resuscitation Status: Do Not Resuscitate - Do not intubate - Transfer Diagnosis (1) Altered mental status Is this a current diagnosis for this admission?: Yes (2) Urinary tract infection Is this a current diagnosis for this admission?: Yes (3) ESRD (end stage renal disease) on dialysis Is this a current diagnosis for this admission?: Yes (4) Anemia in chronic kidney disease (CKD) Is this a current diagnosis for this admission?: Yes (5) Hypertension Is this a current diagnosis for this admission?: Yes (6) Hypokalemia Is this a current diagnosis for this admission?: Yes (7) Multinodular goiter (nontoxic) Is this a current diagnosis for this admission?: Yes (8) Pulmonary nodules/lesions, multiple Is this a current diagnosis for this admission?: Yes (9) Osteoarthritis involving multiple joints on both sides of body Is this a current diagnosis for this admission?: Yes (10) Tonic-clonic generalized seizure Is this a current diagnosis for this admission?: Yes - Transfer Medications Home Medications: Patiromer Calcium Sorbitex [Veltassa 8.4 gm Susp Packet] 1 each PO DAILY 07/15/19 Risperidone [Risperdal M-Tab 0.5 mg Odt Tablet] 0.5 mg PO QPM 07/15/19 Sucroferric Oxyhydroxide [Velphoro] 500 mg PO AC 07/15/19 Clonidine [Catapres-Tts 3 (0.3 mg/24 Hr) Transderm Patch] 1 each TD HALL@1000 08/16/19 Transfer Medications: Current Medications Levetiracetam 250 mg/ Sodium (Chloride) 102.5 mls @ 400 mls/hr IV Q12 CHARITO Stop: 09/27/19 21:59 Last Infusion: 09/03/19 11:18 Dose: Infused Documented by: Lorazepam (Ativan Inj 2 Mg/1 Ml Vial) 2 mg IV Q2HP PRN PRN Reason: SEIZURES Stop: 09/04/19 10:34 Last Admin: 08/28/19 14:16 Dose: 2 mg Documented by: Morphine Sulfate (Morphine 10 Mg/Ml Inj) 2 mg IV Q4HP PRN PRN Reason: FOR BREAKTHROUGH PAIN Stop: 09/04/19 14:25 Last Admin: 09/03/19 01:25 Dose: 2 mg Documented by: Sodium Chloride (Nacl 0.9% Inj/Pf 10 Ml Sdv) 10 ml IV .AFTER EACH USE PRN PRN Reason: AFTER EACH INTERMITTENT USE Stop: 09/25/19 14:55 Sodium Chloride (Saline Flush 2.5 Ml Monoject Prefil Syrin) 2.5 ml IV Q8 CHARITO Stop: 09/25/19 21:59 Last Admin: 09/03/19 14:09 Dose: Not Given Documented by: - Allergies Allergies/Adverse Reactions: No Known Allergies Allergy (Verified 08/29/19 07:39) Hospital Course Hospital Course: Patient was admitted for change in mental status with concern about Urinary tract infection and hypercalcemia. She was managed appropriately with antibiotic coverage and hemodialysis. Despite adequate medical care her condition declined with minimal benefit from hemodialysis. Patient had episode of reported tonic- clonic seizure that resulted in her transfer to ICU. She was intubated and remain ventilator supported for couple of days. Her family eventually agreed to make her comfort care only. She was subsequently extubated and transferred back to medical floor. She will be transferred to [facility] facility today. Physical Exam Vital Signs: Temp Pulse Resp BP Pulse Ox 98.5 F 100 14 226/94 H 95 09/01/19 07:40 09/01/19 07:40 09/01/19 07:40 09/01/19 07:40 09/01/19 07:40 Intake & Output 09/02/19 09/03/19 09/04/19 06:59 06:59 06:59 Intake Total 205.0 205.0 102.5 Output Total 0 Balance 205.0 205.0 102.5 General appearance: PRESENT: no acute distress Respiratory exam: PRESENT: decreased breath sounds at lung bases. Cardiovascular exam: PRESENT: RRR, systolic murmur. ABSENT: diastolic murmur, rubs, Murmur grade: 3 GI/Abdominal exam: PRESENT: normal bowel sounds, soft. Extremities exam: ABSENT: pedal edema Neurological exam: PRESENT: Lethargic but responsive to painful stimuli. Skin exam: PRESENT: dry, warm Results Laboratory Results: 08/28/19 03:45 08/28/19 03:45 08/16/19 08/26/19 12:21 17:03 Creatine Kinase 74 Troponin I < 0.012 Impressions: Head CT 08/26/19 00:00 IMPRESSION: Stable exam with no acute intracranial abnormality. Chest X-Ray 08/28/19 00:00 IMPRESSION: Unchanged radiographic appearance of the chest. Plan Discharge Plan: Transfer to [facility] for further hospice / palliative comfort care
[2019-09-03 20:19] VITALS: BP 154/71
== END 2019-09-03 20:05 | disposition hospice, inpatient (51) | DRG 689 ==
LOC: ER 10:58 → EH 14:13 → 3W 18:44 → ICU 08-26 06:20 → 4S 08-29 11:04
PROVIDERS: ADMIT Internal Medicine Critical Care Medicine; ATTEND Internal Medicine Geriatric Medicine
PROC: 5A1D70Z Performance of Urinary Filtration, Intermittent, Less than 6 Hours Per Day (ICD-10-PCS; 2019-08-19)
PROC: 5A1D70Z Performance of Urinary Filtration, Intermittent, Less than 6 Hours Per Day (ICD-10-PCS; 2019-08-23)
PROC: 0BH18EZ Insertion of Endotracheal Airway into Trachea, Via Natural or Artificial Opening Endoscopic (ICD-10-PCS; principal; 2019-08-26)
PROC: 5A1945Z Respiratory Ventilation, 24-96 Consecutive Hours (ICD-10-PCS; 2019-08-26)
PROC: 05HF33Z Insertion of Infusion Device into Left Cephalic Vein, Percutaneous Approach (ICD-10-PCS; 2019-08-26)
PROC: 5A1D70Z Performance of Urinary Filtration, Intermittent, Less than 6 Hours Per Day (ICD-10-PCS; 2019-08-26)
DX: N30.00 Acute cystitis without hematuria (principal); N18.6 End stage renal disease; J96.01 Acute respiratory failure with hypoxia; R40.2344 Coma scale, best motor response, flexion withdrawal, 24 hours or more after hospital admission; J96.02 Acute respiratory failure with hypercapnia; G93.41 Metabolic encephalopathy; I12.0 Hypertensive chronic kidney disease with stage 5 chronic kidney disease or end stage renal disease; I16.1 Hypertensive emergency; E44.0 Moderate protein-calorie malnutrition; Z68.1 Body mass index [BMI] 19.9 or less, adult; R56.9 Unspecified convulsions; E87.6 Hypokalemia; M19.90 Unspecified osteoarthritis, unspecified site; D63.1 Anemia in chronic kidney disease; E04.2 Nontoxic multinodular goiter; B95.4 Other streptococcus as the cause of diseases classified elsewhere; R91.8 Other nonspecific abnormal finding of lung field; M89.49 Other hypertrophic osteoarthropathy, multiple sites; Z99.2 Dependence on renal dialysis; Z90.710 Acquired absence of both cervix and uterus; Z86.73 Personal history of transient ischemic attack (TIA), and cerebral infarction without residual deficits; G89.4 Chronic pain syndrome; R62.7 Adult failure to thrive; Z66 Do not resuscitate; Z51.5 Encounter for palliative care; Z78.1 Physical restraint status
CPT/HCPCS: 36415; 36556; 70450; 71045; 80048; 80053; 81001; 82140; 82550; 82803; 82962; 83605; 83735; 84100; 84484; 85025; 85027; 87040; 87070; 87086; 87088; 87205; 93005; 93010; 94002; 94003; 95819; 99285; 99291; 99292; J0360; J0696; J1644; J1953; J2060; J2270; J3010; J3490; J7030; J7050